=== PATIENT | female | born 1965 | race Caucasian/White ===

== ENCOUNTER → 2020-09-12 09:49 | Outpatient (BNVA) | payer OTHER, SELFPAY | PROVIDERS: PCP Family Medicine; Referring Provider Family Medicine; Visit Provider Internal Medicine | DX: E03.9 Hypothyroidism, unspecified (principal); E55.9 Vitamin D deficiency, unspecified; E04.9 Nontoxic goiter, unspecified; Z88.5 Allergy status to narcotic agent; Z88.2 Allergy status to sulfonamides; Z88.8 Allergy status to other drugs, medicaments and biological substances; Z79.899 Other long term (current) drug therapy | CPT/HCPCS: 99202 ==

== ENCOUNTER 2020-10-22 07:48 | Outpatient (REF) | payer OTHER, SELFPAY ==
--- NOTE | 2020-10-22 07:53 | US_ITS ---
EXAMINATION: US THYROID CLINICAL INFORMATION: Nontoxic goiter, unspecified. COMPARISON: None. TECHNIQUE: Linear transducer myers-scale and color Doppler examination with attention to the region of the thyroid. FINDINGS: SIZE: Measurements of the thyroid lobes and nodules are given in sagittal, anteroposterior and transverse dimensions respectively. Right Thyroid Lobe: 3.43 x 1.52 x 0.90 cm, volume 2.45 mL. Parenchyma: The gland echotexture is heterogeneous. Thyroid vascularity is normal. Left Thyroid Lobe: 2.72 x 0.91 x 0.93 cm, volume 1.2 mL. Parenchyma: The gland echotexture is heterogeneous. Thyroid vascularity is normal. Isthmus: 0.29 cm in maximum AP dimension. RIGHT THYROID LOBE: No nodules. ISTHMUS: No nodules. LEFT THYROID LOBE: No nodules. NODES: No lymphadenopathy is seen in the tissue surrounding the thyroid gland. US/US thyroid IMPRESSION: Small bilateral thyroid lobes. No nodules seen.
[2020-10-22 11:04] LABS: Free T4 (Free Thyroxine) 1.38 ng/dL (0.71-1.85); Thyroid Stimulating Hormone 1.26 uIU/mL (0.32-4.0); Vitamin D 25-OH Total 29.1 ng/mL (>30)
[2020-10-23 08:57] LABS: Triiodothyronine T3 Total 66 ng/dL (76-181)
[2020-10-23 11:17] LABS: Thyroglobulin Antibodies 1 IU/mL (< or = 1)
[2020-10-23 17:33] LABS: Thyroid Peroxidase Antibodies 874 IU/mL (<9)
[2020-10-27 23:57] LABS: FT4 by Equilib. Dialysis 2.2 ng/dL (0.9-2.2)
== END 2020-10-22 07:49 | disposition home or self-care (01) ==
LOC: HO.US 07:48
PROVIDERS: PCP Family Medicine; Visit Provider Internal Medicine
DX: E55.9 Vitamin D deficiency, unspecified (principal); E03.9 Hypothyroidism, unspecified; E04.9 Nontoxic goiter, unspecified
CPT/HCPCS: 36415; 76536; 82306; 84439; 84443; 84480; 86376; 86800

== ENCOUNTER → 2020-10-24 11:02 | Outpatient (BNVA) | payer OTHER, SELFPAY | PROVIDERS: PCP Family Medicine; Referring Provider Family Medicine; Visit Provider Internal Medicine | DX: Z76.89 Persons encountering health services in other specified circumstances (principal) ==

== ENCOUNTER 2021-01-09 09:59 | Inpatient (IN) | payer OTHER, SELFPAY ==
--- NOTE | 2021-01-09 | ECG_ITS ---
Test Reason : CHEST PAIN Blood Pressure : / mmHG Vent. Rate : 084 BPM Atrial Rate : 084 BPM P-R Int : 148 ms QRS Dur : 088 ms QT Int : 388 ms P-R-T Axes : 067 041 075 degrees QTc Int : 458 ms Normal sinus rhythm Possible Left atrial enlargement Borderline ECG When compared with ECG of 01-OCT-2019 15:00, Vent. rate has increased BY 31 BPM Non-specific change in ST segment in Anterior leads T wave inversion no longer evident in Lateral leads Referred By: Elvia Olguin Electronically Signed By:JOSE LARSON
--- NOTE | ~2021-01-09 | XR_ITS ---
EXAMINATION: XR CHEST CLINICAL INFORMATION: Dyspnea COMPARISON: None TECHNIQUE: Frontal view of the chest was obtained. FINDINGS: The lungs are well-expanded and clear. The heart size and pulmonary vascularity is normal. There is moderate spondylosis of dorsal spine. No lytic process seen. XR/XR chest 1V IMPRESSION: Unremarkable chest exam.
[2021-01-09 10:05] VITALS: BP 140/82; BP 160/92; PULSE 87; PULSE 92; RESP 13; TEMP 36.8; O2SAT 94; O2SAT 96; BMI 25.3
--- NOTE | 2021-01-09 10:19 | PC.NURSE ---
pt is a/o x 3 nos ob/tiffanie noted skin pink warm dry speaks in full sentences. pt appears slightly anxious. no swelling to lower ext noted. hx of psorasis to merle lower ext. seen by dr. newby pt aware of plan of care.
[2021-01-09] MEDS: clonazePAM 1 MG TABLET PO ×2 (10:30→22:29)
--- NOTE | 2021-01-09 10:30 | ED_ITS ---
HPI - Chest Pain General Chief Complaint: Chest Pain Stated Complaint: CHEST PAIN Time Seen by Provider: 01/09/21 10:19 Source: patient and EMS Mode of arrival: EMS Limitations: no limitations History of Present Illness HPI narrative: under significant stress now due to housing issues complaint: chest pain Pertinent past history: other (stress induced cardiomyopathy 6 years ago notes her cardiac cath was normal ) Onset (ago): hour(s) (started around 9am) Timing of current episode: now resolved Prior episodes: Yes Onset: during rest Pain location: left chest Pain radiation: left arm Severity: moderate Quality: sharp Relieving factors: nothing Exacerbating factors: nothing Associated symptoms: nausea Treatment prior to arrival: aspirin Related Data Home Medications Medication Instructions Recorded Confirmed buprenorphine 12 mg-naloxone 3 mg 1 film SUBLINGUAL DAILY 08/24/20 01/09/21 sublingual film clonazepam 1 mg tablet 1 mg PO TID 08/24/20 01/09/21 zolpidem 5 mg tablet 5 mg PO BEDTIME 10/24/20 01/09/21 lurasidone 60 mg tablet 60 mg PO DAILY 12/24/20 01/09/21 Previous Rx's Medication Instructions Recorded sertraline 100 mg tablet 100 mg PO DAILY 30 Days #30 tab 09/10/20 levothyroxine 150 mcg tablet 150 mcg PO DAILY 30 Days #30 tab 11/05/20 hzfmmcrtdc-vgpavisdhgruf-qygwpvbi 1 cap PO Q6H PRN #10 cap 11/15/20 50 mg-300 mg-40 mg capsule clonidine HCl 0.1 mg tablet 0.2 mg PO BID 30 Days #120 tab 11/15/20 pantoprazole 40 mg tablet,delayed 40 mg PO DAILY 30 Days #30 tab 11/15/20 release Allergies Allergy/AdvReac Type Severity Reaction Status Date / Time aspirin Allergy Intermediate stomach Verified 11/15/20 09:43 upset codeine [CODEINE] Allergy Intermediate itching Verified 11/15/20 09:43 NSAIDS (Non-Steroidal Allergy Mild stomach Verified 11/15/20 09:43 Anti-Inflamma upset [NSAIDS (NON-STEROIDAL ANTI-INFLAMMA] Sulfa (Sulfonamide Allergy Mild Rash Verified 11/15/20 09:43 Antibiotics) [SULFA(SULFONAMIDE ANTIBIOTICS)] Review of Systems Review of Systems: Constitutional : No Weight loss, No Fever, No Chills ENT/Mouth : No sore throat, No Rhinorrhea Eyes: No Eye Pain, No Swelling Cardiovascular : pos Chest Pain, no SOB, no Dyspnea on Exertion, No Orthopnea, No Edema, No Palpitations Respiratory : No Cough, No Sputum Gastrointestinal : pos Nausea, No Vomiting, No Diarrhea, No abdominal Pain, No Hematochezia, No Melena Genitourinary : No Dysuria, No Urinary Frequency Musculoskeletal : No joint pain, No Myalgias, No Joint Swelling Skin : No Skin Lesions, No rash Neuro : No Weakness, No Numbness, No Dizziness, No Headache Psych : No Anxiety/Panic, No Depression Heme/Lymph: No Bruising, No Lymphadenopathy Endocrine : No Polyuria, No Polydipsia All other systems reviewed and are negative [facility] Past Medical History Attestation statement: The following information was validated with the patient. Medical History (Updated 01/09/21 @ 15:21 by Elvia Olguin DO) Hypothyroidism Obesity Takotsubo cardiomyopathy Vitamin D deficiency Surgical History History of elbow surgery History of hysterectomy History of removal of cervix but not uterus History of shoulder surgery Family History Family History Sister Hypothyroidism Social History Social History Alcohol intake: never Smoking Status: Light tobacco smoker Tobacco Type: Cigarette Years Smoked: 20 Use of substances other than those prescribed or required for medical reasons: No Advance Directives: No Advance Directives Information Provided: No Physical Exam Vital Signs: Vital Signs: Last Vital Signs Temp 98.5 F 01/09/21 12:36 Pulse 87 01/09/21 13:39 Resp 16 01/09/21 13:39 BP 122/87 01/09/21 13:39 Pulse Ox 98 01/09/21 13:39 Body Mass Index 25.3 Appearance: Alert. Oriented X3. No acute distress. Anxious Eyes: Pupils equal, round and reactive to light. ENT: Pharynx normal. Neck: Normal inspection. Neck supple. CVS: Normal heart rate and rhythm. Pulses normal. Respiratory: No respiratory distress. Breath sounds normal. Abdomen: Soft and nontender. Skin: Skin warm and dry. Normal skin color. Normal skin turgor. Extremities: No lower extremity edema. No calf ttp Neuro: Oriented X 3. No motor deficit. No sensory deficit. Course Course Course Narrative: has been pain free troponin repeat elevated , statin and heparin gtt ordered, will discuss with Cardiology has been pain free since arrival in ED 301pm patient denies chest pain just states she is anxious and hungry per dr. garcia heparin gtt and ECHO will admit sent troponin and 2 EKGs from visit today MDM - Chest Pain MDM Narrative Medical decision making narrative: 55 yo female hx of HTN, hypothyroidism, chronic R hip pain, hx of Takotsubo cardiomyopathy - here with chest pain onset at rest 9am sharp in nature, nauseated, given asa by EMS - pain gone now will need labs, CXR, ddimer, troponin x 2, dispo per results and findings. Lab Data Result diagrams: 01/09/21 10:54 01/09/21 10:54 Labs: Lab Results 01/09/21 01/09/21 01/09/21 Range/Units 10:53 10:53 10:54 WBC 9.1 (4.8-10.8) X10*3/uL RBC 4.41 (4.20-5.50) X10*6/uL Hgb 13.6 (12.0-16.0) g/dl Hct 40.8 (37-47) % MCV 92.5 (80-98) fL MCH 30.8 (27.0-33.0) pg MCHC 33.3 (31.0-35.0) g/dl RDW 13.5 (11.0-16.0) % Plt Count 350 (160-400) X10*3/uL MPV 9.4 (9.4-12.3) fL Immature Gran % (Auto) 0.3 (0.0-0.4) % Neut % (Auto) 72.4 (45-73) % Lymph % (Auto) 17.3 L (20-40) % [place] % (Auto) 6.0 (2-11) % Eos % (Auto) 2.9 (0-4) % Baso % (Auto) 1.1 (0-2) % Lymph # (Auto) 1.6 (1.2-4.9) X10*3/uL [place] # (Auto) 0.5 (0.1-1.2) X10*3/uL Eos # (Auto) 0.3 (0.0-0.4) X10*3/uL Baso # (Auto) 0.1 (0.0-0.2) X10*3/uL Abs Immat Gran (auto) 0.03 (0.00-0.03) X10*3/uL Absolute Neuts (auto) 6.6 (2.0-8.3) X10*3/uL Absolute Nucleated RBC 0.000 (0.0-0.012) X10*3/uL Nucleated RBC % (auto) 0.0 (0.0-0.2) /100WBC PT (10.8-13.0) SEC INR (0.9-1.1) APTT (24.1-38.0) SEC D-Dimer NG/ML Sodium (135-145) mmol/L Potassium (3.3-5.1) mmol/L Chloride (96-108) mmol/L Carbon Dioxide (22-29) mmol/L Anion Gap (12-20) BUN (9-16) mg/dL Creatinine (0.5-1.4) mg/dL Estim Creat Clear Calc Estimated GFR Random Glucose (60-115) mg/dL Calcium (8.4-10.2) mg/dL Magnesium (1.6-2.6) mg/dL Troponin I High Sens 13.1 (<3.5-17.0) ng/L B-Natriuretic Peptide (<100) pg/mL Lipase (8-78) U/L COVID-19 ([facility]) Negative (Negative) COVID-19 Clin Com See Note 01/09/21 01/09/21 01/09/21 Range/Units 10:54 10:54 10:54 WBC (4.8-10.8) X10*3/uL RBC (4.20-5.50) X10*6/uL Hgb (12.0-16.0) g/dl Hct (37-47) % MCV (80-98) fL MCH (27.0-33.0) pg MCHC (31.0-35.0) g/dl RDW (11.0-16.0) % Plt Count (160-400) X10*3/uL MPV (9.4-12.3) fL Immature Gran % (Auto) (0.0-0.4) % Neut % (Auto) (45-73) % Lymph % (Auto) (20-40) % [place] % (Auto) (2-11) % Eos % (Auto) (0-4) % Baso % (Auto) (0-2) % Lymph # (Auto) (1.2-4.9) X10*3/uL [place] # (Auto) (0.1-1.2) X10*3/uL Eos # (Auto) (0.0-0.4) X10*3/uL Baso # (Auto) (0.0-0.2) X10*3/uL Abs Immat Gran (auto) (0.00-0.03) X10*3/uL Absolute Neuts (auto) (2.0-8.3) X10*3/uL Absolute Nucleated RBC (0.0-0.012) X10*3/uL Nucleated RBC % (auto) (0.0-0.2) /100WBC PT (10.8-13.0) SEC INR (0.9-1.1) APTT (24.1-38.0) SEC D-Dimer NG/ML Sodium 138 (135-145) mmol/L Potassium 4.6 (3.3-5.1) mmol/L Chloride 102 (96-108) mmol/L Carbon Dioxide 25 (22-29) mmol/L Anion Gap 16 (12-20) BUN 14 (9-16) mg/dL Creatinine 0.99 (0.5-1.4) mg/dL Estim Creat Clear Calc 58.1 Estimated GFR 58 Random Glucose 93 (60-115) mg/dL Calcium 8.8 (8.4-10.2) mg/dL Magnesium 2.0 (1.6-2.6) mg/dL Troponin I High Sens (<3.5-17.0) ng/L B-Natriuretic Peptide 318 H (<100) pg/mL Lipase 21 (8-78) U/L COVID-19 ([facility]) (Negative) COVID-19 Clin Com 01/09/21 01/09/21 Range/Units 11:25 13:52 WBC (4.8-10.8) X10*3/uL RBC (4.20-5.50) X10*6/uL Hgb (12.0-16.0) g/dl Hct (37-47) % MCV (80-98) fL MCH (27.0-33.0) pg MCHC (31.0-35.0) g/dl RDW (11.0-16.0) % Plt Count (160-400) X10*3/uL MPV (9.4-12.3) fL Immature Gran % (Auto) (0.0-0.4) % Neut % (Auto) (45-73) % Lymph % (Auto) (20-40) % [place] % (Auto) (2-11) % Eos % (Auto) (0-4) % Baso % (Auto) (0-2) % Lymph # (Auto) (1.2-4.9) X10*3/uL [place] # (Auto) (0.1-1.2) X10*3/uL Eos # (Auto) (0.0-0.4) X10*3/uL Baso # (Auto) (0.0-0.2) X10*3/uL Abs Immat Gran (auto) (0.00-0.03) X10*3/uL Absolute Neuts (auto) (2.0-8.3) X10*3/uL Absolute Nucleated RBC (0.0-0.012) X10*3/uL Nucleated RBC % (auto) (0.0-0.2) /100WBC PT 11.4 (10.8-13.0) SEC INR 1.0 (0.9-1.1) APTT 39.4 H (24.1-38.0) SEC D-Dimer < 200 NG/ML Sodium (135-145) mmol/L Potassium (3.3-5.1) mmol/L Chloride (96-108) mmol/L Carbon Dioxide (22-29) mmol/L Anion Gap (12-20) BUN (9-16) mg/dL Creatinine (0.5-1.4) mg/dL Estim Creat Clear Calc Estimated GFR Random Glucose (60-115) mg/dL Calcium (8.4-10.2) mg/dL Magnesium (1.6-2.6) mg/dL Troponin I High Sens 111.6 H D (<3.5-17.0) ng/L B-Natriuretic Peptide (<100) pg/mL Lipase (8-78) U/L COVID-19 ([facility]) (Negative) COVID-19 Clin Com ECG Data ECG #1: Attestation: I personally reviewed and interpreted this ECG as follows: ECG interpretation date: 01/09/21 ECG interpretation time: 10:31 Interpretation: Rate: 84 Rhythm: NSR [place]: normal Normal P waves. Normal HUONG. Normal QRS complex. ST T wave : nonspecific, no JYOTI, artifact qTC: normal prior studies: no acute ischemia The study has been interpreted contemporaneously by me. . ECG #2: Attestation: I personally reviewed and interpreted this ECG as follows: ECG interpretation date: 01/09/21 ECG interpretation time: 15:09 Interpretation: Rate: 92 Rhythm: NSR [place]: normal Normal P waves. Normal HUONG. Normal QRS complex. ST T wave : iverted V2-V6 as well as 1 an aVL, II, no JYOTI qTC: normal prior studies: changed from prior The study has been interpreted contemporaneously by me. . Discharge Plan Discharge Clinical Impression: Elevated troponin, Inverted T wave Chest pain Qualifiers: Chest pain type: unspecified Qualified Code(s): R07.9 - Chest pain, unspecified Patient Disposition: Admitted As Inpatient
[2021-01-09 11:02] LABS: MANUAL DIFF FLAG NO
[2021-01-09 11:03] LABS: Basophils Absolute Auto 0.1 X10*3/uL (0.0-0.2); Basophils Percent Auto 1.1 % (0-2); Eosinophils Absolute Auto 0.3 X10*3/uL (0.0-0.4); Eosinophils Percent Auto 2.9 % (0-4); Hematocrit 40.8 % (37-47); Hemoglobin 13.6 g/dl (12.0-16.0); Imm Gran Abs Auto 0.03 X10*3/uL (0.00-0.03); Imm Gran Pct Auto 0.3 % (0.0-0.4); Lymphocytes Absolute Auto 1.6 X10*3/uL (1.2-4.9); Lymphocytes Percent Auto 17.3 % (20-40); Mean Corpuscular HGB Conc 33.3 g/dl (31.0-35.0); Mean Corpuscular Hemoglobin 30.8 pg (27.0-33.0); Mean Corpuscular Volume 92.5 fL (80-98); Mean Platelet Volume 9.4 fL (9.4-12.3); Monocytes Absolute Auto 0.5 X10*3/uL (0.1-1.2); Neutrophils Absolute Auto 6.6 X10*3/uL (2.0-8.3); Neutrophils Percent Auto 72.4 % (45-73); Platelet Count 350 X10*3/uL (160-400); Red Blood Count 4.41 X10*6/uL (4.20-5.50); Red Cell Distribution Width 13.5 % (11.0-16.0); White Blood Count 9.1 X10*3/uL (4.8-10.8)
[2021-01-09 11:27] LABS: COVID-19 Test Negative (Negative); IDNOW Serial# 9DD0AD1C
[2021-01-09 11:34] LABS: Anion Gap 16 (12-20); Blood Urea Nitrogen 14 mg/dL (9-16); Calcium 8.8 mg/dL (8.4-10.2); Carbon Dioxide 25 mmol/L (22-29); Chloride 102 mmol/L (96-108); Creatinine Clr Calc Pharmacy 58.1; Estimated Glomerular Filt Rate 58; Glucose Random 93 mg/dL (60-115); Lipase 21 U/L (8-78); Potassium 4.6 mmol/L (3.3-5.1); Sodium 138 mmol/L (135-145)
[2021-01-09 11:37] LABS: Troponin-I High Sensitivity 13.1 ng/L (<3.5-17.0)
[2021-01-09 11:37] LABS: B Type Natriuretic Peptide 318 pg/mL (<100)
[2021-01-09 11:43] LABS: Prothrombin Time 11.4 SEC (10.8-13.0)
[2021-01-09 11:45] LABS: Partial Thromboplastin Time 39.4 SEC (24.1-38.0)
[2021-01-09 11:46] LABS: D Dimer < 200 NG/ML
--- NOTE | 2021-01-09 12:00 | ECG_ITS ---
Test Reason : chest pain, repeat Blood Pressure : / mmHG Vent. Rate : 092 BPM Atrial Rate : 092 BPM P-R Int : 142 ms QRS Dur : 084 ms QT Int : 388 ms P-R-T Axes : 058 010 130 degrees QTc Int : 479 ms Normal sinus rhythm Possible Left atrial enlargement T wave abnormality, consider inferior ischemia T wave abnormality, consider anterolateral ischemia Prolonged QT Abnormal ECG When compared with ECG of 09-JAN-2021 10:11, T wave inversion now evident in Inferior leads T wave inversion now evident in Anterolateral leads Referred By: Elvia Olguin Electronically Signed By:JOSE LARSON
[2021-01-09 12:36] VITALS: BP 135/86; PULSE 86; RESP 18; TEMP 36.9; O2SAT 95
[2021-01-09 13:39] VITALS: BP 122/87; PULSE 87; RESP 16; O2SAT 98
[2021-01-09 14:48] LABS: Troponin-I High Sensitivity 111.6 ng/L (<3.5-17.0)
[2021-01-09] MEDS: Heparin Sodium,Porcine 5,000 UNIT/ML VIAL 3900 UNIT IVPUSH (15:17)
[2021-01-09] MEDS: Atorvastatin Calcium 80 MG TABLET PO (15:17)
[2021-01-09] MEDS: Heparin Sodium,Porcine/1/2NS 25,000 UNIT/250 ML IV.SOLN 9.08 UNIT IVCONT (15:23)
[2021-01-09] MEDS: LORazepam 1 MG TABLET PO (15:46)
--- NOTE | 2021-01-09 16:50 | PM.EVENT ---
Event Note Date of Service: 01/09/21 Event Note: Patient seen and examined independently and was present during hammond portion of E/M service. Agree with midlevel's history, physical, assessment, and plan. 55F presented with chest pain, found to have elevated troponins NSTEMI iv heparin, cardio eval
[2021-01-09 19:11] VITALS: BP 147/89; PULSE 83; RESP 19; TEMP 37; O2SAT 97
--- NOTE | 2021-01-09 19:26 | HP_ITS ---
DATE OF SERVICE: 01/09/2021 CHIEF COMPLAINT: Chest pain. HISTORY OF PRESENT ILLNESS: A 55-year-old woman presenting to the ER with complaints of chest pain that started at 9:00 a.m. this morning. She reports she was sitting down, about to have her coffee when she started having 8/10 sharp pain that radiated from her right arm to the middle of her chest with associated nausea and sweating. She reports that this lasted until she got into the ambulance. She reports history in the past of this where she was diagnosed with Takotsubo. She had chest pain. Had a cardiac cath, which was clean and had not follow up with any Cardiology since then. She reports that she does continue to smoke about 2-5 cigarettes a day, does not drink alcohol or do drugs. She reports she has been under increased stress recently because she lives with her sister and her [id number] and has been having some issues with the family dynamics. She denied recent illness, fever, chills, vomiting, diarrhea. In the ER, initial troponin was noted to be 13.1, however, repeat troponin was 111.6 with BNP of 318. However, the patient did not appear to be in heart failure. Coronavirus PCR was negative. Chest x-ray was negative for any consolidation or effusion. EKG did show ST wave abnormalities with inverted T-waves. In the ER, she was given statin, Klonopin. She was started on IV heparin. She will be admitted for further management and treatment of NSTEMI. PAST MEDICAL HISTORY: 1. History of stress-induced cardiomyopathy with clean catheterization. 2. Anxiety. 3. Depression. 4. Hypothyroidism. 5. Chronic hip pain on Suboxone. 6. Hypertension. PAST SURGICAL HISTORY: Hysterectomy. SOCIAL HISTORY: Smokes 2-5 cigarettes a day. Denies alcohol or illicit drug use. FAMILY HISTORY: Denies any cardiac disease. ALLERGIES: ALLERGIES TO ASPIRIN, CODEINE, NSAIDS, AND SULFA. MEDICATIONS: 1. Buprenorphine 12 mg one film sublingually daily. 2. Fioricet 1 cap p.o. q.6 hours p.r.n. 3. Klonopin 1 mg p.o. t.i.d. 4. Clonidine 0.2 mg p.o. b.i.d. 5. Levothyroxine 150 mcg p.o. daily. 6. Latuda 60 mg p.o. daily. 7. Pantoprazole sodium 40 mg p.o. daily. 8. Sertraline 100 mg p.o. daily. 9. 5 mg p.o. at bedtime. LABORATORY DATA: WBC 9.1, hemoglobin 13.6, hematocrit 40.8, and platelets 350. Sodium is 138, potassium 4.6, chloride is 102, bicarb is 25, BUN is 14, creatinine 0.99. Troponin 13.1, 111.6, BNP 318. COVID-19 negative. Chest x-ray negative for consolidation or effusion. REVIEW OF SYSTEMS: CONSTITUTIONAL: Denies recent fever, chills, decrease in appetite. RESPIRATORY: Denies any shortness of breath, cough, or sputum production. CARDIOVASCULAR: See HPI. GASTROINTESTINAL: Denies any dysphagia, abdominal pain, vomiting, or diarrhea. GENITOURINARY: Denies any dysuria, frequency, hematuria. MUSCULOSKELETAL: Denies any joint pain or swelling. NEUROPSYCH: Denies any weakness, seizures. All other systems are reviewed and are negative. PHYSICAL EXAMINATION: CONSTITUTIONAL: Resting in bed. No acute distress. VITAL SIGNS: 98.5, 87, 16, 122/87, 98% on room air. SKIN: Intact without rash or open sores. HEENT: Head is normocephalic, atraumatic. Eyes, pupils are PERRLA. Sclerae anicteric. Mouth and Throat: Mucous membranes are intact and moist. NECK: Supple. No lymphadenopathy. No JVD noted. CHEST: Clear to auscultation without wheezes, rhonchi, or rales. HEART: Regular rate and rhythm. Clear S1, S2. No murmurs, rubs, or gallops. ABDOMEN: Positive bowel sounds. Soft, nontender. No hepatomegaly or splenomegaly noted. NEURO: Patient is alert and oriented x3. Cranial nerves II through XII are grossly intact without focal deficits. ASSESSMENT AND PLAN: A 55-year-old woman admitted with chest pain seeming to be related to non-ST segment elevation myocardial infarction. She has a history of stress-induced cardiomyopathy in the past with a clean cardiac catheterization. She was started on IV heparin while in the ER, received aspirin and statin. We will continue to treat, have her follow up with Cardiology and continue IV heparin at least 48 hours. We will also obtain an echocardiogram. Continue aspirin and statin as well. 1. Non-ST segment elevation myocardial infarction. We will monitor on telemetry. Repeat troponin this evening and trend for the morning. Continue IV heparin, EKG this evening as well. Cardiology to follow, echocardiogram. Aspirin and statin. 2. Hypertension. Continue clonidine. 3. Hypothyroidism. Continue levothyroxine. 4. Anxiety and depression. Continue home medications. 5. Chronic hip pain. Continue Suboxone. 6. Deep vein thrombosis prophylaxis with IV heparin. 7. PPI. 8. Full code. ANITA Jimenez MD JR/CHRISTYL / [id number]
[2021-01-09] MEDS: Atorvastatin Calcium 40 MG TABLET PO (22:29)
[2021-01-09] MEDS: Zolpidem Tartrate 5 MG TABLET PO (22:30)
[2021-01-09 23:18] LABS: PTT Heparin Drip > 200.0 SEC (53-77.9)
[2021-01-09 23:21] LABS: Troponin-I High Sensitivity 225.1 ng/L (<3.5-17.0)
[2021-01-09 23:27] VITALS: BP 119/77; PULSE 84; RESP 18; TEMP 36.9; O2SAT 98
[2021-01-10 00:30] LABS: PTT Heparin Drip 69.7 SEC (53-77.9)
[2021-01-10 04:00] VITALS: BP 167/94; PULSE 78; RESP 18; TEMP 36.8; O2SAT 93
[2021-01-10] MEDS: Omeprazole 20 MG CAPSULE.DR PO (06:33)
[2021-01-10 07:07] LABS: MANUAL DIFF FLAG NO
[2021-01-10 07:10] LABS: Basophils Absolute Auto 0.1 X10*3/uL (0.0-0.2); Basophils Percent Auto 1.3 % (0-2); Eosinophils Absolute Auto 0.3 X10*3/uL (0.0-0.4); Eosinophils Percent Auto 3.7 % (0-4); Hemoglobin 13.6 g/dl (12.0-16.0); Imm Gran Abs Auto 0.02 X10*3/uL (0.00-0.03); Imm Gran Pct Auto 0.2 % (0.0-0.4); Lymphocytes Absolute Auto 2.2 X10*3/uL (1.2-4.9); Lymphocytes Percent Auto 25.3 % (20-40); Mean Corpuscular Hemoglobin 31.1 pg (27.0-33.0); Mean Corpuscular Volume 91.5 fL (80-98); Mean Platelet Volume 9.5 fL (9.4-12.3); Monocytes Absolute Auto 0.6 X10*3/uL (0.1-1.2); Monocytes Percent Auto 7.1 % (2-11); Neutrophils Absolute Auto 5.4 X10*3/uL (2.0-8.3); Neutrophils Percent Auto 62.4 % (45-73); Platelet Count 340 X10*3/uL (160-400); Red Blood Count 4.37 X10*6/uL (4.20-5.50); Red Cell Distribution Width 13.5 % (11.0-16.0); White Blood Count 8.7 X10*3/uL (4.8-10.8)
[2021-01-10 07:21] LABS: PTT Heparin Drip 78.4 SEC (53-77.9)
[2021-01-10 07:24] VITALS: BP 151/101; PULSE 74; RESP 15; TEMP 36.9; O2SAT 98
[2021-01-10 07:52] LABS: Anion Gap 13 (12-20); Blood Urea Nitrogen 12 mg/dL (9-16); Calcium 8.8 mg/dL (8.4-10.2); Carbon Dioxide 27 mmol/L (22-29); Chloride 104 mmol/L (96-108); Creatinine Clr Calc Pharmacy 69.4; Estimated Glomerular Filt Rate > 60; Glucose Random 89 mg/dL (60-115); Potassium 4.6 mmol/L (3.3-5.1); Sodium 139 mmol/L (135-145)
[2021-01-10 08:19] LABS: Troponin-I High Sensitivity 102.3 ng/L (<3.5-17.0)
[2021-01-10] MEDS: cloNIDine HCL 0.1 MG TABLET 0.2 MG PO (08:29)
[2021-01-10] MEDS: Lurasidone HCl 20 MG TABLET 60 MG PO (08:29)
[2021-01-10] MEDS: Sertraline HCL 100 MG TABLET PO (08:29)
[2021-01-10] MEDS: Levothyroxine Sodium 150 MCG TABLET PO (08:30)
[2021-01-10] MEDS: Buprenorphine/Naloxone 12/3 mg FILM 1 FILM SUBLINGUAL (08:30)
[2021-01-10] MEDS: Aspirin 81 MG TAB.CHEW PO (08:30)
[2021-01-10] MEDS: clonazePAM 1 MG TABLET PO (08:30)
--- NOTE | 2021-01-10 09:26 | P.DS_ITS ---
DS: Providers Provider Date of Service: 01/10/21 Date of admission: 01/09/21 18:06 Primary care physician: Ney Cole MD Consults: 01/09/21 18:06 Consult to Cardiology Routine Consulting Provider: Shaka Lr Reason for consultation: nstemi Has provider been notified: No DS: Diagnosis Discharge Diagnosis (1) NSTEMI (non-ST elevated myocardial infarction): Status: Acute DS: Medications Discharge Medications Home Medications: Home Medications Medication Instructions Recorded Confirmed buprenorphine 12 mg-naloxone 3 mg 1 film SUBLINGUAL DAILY 08/24/20 01/09/21 sublingual film clonazepam 1 mg tablet 1 mg PO TID 08/24/20 01/09/21 zolpidem 5 mg tablet 5 mg PO BEDTIME 10/24/20 01/09/21 lurasidone 60 mg tablet 60 mg PO DAILY 12/24/20 01/09/21 Previous Rx's Medication Instructions Recorded sertraline 100 mg tablet 100 mg PO DAILY 30 Days #30 tab 09/10/20 levothyroxine 150 mcg tablet 150 mcg PO DAILY 30 Days #30 tab 11/05/20 ihizlfdqdz-xolliddtoinju-eugbwbgp 1 cap PO Q6H PRN #10 cap 11/15/20 50 mg-300 mg-40 mg capsule clonidine HCl 0.1 mg tablet 0.2 mg PO BID 30 Days #120 tab 11/15/20 pantoprazole 40 mg tablet,delayed 40 mg PO DAILY 30 Days #30 tab 11/15/20 release DS: Summary Hospital Course Hospital Course: Patient was admitted for an NSTEMI. She was given IV heparin, aspirin. She was seen by Cardiology who recommended transfer to [facility] for cardiac catheterization. Patient's chest pain has resolved. High sensitivity Troponin has peaked at 225 Time Spent with Patient Time attestation: Total time spent providing and/or coordinating discharge services: Discharge coordination time: Greater than 30 minutes Physical Exam Vital Signs: Vital Signs: Last Vital Signs Temp 98.4 F 01/10/21 07:24 Pulse 74 01/10/21 07:24 Resp 15 01/10/21 07:24 BP 151/101 H 01/10/21 07:24 Pulse Ox 98 01/10/21 07:24 Body Mass Index 25.3 General: AO X 3, no acute distress Resp: CTA bilateral CVS: S1,S2,RRR GI: soft, non tender, non distended Neuro: motor grossly intact Psych: appropriate affect DS: Data Data Completed and Pending Labs on day of discharge: Laboratory Results - last 24 hr 01/09/21 01/09/21 01/09/21 10:53 10:53 10:54 WBC 9.1 RBC 4.41 Hgb 13.6 Hct 40.8 MCV 92.5 MCH 30.8 MCHC 33.3 RDW 13.5 Plt Count 350 MPV 9.4 Immature Gran % (Auto) 0.3 Neut % (Auto) 72.4 Lymph % (Auto) 17.3 L [place] % (Auto) 6.0 Eos % (Auto) 2.9 Baso % (Auto) 1.1 Lymph # (Auto) 1.6 [place] # (Auto) 0.5 Eos # (Auto) 0.3 Baso # (Auto) 0.1 Abs Immat Gran (auto) 0.03 Absolute Neuts (auto) 6.6 Absolute Nucleated RBC 0.000 Nucleated RBC % (auto) 0.0 PT INR APTT PTT (Heparin Protocol) D-Dimer Sodium Potassium Chloride Carbon Dioxide Anion Gap BUN Creatinine Estim Creat Clear Calc Estimated GFR Random Glucose Calcium Magnesium Troponin I High Sens 13.1 B-Natriuretic Peptide Lipase COVID-19 ([facility]ORE) Negative COVID-TrustYou See Note 01/09/21 01/09/21 01/09/21 10:54 10:54 10:54 WBC RBC Hgb Hct MCV MCH MCHC RDW Plt Count MPV Immature Gran % (Auto) Neut % (Auto) Lymph % (Auto) [place] % (Auto) Eos % (Auto) Baso % (Auto) Lymph # (Auto) [place] # (Auto) Eos # (Auto) Baso # (Auto) Abs Immat Gran (auto) Absolute Neuts (auto) Absolute Nucleated RBC Nucleated RBC % (auto) PT INR APTT PTT (Heparin Protocol) D-Dimer Sodium 138 Potassium 4.6 Chloride 102 Carbon Dioxide 25 Anion Gap 16 BUN 14 Creatinine 0.99 Estim Creat Clear Calc 58.1 Estimated GFR 58 Random Glucose 93 Calcium 8.8 Magnesium 2.0 Troponin I High Sens B-Natriuretic Peptide 318 H Lipase 21 COVID-19 ([facility]ORE) COVID-Kelly Van Gogh Hair Colour Com 01/09/21 01/09/21 01/09/21 11:25 13:52 22:26 WBC RBC Hgb Hct MCV MCH MCHC RDW Plt Count MPV Immature Gran % (Auto) Neut % (Auto) Lymph % (Auto) [place] % (Auto) Eos % (Auto) Baso % (Auto) Lymph # (Auto) [place] # (Auto) Eos # (Auto) Baso # (Auto) Abs Immat Gran (auto) Absolute Neuts (auto) Absolute Nucleated RBC Nucleated RBC % (auto) PT 11.4 INR 1.0 APTT 39.4 H PTT (Heparin Protocol) D-Dimer < 200 Sodium Potassium Chloride Carbon Dioxide Anion Gap BUN Creatinine Estim Creat Clear Calc Estimated GFR Random Glucose Calcium Magnesium Troponin I High Sens 111.6 H D 225.1 H D B-Natriuretic Peptide Lipase COVID-19 ([facility]) COVID-TrustYou 01/09/21 01/10/21 01/10/21 22:26 00:15 07:00 WBC RBC Hgb Hct MCV MCH MCHC RDW Plt Count MPV Immature Gran % (Auto) Neut % (Auto) Lymph % (Auto) [place] % (Auto) Eos % (Auto) Baso % (Auto) Lymph # (Auto) [place] # (Auto) Eos # (Auto) Baso # (Auto) Abs Immat Gran (auto) Absolute Neuts (auto) Absolute Nucleated RBC Nucleated RBC % (auto) PT INR APTT PTT (Heparin Protocol) > 200.0 H* 69.7 D D-Dimer Sodium Potassium Chloride Carbon Dioxide Anion Gap BUN Creatinine Estim Creat Clear Calc Estimated GFR Random Glucose Calcium Magnesium Troponin I High Sens 102.3 H D B-Natriuretic Peptide Lipase COVID-19 ([facility]ORE) COVID-[employer]You 01/10/21 01/10/21 01/10/21 07:00 07:00 07:00 WBC 8.7 RBC 4.37 Hgb 13.6 Hct 40.0 MCV 91.5 MCH 31.1 MCHC 34.0 RDW 13.5 Plt Count 340 MPV 9.5 Immature Gran % (Auto) 0.2 Neut % (Auto) 62.4 Lymph % (Auto) 25.3 [place] % (Auto) 7.1 Eos % (Auto) 3.7 Baso % (Auto) 1.3 Lymph # (Auto) 2.2 [place] # (Auto) 0.6 Eos # (Auto) 0.3 Baso # (Auto) 0.1 Abs Immat Gran (auto) 0.02 Absolute Neuts (auto) 5.4 Absolute Nucleated RBC 0.000 Nucleated RBC % (auto) 0.0 PT Cancelled INR Cancelled APTT PTT (Heparin Protocol) D-Dimer Sodium 139 Potassium 4.6 Chloride 104 Carbon Dioxide 27 Anion Gap 13 BUN 12 Creatinine 0.83 Estim Creat Clear Calc 69.4 Estimated GFR > 60 Random Glucose 89 Calcium 8.8 Magnesium Troponin I High Sens B-Natriuretic Peptide Lipase COVID-19 ([facility]) COVID-19 Clin Com 01/10/21 07:00 WBC RBC Hgb Hct MCV MCH MCHC RDW Plt Count MPV Immature Gran % (Auto) Neut % (Auto) Lymph % (Auto) [place] % (Auto) Eos % (Auto) Baso % (Auto) Lymph # (Auto) [place] # (Auto) Eos # (Auto) Baso # (Auto) Abs Immat Gran (auto) Absolute Neuts (auto) Absolute Nucleated RBC Nucleated RBC % (auto) PT 12.0 INR 1.0 APTT PTT (Heparin Protocol) 78.4 H D-Dimer Sodium Potassium Chloride Carbon Dioxide Anion Gap BUN Creatinine Estim Creat Clear Calc Estimated GFR Random Glucose Calcium Magnesium Troponin I High Sens B-Natriuretic Peptide Lipase COVID-19 ([facility]) COVID-19 Clin Com Discharge Plan Discharge Patient Disposition: Xf Acute [facility] Referrals: Ney Cole MD [Primary Care Provider] - Discharge Medications: Continued sertraline 100 mg tablet 100 mg PO DAILY 30 Days Qty: 30 RF: 1 levothyroxine 150 mcg tablet 150 mcg PO DAILY 30 Days Qty: 30 RF: 1 clonidine HCl 0.1 mg tablet 0.2 mg PO BID 30 Days Qty: 120 RF: 3 gyoerashsx-skbojzsdxnjja-plta 50-300-40 mg capsule 1 cap PO Q6H PRN (Reason: for headache) Qty: 10 RF: 0 pantoprazole 40 mg tablet,delayed release (DR/EC) 40 mg PO DAILY 30 Days Qty: 30 RF: 1 clonazepam 1 mg tablet 1 mg PO TID RF: 0 buprenorphine-naloxone 12-3 mg film 1 film sublingual DAILY RF: 0 lurasidone 60 mg tablet 60 mg PO DAILY RF: 0 zolpidem 5 mg tablet 5 mg PO BEDTIME RF: 0 Discharge Orders: Discharge Order (Routine); Ordered 01/10/21 Ordered By: Jh Spears Activity on Discharge: As tolerated Stand Alone Forms: Patient Portal Discharge page Care Plan Goals: cath Health Concerns: acs [place] [facility] [place]
--- NOTE | 2021-01-10 10:17 | PM.CNCAR ---
History of Present Illness History of Present Illness Date of Service: 01/10/21 Chief complaint: NSTEMI Narrative: This is a cardiology consultation regarding elevated troponins. Patient states that she started having discomfort in the right side of the chest as well as right arm and this started going into her left arm and eventually both shoulders in the upper back. She felt as though there was a burning type sensation. As this would not go way, she presented to the hospital. She had anterior T inversions and she also had elevated troponins. Of note, she had cardiac catheterization in 2014 for similar symptoms at that point in time, her mid LAD had 50% stenosis and it was thought that she possibly had stress-induced cardiomyopathy. In the interim, she has not seen any physician. She states that she takes clonidine for hypertension. She also smokes. Review of Systems Review of Systems: Yes all other systems are reviewed and are negative Cardiovascular: Cardiovascular: Reports as per HPI, Reports no additional cardiovascular complaints, Denies acrocyanosis, Denies cool extremities, Denies painful fingertips, Reports chest pain, Reports chest pain at rest, Denies diaphoresis, Denies syncope, Denies irregular heart rhythm, Denies claudication, Denies leg edema, Denies lightheadedness, Denies palpitations and Denies dyspnea Respiratory: Respiratory: Denies dyspnea Neurologic: Denies syncope Endocrine: Endocrine: Denies palpitations [facility] Past Medical History Medical History (Updated 01/10/21 @ 09:27 by Jh Spears MD) Hypothyroidism NSTEMI (non-ST elevated myocardial infarction) Obesity Takotsubo cardiomyopathy Vitamin D deficiency Family History Family History Sister Hypothyroidism Surgical History Surgical History History of elbow surgery History of hysterectomy History of removal of cervix but not uterus History of shoulder surgery Social History Social History Household Members: Family Housing: House Alcohol intake: never Smoking Status: Current some day smoker Tobacco Type: Cigarette Years Smoked: 20 Smoked in Last 30 Days: Yes Patient Interested in Nicotine Replacement: No Patient Given Instructions on How to Stop Smoking: Yes Date Education Initiated: 01/09/21 Second Hand Smoke Exposure: No Use of substances other than those prescribed or required for medical reasons: No Currently Displaying Signs/Symptoms of Drug Intoxication Withdrawal: No Have you been hit, kicked, punched, or otherwise hurt by someone within the past year? If so, by whom?: No Do you feel safe in your current relationship?: No Is there a partner from a previous relationship who is making you feel unsafe now?: No Are you made to feel afraid or neglected: No Advance Directives: No Advance Directives Information Provided: No Do you have thoughts of harming others: None Do you have a plan to hurt others: No Plan Recently lost weight without trying: No Meds Allergies Allergy/AdvReac Type Severity Reaction Status Date / Time aspirin Allergy Intermediate stomach Verified 11/15/20 09:43 upset codeine [CODEINE] Allergy Intermediate itching Verified 11/15/20 09:43 NSAIDS (Non-Steroidal Allergy Mild stomach Verified 11/15/20 09:43 Anti-Inflamma upset [NSAIDS (NON-STEROIDAL ANTI-INFLAMMA] Sulfa (Sulfonamide Allergy Mild Rash Verified 11/15/20 09:43 Antibiotics) [SULFA(SULFONAMIDE ANTIBIOTICS)] Active Medications: Current Medications Generic Name Dose Route Start Last Admin Trade Name Freq PRN Reason Stop Dose Admin Acetaminophen 650 mg 01/09/21 18:06 Acetaminophen 325 Mg Tablet PO Q6H PRN Pain, Mild (Pain Scale 1-3) Aspirin 81 mg 01/10/21 09:00 01/10/21 08:30 Aspirin 81 Mg Tab.Chew PO 81 mg DAILY LINK Administration Atorvastatin Calcium 40 mg 01/09/21 21:00 01/09/21 22:29 Atorvastatin Calcium 40 Mg Tablet PO 40 mg BEDTIME LINK Administration Buprenorphine/Naloxone 1 film 01/10/21 09:00 01/10/21 08:30 Buprenorphine/Naloxone 12/3 Mg Film SUBLINGUAL 1 film DAILY LINK Administration Clonazepam 1 mg 01/09/21 21:00 01/10/21 08:30 Clonazepam 1 Mg Tablet PO 1 mg TID LINK Administration Clonidine HCl 0.2 mg 01/09/21 21:00 01/10/21 08:29 Clonidine Hcl 0.1 Mg Tablet PO 0.2 mg BID LINK Administration Protocol Heparin Sodium/Sodium Chloride 25,000 unit in 250 mls @ 0 mls/hr 01/09/21 15:00 01/10/21 07:54 IVCONT 8 units/kg/hr .Q0M LINK 5.19 mls/hr Titration Protocol Per Protocol Levothyroxine Sodium 150 mcg 01/10/21 09:00 01/10/21 08:30 Levothyroxine Sodium 150 Mcg Tablet PO 150 mcg DAILY LINK Administration Lorazepam 1 mg 01/09/21 15:24 01/09/21 15:46 Lorazepam 1 Mg Tablet PO 1 mg Q6H PRN Administration anxiety Lurasidone HCl 60 mg 01/10/21 09:00 01/10/21 08:29 Lurasidone Hcl 20 Mg Tablet PO 60 mg DAILY LINK Administration Omeprazole 20 mg 01/10/21 06:30 01/10/21 06:33 Omeprazole 20 Mg Capsule.Dr PO 20 mg DAILY@0630 LINK Administration Ondansetron HCl 4 mg 01/09/21 18:06 Ondansetron Hcl 4 Mg/2 Ml Vial IVPUSH Q8H PRN Nausea and Vomiting Pharmacy Consult 1 each 01/09/21 15:00 Consult Rx Perform Med Rec MISCELLANE ONCE PRN Consult order Sertraline HCl 100 mg 01/10/21 09:00 01/10/21 08:29 Sertraline Hcl 100 Mg Tablet PO 100 mg DAILY LINK Administration Sodium Chloride 3 ml 01/10/21 00:00 01/10/21 08:29 0.9 % Sodium Chloride Flush 3 Ml Syringe IVFLUSH Not Given QSHIFT LINK Zolpidem Tartrate 5 mg 01/09/21 21:00 01/09/21 22:30 Zolpidem Tartrate 5 Mg Tablet PO 5 mg BEDTIME LINK Administration Home Medications Medication Instructions Recorded Confirmed Last Taken Type buprenorphine 12 mg-naloxone 3 mg 1 film SUBLINGUAL DAILY 08/24/20 01/09/21 Unknown History sublingual film clonazepam 1 mg tablet 1 mg PO TID 08/24/20 01/09/21 Unknown History zolpidem 5 mg tablet 5 mg PO BEDTIME 10/24/20 01/09/21 Unknown History lurasidone 60 mg tablet 60 mg PO DAILY 12/24/20 01/09/21 Unknown History Physical Exam Vital Signs: Vital Signs: Last Vital Signs Temp 98.4 F 01/10/21 07:24 Pulse 74 01/10/21 07:24 Resp 15 01/10/21 07:24 BP 151/101 H 01/10/21 07:24 Pulse Ox 98 01/10/21 07:24 Body Mass Index 25.3 Const: General: cooperative, comfortable and no acute distress Orientation/consciousness: patient oriented x3 HENMT: Other: Unremarkable Neck: Neck: Yes normal visual inspection Chest: Chest palpation & inspection: normal inspection of the chest Resp: Auscultation: clear to auscultation bilaterally, no crackles and no wheezes Cardio: Jugular venous distension: no JVD Palpation: normal PMI Heart sounds: S1 normal heart sound present, S2 normal heart sound present, no gallops, no murmurs and no rubs GI: Palpation (GI): Soft to palpation Back/Spine/Pelvis: Other: unremarkable Skin: General skin exam: no rashes or lesions noted Neuro: General: patient oriented x3 Extrem: General: Yes no clubbing, cyanosis or edema Psych: Mental Status: mental status grossly normal Results Labs and Meds Result diagrams: 01/10/21 07:00 01/10/21 07:00 Lab results: Laboratory Results - last 24 hr 01/09/21 01/09/21 01/09/21 10:53 10:53 10:54 WBC 9.1 RBC 4.41 Hgb 13.6 Hct 40.8 MCV 92.5 MCH 30.8 MCHC 33.3 RDW 13.5 Plt Count 350 MPV 9.4 Immature Gran % (Auto) 0.3 Neut % (Auto) 72.4 Lymph % (Auto) 17.3 L [place] % (Auto) 6.0 Eos % (Auto) 2.9 Baso % (Auto) 1.1 Lymph # (Auto) 1.6 [place] # (Auto) 0.5 Eos # (Auto) 0.3 Baso # (Auto) 0.1 Abs Immat Gran (auto) 0.03 Absolute Neuts (auto) 6.6 Absolute Nucleated RBC 0.000 Nucleated RBC % (auto) 0.0 PT INR APTT PTT (Heparin Protocol) D-Dimer Sodium Potassium Chloride Carbon Dioxide Anion Gap BUN Creatinine Estim Creat Clear Calc Estimated GFR Random Glucose Calcium Magnesium Troponin I High Sens 13.1 B-Natriuretic Peptide Lipase COVID-19 ([facility]) Negative COVID-19 Clin Com See Note 01/09/21 01/09/21 01/09/21 10:54 10:54 10:54 WBC RBC Hgb Hct MCV MCH MCHC RDW Plt Count MPV Immature Gran % (Auto) Neut % (Auto) Lymph % (Auto) [place] % (Auto) Eos % (Auto) Baso % (Auto) Lymph # (Auto) [place] # (Auto) Eos # (Auto) Baso # (Auto) Abs Immat Gran (auto) Absolute Neuts (auto) Absolute Nucleated RBC Nucleated RBC % (auto) PT INR APTT PTT (Heparin Protocol) D-Dimer Sodium 138 Potassium 4.6 Chloride 102 Carbon Dioxide 25 Anion Gap 16 BUN 14 Creatinine 0.99 Estim Creat Clear Calc 58.1 Estimated GFR 58 Random Glucose 93 Calcium 8.8 Magnesium 2.0 Troponin I High Sens B-Natriuretic Peptide 318 H Lipase 21 COVID-19 ([facility]ORE) COVID-19 PredPol 01/09/21 01/09/21 01/09/21 11:25 13:52 22:26 WBC RBC Hgb Hct MCV MCH MCHC RDW Plt Count MPV Immature Gran % (Auto) Neut % (Auto) Lymph % (Auto) [place] % (Auto) Eos % (Auto) Baso % (Auto) Lymph # (Auto) [place] # (Auto) Eos # (Auto) Baso # (Auto) Abs Immat Gran (auto) Absolute Neuts (auto) Absolute Nucleated RBC Nucleated RBC % (auto) PT 11.4 INR 1.0 APTT 39.4 H PTT (Heparin Protocol) D-Dimer < 200 Sodium Potassium Chloride Carbon Dioxide Anion Gap BUN Creatinine Estim Creat Clear Calc Estimated GFR Random Glucose Calcium Magnesium Troponin I High Sens 111.6 H D 225.1 H D B-Natriuretic Peptide Lipase COVID-19 ([facility]) COVID-19 PredPol 01/09/21 01/10/21 01/10/21 22:26 00:15 07:00 WBC RBC Hgb Hct MCV MCH MCHC RDW Plt Count MPV Immature Gran % (Auto) Neut % (Auto) Lymph % (Auto) [place] % (Auto) Eos % (Auto) Baso % (Auto) Lymph # (Auto) [place] # (Auto) Eos # (Auto) Baso # (Auto) Abs Immat Gran (auto) Absolute Neuts (auto) Absolute Nucleated RBC Nucleated RBC % (auto) PT INR APTT PTT (Heparin Protocol) > 200.0 H* 69.7 D D-Dimer Sodium Potassium Chloride Carbon Dioxide Anion Gap BUN Creatinine Estim Creat Clear Calc Estimated GFR Random Glucose Calcium Magnesium Troponin I High Sens 102.3 H D B-Natriuretic Peptide Lipase COVID-19 ([facility]ORE) COVID-19 PredPol 01/10/21 01/10/21 01/10/21 07:00 07:00 07:00 WBC 8.7 RBC 4.37 Hgb 13.6 Hct 40.0 MCV 91.5 MCH 31.1 MCHC 34.0 RDW 13.5 Plt Count 340 MPV 9.5 Immature Gran % (Auto) 0.2 Neut % (Auto) 62.4 Lymph % (Auto) 25.3 [place] % (Auto) 7.1 Eos % (Auto) 3.7 Baso % (Auto) 1.3 Lymph # (Auto) 2.2 [place] # (Auto) 0.6 Eos # (Auto) 0.3 Baso # (Auto) 0.1 Abs Immat Gran (auto) 0.02 Absolute Neuts (auto) 5.4 Absolute Nucleated RBC 0.000 Nucleated RBC % (auto) 0.0 PT Cancelled INR Cancelled APTT PTT (Heparin Protocol) D-Dimer Sodium 139 Potassium 4.6 Chloride 104 Carbon Dioxide 27 Anion Gap 13 BUN 12 Creatinine 0.83 Estim Creat Clear Calc 69.4 Estimated GFR > 60 Random Glucose 89 Calcium 8.8 Magnesium Troponin I High Sens B-Natriuretic Peptide Lipase COVID-19 ([facility]) COVID-19 PredPol 01/10/21 07:00 WBC RBC Hgb Hct MCV MCH MCHC RDW Plt Count MPV Immature Gran % (Auto) Neut % (Auto) Lymph % (Auto) [place] % (Auto) Eos % (Auto) Baso % (Auto) Lymph # (Auto) [place] # (Auto) Eos # (Auto) Baso # (Auto) Abs Immat Gran (auto) Absolute Neuts (auto) Absolute Nucleated RBC Nucleated RBC % (auto) PT 12.0 INR 1.0 APTT PTT (Heparin Protocol) 78.4 H D-Dimer Sodium Potassium Chloride Carbon Dioxide Anion Gap BUN Creatinine Estim Creat Clear Calc Estimated GFR Random Glucose Calcium Magnesium Troponin I High Sens B-Natriuretic Peptide Lipase COVID-19 ([facility]) COVID-19 PredPol ECG Attestation: I personally reviewed and interpreted this ECG as follows: Interpretation: Initial EKG was unremarkable but the subsequent EKG showed T inversions across the precordial leads. Imaging Radiologist's impression: Impressions Chest X-Ray 01/09/21 11:00 IMPRESSION: Unremarkable chest exam. Assessment and Plan (1) NSTEMI (non-ST elevated myocardial infarction): Status: Acute Cardiac catheterization in 2014 shows mid LAD 50% stenosis and no significant disease elsewhere. Her symptoms this time could be from coronary disease/NSTEMI. If this is excluded, then recurrent stress-induced cardiomyopathy is possible. We can keep her on IV heparin. Aspirin allergy noted but she states is only GI distress and hence okay to use. Otherwise, beta-blockers and high-dose statins. Will make arrangements for transfer to [facility]. Procedures Date of Service Date of Service: 01/10/21
[2021-01-10] MEDS: ondansetron HCL 4 MG/2 ML VIAL IVPUSH (10:53)
[2021-01-10 11:05] VITALS: BP 86/60; PULSE 76; RESP 16; TEMP 36.5; O2SAT 94
[2021-01-10] MEDS: 0.9 % Sodium Chloride 1,000 ML 999 ML IV (11:45)
[2021-01-10 12:33] VITALS: BP 99/68
[2021-01-10 12:44] LABS: Hematocrit 37.3 % (37-47); Hemoglobin 12.4 g/dl (12.0-16.0)
[2021-01-10 12:56] LABS: PTT Heparin Drip 52.7 SEC (53-77.9)
--- NOTE | 2021-01-10 12:56 | PC.NURSE ---
1130 aware of bp 86/46. patient co nausea, iv zofran given. ns bolus given. recheck bp 99/68 following bolus. patient denies nausea after 15 minutes. no co discomfort at this time.
--- NOTE | 2021-01-10 15:18 | CA_ITS ---
Transthoracic Echocardiogram Patient (Last, First, Middle): Brandie Campuzano, Gender: Female Date of : 1965 Age: 55 Procedure Date: 01/10/2021 Procedure Type: Transthoracic Echocardiogram Location: [facility] [place] Height: 160.02 cm Weight: 64.86 kg BSA: 1.68 m2 Heart Rate: bpm BP: 167 / 94 mmHg E Commerce Analyst: ANGELIC Referring MD: Elvia Olguin DO Symptoms: chest pain hx of takotsubo in the past Study Quality: Fair/Contrast ECG Rhythm: Sinus Conclusions: - The left ventricular systolic function is mild to moderately decreased. The visually estimated ejection fraction is between 40-45%. - The entire apex, the mid inferoseptal, and mid anteroseptal segments are akinetic. - There is mild tricuspid valve regurgitation. Findings Left Ventricle Normal left ventricular cavity size. There is mildly increased left ventricular wall thickness. The left ventricular systolic function is mild to moderately decreased. The visually estimated ejection fraction is between 40-45%. There is evidence of regional wall motion abnormalities. Diastolic function is normal for age. Wall Motion Rest Echo Findings The entire apex, the mid inferoseptal, and mid anteroseptal segments are akinetic. Atria The left atrium is normal in size. The right atrium is normal in size. Aortic Valve There is a normal trileaflet aortic valve. There is no aortic valve stenosis. There is no aortic valve regurgitation. Mitral Valve The mitral valve appears normal. There is trace mitral valve regurgitation. There is no mitral valve stenosis. Pulmonic Valve The pulmonic valve was not well visualized. Tricuspid Valve Normal tricuspid valve structure. There is mild tricuspid valve regurgitation. The pulmonary artery systolic pressure is normal. Great Vessels The aortic annulus, sinuses of valsalva, and asc aorta are normal in size. Venous The inferior vena cava is normal in size and collapses greater than 50% with inspiration. Pericardium/Pleural There is no evidence of pericardial effusion. Prior Study Comparison Changes noted compared to prior study dated: 10/26/2019. See comments on wall motion. Measurements 2D Linear Measurements IVSd: 1.00 0.6-0.9/0.6-1.0 cm LVIDd: 3.66 3.9-5.3/4.2-5.9 cm LVIDd Index: 2.18 2.4-3.2/2.2-3.1 cm/m2 LVIDs: 2.68 2.0-3.6 cm LVPWd: 1.02 0.7-1.1 cm Ao Root: 2.90 2.1-3.5 cm LA Diam: 3.60 2.7-3.8/3.0-4.0 cm LAIDs Index: 2.14 1.5-2.3 cm/m2 LV Mass: 139.59 67-162/88-224 g LV Mass Index: 83.09 43-95/49-115 g/m2 LVOT Diam: 2.00 3.0+(-)1.3 cm 2D Systolic Function EF 4C: 51.70 >55% EF 2C: 54.60 >55% Mitral Valve MV Pk E: 0.72 MV PK A: 0.49 MV Decel Time: 201.00 E/A: 1.50 E'Lateral: 7.51 E'Medial: 7.29 E/E' Med: 9.90 E/E' Lat: 9.60 PHT: 59.00 MVA PHT: 3.73 Decel Oliver: 3.60 Aortic Valve AoV Pk Rocky: 1.02 AoV Mn Rocky: 0.69 AoV VTI: 0.20 AoV Pk Grad: 4.00 Aov Mn Grad: 2.00 ABNER Cont.VTI: 2.98 LVOT LVOT Pk Rocky: 0.88 LVOT Mn Rocky: 0.58 LVOT VTI: 0.19 LVOT Pk Grad: 3.00 LVOT Mn Grad: 2.00 LVOT Diam: 2.00 LVOT Area: 3.14 Diastolic Function MV Pk E: 0.72 MV Pk A: 0.49 E/A: 1.50 E'Medial: 7.29 E/E' Med: 9.90 E' Laterial: 7.51 E/E' Lat: 9.60 Tricuspid Valve TR Pk Rocky: 2.55 TR Pk Grad: 26.00 RA Press: 3.00 RVSP: 29.00 Great Vessels Aorta Ao Root-2D: 2.90 2.0-3.7 cm Ao Asc: 2.70 2.1-3.4 cm Ao Arch: 3.10 Updated in Other Vendor System with Status of Final Shaka Lr MD electronically signed on 01/10/2021 11:27:38 AM with status of Final
== END 2021-01-10 13:29 | disposition short-term general hospital (02) | DRG 190 ==
LOC: HO.ED 15:21 → HO.IMC 18:26
PROVIDERS: Nurse Practitioner Acute Care; Admitting Provider Internal Medicine; Emergency Provider Emergency Medicine; PCP Family Medicine; Visit Provider Internal Medicine
DX: I21.4 Non-ST elevation (NSTEMI) myocardial infarction (principal); E03.9 Hypothyroidism, unspecified; I10 Essential (primary) hypertension; F41.9 Anxiety disorder, unspecified; F32.9 Major depressive disorder, single episode, unspecified; Z20.822 Contact with and (suspected) exposure to COVID-19; Z88.5 Allergy status to narcotic agent; Z88.6 Allergy status to analgesic agent; Z79.890 Hormone replacement therapy; Z79.899 Other long term (current) drug therapy
CPT/HCPCS: 36415; 71045; 80048; 83690; 83735; 83880; 84484; 85014; 85018; 85025; 85379; 85610; 85730; 87635; 93005; 93306; 96365; 96366; 96376; 99219; 99284; J2405; Q9957

== ENCOUNTER 2021-01-21 12:25 | Outpatient (REF) | payer OTHER, SELFPAY ==
--- NOTE | ~2021-01-21 | XR_ITS ---
EXAMINATION: XR BILATERAL HIPS WITH AP PELVIS CLINICAL INFORMATION: Pain COMPARISON: Previous x-ray August 2019 TECHNIQUE: AP view of the pelvis and single views of each hip were obtained. FINDINGS: Bone alignment is normal. No fracture or dislocation is seen. There is mild arthritis at both hip joints with small osteophytes. Bones of the pelvis are unremarkable. There is soft tissue ossification adjacent to the left greater trochanter that is stable. Soft tissues are otherwise unremarkable. XR/XR hip BI w [id number] IMPRESSION: Mild bilateral hip arthritis. Soft tissue ossification adjacent to the left greater trochanter similar to 2019 exam.
== END 2021-01-21 12:26 | disposition home or self-care (01) ==
LOC: HO.XRAY 12:25
PROVIDERS: PCP Family Medicine; Visit Provider Family Medicine
DX: M25.551 Pain in right hip (principal); M25.552 Pain in left hip
CPT/HCPCS: 73521

== ENCOUNTER → 2021-02-14 09:08 | Outpatient (BNVA) | payer OTHER, SELFPAY | PROVIDERS: Visit Provider Orthopaedic Surgery | DX: M54.5 Low back pain (principal); M25.551 Pain in right hip; M25.552 Pain in left hip | CPT/HCPCS: 99202 ==

== ENCOUNTER 2021-02-19 18:55 | Outpatient (REF) | payer OTHER, SELFPAY ==
--- NOTE | ~2021-02-19 | MR_ITS ---
EXAMINATION: MR LUMBAR SPINE WITHOUT CONTRAST CLINICAL INFORMATION: Low back pain. Bilateral leg pain. COMPARISON: None TECHNIQUE: MRI of the lumbar spine was obtained using routine sequences without contrast. FINDINGS: VERTEBRAL BODIES AND PARASPINAL STRUCTURES: There is a mild rightward curvature of the lumbar spine. The marrow signal is within normal limits. There is a minimal anterolisthesis of the L4-L5 level. Moderate disc space narrowing with chronic fatty marrow endplate changes evident at L5-S1. Multilevel anterior endplate spurring noted at the lower thoracic levels. There is mild edema in the L4-L5 posterior elements and right L4/L5 pedicles, presumably reactive in etiology. The paraspinal soft tissues are unremarkable. The imaged bony pelvis appears normal. There is a large amount stool partially visualized in the distended colon on the nondiagnostic localizer acquisitions. CONUS MEDULLARIS AND CAUDA EQUINA: Normal, terminating at the level of L2. No lower cord signal abnormality is seen. The cauda equina nerve roots are normal. SPINAL LEVELS: L1-L2: Very mild disc bulge. No central canal stenosis or foraminal narrowing. L2-L3: Mild disc bulge. Patent central canal foramina. L3-L4: Minimal annular bulge with mild right foraminal encroachment. Mild facet arthropathy. No central canal stenosis. L4-L5: Mild anterolisthesis with an unroofed disc bulge and vnqlewex-fp-cclyvq facet arthropathy resulting in mild central canal stenosis. Broad-based right foraminal disc protrusion with ytfvxgxy-vx-cpjbff encroachment and mild mass effect upon the exiting right L4 nerve root. Milder left foraminal narrowing. L5-S1: Moderate loss of disc height with a diffuse disc bulge and endplate spurring in conjunction with facet arthropathy. No central canal stenosis. Bulging disc mildly encroaches upon the subarticular zones. Additional small left lateral recess disc extrusion mildly compressing the left S1 nerve root. Bulging disc and osseous spurring result in significant bilateral foraminal encroachment with some distortion of the exiting left L5 nerve root. MR/MR lumbar spine wo con IMPRESSION: Moderate degenerative disc disease at the L5-S1 level with significant foraminal encroachment and mild distortion of the exiting left L5 nerve root. Bulging disc encroaching upon the ventral epidural space with a small disc extrusion migrating into the left lateral recess with mild distortion of the left S1 nerve root. Very mild anterolisthesis at L4-L5 with ijygdxix-qi-qthail facet arthropathy and a mild disc bulge resulting in mild central canal stenosis. Broad-based right foraminal disc protrusion with significant encroachment and mild mass effect upon the right L4 nerve root.
== END 2021-02-19 18:56 | disposition home or self-care (01) ==
LOC: HO.MRI 18:55
PROVIDERS: Visit Provider Orthopaedic Surgery
DX: R20.0 Anesthesia of skin (principal)
CPT/HCPCS: 72148

== ENCOUNTER 2021-02-26 19:01 | Outpatient (REF) | payer OTHER, SELFPAY | END 2021-02-26 19:02 | disposition home or self-care (01) | LOC: HO.LNP 19:01 | PROVIDERS: Visit Provider Family Medicine | DX: B34.9 Viral infection, unspecified (principal); R05 Cough; Z20.822 Contact with and (suspected) exposure to COVID-19 | CPT/HCPCS: U0003; U0005 ==

== ENCOUNTER 2021-02-27 21:00 | Emergency (ER) | payer OTHER, SELFPAY ==
--- NOTE | ~2021-02-27 | XR_ITS ---
EXAMINATION: PORTABLE CHEST 1 VIEW CLINICAL INFORMATION: Cough, fever, rule out pneumonia . COMPARISON: 01/09/2021. TECHNIQUE: Portable frontal view of the chest was obtained. FINDINGS: The lungs are well expanded. No focal infiltrate, effusion, edema, or pneumothorax. Cardiac and mediastinal silhouettes are within normal limits for technique. No acute bony abnormality seen. XR/XR chest 1V IMPRESSION: No evidence of acute disease.
--- NOTE | 2021-02-27 21:31 | ED.GENADULT ---
HPI - General Adult General Chief complaint: Fever Stated complaint: FLU-LIKE SYMPTOMS Time Seen by Provider: 02/27/21 21:18 Source: patient Mode of arrival: ambulatory Limitations: no limitations History of Present Illness HPI narrative: 55-year-old female who presents emergency department for evaluation of flu-like illness. Patient states that she has been sick for 1 week. She states she has a cough which is productive of thin watery phlegm. She states that she is having chest tightness which is worse with breathing and with coughing, the pain is 8/10, the chest pain is intermittent. She states she has had subjective fever at home. She complains of shortness of breath which is worse at night and dyspnea on exertion. She states that her body feels weak and she does have muscle pain. She denied diarrhea, loss of sense of taste or smell. Patient states she tested negative for COVID-19 yesterday. Related Data Home Medications Medication Instructions Recorded Confirmed buprenorphine 12 mg-naloxone 3 mg 1 film SUBLINGUAL DAILY 08/24/20 01/09/21 sublingual film clonazepam 1 mg tablet 1 mg PO TID 08/24/20 01/09/21 zolpidem 5 mg tablet 5 mg PO BEDTIME 10/24/20 01/09/21 lurasidone 60 mg tablet 60 mg PO DAILY 12/24/20 01/09/21 clonidine HCl 0.1 mg tablet 0.2 mg PO BID 01/24/21 Previous Rx's Medication Instructions Recorded aspirin 81 mg PO DAILY #30 tab 01/10/21 metoprolol succinate 50 mg PO DAILY #30 tab 01/10/21 meloxicam 7.5 mg tablet 7.5 mg PO DAILY 30 Days #30 tab 01/24/21 sertraline 100 mg tablet 150 mg PO DAILY 30 Days #45 tab 02/04/21 oisikglorr-rzkovnvliycgq-ctewxutm 1 cap PO Q6H PRN #10 cap 02/05/21 50 mg-300 mg-40 mg capsule levothyroxine 150 mcg tablet 150 mcg PO DAILY 30 Days #30 tab 02/05/21 pantoprazole 40 mg tablet,delayed 40 mg PO DAILY 30 Days #30 tab 02/05/21 release clonidine HCl 0.2 mg tablet 0.4 mg PO BID 30 Days #120 tab 02/13/21 hydroxyzine pamoate 50 mg capsule 50 mg PO BID PRN 30 Days #60 cap 02/13/21 azithromycin 250 mg tablet See Rx Instructions PO .COMPLEX 5 02/26/21 Days #6 tab guaifenesin 600 mg tablet, 600 mg PO Q12H PRN 10 Days #20 tab 02/26/21 extended release 12 hr Allergies Allergy/AdvReac Type Severity Reaction Status Date / Time aspirin Allergy Intermediate stomach Verified 02/27/21 21:45 upset codeine [CODEINE] Allergy Intermediate itching Verified 02/27/21 21:45 NSAIDS (Non-Steroidal Allergy Mild stomach Verified 02/27/21 21:45 Anti-Inflamma upset [NSAIDS (NON-STEROIDAL ANTI-INFLAMMA] Sulfa (Sulfonamide Allergy Mild Rash Verified 02/27/21 21:45 Antibiotics) [SULFA(SULFONAMIDE ANTIBIOTICS)] Review of Systems Review of Systems: Yes all other systems are reviewed and are negative PMFSH Past Medical History [facility] Narrative: The patient states she smokes cigarettes occasionally she denies alcohol and drug use. Medical History Chronic pain Hypothyroidism Lumbar back pain Lumbar back pain with radiculopathy affecting left lower extremity NSTEMI (non-ST elevated myocardial infarction) Obesity Takotsubo cardiomyopathy Vitamin D deficiency Surgical History History of elbow surgery History of hysterectomy History of removal of cervix but not uterus History of shoulder surgery Family History Family History Sister Hypothyroidism Social History Social History Household Members: Family Housing: House Alcohol intake: never Smoking Status: Current some day smoker Tobacco Type: Cigarette Years Smoked: 20 Second Hand Smoke Exposure: No Advance Directives: No Advance Directives Information Provided: Yes Physical Exam Vital Signs: Vital Signs: Last Vital Signs Temp 98.9 F 02/27/21 21:39 Pulse 91 02/27/21 21:51 Resp 16 02/27/21 21:51 BP 198/103 H 02/27/21 21:51 Pulse Ox 96 02/27/21 21:51 Body Mass Index 24.7 Const: General: cooperative and healthy appearing Orientation/consciousness: oriented to person and oriented to place Limitations: no limitations HENMT: Head: Yes normal to inspection, Yes normocephalic and Yes atraumatic Ears: external ears normal General nose exam: Normal external nose present Face and sinus: Yes normal facial exam Mouth: Normal oral and palatal mucosa present Throat: Yes posterior oropharynx normal Eyes: Periorbital: periorbital findings normal Eyelids: Yes eyelids normal Conjunctivae: conjunctivae normal Sclerae: sclerae normal Corneas: corneas normal Pupils: Equal, round and reactive pupils present Direct Ophthalmoscopy: normal light reflex Neck: Neck: Yes full ROM, Yes no lymphadenopathy, Yes no meningeal signs, Yes trachea midline and Yes supple Chest: Chest palpation & inspection: normal inspection of the chest and normal palpation of entire chest wall Resp: Effort & Inspection: normal respiratory effort and able to speak in complete sentences Auscultation: no crackles, rhonchi (Diffuse) and no wheezes Cardio: Rate: regular rate Rhythm: regular rhythm Heart sounds: S1 normal heart sound present, S2 normal heart sound present and no murmurs GI: Inspection: Yes normal to inspection Palpation (GI): Soft to palpation, nontender, no guarding, not rigid and No hepatosplenomegaly present : General: Yes no CVA tenderness Back/Spine/Pelvis: Back: no CVA tenderness Cervical Spine: normal cervical lordosis Thoracic/Lumbar Spine: thoracic and lumbar spine normal to inspection Skin: Lesions: no lesions Rashes: no rashes Wounds: no wounds Neuro: General: oriented to person, oriented to place and no meningeal signs Cranial nerves: Yes CN's II-XII intact bilaterally and Yes Equal, round and reactive pupils present Cognition (Neuro): normal cognition Motor exam (neuro): 5/5 motor strength present throughout Extrem: General: Yes normal to inspection and Yes full ROM Psych: Appearance: well kempt Mental Status: mental status grossly normal Speech and movement: Normal speech and movement present Affect: normal affect Attitude: cooperative Thought process: Normal thought process present Thought content: Normal thought content present Course Course Course Narrative: 55-year-old female who presents emergency department for evaluation of flu-like illness with cough, fever, myalgias, shortness of breath dyspnea on exertion nausea and vomiting x1 week with symptoms getting worse over the past several days. She tested COVID-19 negative as an outpatient. Physical examination revealed diffuse rhonchi on her lung exam. I did order a COVID-19 test and a chest x-ray on patient. 2329: The patient's chest x-ray was unremarkable with no obvious consolidations. The patient's COVID-19 test was negative. The patient's presentation is consistent with acute bronchitis the patient did tell me that her doctor started her on Zithromax Z-Nmaan yesterday. The patient was given prednisone 60 mg orally and started on prednisone 60 mg once a day for 5 days. She was also prescribed albuterol inhaler 2 puffs 4 times a day. She was given printed and verbal instructions on bronchitis and discharged home. Medical Decision Making Lab Data Labs: Lab Results 02/27/21 Range/Units 22:39 COVID-19 ([facility]) Negative (Negative) COVID-19 Clin Com See Note Discharge Plan Discharge Prescriptions: No Action wlgjggftuc-jiuadfdtaysgo-rsyq 50-300-40 mg capsule 1 cap PO Q6H PRN (Reason: for headache) Qty: 10 RF: 0 levothyroxine 150 mcg tablet 150 mcg PO DAILY 30 Days Qty: 30 RF: 1 pantoprazole 40 mg tablet,delayed release (DR/EC) 40 mg PO DAILY 30 Days Qty: 30 RF: 1 metoprolol succinate 50 mg Tablet Extended Release 24 Hr 50 mg PO DAILY Qty: 30 RF: 0 aspirin 81 mg Tablet,Chewable 81 mg PO DAILY Qty: 30 RF: 0 clonidine HCl 0.1 mg tablet 0.2 mg PO BID RF: 0 meloxicam 7.5 mg tablet 7.5 mg PO DAILY 30 Days Qty: 30 RF: 0 clonidine HCl 0.2 mg tablet 0.4 mg PO BID 30 Days Qty: 120 RF: 0 hydroxyzine pamoate 50 mg capsule 50 mg PO BID PRN (Reason: anxiety) 30 Days Qty: 60 RF: 0 azithromycin [Zithromax Z-Naman] 250 mg tablet See Rx Instructions PO .COMPLEX 5 Days Qty: 6 RF: 0 guaifenesin [Mucinex] 600 mg tablet extended release 12hr 600 mg PO Q12H PRN (Reason: congestion) 10 Days Qty: 20 RF: 0 clonazepam 1 mg tablet 1 mg PO TID RF: 0 buprenorphine-naloxone 12-3 mg film 1 film sublingual DAILY RF: 0 sertraline 100 mg tablet 150 mg PO DAILY 30 Days Qty: 45 RF: 1 lurasidone 60 mg tablet 60 mg PO DAILY RF: 0 zolpidem 5 mg tablet 5 mg PO BEDTIME RF: 0
[2021-02-27 21:39] VITALS: BP 142/92; BP 198/103; PULSE 100; PULSE 95; RESP 16; TEMP 37.2; O2SAT 94; O2SAT 97; BMI 24.7
[2021-02-27 21:51] VITALS: BP 198/103; PULSE 91; RESP 16; O2SAT 96
[2021-02-27 23:14] LABS: COVID-19 Test Negative (Negative); IDNOW Serial# 9DD0AD1C
[2021-02-27] MEDS: predniSONE 20 MG TABLET 60 MG PO (23:42)
== END 2021-02-27 23:46 | disposition home or self-care (01) ==
PROVIDERS: Emergency Provider Emergency Medicine Emergency Medical Services; PCP Family Medicine
DX: R05 Cough (principal); R50.9 Fever, unspecified; F17.210 Nicotine dependence, cigarettes, uncomplicated; Z20.822 Contact with and (suspected) exposure to COVID-19; Z71.6 Tobacco abuse counseling; Z79.899 Other long term (current) drug therapy
CPT/HCPCS: 36415; 71045; 87635; 99283

== ENCOUNTER 2021-03-27 12:49 | Emergency (ER) | payer OTHER, SELFPAY ==
[2021-03-27 12:52] VITALS: BP 210/125; PULSE 105; RESP 16; TEMP 36.2; O2SAT 98; BMI 24.0
--- NOTE | 2021-03-27 13:42 | ED.FEMALEGU ---
HPI - Female Genitourinary General Chief complaint: Urogenital-Female Stated complaint: unable to urinate Time Seen by Provider: 03/27/21 13:31 Source: patient Mode of arrival: ambulatory Limitations: no limitations History of Present Illness HPI Narrative: 55-year-old female who presents emergency department for evaluation of inability urinate. The patient states that on Thursday (3 days prior to evaluation) she notice an abnormal odor to her urine. She did not have any dysuria, urgency or frequency. She states that she then had difficulty urinating to the point where she has made no urine since Thursday. She currently complains of lower abdominal pain. She describes the pain as a bloating/cramping/pressure-like sensation and she points to her suprapubic area. The pain is 8/10 at its worst. The patient states that she has a history cervical abnormality and she had her cervix removed 2 years prior at [facility]. She states that the surgeon also suspended her bladder since she was having urinary incontinence. She states that since the bladder surgery, she has had some difficulty urinating. She denied fever, chills, chest pain, shortness of breath, nausea, vomiting, change in her bowel movements. Related Data Home Medications Medication Instructions Recorded Confirmed buprenorphine 12 mg-naloxone 3 mg 1 film SUBLINGUAL DAILY 08/24/20 01/09/21 sublingual film clonazepam 1 mg tablet 1 mg PO TID 08/24/20 01/09/21 zolpidem 5 mg tablet 5 mg PO BEDTIME 10/24/20 01/09/21 lurasidone 60 mg tablet 60 mg PO DAILY 12/24/20 01/09/21 Previous Rx's Medication Instructions Recorded aspirin 81 mg PO DAILY #30 tab 01/10/21 metoprolol succinate 50 mg PO DAILY #30 tab 01/10/21 meloxicam 7.5 mg tablet 7.5 mg PO DAILY 30 Days #30 tab 01/24/21 sertraline 100 mg tablet 150 mg PO DAILY 30 Days #45 tab 02/04/21 levothyroxine 150 mcg tablet 150 mcg PO DAILY 30 Days #30 tab 02/05/21 pantoprazole 40 mg tablet,delayed 40 mg PO DAILY 30 Days #30 tab 02/05/21 release guaifenesin 600 mg tablet, 600 mg PO Q12H PRN 10 Days #20 tab 02/26/21 extended release 12 hr albuterol sulfate 2 inh INHALATION QID #6.7 g 02/27/21 prednisone 60 mg PO DAILY 5 Days #15 tab 02/27/21 kxaosibvxb-pmhxrqphdnlfw-ffcoygae 1 cap PO Q6H PRN #10 cap 02/28/21 50 mg-300 mg-40 mg capsule Allergies Allergy/AdvReac Type Severity Reaction Status Date / Time aspirin Allergy Intermediate stomach Verified 03/27/21 12:56 upset codeine [CODEINE] Allergy Intermediate itching Verified 03/27/21 12:56 NSAIDS (Non-Steroidal Allergy Mild stomach Verified 03/27/21 12:56 Anti-Inflamma upset [NSAIDS (NON-STEROIDAL ANTI-INFLAMMA] Sulfa (Sulfonamide Allergy Mild Rash Verified 03/27/21 12:56 Antibiotics) [SULFA(SULFONAMIDE ANTIBIOTICS)] Review of Systems Review of Systems: Yes all other systems are reviewed and are negative PMFSH Past Medical History [facility] Narrative: The patient states she occasionally smokes cigarettes for 15 years, she drinks alcohol occasionally. She denies drug use. Medical History Chronic pain Hypothyroidism Lumbar back pain Lumbar back pain with radiculopathy affecting left lower extremity NSTEMI (non-ST elevated myocardial infarction) Obesity Takotsubo cardiomyopathy Vitamin D deficiency Surgical History History of elbow surgery History of hysterectomy History of removal of cervix but not uterus History of shoulder surgery Family History Family History Sister Hypothyroidism Social History Social History Household Members: Family Housing: House Alcohol intake: current Alcohol intake frequency: a few times a month Smoking Status: Current every day smoker Tobacco Type: Cigarette Years Smoked: 20 Smoked in Last 30 Days: Yes Second Hand Smoke Exposure: No Use of substances other than those prescribed or required for medical reasons: No Advance Directives: No Advance Directives Information Provided: No Patient : No Physical Exam Vital Signs: Vital Signs: Last Vital Signs Temp 97.1 F 03/27/21 14:00 Pulse 93 03/27/21 14:00 Resp 16 03/27/21 14:00 BP 199/119 H 03/27/21 14:00 Pulse Ox 98 03/27/21 14:00 Body Mass Index 24.0 Const: General: cooperative and healthy appearing Orientation/consciousness: oriented to person and oriented to place Limitations: no limitations HENMT: Head: Yes normal to inspection, Yes normocephalic and Yes atraumatic Ears: external ears normal General nose exam: Normal external nose present Face and sinus: Yes normal facial exam Mouth: Normal oral and palatal mucosa present Throat: Yes posterior oropharynx normal Eyes: Periorbital: periorbital findings normal Eyelids: Yes eyelids normal Conjunctivae: conjunctivae normal Sclerae: sclerae normal Corneas: corneas normal Pupils: Equal, round and reactive pupils present Direct Ophthalmoscopy: normal light reflex Neck: Neck: Yes full ROM, Yes no lymphadenopathy, Yes no meningeal signs, Yes trachea midline and Yes supple Chest: Chest palpation & inspection: normal inspection of the chest and normal palpation of entire chest wall Resp: Effort & Inspection: normal respiratory effort and able to speak in complete sentences Auscultation: clear to auscultation bilaterally Cardio: Rate: regular rate Rhythm: regular rhythm Heart sounds: S1 normal heart sound present, S2 normal heart sound present and no murmurs GI: Inspection: Yes normal to inspection Palpation (GI): Soft to palpation, Tenderness to palpation present (GI) suprapubicly (Moderate), no guarding, not rigid and No hepatosplenomegaly present : General: Yes no CVA tenderness Back/Spine/Pelvis: Back: no CVA tenderness Cervical Spine: normal cervical lordosis Thoracic/Lumbar Spine: thoracic and lumbar spine normal to inspection Skin: Lesions: no lesions Rashes: no rashes Wounds: no wounds Neuro: General: oriented to person, oriented to place and no meningeal signs Cranial nerves: Yes CN's II-XII intact bilaterally and Yes Equal, round and reactive pupils present Cognition (Neuro): normal cognition Motor exam (neuro): 5/5 motor strength present throughout Extrem: General: Yes normal to inspection and Yes full ROM Psych: Appearance: well kempt Mental Status: mental status grossly normal Speech and movement: Normal speech and movement present Affect: normal affect Attitude: cooperative Thought process: Normal thought process present Thought content: Normal thought content present Course Course Course Narrative: 55-year-old female who presents emergency department for evaluation of inability urinate x3 days and abdominal pain. The patient's vital signs reveal that she was hypertensive with a blood pressure of 210/125 and tachycardic with a pulse of 105. Abdominal exam did reveal suprapubic tenderness and fullness. Bladder ultrasound revealed greater than 800 mL of urine in the patient's bladder which is consistent with urinary retention. I ordered a Diana catheter, CBC, CMP, urinalysis on the patient. 1524: The patient drained approximately 800 cc of urine through her Diana catheter . Her laboratory evaluation revealed normal revealed normal kidney function. Urinalysis was negative. I did discuss these findings with the patient. Patient will be discharged with the Diana catheter in place. She will need to follow-up with the on-call urologist to determine the cause of her urinary retention and further treatment. [facility] - Female Genitourinary Lab Data Result diagrams: 03/27/21 13:55 03/27/21 13:55 Labs: Lab Results 03/27/21 03/27/21 03/27/21 Range/Units 13:49 13:55 13:55 WBC 6.9 (4.8-10.8) X10*3/uL RBC 4.43 (4.20-5.50) X10*6/uL Hgb 13.5 (12.0-16.0) g/dl Hct 40.4 (37-47) % MCV 91.2 (80-98) fL MCH 30.5 (27.0-33.0) pg MCHC 33.4 (31.0-35.0) g/dl RDW 13.8 (11.0-16.0) % Plt Count 255 (160-400) X10*3/uL MPV 9.9 (9.4-12.3) fL Immature Gran % (Auto) 0.1 (0.0-0.4) % Neut % (Auto) 62.7 (45-73) % Lymph % (Auto) 22.3 (20-40) % [place] % (Auto) 8.2 (2-11) % Eos % (Auto) 5.2 H (0-4) % Baso % (Auto) 1.5 (0-2) % Lymph # (Auto) 1.5 (1.2-4.9) X10*3/uL [place] # (Auto) 0.6 (0.1-1.2) X10*3/uL Eos # (Auto) 0.4 (0.0-0.4) X10*3/uL Baso # (Auto) 0.1 (0.0-0.2) X10*3/uL Abs Immat Gran (auto) 0.01 (0.00-0.03) X10*3/uL Absolute Neuts (auto) 4.3 (2.0-8.3) X10*3/uL Absolute Nucleated RBC 0.000 (0.0-0.012) X10*3/uL Nucleated RBC % (auto) 0.0 (0.0-0.2) /100WBC Sodium 136 (135-145) mmol/L Potassium 3.9 (3.3-5.1) mmol/L Chloride 100 (96-108) mmol/L Carbon Dioxide 26 (22-29) mmol/L Anion Gap 14 (12-20) BUN 8 L (9-16) mg/dL Creatinine 1.03 (0.5-1.4) mg/dL Estim Creat Clear Calc 51.0 Estimated GFR 56 Random Glucose 98 (60-115) mg/dL Calcium 9.4 D (8.4-10.2) mg/dL Total Bilirubin 0.5 (0.0-1.0) mg/dL AST 15 (5-31) U/L ALT 8 (0-31) U/L Alkaline Phosphatase 89 (39-117) U/L Total Protein 7.2 (6.5-8.0) g/dL Albumin 4.3 (3.5-5.0) g/dL Lipase (8-78) U/L Urine Color YELLOW Urine Appearance HAZY Urine pH 6.0 (5.0-8.0) Ur Specific Thorp 1.015 (1.005-1.025) Urine Protein NEG (NEG-TRACE) MG/DL Urine Glucose (UA) NEG (NEG) MG/DL Urine Ketones NEG (NEG) MG/DL Urine Blood NEG (NEG) Urine Nitrite NEG (NEG) Ur Leukocyte Esterase NEG (NEG) 03/27/21 Range/Units 13:55 WBC (4.8-10.8) X10*3/uL RBC (4.20-5.50) X10*6/uL Hgb (12.0-16.0) g/dl Hct (37-47) % MCV (80-98) fL MCH (27.0-33.0) pg MCHC (31.0-35.0) g/dl RDW (11.0-16.0) % Plt Count (160-400) X10*3/uL MPV (9.4-12.3) fL Immature Gran % (Auto) (0.0-0.4) % Neut % (Auto) (45-73) % Lymph % (Auto) (20-40) % [place] % (Auto) (2-11) % Eos % (Auto) (0-4) % Baso % (Auto) (0-2) % Lymph # (Auto) (1.2-4.9) X10*3/uL [place] # (Auto) (0.1-1.2) X10*3/uL Eos # (Auto) (0.0-0.4) X10*3/uL Baso # (Auto) (0.0-0.2) X10*3/uL Abs Immat Gran (auto) (0.00-0.03) X10*3/uL Absolute Neuts (auto) (2.0-8.3) X10*3/uL Absolute Nucleated RBC (0.0-0.012) X10*3/uL Nucleated RBC % (auto) (0.0-0.2) /100WBC Sodium (135-145) mmol/L Potassium (3.3-5.1) mmol/L Chloride (96-108) mmol/L Carbon Dioxide (22-29) mmol/L Anion Gap (12-20) BUN (9-16) mg/dL Creatinine (0.5-1.4) mg/dL Estim Creat Clear Calc Estimated GFR Random Glucose (60-115) mg/dL Calcium (8.4-10.2) mg/dL Total Bilirubin (0.0-1.0) mg/dL AST (5-31) U/L ALT (0-31) U/L Alkaline Phosphatase (39-117) U/L Total Protein (6.5-8.0) g/dL Albumin (3.5-5.0) g/dL Lipase 17 (8-78) U/L Urine Color Urine Appearance Urine pH (5.0-8.0) Ur Specific Thor[place] (1.005-1.025) Urine Protein (NEG-TRACE) MG/DL Urine Glucose (UA) (NEG) MG/DL Urine Ketones (NEG) MG/DL Urine Blood (NEG) Urine Nitrite (NEG) Ur Leukocyte Esterase (NEG) Discharge Plan Discharge Clinical Impression: Acute urinary retention Patient Disposition: Home, Self-Care Instructions: Acute Urinary Retention in Women (ED), Diana Catheter Placement and Care (ED) Additional Instructions: You had 800 cc of urine in your bladder that was drained from the Diana catheter. You will need to keep the Diana catheter in place until your seen by our on-call urologist. Please call Dr. Rogel's office tomorrow to of schedule follow-up appointment within 4-7 days to be evaluated for urinary retention Follow-up with Dr. Rogel in 4-7 days Please return to the emergency department if your symptoms get worse or if you develop any symptoms that are concerning to you. Prescriptions: No Action levothyroxine 150 mcg tablet 150 mcg PO DAILY 30 Days Qty: 30 RF: 1 pantoprazole 40 mg tablet,delayed release (DR/EC) 40 mg PO DAILY 30 Days Qty: 30 RF: 1 zblpvuozwk-wjymssalmaokf-vrvg 50-300-40 mg capsule 1 cap PO Q6H PRN (Reason: for headache) Qty: 10 RF: 0 metoprolol succinate 50 mg Tablet Extended Release 24 Hr 50 mg PO DAILY Qty: 30 RF: 0 aspirin 81 mg Tablet,Chewable 81 mg PO DAILY Qty: 30 RF: 0 prednisone 20 mg tablet 60 mg PO DAILY 5 Days Qty: 15 RF: 0 albuterol sulfate 90 mcg/actuation HFA aerosol inhaler 2 inh inhalation QID Qty: 6.7 RF: 0 meloxicam 7.5 mg tablet 7.5 mg PO DAILY 30 Days Qty: 30 RF: 0 guaifenesin [Mucinex] 600 mg tablet extended release 12hr 600 mg PO Q12H PRN (Reason: congestion) 10 Days Qty: 20 RF: 0 clonazepam 1 mg tablet 1 mg PO TID RF: 0 buprenorphine-naloxone 12-3 mg film 1 film sublingual DAILY RF: 0 sertraline 100 mg tablet 150 mg PO DAILY 30 Days Qty: 45 RF: 1 lurasidone 60 mg tablet 60 mg PO DAILY RF: 0 zolpidem 5 mg tablet 5 mg PO BEDTIME RF: 0 Referrals: Nate Rogel MD [Physician] - 1 week (Urinary retention, 800 cc of urine drained from Diana catheter, laboratory evaluation normal. Urinalysis negative.)
[2021-03-27 13:59] LABS: MANUAL DIFF FLAG NO
[2021-03-27 14:00] VITALS: BP 199/119; PULSE 93; RESP 16; TEMP 36.2; O2SAT 98
[2021-03-27 14:01] LABS: Basophils Absolute Auto 0.1 X10*3/uL (0.0-0.2); Basophils Percent Auto 1.5 % (0-2); Eosinophils Absolute Auto 0.4 X10*3/uL (0.0-0.4); Eosinophils Percent Auto 5.2 % (0-4); Hematocrit 40.4 % (37-47); Hemoglobin 13.5 g/dl (12.0-16.0); Imm Gran Abs Auto 0.01 X10*3/uL (0.00-0.03); Imm Gran Pct Auto 0.1 % (0.0-0.4); Lymphocytes Absolute Auto 1.5 X10*3/uL (1.2-4.9); Lymphocytes Percent Auto 22.3 % (20-40); Mean Corpuscular HGB Conc 33.4 g/dl (31.0-35.0); Mean Corpuscular Hemoglobin 30.5 pg (27.0-33.0); Mean Corpuscular Volume 91.2 fL (80-98); Mean Platelet Volume 9.9 fL (9.4-12.3); Monocytes Absolute Auto 0.6 X10*3/uL (0.1-1.2); Monocytes Percent Auto 8.2 % (2-11); Neutrophils Absolute Auto 4.3 X10*3/uL (2.0-8.3); Neutrophils Percent Auto 62.7 % (45-73); Platelet Count 255 X10*3/uL (160-400); Red Blood Count 4.43 X10*6/uL (4.20-5.50); Red Cell Distribution Width 13.8 % (11.0-16.0); White Blood Count 6.9 X10*3/uL (4.8-10.8)
[2021-03-27 14:05] LABS: Glucose Urine UA NEG (NEG); Leukocyte Esterase Urine NEG (NEG); Nitrite Urine NEG (NEG); Specific Gravity - Urine 1.015 (1.005-1.025); Urine Blood NEG (NEG); Urine Ketones NEG (NEG); Urine Protein NEG (NEG-TRACE)
[2021-03-27 14:08] LABS: Appearance Urine HAZY; Color Urine YELLOW
[2021-03-27 14:35] LABS: Alanine Aminotransferase 8 U/L (0-31); Albumin Level 4.3 g/dL (3.5-5.0); Alkaline Phosphatase 89 U/L (39-117); Anion Gap 14 (12-20); Aspartate Amino Transferase 15 U/L (5-31); Bilirubin Total 0.5 mg/dL (0.0-1.0); Blood Urea Nitrogen 8 mg/dL (9-16); Calcium 9.4 mg/dL (8.4-10.2); Carbon Dioxide 26 mmol/L (22-29); Chloride 100 mmol/L (96-108); Estimated Glomerular Filt Rate 56; Glucose Random 98 mg/dL (60-115); Potassium 3.9 mmol/L (3.3-5.1); Sodium 136 mmol/L (135-145); Total Protein 7.2 g/dL (6.5-8.0)
[2021-03-27 14:36] LABS: Lipase 17 U/L (8-78)
== END 2021-03-27 15:47 | disposition home or self-care (01) ==
PROVIDERS: Emergency Provider Emergency Medicine Emergency Medical Services; PCP Family Medicine
DX: R33.9 Retention of urine, unspecified (principal); R10.30 Lower abdominal pain, unspecified; F17.210 Nicotine dependence, cigarettes, uncomplicated; Z71.6 Tobacco abuse counseling; Z79.899 Other long term (current) drug therapy
CPT/HCPCS: 36415; 51702; 80053; 81003; 83690; 85025; 96374; 99285

== ENCOUNTER → 2021-05-08 08:03 | Outpatient (BNVA) | payer OTHER, SELFPAY | PROVIDERS: PCP Family Medicine; Visit Provider Nurse Practitioner Family | DX: M25.551 Pain in right hip (principal); M25.552 Pain in left hip | CPT/HCPCS: 99202 ==

== ENCOUNTER 2021-05-10 08:08 | Outpatient (REF) | payer OTHER, SELFPAY ==
[2021-05-10 16:44] LABS: CT PCR NOT DETECTED (Not Detect.); NG PCR NOT DETECTED (Not Detect.)
[2021-05-11 11:59] LABS: BV Int Neg Control Negative (Negative); BV Int Pos Control Positive (Positive)
== END 2021-05-10 08:09 | disposition home or self-care (01) ==
LOC: HO.LAB 08:08
PROVIDERS: PCP Family Medicine; Visit Provider Obstetrics & Gynecology
DX: N89.8 Other specified noninflammatory disorders of vagina (principal); N94.10 Unspecified dyspareunia
CPT/HCPCS: 87480; 87491; 87510; 87591; 87660; 99202

== ENCOUNTER 2021-06-05 10:25 | Outpatient (REF) | payer OTHER, SELFPAY ==
--- NOTE | ~2021-06-05 | XR_ITS ---
EXAMINATION: XR CHEST CLINICAL INFORMATION: Cough COMPARISON: February 27, 2021 TECHNIQUE: 2 views of the chest were obtained. FINDINGS: No significant abnormality is noted involving the heart, lungs, mediastinum, bony thorax or soft tissues. XR/XR chest 2V IMPRESSION: No acute disease.
== END 2021-06-05 10:26 | disposition home or self-care (01) ==
LOC: HO.XRAY 10:25
PROVIDERS: PCP Family Medicine; Visit Provider Family Medicine
DX: R05 Cough (principal)
CPT/HCPCS: 71046

== ENCOUNTER → 2021-08-01 13:25 | Day surgery (SDC) | payer OTHER, SELFPAY ==
[2021-07-26 09:49] VITALS: BMI 23.3
== END ==
PROVIDERS: PCP Family Medicine; Visit Provider Anesthesiology
DX: M25.552 Pain in left hip (principal); Z53.8 Procedure and treatment not carried out for other reasons

== ENCOUNTER 2021-08-05 12:29 | Outpatient (REF) | payer OTHER, SELFPAY ==
[2021-08-06 09:47] LABS: BV Int Neg Control Negative (Negative); BV Int Pos Control Positive (Positive)
== END 2021-08-05 12:30 | disposition home or self-care (01) ==
LOC: HO.LAB 12:29
PROVIDERS: PCP Family Medicine; Visit Provider Obstetrics & Gynecology
DX: N76.0 Acute vaginitis (principal); B96.89 Other specified bacterial agents as the cause of diseases classified elsewhere
CPT/HCPCS: 87480; 87510; 87660; 99212

== ENCOUNTER 2022-01-19 10:13 | Emergency (ER) | payer OTHER, SELFPAY ==
--- NOTE | ~2022-01-19 | XR_ITS ---
EXAMINATION: XR CHEST CLINICAL INFORMATION: Cough COMPARISON: 06/05/2021 TECHNIQUE: Frontal view of the chest was obtained. FINDINGS: No significant abnormality is noted involving the heart, lungs, mediastinum, bony thorax or soft tissues. XR/XR chest 1V IMPRESSION: No acute pulmonary disease. No significant change from prior study.
[2022-01-19 10:27] VITALS: BP 198/111; PULSE 75; RESP 18; TEMP 37.9; O2SAT 98; BMI 22.1
[2022-01-19] MEDS: Acetaminophen 325 MG TABLET 650 MG PO (10:49)
[2022-01-19] MEDS: cloNIDine HCL 0.1 MG TABLET 0.4 MG PO (10:58)
[2022-01-19 11:16] LABS: COVID-19 Test Negative (Negative); IDNOW Serial# 16C4AD1C
[2022-01-19 11:16] LABS: IDNOW Serial# 08D9AD1C; Strep A Nucleic Acid Negative (Negative)
[2022-01-19 11:20] LABS: Influenza A Positive (Negative); Influenza B2 Negative (Negative)
--- NOTE | 2022-01-19 11:27 | ED_ITS ---
HPI - URI/Sore Throat General Chief Complaint: Upper Respiratory Symptoms Stated Complaint: flu like symptoms, possible COVID Time Seen by Provider: 01/19/22 10:36 Source: patient Mode of arrival: ambulatory History of Present Illness HPI Narrative: 56-year-old female with past medical history of GERD, hypothyroid, NSTEMI, presenting to the ED complaining of myalgias, fatigue, productive cough, SOB, chest discomfort when coughing x4 days. Denies taking antihypertensives this morning. Also reports subjective fever. Reports taking Motrin this morning. Denies abdominal pain, pedal edema, calf pain, recent travel, sick contacts MD elicited complaint: fever, cough, sore throat and rhinorrhea Onset (ago): day(s) Related Data Home Medications Medication Instructions Recorded Confirmed buprenorphine 12 mg-naloxone 3 mg 1 film SUBLINGUAL DAILY 08/24/20 01/14/22 sublingual film aspirin 81 mg tablet,delayed 1 tab PO DAILY 07/26/21 01/14/22 release meloxicam 7.5 mg tablet 1 tab PO DAILY 07/26/21 01/14/22 metoprolol succinate 25 mg 1 tab PO DAILY 07/26/21 01/14/22 tablet,extended release 24 hr amlodipine 5 mg tablet 5 mg PO DAILY 09/05/21 01/14/22 atorvastatin 80 mg tablet 80 mg PO BEDTIME 09/05/21 01/14/22 zolpidem 10 mg tablet 10 mg PO BEDTIME 09/05/21 01/14/22 Previous Rx's Medication Instructions Recorded sertraline 100 mg tablet 150 mg PO DAILY 7 Days #11 tab 04/10/21 lurasidone 80 mg tablet 80 mg PO DAILY 30 Days #30 tab 04/16/21 clonazepam 1 mg tablet 1 mg PO TID 30 Days #90 tab 04/18/21 ProAir HFA 90 mcg/actuation 2 puff INHALATION Q4-6H PRN 30 06/05/21 aerosol inhaler (albuterol sulfate) Days #8.5 g NS metronidazole 500 mg tablet 500 mg PO BID 7 Days #14 tab 08/05/21 clonidine HCl 0.2 mg tablet 0.4 mg PO BID PRN 30 Days #120 tab 10/09/21 levetiracetam 250 mg tablet 750 mg PO BID #180 tab 11/11/21 levothyroxine 150 mcg tablet 150 mcg PO DAILY 30 Days #30 tab 11/12/21 pantoprazole 40 mg tablet,delayed 40 mg PO DAILY 30 Days #30 tab 11/12/21 release [id number]-vakunncnsyvou-osxqdqsp 1 cap PO Q8H PRN 30 Days #10 cap 01/15/22 50 mg-300 mg-40 mg capsule (Fioricet) frovatriptan 2.5 mg tablet See Rx Instructions PO .COMPLEX 30 01/15/22 Days #12 tab Allergies Allergy/AdvReac Type Severity Reaction Status Date / Time aspirin Allergy Intermediate stomach Verified 01/14/22 11:54 upset codeine [CODEINE] Allergy Intermediate itching Verified 01/14/22 11:54 NSAIDS (Non-Steroidal Allergy Mild stomach Verified 01/14/22 11:54 Anti-Inflamma upset [NSAIDS (NON-STEROIDAL ANTI-INFLAMMA] Sulfa (Sulfonamide Allergy Mild Rash Verified 01/14/22 11:54 Antibiotics) [SULFA(SULFONAMIDE ANTIBIOTICS)] Review of Systems Review of Systems: Constitutional: + Fever, No Chills, +fatigue, +malaise ENT/Mouth: No Ear Pain, + Nasal Congestion, No Sinus Pain, No Hoarseness, + sore throat, No Rhinorrhea, No Swallowing Difficulty Cardiovascular: No Chest Pain, No SOB Respiratory: + Cough, + Sputum, No Wheezing Gastrointestinal: No Nausea, No Vomiting, No Diarrhea, No Constipation, No Abdominal pain Genitourinary: No Dysuria, No Urinary Frequency, No Urgency, No Flank Pain Musculoskeletal: No joint pain, + Myalgias, No Joint Swelling Skin: No Skin Lesions, No rash Neuro: No Weakness, No Numbness, No Paresthesias Yes all other systems are reviewed and are negative [facility] Past Medical History Attestation statement: The following information was validated with the patient. Medical History Chronic pain GERD (gastroesophageal reflux disease) Hypothyroidism Lumbar back pain Lumbar back pain with radiculopathy affecting left lower extremity NSTEMI (non-ST elevated myocardial infarction) Obesity Takotsubo cardiomyopathy Vitamin D deficiency Surgical History History of elbow surgery History of hysterectomy History of shoulder surgery Hx of cardiac catheterization Status post removal of cervix Family History Family History Sister Hypothyroidism Social History Social History Household Members: Family Housing: House Alcohol intake: current Alcohol intake frequency: a few times a month Patient Tobacco Use Status: Current everyday Tobacco user Tobacco use type: Cigarette Years Smoked: 20 Second Hand Smoke Exposure: No Advance Directives: No Advance Directives Information Provided: No Physical Exam Vital Signs: Vital Signs: Last Vital Signs Temp 100.3 F 01/19/22 10:27 Pulse 76 01/19/22 11:56 Resp 18 01/19/22 11:56 BP 198/111 H 01/19/22 10:27 Pulse Ox 98 01/19/22 10:27 BMI result Body Mass Index 22.1 Const: General: cooperative, healthy appearing, well developed, alert and awake Orientation/consciousness: patient oriented x3 Limitations: no limitations HENMT: Head: Yes normal to inspection Ears: hearing grossly normal bilaterally General nose exam: Normal external nose present Face and sinus: Yes normal facial exam Mouth: Normal oral and palatal mucosa present Throat: Yes posterior oropharynx normal, Yes tonsils normal and Yes uvula midline Eyes: General: appearance normal, both eyes and all related structures EOM: EOMs intact bilaterally Neck: Neck: Yes normal visual inspection, Yes no meningeal signs, Yes trachea midline and Yes supple Resp: Other: coarse lung sounds Effort & Inspection: normal respiratory effort Auscultation: wheezes expiratory wheezes (mild) Cardio: Rate: regular rate Heart sounds: S1 normal heart sound present and S2 normal heart sound present GI: Inspection: Yes normal to inspection Palpation (GI): Soft to palpation, nontender, no guarding and not rigid Skin: Rashes: no rashes Wounds: no wounds Neuro: General: patient oriented x3 and no meningeal signs Gait exam (Neuro): Normal gait present Extrem: General: Yes normal to inspection, Yes no pedal edema and Yes no calf tenderness Course Course Course Narrative: -influenza A positive -COVID-19 and rapid strep negative XR chest 1V IMPRESSION: No acute pulmonary disease. No significant change from prior study. ? >> patient reports symptomatic improvement after DuoNeb. Lungs CTA. Discussed worrisome signs and symptoms and strict return precautions including needed close follow-up with PCP. She verbalized understanding and feels safe for discharge home -BP improved after home dose of medications given MDM - URI/Sore Throat MDM Narrative Medical decision making narrative: 56-year-old female with past medical history of GERD, hypothyroid, NSTEMI, presenting to the ED complaining of myalgias, fatigue, productive cough, SOB, chest discomfort when coughing x4 days. On exam low-grade temp 100.3 degrees, hypertensive, NAD, coarse lung sounds with mild expiratory wheeze, no pedal edema/calf tenderness. Concern for viral syndrome including COVID-19/influenza. Will moan you. Low concern for ACS/PE Plan: COVID-19 testing, influenza testing, rapid strep, CXR, DuoNeb Differential Diagnosis Differential diagnosis: Likely upper respiratory infection, viral infection and influenza Medical Records Attestation: I reviewed the patient's medical records. Lab Data Attestation: I reviewed the patient's lab results. Labs: Lab Results 01/19/22 01/19/22 01/19/22 Range/Units 10:46 10:47 10:48 COVID-19 ([facility]) Negative (Negative) COVID-19 Clin Com See Note Influenza Type A ([facility]ADY) Positive A (Negative) Influenza Type B (FADY) Negative (Negative) Influenza A & B Note See Note S. pyogenes GrpA FADY Negative (Negative) Discharge Plan Discharge Clinical Impression: Influenza A Patient Disposition: Home, Self-Care Instructions: Influenza (DC) Additional Instructions: You have the flu. Rest, stay hydrated. Take Tylenol Motrin as needed. Take all other home prescribed medications. Her blood pressure is very elevated today make sure monitoring her BP at home You are contagious, cover a mild, wash your hands Use inhaler that was provided to at home every 4-6 hours for shortness of breath/wheezing. Please follow-up with her doctor If her symptoms persist or worsen, you develop fever unresolved with medications, constant or worsening shortness of breath return to the ED Prescriptions: No Action sertraline 100 mg tablet 150 mg PO DAILY 7 Days Qty: 11 0RF clonazepam 1 mg tablet 1 mg PO TID 30 Days Qty: 90 0RF albuterol sulfate [ProAir HFA] 90 mcg/actuation HFA aerosol inhaler 2 puff inhalation Q4-6H PRN (Reason: shortness of breath or wheezing) 30 Days Qty: 8.5 4RF levetiracetam 250 mg tablet 750 mg PO BID Qty: 180 2RF pantoprazole 40 mg tablet,delayed release (DR/EC) 40 mg PO DAILY 30 Days Qty: 30 3RF levothyroxine 150 mcg tablet 150 mcg PO DAILY 30 Days Qty: 30 1RF frovatriptan 2.5 mg tablet See Rx Instructions PO .COMPLEX 30 Days Qty: 12 2RF Rx Instructions: take 1 tab at onset of headache; if no relief, may repeat 1 tab after at least 2 hrs; max = 2 tabs/24 hrs PO [id number]-blxlqobawhiky-gcsy [Fioricet] 50-300-40 mg capsule 1 cap PO Q8H PRN (Reason: pain) 30 Days Qty: 10 0RF Rx Instructions: I advised pt not to take two at once or to take more than 2 per day and 10 per month aspirin 81 mg tablet,delayed release (DR/EC) 1 tab PO DAILY 0RF meloxicam 7.5 mg tablet 1 tab PO DAILY 0RF metoprolol succinate 25 mg tablet extended release 24 hr 1 tab PO DAILY 0RF lurasidone 80 mg tablet 80 mg PO DAILY 30 Days Qty: 30 0RF buprenorphine-naloxone 12-3 mg film 1 film sublingual DAILY 0RF zolpidem 10 mg tablet 10 mg PO BEDTIME 0RF amlodipine 5 mg tablet 5 mg PO DAILY 0RF atorvastatin 80 mg tablet 80 mg PO BEDTIME 0RF clonidine HCl 0.2 mg tablet 0.4 mg PO BID PRN (Reason: for anxiety) 30 Days Qty: 120 3RF metronidazole 500 mg tablet 500 mg PO BID 7 Days Qty: 14 0RF Referrals: Ney Cole MD [Primary Care Provider] - 5 days
[2022-01-19] MEDS: Albuterol/Iprat 2.5/0.5MG 3 ML AMPUL.NEB INHALE (11:54)
[2022-01-19] MEDS: Albuterol Sulfate 90 MCG 8 GM INHALER 4 PUFF INHALE (11:54)
[2022-01-19 11:56] VITALS: PULSE 76; RESP 18; O2SAT 94
[2022-01-19 12:44] VITALS: BP 107/77; PULSE 97; RESP 18; O2SAT 94
== END 2022-01-19 12:59 | disposition home or self-care (01) ==
PROVIDERS: Physician Assistant; Emergency Provider Emergency Medicine; PCP Family Medicine
DX: J10.1 Influenza due to other identified influenza virus with other respiratory manifestations (principal); R05.9 Cough, unspecified; F17.210 Nicotine dependence, cigarettes, uncomplicated; Z79.899 Other long term (current) drug therapy; Z20.822 Contact with and (suspected) exposure to COVID-19; Z71.6 Tobacco abuse counseling
CPT/HCPCS: 71045; 87502; 87635; 87651; 94640; 99284

== ENCOUNTER 2022-03-13 16:20 | Inpatient (IN) | payer OTHER, SELFPAY ==
--- NOTE | ~2022-03-13 | MR_ITS ---
EXAMINATION: MR BRAIN WITHOUT CONTRAST CLINICAL INFORMATION: CVA. COMPARISON: Head CTA March 13, 2022. TECHNIQUE: Multiplanar, multisequence imaging of the brain was performed without intravenous contrast. FINDINGS: There is no acute infarction, mass, hemorrhage, or extra-axial collection. The ventricles, sulci, and basilar cisterns are normal in size and configuration. A few minimal nonspecific foci of T2/FLAIR hyperintensity are seen within the cerebral white matter. The flow voids of the major intracranial arteries appear intact. The bones and extracranial soft tissues are unremarkable. There is minimal amount of mastoid fluid. MR/MR head/brain wo con IMPRESSION: No acute infarct, mass lesion, intracranial hemorrhage, or evidence of hydrocephalus.
--- NOTE | ~2022-03-13 | CT_ITS ---
EXAMINATION: CT CHEST WITHOUT CONTRAST CLINICAL INFORMATION: Crackles chest x-ray negative COMPARISON: Film same day TECHNIQUE: Multidetector volumetric CT imaging of the chest was done. Axial MIP volume rendering provided. Sagittal and coronal reformatted images were obtained. This CT examination was performed using dose optimization techniques as appropriate, variously including the following: *Automated exposure control *Adjustment of mA and/or kV according to patient size (this includes techniques or standardized protocols for targeted exams where dose is matched to indication/reason for exam; i.e. extremities or head) *Use of iterative reconstruction technique DLP: 197 mGy-cm FINDINGS: The thoracic inlet is within normal limits. The axillary regions demonstrate no bulky adenopathy. Partially imaged upper abdominal structures demonstrate right-sided colonic stool. 1.4 cm left adrenal lesion. Low Hounsfield units. Difficult to characterize due to small size. May well represent an adenoma. Centrally coronary calcifications are seen. There is mild aneurysmal change of the ascending aorta. 3.5 x 3.5 cm. There is no bulky adenopathy. Prominent precarinal node borderline in size 1 cm. This is a noncontrast study but the hilar regions do not appear pathologically enlarged. Imaging of the lung burns. There is evidence of COPD Right lung; There is no infiltrate or effusion. There is evidence of COPD. Several areas of nodularity. 4 mm nodule on image 56 of series 8. 4 mm nodule on image 63 5 mm nodule on image 76 7 mm nodule on image 85 6 mm nodule on image 88 Numerous other small lung nodules. Left lung; No significant infiltrate or effusion. 8 mm nodule on image 93 4 mm nodule on image 97. This may be spiculated. Other smaller areas of nodularity are seen. Numerous. Review of the bone windows shows abnormality in the midsternum. This could represent a bony lesion versus a sequela of injury with healing. Correlation needs to be made clinically. CT/CT chest wo con IMPRESSION: There is no significant infiltrate or effusion here. There is COPD and numerous as described areas of lung nodularity, largest measuring 8 mm in the left lower lobe. Malignancy cannot be excluded. Metastatic disease cannot be excluded. 8 mm is borderline line for PET/CT evaluation. Consider PET/CT at this time to further evaluate versus a close noncontrast low-dose follow-up study in 3 months for continued evaluation. Borderline precarinal node at 1 cm. Small left adrenal lesion with low Hounsfield units may represent an adenoma however given the findings in the lungs follow-up would be recommended here as well versus dedicated adrenal protocol Deformity in the mid sternum. This may be the sequela of previous injury with healing but an expansile bony lesion would be in the differential. Correlation recommended clinically. If further evaluation is warranted recommend bone scan or MRI Mild aneurysmal change of the ascending aorta
--- NOTE | ~2022-03-13 | XR_ITS ---
EXAMINATION: XR CHEST CLINICAL INFORMATION: Crackles at the base COMPARISON: Chest x-ray 01/19/2022 TECHNIQUE: 2 views of the chest were obtained. 5:47 PM FINDINGS: Lungs are clear. No pulmonary vascular congestion. There is no pleural effusion. The heart size is normal. The cardiac and mediastinal contours are normal. There are multilevel degenerative changes of dorsal spine. XR/XR chest 2V IMPRESSION: Unremarkable examination.
--- NOTE | ~2022-03-13 | CT_ITS ---
EXAMINATION: CT ANGIOGRAM NECK WITH CONTRAST CT ANGIOGRAM BRAIN WITH CONTRAST CLINICAL INFORMATION: CVA COMPARISON: None. TECHNIQUE: Test bolus sequences followed by intravenous administration 100 mL of Omnipaque 350. Helical imaging was performed in the axial plane from the thoracic inlet to the skull vertex. Delayed postcontrast imaging of the head was also performed. The data was processed at the chief nuclear medicine technologist workstation for generation of MIP sequences. Angled MIPs and volume rendered reformatted images were also generated at an offline 3D workstation. Stenoses are assessed in accordance with NASCET criteria unless otherwise indicated. This CT examination was performed using dose optimization techniques as appropriate, variously including the following: *Automated exposure control *Adjustment of mA and/or kV according to patient size (this includes techniques or standardized protocols for targeted exams where dose is matched to indication/reason for exam; i.e. extremities or head) *Use of iterative reconstruction technique DLP: 1478 mGy-cm FINDINGS: Head CT: There is no intracranial hemorrhage, extra-axial collection, mass effect, or territorial infarction. No abnormal enhancement is seen. The ventricles are normal in size without hydrocephalus. The dural venous sinuses are normally opacified. The extracranial structures are unremarkable. Neck CTA: Aortic arch and great vessels are patent. Atheromatous changes are seen at the bilateral carotid bifurcations but without significant stenosis of the internal carotid arteries. Both vertebral arteries are patent. Head CTA: No proximal vessel occlusion is seen. The vertebral basilar system is patent. A basilar fenestration is noted. Both management consulting are patent. Mild atheromatous changes are seen at the bilateral carotid siphons with mild stenosis. Both MCAs are patent with symmetric collaterals. The ACAs are patent. 2 mm saccular aneurysm is noted projecting posteriorly from the posterior wall of the supraclinoid segment of the right internal carotid artery best seen on series 6 image 391. Non-vascular findings: The cervical soft tissues are within normal limits. A left-sided breast implant is noted. Emphysema is seen within the upper lungs. CT/CT angio head neck IMPRESSION: CT head: No intracranial hemorrhage or large acute infarction. CTA neck: No hemodynamically significant stenosis in the major arteries of the neck. CTA head: No large vessel occlusion or significant stenosis within the intracranial circulation. 2 mm aneurysm projecting posteriorly from the posterior wall of the supraclinoid right ICA. This critical result was discussed with Dr. Meza on 03/13/2022 9:16 PM, and it was ascertained that the content and urgency of the report was understood at the time of direct communication.
--- NOTE | ~2022-03-13 | CT_ITS ---
Indication: Fall, neck pain Slow speech with left facial droop greater than 24 hours EXAMINATION: CT brain, CT cervical spine. This CT examination was performed using dose optimization techniques as appropriate, variously including the following: *Automated exposure control *Adjustment of mA and/or kV according to patient size (this includes techniques or standardized protocols for targeted exams where dose is matched to indication/reason for exam; i.e. extremities or head) *Use of iterative reconstruction technique. Radiation dose is [address] brain; Axial imaging with coronal and sagittal reformatted images. There is no midline shift. There is no mass effect. There is no hemorrhage. The basal cisterns appear patent. The posterior fossa is grossly within normal limits. There is no extra-axial collection. The myers-white matter is within normal limits. Ventricular system within normal limits. Review of the bone windows demonstrates probable sinus disease in the ethmoids. No fracture is seen. CT cervical spine; Degenerative changes. There is no evidence for an acute fracture or dislocation. CT/CT cervical spine wo con IMPRESSION: Negative acute noncontrast CT of the brain. No fracture or dislocation of the cervical spine. Degenerative changes
--- NOTE | ~2022-03-13 | CT_ITS ---
Indication: Fall, neck pain Slow speech with left facial droop greater than 24 hours EXAMINATION: CT brain, CT cervical spine. This CT examination was performed using dose optimization techniques as appropriate, variously including the following: *Automated exposure control *Adjustment of mA and/or kV according to patient size (this includes techniques or standardized protocols for targeted exams where dose is matched to indication/reason for exam; i.e. extremities or head) *Use of iterative reconstruction technique. Radiation dose is [address] brain; Axial imaging with coronal and sagittal reformatted images. There is no midline shift. There is no mass effect. There is no hemorrhage. The basal cisterns appear patent. The posterior fossa is grossly within normal limits. There is no extra-axial collection. The myers-white matter is within normal limits. Ventricular system within normal limits. Review of the bone windows demonstrates probable sinus disease in the ethmoids. No fracture is seen. CT cervical spine; Degenerative changes. There is no evidence for an acute fracture or dislocation. CT/CT head/brain wo con IMPRESSION: Negative acute noncontrast CT of the brain. No fracture or dislocation of the cervical spine. Degenerative changes
[2022-03-13 16:23] VITALS: BP 117/77; PULSE 63; RESP 18; TEMP 36.9; O2SAT 95; BMI 22.1
[2022-03-13 16:49] VITALS: BP 142/83; PULSE 71; RESP 14; TEMP 36.7; O2SAT 92
--- NOTE | 2022-03-13 16:49 | ECG_ITS ---
Test Reason : NEURO SYMPTOMS Blood Pressure : / mmHG Vent. Rate : 056 BPM Atrial Rate : 056 BPM P-R Int : 152 ms QRS Dur : 082 ms QT Int : 450 ms P-R-T Axes : 055 048 052 degrees QTc Int : 434 ms Sinus bradycardia Otherwise normal ECG When compared with ECG of 09-JAN-2021 15:01, Vent. rate has decreased BY 36 BPM T wave inversion no longer evident in Inferior leads T wave inversion no longer evident in Anterolateral leads Referred By: Osiris Lubin Electronically Signed By:AMPARO LOWERY MD
--- NOTE | 2022-03-13 16:54 | ED_ITS ---
HPI - Neuro Symptoms/Deficit General Chief Complaint: Neuro Symptoms/Deficit Stated Complaint: confusion Time Seen by Provider: 03/13/22 16:24 Source: patient Mode of arrival: wheelchair Limitations: altered mental status History of Present Illness HPI Narrative: 56-year-old female with a past medical history of seizures, migraines, bipolar 1, and STEMI, cardiomyopathy, GERD, and hypothyroidism, presents for increased confusion since yesterday morning. Her boyfriend picked her up at her house yesterday morning at 07:15, and stated that she was confused, very tired and sleeping a lot, had slow speech, and was off balance, walking like she was drunk. Patient had influenza a 3 weeks ago, although patient denies cough, BF says she coughs at night, and her breathing sounds very raspy in the night. Last night boyfriend stated she was confused, an example he gave was that she was asking which dress of hers was on the table, when there was no dress on a table. Today, boyfriend says patient has been off balance, patient states she fell 3 times this morning, denies head strike, denies loss of consciousness. States she is very tired. No incontinence of bowel or bladder, no biting of her tongue. Her falls were unwitnessed. No recent med changes. Related Data Home Medications Medication Instructions Recorded Confirmed buprenorphine 12 mg-naloxone 3 mg 1 film SUBLINGUAL DAILY 08/24/20 03/13/22 sublingual film zolpidem 10 mg tablet 10 mg PO BEDTIME 09/05/21 03/13/22 albuterol sulfate 90 mcg/actuation 2 puff INHALATION Q4H PRN 03/13/22 03/13/22 aerosol inhaler (ProAir HFA) clonidine HCl 0.2 mg tablet 0.4 mg PO BID 03/13/22 03/13/22 sertraline 100 mg tablet 1 tab PO BID 03/13/22 03/13/22 Previous Rx's Medication Instructions Recorded lurasidone 80 mg tablet 80 mg PO DAILY 30 Days #30 tab 04/16/21 clonazepam 1 mg tablet 1 mg PO TID 30 Days #90 tab 04/18/21 levetiracetam 250 mg tablet 750 mg PO BID #180 tab 11/11/21 levothyroxine 150 mcg tablet 150 mcg PO DAILY 30 Days #30 tab 11/12/21 pantoprazole 40 mg tablet,delayed 40 mg PO DAILY 30 Days #30 tab 11/12/21 release dprlucutrb-zbqrnkoqklstj-ebrrgubz 1 cap PO Q8H PRN 30 Days #15 cap 03/11/22 50 mg-300 mg-40 mg capsule (Fioricet) Allergies Allergy/AdvReac Type Severity Reaction Status Date / Time aspirin Allergy Intermediate stomach Verified 03/11/22 11:55 upset codeine [CODEINE] Allergy Intermediate itching Verified 03/11/22 11:55 NSAIDS (Non-Steroidal Allergy Mild stomach Verified 03/11/22 11:55 Anti-Inflamma upset [NSAIDS (NON-STEROIDAL ANTI-INFLAMMA] Sulfa (Sulfonamide Allergy Mild Rash Verified 03/11/22 11:55 Antibiotics) [SULFA(SULFONAMIDE ANTIBIOTICS)] Review of Systems Constitutional: Constitutional: Denies body ache(s), Denies chills, Reports fatigue, Denies fever(s), Reports headache(s), Reports malaise and Reports weakness Eyes: Eyes: Denies diplopia ENT: Reports Normal hearing present, Denies vertigo, Reports dizziness, Denies otalgia, Reports headache(s), Denies mouth pain, Denies post nasal drip, Denies sinus pain, Denies sinus pressure, Denies sore throat and Denies throat swelling Cardiovascular: Cardiovascular: Denies chest pain, Denies syncope, Denies leg edema, Denies lightheadedness, Denies Loss of Consciousness, Denies palpitations and Denies dyspnea Respiratory: Respiratory: Denies chest congestion, Denies cough and Denies dyspnea Gastrointestinal: Gastrointestinal: Denies abdominal pain, Denies hematochezia, Denies constipation, Denies diarrhea and Denies vomiting Genitourinary: Genitourinary: Reports no additional female genitourinary complaints Musculoskeletal: Musculoskeletal: Reports no additional musculoskeletal complaints and Reports abnormal gait Neurologic: Reports Normal hearing present, Reports Abnormal speech present (Slow, but not slurred or aphasic), Reports abnormal gait, Reports confusion, Denies vertigo, Reports dizziness, Denies syncope, Reports headache(s), Denies Sensory deficit (Neuro) and Reports weakness Comments: Slow speech, unsteady gait Psychiatric: Psychiatric: Denies anxiety, Reports confusion and Denies depression Endocrine: Endocrine: Reports fatigue and Denies palpitations Allergic/Immunologic: Allergic/Immunologic: Denies throat swelling [facility] Past Medical History Medical History Chronic pain GERD (gastroesophageal reflux disease) Hypothyroidism Lumbar back pain Lumbar back pain with radiculopathy affecting left lower extremity NSTEMI (non-ST elevated myocardial infarction) Obesity Takotsubo cardiomyopathy Vitamin D deficiency Surgical History History of elbow surgery History of hysterectomy History of shoulder surgery Hx of cardiac catheterization Status post removal of cervix Family History Family History Sister Hypothyroidism Social History Social History Household Members: Family Housing: House Alcohol intake: current Alcohol intake frequency: a few times a month Patient Tobacco Use Status: Current everyday Tobacco user Tobacco use type: Cigarette Years Smoked: 20 Second Hand Smoke Exposure: No Advance Directives: No Advance Directives Information Provided: No Patient : No Current occupational exposures/hazards: No Cognitive needs: No Hearing needs: No Vision needs: No Physical Exam Vital Signs: Vital Signs: Last Vital Signs Temp 98.5 F 03/13/22 16:23 Pulse 62 03/13/22 18:48 Resp 11 L 03/13/22 18:48 BP 117/77 03/13/22 16:23 Pulse Ox 95 03/13/22 16:23 BMI result Body Mass Index 22.1 Const: General: alert, awake and confusion Nutritional Appearance: cachectic Orientation/consciousness: patient oriented x3 and confusion Limitations: other limitations (Slow speech, no slurring) HEENT: Head: Yes normal to inspection, Yes normocephalic and Yes atraumatic Ears: hearing grossly normal bilaterally, external ears normal, TM's normal bilaterally and EAC's normal General nose exam: Normal external nose present Face and sinus: Yes normal facial exam and Yes sinuses nontender Mouth: Normal oral and palatal mucosa present Throat: Yes posterior oropharynx normal Eyes: Conjunctivae: conjunctivae normal Pupils: Equal, round and reactive pupils present EOM: EOMs intact bilaterally and No Nystagmus present Neck: Neck: Yes full ROM, Yes no lymphadenopathy and Yes supple Resp: Effort & Inspection: normal respiratory effort and able to speak in complete sentences Auscultation: crackles bilateral at the base, no rales, rhonchi throughout and no wheezes Cardio: Rate: regular rate Rhythm: regular rhythm Heart sounds: S1 normal heart sound present and S2 normal heart sound present GI: Inspection: Yes normal to inspection Palpation (GI): Soft to palpation, nontender, no guarding and not rigid Percussion: Yes normal to percussion Auscultation: normal bowel sounds Skin: General skin exam: no rashes or lesions noted Neuro: General: patient oriented x3 and confusion Cranial nerves: Yes Facial sensation intact/muscles of mastication intact, Yes Equal, round and reactive pupils present, Yes Normal accommodation reflex present, Yes Bilaterally intact EOM present, No Normal facial strength present (Mild left mouth droop), Yes Midline tongue present, Yes Normal hearing present, Yes Ability to bilaterally rotate head present, Yes Ability to bilaterally elevate shoulders present and No Nystagmus present Speech: Abnormal speech present (Slow, but not slurred or aphasic) Gait exam (Neuro): Ataxic gait present Motor exam (neuro): Abnormal motor strength present (Mild drift left lower extremity) Sensory Exam: No Sensory deficit (Neuro) Deep tendon reflexes (DTR's): Right brachioradialis reflex intensity grade: 1+, Left brachioradialis reflex intensity grade: 1+, Right patellar reflex intensity grade: 1+ and Left patellar reflex intensity grade: 1+ Coordination: [id number]-[id number] test normal and [id number]-[id number] test normal Romberg Test: Negative Pupils: Normal pupillary reactivity/response: bilateral Extrem: General: Yes normal to inspection and Yes full ROM Psych: Appearance: grossly normal Affect: normal affect Attitude: cooperative Thought process: Normal thought process present Course Course Course Narrative: 17:14 56-year-old female presents with confusion, gait disturbance, slow speech, and left facial droop, symptoms were 1st noticed by her boyfriend Mateus, at 07:15 yesterday morning Patient was seen here 3 weeks ago for influenza A, had negative chest x-ray at that time On exam, patient has stable vitals, is afebrile, lungs are rhonchorous throughout with crackles bilateral bases. Patient is satting 96% on room air. Not tachypneic Patient is slow to respond in her speech, she has a staggering gait when I got her up to walk her. She has mild left facial droop, she can raise her eyebrows. CT for stroke, CTA head and neck for stroke were originally ordered, as BF was unclear on symptom onset originally. Discussed with Dr Benitez, symptoms >24 hours so out of the window for clot retrieval, I am ordering CT head and CT cervical spine. NIH stroke scale of 3 for minor left facial droop, left leg mild drift, and mild dysarthria. FAST-ED score 2 out of 9 [address] getting MRI with Dr Benitez, he said patient is out of clot retrieval window, and MRI can be done inpatient Patient obviously out of tPA window Patient is dysarthric, in that she has slow speech but can form her words, she is not aphasic Reevaluation(s) Reevaluation #1: CT/CT head/brain wo con IMPRESSION: Negative acute noncontrast CT of the brain. No fracture or dislocation of the cervical spine. Degenerative changes CT shows no acute intracranial pathology, CBC and CMP are normal, INR 1.0, PTT 43.2, troponin negative, negative for alcohol, blood glucose 81, magnesium 1.8. Is awaiting lactic, urine, and chest x-ray Reevaluation #2: FINDINGS: ?Lungs are clear. No pulmonary vascular congestion. There is no pleural effusion. The heart size is normal. The cardiac and mediastinal contours are normal. There are multilevel degenerative changes of dorsal spine.? ? XR/XR chest 2V IMPRESSION: Unremarkable examination. Will treat for pneumonia due to clinical exam. Will get CT chest, give [facility] [place] text with oDrinda Cole about plan to admit for inpatient stroke workup an MRI, she concurs. COVID negative, lactic 0.8. Awaiting urine and CT chest Dr Meza will admit Reevaluation #3: CT chest negative for infiltrate, shows nodule suspicious for malignancy and COPD MDM - Neuro Symptoms/Deficit Lab Data Result diagrams: 03/13/22 17:11 03/13/22 17:11 Labs: Lab Results 03/13/22 03/13/22 03/13/22 Range/Units 17:03 17:04 17:10 WBC (4.8-10.8) X10*3/uL RBC (4.20-5.50) X10*6/uL Hgb (12.0-16.0) g/dl Hct (37.0-47.0) % MCV (80.0-98.0) fL MCH (27.0-33.0) pg MCHC (31.0-35.0) g/dl RDW (11.0-16.0) % Plt Count (160-400) X10*3/uL MPV (9.4-12.3) fL Immature Gran % (Auto) (0.0-0.4) % Neut % (Auto) (45-73) % Lymph % (Auto) (20-40) % Mcleod % (Auto) (2-11) % Eos % (Auto) (0-4) % Baso % (Auto) (0-2) % Lymph # (Auto) (1.2-4.9) X10*3/uL Mcleod # (Auto) (0.1-1.2) X10*3/uL Eos # (Auto) (0.0-0.4) X10*3/uL Baso # (Auto) (0.0-0.2) X10*3/uL Abs Immat Gran (auto) (0.00-0.03) X10*3/uL Absolute Neuts (auto) (2.0-8.3) x10*3/uL Absolute Nucleated RBC (0.0-0.012) X10*3/uL Nucleated RBC % (auto) (0.0-0.2) /100WBC PT (9.9-13.0) SEC Whole Blood PT 12.1 (11.1-13.5) sec INR (0.9-1.1) Whole Blood INR 1.0 (0.9-1.1) APTT (24.1-38.0) SEC Sodium (135-145) mmol/L Potassium (3.3-5.1) mmol/L Chloride (96-108) mmol/L Carbon Dioxide (22-29) mmol/L Anion Gap (12-20) BUN (9-16) mg/dL Creatinine (0.5-1.4) mg/dL Estim Creat Clear Calc Estimated GFR POC Glucose 81 (60-115) mg/dL Random Glucose (60-115) mg/dL Lactic Acid (0.5-2.0) mmol/L Calcium (8.4-10.2) mg/dL Magnesium (1.6-2.6) mg/dL Total Bilirubin (0.0-1.0) mg/dL Direct Bilirubin (0.0-0.5) mg/dL AST (5-31) U/L ALT (0-31) U/L Alkaline Phosphatase (39-117) U/L Total Creatine Kinase (26-140) U/L Troponin I High Sens < 3.5 (<3.5-17.0) ng/L Total Protein (6.5-8.0) g/dL Albumin (3.5-5.0) g/dL Hold Red Top Ethyl Alcohol mg/dL COVID-19 ([facility]) (Negative) COVID-19 Clin Com 03/13/22 03/13/22 03/13/22 Range/Units 17:10 17:11 17:11 WBC 6.3 (4.8-10.8) X10*3/uL RBC 4.17 L (4.20-5.50) X10*6/uL Hgb 12.7 (12.0-16.0) g/dl Hct 37.9 (37.0-47.0) % MCV 90.9 (80.0-98.0) fL MCH 30.5 (27.0-33.0) pg MCHC 33.5 (31.0-35.0) g/dl RDW 14.5 (11.0-16.0) % Plt Count 234 (160-400) X10*3/uL MPV 10.1 (9.4-12.3) fL Immature Gran % (Auto) 0.5 H (0.0-0.4) % Neut % (Auto) 60.6 (45-73) % Lymph % (Auto) 24.2 (20-40) % Mcleod % (Auto) 8.2 (2-11) % Eos % (Auto) 5.4 H (0-4) % Baso % (Auto) 1.1 (0-2) % Lymph # (Auto) 1.5 (1.2-4.9) X10*3/uL Mcleod # (Auto) 0.5 (0.1-1.2) X10*3/uL Eos # (Auto) 0.3 (0.0-0.4) X10*3/uL Baso # (Auto) 0.1 (0.0-0.2) X10*3/uL Abs Immat Gran (auto) 0.03 (0.00-0.03) X10*3/uL Absolute Neuts (auto) 3.8 (2.0-8.3) x10*3/uL Absolute Nucleated RBC 0.000 (0.0-0.012) X10*3/uL Nucleated RBC % (auto) 0.0 (0.0-0.2) /100WBC PT 11.7 (9.9-13.0) SEC Whole Blood PT (11.1-13.5) sec INR 1.0 (0.9-1.1) Whole Blood INR (0.9-1.1) APTT 43.2 H (24.1-38.0) SEC Sodium (135-145) mmol/L Potassium (3.3-5.1) mmol/L Chloride (96-108) mmol/L Carbon Dioxide (22-29) mmol/L Anion Gap (12-20) BUN (9-16) mg/dL Creatinine (0.5-1.4) mg/dL Estim Creat Clear Calc Estimated GFR POC Glucose (60-115) mg/dL Random Glucose (60-115) mg/dL Lactic Acid (0.5-2.0) mmol/L Calcium (8.4-10.2) mg/dL Magnesium (1.6-2.6) mg/dL Total Bilirubin (0.0-1.0) mg/dL Direct Bilirubin (0.0-0.5) mg/dL AST (5-31) U/L ALT (0-31) U/L Alkaline Phosphatase (39-117) U/L Total Creatine Kinase (26-140) U/L Troponin I High Sens (<3.5-17.0) ng/L Total Protein (6.5-8.0) g/dL Albumin (3.5-5.0) g/dL Hold Red Top See Note Ethyl Alcohol mg/dL COVID-19 ([facility]) (Negative) COVID-19 Clin Com 03/13/22 03/13/22 03/13/22 Range/Units 17:11 17:11 18:13 WBC (4.8-10.8) X10*3/uL RBC (4.20-5.50) X10*6/uL Hgb (12.0-16.0) g/dl Hct (37.0-47.0) % MCV (80.0-98.0) fL MCH (27.0-33.0) pg MCHC (31.0-35.0) g/dl RDW (11.0-16.0) % Plt Count (160-400) X10*3/uL MPV (9.4-12.3) fL Immature Gran % (Auto) (0.0-0.4) % Neut % (Auto) (45-73) % Lymph % (Auto) (20-40) % Mcleod % (Auto) (2-11) % Eos % (Auto) (0-4) % Baso % (Auto) (0-2) % Lymph # (Auto) (1.2-4.9) X10*3/uL Mcleod # (Auto) (0.1-1.2) X10*3/uL Eos # (Auto) (0.0-0.4) X10*3/uL Baso # (Auto) (0.0-0.2) X10*3/uL Abs Immat Gran (auto) (0.00-0.03) X10*3/uL Absolute Neuts (auto) (2.0-8.3) x10*3/uL Absolute Nucleated RBC (0.0-0.012) X10*3/uL Nucleated RBC % (auto) (0.0-0.2) /100WBC PT (9.9-13.0) SEC Whole Blood PT (11.1-13.5) sec INR (0.9-1.1) Whole Blood INR (0.9-1.1) APTT (24.1-38.0) SEC Sodium 139 (135-145) mmol/L Potassium 4.4 (3.3-5.1) mmol/L Chloride 105 (96-108) mmol/L Carbon Dioxide 25 (22-29) mmol/L Anion Gap 13 (12-20) BUN 9 (9-16) mg/dL Creatinine 0.82 (0.5-1.4) mg/dL Estim Creat Clear Calc 63.3 Estimated GFR > 60 POC Glucose (60-115) mg/dL Random Glucose 83 (60-115) mg/dL Lactic Acid 0.8 (0.5-2.0) mmol/L Calcium 9.3 (8.4-10.2) mg/dL Magnesium 1.8 (1.6-2.6) mg/dL Total Bilirubin 0.6 (0.0-1.0) mg/dL Direct Bilirubin 0.2 (0.0-0.5) mg/dL AST 14 (5-31) U/L ALT < 6 (0-31) U/L Alkaline Phosphatase 60 D (39-117) U/L Total Creatine Kinase 98 (26-140) U/L Troponin I High Sens (<3.5-17.0) ng/L Total Protein 7.2 (6.5-8.0) g/dL Albumin 4.1 (3.5-5.0) g/dL Hold Red Top Ethyl Alcohol < 10 mg/dL COVID-19 ([facility]) (Negative) COVID-19 Clin Com 03/13/22 Range/Units 18:13 WBC (4.8-10.8) X10*3/uL RBC (4.20-5.50) X10*6/uL Hgb (12.0-16.0) g/dl Hct (37.0-47.0) % MCV (80.0-98.0) fL MCH (27.0-33.0) pg MCHC (31.0-35.0) g/dl RDW (11.0-16.0) % Plt Count (160-400) X10*3/uL MPV (9.4-12.3) fL Immature Gran % (Auto) (0.0-0.4) % Neut % (Auto) (45-73) % Lymph % (Auto) (20-40) % Mcleod % (Auto) (2-11) % Eos % (Auto) (0-4) % Baso % (Auto) (0-2) % Lymph # (Auto) (1.2-4.9) X10*3/uL Mcleod # (Auto) (0.1-1.2) X10*3/uL Eos # (Auto) (0.0-0.4) X10*3/uL Baso # (Auto) (0.0-0.2) X10*3/uL Abs Immat Gran (auto) (0.00-0.03) X10*3/uL Absolute Neuts (auto) (2.0-8.3) x10*3/uL Absolute Nucleated RBC (0.0-0.012) X10*3/uL Nucleated RBC % (auto) (0.0-0.2) /100WBC PT (9.9-13.0) SEC Whole Blood PT (11.1-13.5) sec INR (0.9-1.1) Whole Blood INR (0.9-1.1) APTT (24.1-38.0) SEC Sodium (135-145) mmol/L Potassium (3.3-5.1) mmol/L Chloride (96-108) mmol/L Carbon Dioxide (22-29) mmol/L Anion Gap (12-20) BUN (9-16) mg/dL Creatinine (0.5-1.4) mg/dL Estim Creat Clear Calc Estimated GFR POC Glucose (60-115) mg/dL Random Glucose (60-115) mg/dL Lactic Acid (0.5-2.0) mmol/L Calcium (8.4-10.2) mg/dL Magnesium (1.6-2.6) mg/dL Total Bilirubin (0.0-1.0) mg/dL Direct Bilirubin (0.0-0.5) mg/dL AST (5-31) U/L ALT (0-31) U/L Alkaline Phosphatase (39-117) U/L Total Creatine Kinase (26-140) U/L Troponin I High Sens (<3.5-17.0) ng/L Total Protein (6.5-8.0) g/dL Albumin (3.5-5.0) g/dL Hold Red Top Ethyl Alcohol mg/dL COVID-19 ([facility]) Negative (Negative) COVID-19 Clin Com See Note ECG Data Interpretation: Sinus bradycardia at a rate of 56, [place] interval 152, QRS 82, QTC 434, normal axis, no ST depression or elevation, no T-wave abnormality NIH Stroke Scale Internal: Initial- Upon Arrival Time: 16:54 Level of Consciousness: Alert Level of Consciousness Questions: Answers both questions correctly Level of Consciousness Commands: Performs both tasks correctly Best Gaze: Normal Visual: No visual loss Facial Palsy: Minor paralyis Motor Arm (Right): No drift Motor Arm (Left): No drift Motor Leg (Right): No drift Motor Leg (Left): Drift Limb Ataxia: Absent Sensory: Normal Best Language: Mild to moderate aphasia Dysarthia: Normal Extinction and Inattention: No abnormality Score: 3 Discharge Plan Discharge Clinical Impression: Neurological deficit present, Pneumonia Patient Disposition: Admitted As Inpatient
[2022-03-13 17:15] LABS: MANUAL DIFF FLAG NO
[2022-03-13 17:21] LABS: Glucose, Whole Blood 81 mg/dL (60-115)
[2022-03-13 17:24] LABS: Basophils Absolute Auto 0.1 X10*3/uL (0.0-0.2); Basophils Percent Auto 1.1 % (0-2); Eosinophils Absolute Auto 0.3 X10*3/uL (0.0-0.4); Eosinophils Percent Auto 5.4 % (0-4); Hematocrit 37.9 % (37.0-47.0); Hemoglobin 12.7 g/dl (12.0-16.0); Imm Gran Abs Auto 0.03 X10*3/uL (0.00-0.03); Imm Gran Pct Auto 0.5 % (0.0-0.4); Lymphocytes Absolute Auto 1.5 X10*3/uL (1.2-4.9); Lymphocytes Percent Auto 24.2 % (20-40); Mean Corpuscular HGB Conc 33.5 g/dl (31.0-35.0); Mean Corpuscular Hemoglobin 30.5 pg (27.0-33.0); Mean Corpuscular Volume 90.9 fL (80.0-98.0); Mean Platelet Volume 10.1 fL (9.4-12.3); Monocytes Absolute Auto 0.5 X10*3/uL (0.1-1.2); Monocytes Percent Auto 8.2 % (2-11); Neutrophils Absolute Auto 3.8 x10*3/uL (2.0-8.3); Neutrophils Percent Auto 60.6 % (45-73); Platelet Count 234 X10*3/uL (160-400); Red Blood Count 4.17 X10*6/uL (4.20-5.50); Red Cell Distribution Width 14.5 % (11.0-16.0); White Blood Count 6.3 X10*3/uL (4.8-10.8)
[2022-03-13 17:29] LABS: Prothrombin Time 11.7 SEC (9.9-13.0)
[2022-03-13 17:31] LABS: Partial Thromboplastin Time 43.2 SEC (24.1-38.0)
[2022-03-13 17:33] LABS: Alanine Aminotransferase < 6 U/L (0-31); Albumin Level 4.1 g/dL (3.5-5.0); Alkaline Phosphatase 60 U/L (39-117); Anion Gap 13 (12-20); Aspartate Amino Transferase 14 U/L (5-31); Bilirubin Direct 0.2 mg/dL (0.0-0.5); Bilirubin Total 0.6 mg/dL (0.0-1.0); Blood Urea Nitrogen 9 mg/dL (9-16); Calcium 9.3 mg/dL (8.4-10.2); Carbon Dioxide 25 mmol/L (22-29); Chloride 105 mmol/L (96-108); Creatinine Clr Calc Pharmacy 63.3; Estimated Glomerular Filt Rate > 60; Glucose Random 83 mg/dL (60-115); Magnesium 1.8 mg/dL (1.6-2.6); Potassium 4.4 mmol/L (3.3-5.1); Sodium 139 mmol/L (135-145); Total Protein 7.2 g/dL (6.5-8.0)
[2022-03-13 17:37] LABS: Troponin-I High Sensitivity < 3.5 ng/L (<3.5-17.0)
[2022-03-13 17:45] LABS: Ethanol < 10 mg/dL
[2022-03-13 17:46] LABS: Stroke Lab Use COMPLETE
[2022-03-13] MEDS: 0.9 % Sodium Chloride 1,000 ML 999 ML IV (17:52)
[2022-03-13 18:00] VITALS: BP 175/59; PULSE 87; RESP 22; TEMP 36.6; O2SAT 99
[2022-03-13 18:02] LABS: Prothrombin Time Whole Bld POC 12.1 sec (11.1-13.5)
[2022-03-13 18:35] LABS: COVID-19 Test Negative (Negative); Lactic Acid 0.8 mmol/L (0.5-2.0)
[2022-03-13] MEDS: Albuterol/Iprat 2.5/0.5MG 3 ML AMPUL.NEB INHALE (18:47)
[2022-03-13 18:48] VITALS: PULSE 62; RESP 11; O2SAT 100
[2022-03-13] MEDS: cefTRIAXone sodium 1 GM in 0.9 % Sodium Chloride 50 ML IV (19:41)
[2022-03-13] MEDS: Azithromycin 500 MG in 0.9 % Sodium Chloride 250 ML 125 MG IV (19:44)
--- NOTE | 2022-03-13 20:34 | PHA.MEDREC ---
Pharmacy Consult ? Medication Reconciliation Pharmacy has completed the medication reconciliation. Pt states that she thinks she takes one pill of thyroid medicine but was unsure of dose, claim history only has a 30 days supply of levothyroxine 150mcg last filled in December of 2021. Chapis Andersen, TonioD
[2022-03-13] MEDS: iohexoL 350 MG/ML 100 ML INFUS..BTL IV (20:51)
--- NOTE | 2022-03-13 21:03 | MHC.CM.PN ---
Attempted to meet with patient with regards to d/c planning. Pt sleeping. CM will follow for d/c needs.
[2022-03-13] MEDS: Atorvastatin Calcium 80 MG TABLET PO (21:20)
--- NOTE | 2022-03-13 21:56 | P.HPHOSP_ITS ---
History of Present Illness Date of Service: 03/13/22 Chief Complaint: increased confusion, abnormal gait 56-year-old female with past medical history of GERD, chronic pain, hypothyroidism, NSTEMI, bipolar, hypertension, opioid use disorder, anxiety and depression, and migraine headaches who presents to the hospital with complaints of confusion and unsteady gait. Patient is slightly confused therefore history is obtained from her at bedside who has been witness to this confusion and unsteady gait. Patient and her has been at bedside report that since yesterday patient woke up confused, asking nonsensical questions, and having wobbly unsteady gait. Patient does not remember, but her reports that she has also been complaining of weakness in nonspecific regions of her body, she is complaining of chills, feeling very cold but otherwise has no headache, change in vision, she wants endorses weakness in her arms or legs but that when asked her again she denied. She reports no chest pain, reports no slurred speech, no shortness of breath, has been having a cough for the past 1 week, was diagnosed with influenza a recently but has been improving. Has no abdominal pain nausea or vomiting, no diarrhea constipation, no urinary symptoms, no lower extremity edema. On arrival to the ED patient was noted to be hypertensive otherwise vitals were unremarkable Labs were reviewed unremarkable, UA negative, COVID-19 negative, chest x-ray negative, chest CT demonstrates no evidence of pneumonia but has multiple nodules where malignancy cannot be ruled out. Patient will be admitted for evaluation of possible stroke Review of Systems Review of Systems: Yes all other systems are reviewed and are negative [facility] Medical History Chronic pain GERD (gastroesophageal reflux disease) Hypothyroidism Lumbar back pain Lumbar back pain with radiculopathy affecting left lower extremity NSTEMI (non-ST elevated myocardial infarction) Obesity Takotsubo cardiomyopathy Vitamin D deficiency Family History Sister Hypothyroidism Surgical History History of elbow surgery History of hysterectomy History of shoulder surgery Hx of cardiac catheterization Status post removal of cervix Social History Household Members: Family Housing: House Alcohol intake: current Alcohol intake frequency: a few times a month Patient Tobacco Use Status: Current everyday Tobacco user Tobacco use type: Cigarette Years Smoked: 20 Second Hand Smoke Exposure: No Advance Directives: No Advance Directives Information Provided: No Patient : No Current occupational exposures/hazards: No Cognitive needs: No Hearing needs: No Vision needs: No Meds Allergies Allergy/AdvReac Type Severity Reaction Status Date / Time aspirin Allergy Intermediate stomach Verified 03/11/22 11:55 upset codeine [CODEINE] Allergy Intermediate itching Verified 03/11/22 11:55 NSAIDS (Non-Steroidal Allergy Mild stomach Verified 03/11/22 11:55 Anti-Inflamma upset [NSAIDS (NON-STEROIDAL ANTI-INFLAMMA] Sulfa (Sulfonamide Allergy Mild Rash Verified 03/11/22 11:55 Antibiotics) [SULFA(SULFONAMIDE ANTIBIOTICS)] Active Medications: Current Medications Acetaminophen (Acetaminophen 325 Mg Tablet) 650 mg PO Q6H PRN PRN Reason: Pain, Mild (Pain Scale 1-3) Atorvastatin Calcium (Atorvastatin Calcium 80 Mg Tablet) 80 mg PO DAILY LINK Last Admin: 03/13/22 21:20 Dose: 80 mg Documented by: Docusate Sodium (Docusate Sodium 100 Mg Capsule) 100 mg PO DAILY PRN PRN Reason: Constipation Ondansetron HCl (Ondansetron Hcl 4 Mg/2 Ml Vial) 4 mg IVPUSH Q8H PRN PRN Reason: Nausea and Vomiting Home Medications Medication Instructions Recorded Confirmed Last Taken Type buprenorphine 12 mg-naloxone 3 mg 1 film SUBLINGUAL DAILY 08/24/20 03/13/22 03/12/22 History sublingual film zolpidem 10 mg tablet 10 mg PO BEDTIME 09/05/21 03/13/22 Unknown History albuterol sulfate 90 mcg/actuation 2 puff INHALATION Q4H PRN 03/13/22 03/13/22 Unknown History aerosol inhaler (ProAir HFA) clonidine HCl 0.2 mg tablet 0.4 mg PO BID 03/13/22 03/13/22 03/12/22 History sertraline 100 mg tablet 1 tab PO BID 03/13/22 03/13/22 03/12/22 History Physical Exam Vital Signs and Narrative: Vital Signs: Last Vital Signs Temp 98.5 F 03/13/22 16:23 Pulse 62 03/13/22 18:48 Resp 11 L 03/13/22 18:48 BP 117/77 03/13/22 16:23 Pulse Ox 95 03/13/22 16:23 BMI result Body Mass Index 22.1 Const: General: cooperative and no acute distress Orientation/consciousness: patient oriented x3 Eyes: General: appearance normal, both eyes and all related structures Resp: Effort & Inspection: normal respiratory effort Auscultation: clear to auscultation bilaterally Cardio: Rate: regular rate Rhythm: regular rhythm GI: Palpation (GI): Soft to palpation Auscultation: normal bowel sounds Skin: General skin exam: no rashes or lesions noted Neuro: Other: Patient is slightly confused and not following commands appropriately to do a complete neuro exam, but has strength 5/5 in all extremities, does have a facial droop on the left, speech is clear and no slurred speech appreciated General: patient oriented x3 Extrem: General: Yes normal to inspection and Yes no pedal edema Results Labs CBC and Chem 7: 03/13/22 17:11 03/13/22 17:11 Labs: Laboratory Results - last 24 hr 03/13/22 03/13/22 03/13/22 17:03 17:04 17:10 MCV MCH MCHC RDW Plt Count MPV Immature Gran % (Auto) Neut % (Auto) Lymph % (Auto) Bell % (Auto) Eos % (Auto) Baso % (Auto) Lymph # (Auto) Bell # (Auto) Eos # (Auto) Baso # (Auto) Abs Immat Gran (auto) Absolute Neuts (auto) Absolute Nucleated RBC Nucleated RBC % (auto) PT Whole Blood PT 12.1 INR Whole Blood INR 1.0 APTT Anion Gap Estim Creat Clear Calc Estimated GFR POC Glucose 81 Random Glucose Lactic Acid Calcium Magnesium Total Bilirubin Direct Bilirubin AST ALT Alkaline Phosphatase Total Creatine Kinase Troponin I High Sens < 3.5 Total Protein Albumin Hold Red Top Ethyl Alcohol COVID-19 ([facility]) COVID-19 Clin Com 03/13/22 03/13/22 03/13/22 17:10 17:11 17:11 MCV 90.9 MCH 30.5 MCHC 33.5 RDW 14.5 Plt Count 234 MPV 10.1 Immature Gran % (Auto) 0.5 H Neut % (Auto) 60.6 Lymph % (Auto) 24.2 Bell % (Auto) 8.2 Eos % (Auto) 5.4 H Baso % (Auto) 1.1 Lymph # (Auto) 1.5 Bell # (Auto) 0.5 Eos # (Auto) 0.3 Baso # (Auto) 0.1 Abs Immat Gran (auto) 0.03 Absolute Neuts (auto) 3.8 Absolute Nucleated RBC 0.000 Nucleated RBC % (auto) 0.0 PT 11.7 Whole Blood PT INR 1.0 Whole Blood INR APTT 43.2 H Anion Gap Estim Creat Clear Calc Estimated GFR POC Glucose Random Glucose Lactic Acid Calcium Magnesium Total Bilirubin Direct Bilirubin AST ALT Alkaline Phosphatase Total Creatine Kinase Troponin I High Sens Total Protein Albumin Hold Red Top See Note Ethyl Alcohol COVID-19 ([facility]) COVID-[facility] 03/13/22 03/13/22 03/13/22 17:11 17:11 18:13 MCV MCH MCHC RDW Plt Count MPV Immature Gran % (Auto) Neut % (Auto) Lymph % (Auto) Bell % (Auto) Eos % (Auto) Baso % (Auto) Lymph # (Auto) Bell # (Auto) Eos # (Auto) Baso # (Auto) Abs Immat Gran (auto) Absolute Neuts (auto) Absolute Nucleated RBC Nucleated RBC % (auto) PT Whole Blood PT INR Whole Blood INR APTT Anion Gap 13 Estim Creat Clear Calc 63.3 Estimated GFR > 60 POC Glucose Random Glucose 83 Lactic Acid 0.8 Calcium 9.3 Magnesium 1.8 Total Bilirubin 0.6 Direct Bilirubin 0.2 AST 14 ALT < 6 Alkaline Phosphatase 60 D Total Creatine Kinase 98 Troponin I High Sens Total Protein 7.2 Albumin 4.1 Hold Red Top Ethyl Alcohol < 10 COVID-19 ([facility]) COVID-[facility] 03/13/22 18:13 MCV MCH MCHC RDW Plt Count MPV Immature Gran % (Auto) Neut % (Auto) Lymph % (Auto) Bell % (Auto) Eos % (Auto) Baso % (Auto) Lymph # (Auto) Bell # (Auto) Eos # (Auto) Baso # (Auto) Abs Immat Gran (auto) Absolute Neuts (auto) Absolute Nucleated RBC Nucleated RBC % (auto) PT Whole Blood PT INR Whole Blood INR APTT Anion Gap Estim Creat Clear Calc Estimated GFR POC Glucose Random Glucose Lactic Acid Calcium Magnesium Total Bilirubin Direct Bilirubin AST ALT Alkaline Phosphatase Total Creatine Kinase Troponin I High Sens Total Protein Albumin Hold Red Top Ethyl Alcohol COVID-19 ([facility]) Negative COVID-19 Clin Com See Note Imaging Radiologist's Impressions: Impressions Cervical Spine CT 03/13/22 17:25 IMPRESSION: Negative acute noncontrast CT of the brain. No fracture or dislocation of the cervical spine. Degenerative changes Head CT 03/13/22 17:25 IMPRESSION: Negative acute noncontrast CT of the brain. No fracture or dislocation of the cervical spine. Degenerative changes Chest X-Ray 03/13/22 17:45 IMPRESSION: Unremarkable examination. Chest CT 03/13/22 18:50 IMPRESSION: There is no significant infiltrate or effusion here. There is COPD and numerous as described areas of lung nodularity, largest measuring 8 mm in the left lower lobe. Malignancy cannot be excluded. Metastatic disease cannot be excluded. 8 mm is borderline line for PET/CT evaluation. Consider PET/CT at this time to further evaluate versus a close noncontrast low-dose follow-up study in 3 months for continued evaluation. Borderline precarinal node at 1 cm. Small left adrenal lesion with low Hounsfield units may represent an adenoma however given the findings in the lungs follow-up would be recommended here as well versus dedicated adrenal protocol Deformity in the mid sternum. This may be the sequela of previous injury with healing but an expansile bony lesion would be in the differential. Correlation recommended clinically. If further evaluation is warranted recommend bone scan or MRI Mild aneurysmal change of the ascending aorta Head/Neck CTA 03/13/22 20:52 IMPRESSION: CT head: No intracranial hemorrhage or large acute infarction. CTA neck: No hemodynamically significant stenosis in the major arteries of the neck. CTA head: No large vessel occlusion or significant stenosis within the intracranial circulation. 2 mm aneurysm projecting posteriorly from the posterior wall of the supraclinoid right ICA. This critical result was discussed with Dr. Meza on 03/13/2022 9:16 PM, and it was ascertained that the content and urgency of the report was understood at the time of direct communication. Assessment and Plan (1) CVA (cerebral vascular accident): Status: Acute (2) Lung nodules: Status: Acute Plan 56-year-old female with transient past medical history who presents to the hospital with complaints of neurological deficits # CVA - patient still continues to have facial droop, event occurred more than 24 hours therefore not a tPA candidate - CT angiogram head and neck is ordered, MRI of the brain - lipid panel - neurology consult - atorvastatin aspirin # lung nodules - patient with history of cigarette smoking - will consult Hematology Oncology for further recommendation # hypertension - patient elevated blood pressure resolved spontaneously - will resume home medication # bipolar disorder - continue home medication # hypothyroidism - continue levothyroxine DVT prophylaxis: Lovenox Quality Stroke Does the patient have a stroke diagnosis?: No VTE Prior VTE?: No VTE Risk Level:: Medical - moderate - high VTE Device Contraindication: Treatment Not Indicated VTE Drug Contraindication: N/A - Med Ordered
--- NOTE | 2022-03-13 22:43 | MHC.CM.ED ---
CM unable to meet with patient with regards to d/c planning, as pt is still sleeping.
[2022-03-14] VITALS (11 sets, daily range): BP systolic 113–210; BP diastolic 65–108; PULSE 57–71; RESP 14–18; TEMP 36.4–37.2; O2SAT 92–99
[2022-03-14 03:58] LABS: Appearance Urine CLEAR; Color Urine STRAW; Glucose Urine UA NEG (NEG); Leukocyte Esterase Urine NEG (NEG); Nitrite Urine NEG (NEG); Specific Gravity - Urine <= 1.005 (1.005-1.025); Urine Blood NEG (NEG); Urine Ketones NEG (NEG); Urine Protein NEG (NEG-TRACE)
[2022-03-14 06:20] LABS: MANUAL DIFF FLAG NO
[2022-03-14 06:26] LABS: Basophils Absolute Auto 0.1 X10*3/uL (0.0-0.2); Basophils Percent Auto 1.2 % (0-2); Eosinophils Absolute Auto 0.3 X10*3/uL (0.0-0.4); Eosinophils Percent Auto 4.6 % (0-4); Hematocrit 36.4 % (37.0-47.0); Hemoglobin 12.3 g/dl (12.0-16.0); Imm Gran Abs Auto 0.02 X10*3/uL (0.00-0.03); Imm Gran Pct Auto 0.3 % (0.0-0.4); Lymphocytes Absolute Auto 1.6 X10*3/uL (1.2-4.9); Lymphocytes Percent Auto 25.7 % (20-40); Mean Corpuscular HGB Conc 33.8 g/dl (31.0-35.0); Mean Corpuscular Hemoglobin 30.7 pg (27.0-33.0); Mean Corpuscular Volume 90.8 fL (80.0-98.0); Mean Platelet Volume 10.1 fL (9.4-12.3); Monocytes Absolute Auto 0.4 X10*3/uL (0.1-1.2); Monocytes Percent Auto 7.3 % (2-11); Neutrophils Absolute Auto 3.7 x10*3/uL (2.0-8.3); Neutrophils Percent Auto 60.9 % (45-73); Platelet Count 224 X10*3/uL (160-400); Red Blood Count 4.01 X10*6/uL (4.20-5.50); Red Cell Distribution Width 14.5 % (11.0-16.0); White Blood Count 6.1 X10*3/uL (4.8-10.8)
[2022-03-14 06:37] LABS: Anion Gap 13 (12-20); Blood Urea Nitrogen 8 mg/dL (9-16); Calcium 8.8 mg/dL (8.4-10.2); Carbon Dioxide 23 mmol/L (22-29); Chloride 111 mmol/L (96-108); Cholesterol 222 mg/dL; Creatinine Clr Calc Pharmacy 71.1; Estimated Glomerular Filt Rate > 60; Glucose Random 80 mg/dL (60-115); HDL Cholesterol 29 mg/dL; LDL Cholesterol Calculated 165 mg/dl; Sodium 143 mmol/L (135-145); Triglycerides 141 mg/dL
[2022-03-14 07:34] LABS: Glucose, Whole Blood 68 mg/dL (60-115)
--- NOTE | 2022-03-14 09:52 | MHC.CM.PN ---
PT REPORTS SHE LIVES WITH HER S/O AND IS INDEPENDENT AT BASELINE PT DENIES USE OF DME OR HOME SERVICES PT CONFIRMS HER PCP IS [facility] PT DOES NOT HAVE A HCP AND DECLINES TO COMPLETE ONE AT THIS TIME PT REPORTS SHE IS COVID-19 VACCINATED PT IS HOPING SHE WILL DC TODAY HER SISTER IS GRADUATING TOMORROW AND SHE DOES NOT WANT TO MISS IT DCP TBD PENDING PT EVAL HOME VS HOME WITH PT S/O TO TRANSPORT
--- NOTE | 2022-03-14 10:00 | CA_ITS ---
Transthoracic Echocardiogram Patient (Last, First, Middle): Brandie Campuzano, Gender: Female Date of : 1965 Age: 56 Procedure Date: 03/14/2022 Procedure Type: Transthoracic Echocardiogram Location: ER Height: 160.02 cm Weight: 56.7 kg BSA: 1.58 m2 Heart Rate: bpm BP: 174 / 88 mmHg Paste Mixing Supervisor: ANGELIC Rivera MD: Skyler Meza MD Pizza Maker: Richard Ramos MD Symptoms: CVA Study Quality: Fair ECG Rhythm: Sinus Conclusions: - 1. Normal LV systolic function with grade 1 diastolic dysfunction 2. Normal cardiac valvular Doppler 3. No clear evidence of PFO by saline contrast study but it is not entirely conclusive 4. Normal RV systolic pressure 5. No pericardial effusion Findings Left Ventricle Normal left ventricular size, thickness, and systolic function. The visually estimated ejection fraction is between 60-65%. Spectral Doppler is indicative of an impaired relaxation filling pattern. E/E prime ratio is <8, consistent with normal filling pressures. Evidence suggests grade I (mild) diastolic dysfunction. Right Ventricle Normal right ventricular cavity size and systolic function. Atria Both atria are normal in size. There is no evidence of interatrial shunt by agitated saline. Aortic Valve The aortic valve structure and function is likely normal. There is no aortic valve stenosis. There is no aortic valve regurgitation. Mitral Valve Normal mitral valve structure and function. There is trace mitral valve regurgitation. There is no mitral valve stenosis. Pulmonic Valve The pulmonic valve was not well visualized. Tricuspid Valve Likely normal tricuspid valve structure and function. There is trace tricuspid valve regurgitation. The right ventricular systolic pressure is normal. The right ventricular systolic pressure is 16 mmHg. Normal right atrial pressure. There is no evidence of pulmonary hypertension. Great Vessels All visible segments of the aorta are normal in size. The pulmonary artery was not well visualized. Venous The inferior vena cava is normal in size and collapses greater than 50% with inspiration. Pericardium/Pleural There is no evidence of pericardial effusion. Prior Study Comparison Changes noted compared to prior study dated: 01/10/2021. LV systolic function is normal Recommendations, Care & Conclusions Consider a ES if clinically appropriate. Measurements 2D Linear Measurements IVSd: 1.11 0.6-0.9/0.6-1.0 cm LVIDd: 4.11 3.9-5.3/4.2-5.9 cm LVIDd Index: 2.60 2.4-3.2/2.2-3.1 cm/m2 LVIDs: 2.43 2.0-3.6 cm LVPWd: 0.99 0.7-1.1 cm LA Diam: 3.50 2.7-3.8/3.0-4.0 cm LAIDs Index: 2.22 1.5-2.3 cm/m2 LV Mass: 176.98 67-162/88-224 g LV Mass Index: 112.01 43-95/49-115 g/m2 LVOT Diam: 2.10 3.0+(-)1.3 cm 2D Systolic Function EF 4C: 64.30 >55% EF 2C: 64.40 >55% EF BiP: 63.00 >55% Mitral Valve MV Pk E: 0.53 MV PK A: 0.58 MV Decel Time: 321.00 E/A: 0.90 E'Lateral: 8.92 E'Medial: 6.53 E/E' Med: 8.10 E/E' Lat: 5.90 PHT: 94.00 MVA PHT: 2.34 Decel Jackson: 1.64 Aortic Valve AoV Pk Rocky: 1.32 AoV Mn Rocky: 0.89 AoV VTI: 0.27 AoV Pk Grad: 7.00 Aov Mn Grad: 4.00 ABNER Cont.VTI: 2.75 LVOT LVOT Pk Rocky: 1.08 LVOT Mn Rocky: 0.68 LVOT VTI: 0.21 LVOT Pk Grad: 5.00 LVOT Mn Grad: 2.00 LVOT Diam: 2.10 LVOT Area: 3.46 Diastolic Function MV Pk E: 0.53 MV Pk A: 0.58 E/A: 0.90 E'Medial: 6.53 E/E' Med: 8.10 E' Laterial: 8.92 E/E' Lat: 5.90 Right Ventricle TAPSE (mm): 18.30 TVS' Rocky: 9.25 Tricuspid Valve TR Pk Rocky: 1.81 TR Pk Grad: 13.00 RA Press: 3.00 RVSP: 16.00 Great Vessels Aorta Sinus of Valsalva: 2.93 2.0-3.[address] [place]: 2.81 1.7-3.4 cm Ao Asc: 3.60 2.1-3.4 cm Ao Arch: 3.00 Updated in Other Vendor System with Status of Final Richard Ramos MD electronically signed on 03/14/2022 12:42:59 PM with status of Final
[2022-03-14] MEDS: Enoxaparin Sodium 40 MG/0.4 ML SYRINGE SUBCUT (10:19)
[2022-03-14] MEDS: levETIRAcetam 250 MG TABLET 750 MG PO ×2 (10:19→22:48)
[2022-03-14] MEDS: Buprenorphine/Naloxone 12/3 mg FILM 1 FILM SUBLINGUAL (10:19)
[2022-03-14] MEDS: Sertraline HCL 100 MG TABLET PO ×2 (10:20→22:48)
[2022-03-14] MEDS: cloNIDine HCL 0.2 MG TABLET 0.4 MG PO ×2 (10:20→22:49)
[2022-03-14] MEDS: Omeprazole 20 MG CAPSULE.DR PO (10:20)
[2022-03-14] MEDS: Atorvastatin Calcium 80 MG TABLET PO (10:20)
--- NOTE | 2022-03-14 10:23 | HO.PM.IMPN ---
Subjective Subjective Date of Service: 03/14/22 Interval History: Patient awake alert at present, providing history that yesterday when she woke up she was little shaky she went to her daughter's home to watch her dogs but soon after she entered the door she fell down had generalized body shaking, without loss of consciousness symptom lasted for few minutes she denies bowel bladder incontinence no tongue biting she was unable to get up soon after the episode but managed to call her boyfriend who came picked her up and brought her to the emergency room prior to that patient was having significant recurrent headaches was seen by PCP on 03 11 and received a prescription of Fioricet she only took 1 tablet and admits compliance with her anti seizure medication, her last seizure was in last year. 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 HEENT and icteric sclera pupil equal round reactive to light and accommodation. Neck supple no JVD. CVS regular rate rhythm, Respiratory lungs clear to auscultation, no respiratory distress, no wheeze, no rhonchi. Gastrointestinal abdomen soft, nontender, bowel sounds audible Extremities no edema. Neuro nonfocal,speech clear, word-finding difficulty, slow to respond, Gait not assessed as per PT ataxic gait. Skin no rash Objective Data Active Medications Acetaminophen (Acetaminophen 325 Mg Tablet) 650 mg PO Q6H PRN PRN Reason: Pain, Mild (Pain Scale 1-3) Albuterol Sulfate (Albuterol Sulfate 90 Mcg 8 Gm Inhaler) 2 puff INHALE Q4H PRN PRN Reason: shortness of breath or wheezing Atorvastatin Calcium (Atorvastatin Calcium 80 Mg Tablet) 80 mg PO DAILY LINK Last Admin: 03/14/22 10:20 Dose: 80 mg Documented by: RABIA Buprenorphine/Naloxone (Buprenorphine/Naloxone 12/3 Mg Film) 1 film SUBLINGUAL DAILY [facility] Last Admin: 03/14/22 10:19 Dose: 1 film Documented by: RAIBA Clonidine HCl (Clonidine Hcl 0.2 Mg Tablet) 0.4 mg PO BID [facility]; Protocol Last Admin: 03/14/22 10:20 Dose: 0.4 mg Documented by: RABIA Docusate Sodium (Docusate Sodium 100 Mg Capsule) 100 mg PO DAILY PRN PRN Reason: Constipation Enoxaparin Sodium (Enoxaparin Sodium 40 Mg/0.4 Ml Syringe) 40 mg SUBCUT Q24H [facility] Last Admin: 03/14/22 10:19 Dose: 40 mg Documented by: RABIA Levetiracetam (Levetiracetam 250 Mg Tablet) 750 mg PO BID [facility] Last Admin: 03/14/22 10:19 Dose: 750 mg Documented by: RABIA Levothyroxine Sodium (Levothyroxine Sodium 150 Mcg Tablet) 150 mcg PO DAILY [facility] Lurasidone HCl (Lurasidone Hcl 80 Mg Tablet) 80 mg PO DAILY [facility] Omeprazole (Omeprazole 20 Mg Capsule.Dr) 20 mg PO DAILY [facility] Last Admin: 03/14/22 10:20 Dose: 20 mg Documented by: RABIA Ondansetron HCl (Ondansetron Hcl 4 Mg/2 Ml Vial) 4 mg IVPUSH Q8H PRN PRN Reason: Nausea and Vomiting Sertraline HCl (Sertraline Hcl 100 Mg Tablet) 100 mg PO BID [facility] Last Admin: 03/14/22 10:20 Dose: 100 mg Documented by: RABIA Zolpidem Tartrate (Zolpidem Tartrate 5 Mg Tablet) 10 mg PO BEDTIME [facility] Labs CBC & Chem 7: 03/14/22 06:15 03/14/22 06:15 Labs: Laboratory Results - last 24 hr 03/13/22 03/13/22 03/13/22 17:03 17:04 17:10 MCV MCH MCHC RDW Plt Count MPV Immature Gran % (Auto) Neut % (Auto) Lymph % (Auto) [place] % (Auto) Eos % (Auto) Baso % (Auto) Lymph # (Auto) [place] # (Auto) Eos # (Auto) Baso # (Auto) Abs Immat Gran (auto) Absolute Neuts (auto) Absolute Nucleated RBC Nucleated RBC % (auto) PT Whole Blood PT 12.1 INR Whole Blood INR 1.0 APTT Anion Gap Estim Creat Clear Calc Estimated GFR POC Glucose 81 Random Glucose Lactic Acid Calcium Magnesium Total Bilirubin Direct Bilirubin AST ALT Alkaline Phosphatase Total Creatine Kinase Troponin I High Sens < 3.5 Total Protein Albumin Triglycerides Cholesterol LDL Cholesterol, Calc HDL Cholesterol Hold Red Top Urine Color Urine Appearance Urine pH Ur Specific [place] Urine Protein Urine Glucose (UA) Urine Ketones Urine Blood Urine Nitrite Ur Leukocyte Esterase Ethyl Alcohol COVID-19 ([facility]) COVID-19 [email or web address] 03/13/22 03/13/22 03/13/22 17:10 17:11 17:11 MCV 90.9 MCH 30.5 MCHC 33.5 RDW 14.5 Plt Count 234 MPV 10.1 Immature Gran % (Auto) 0.5 H Neut % (Auto) 60.6 Lymph % (Auto) 24.2 [place] % (Auto) 8.2 Eos % (Auto) 5.4 H Baso % (Auto) 1.1 Lymph # (Auto) 1.5 [place] # (Auto) 0.5 Eos # (Auto) 0.3 Baso # (Auto) 0.1 Abs Immat Gran (auto) 0.03 Absolute Neuts (auto) 3.8 Absolute Nucleated RBC 0.000 Nucleated RBC % (auto) 0.0 PT 11.7 Whole Blood PT INR 1.0 Whole Blood INR APTT 43.2 H Anion Gap Estim Creat Clear Calc Estimated GFR POC Glucose Random Glucose Lactic Acid Calcium Magnesium Total Bilirubin Direct Bilirubin AST ALT Alkaline Phosphatase Total Creatine Kinase Troponin I High Sens Total Protein Albumin Triglycerides Cholesterol LDL Cholesterol, Calc HDL Cholesterol Hold Red Top See Note Urine Color Urine Appearance Urine pH Ur Specific [place] Urine Protein Urine Glucose (UA) Urine Ketones Urine Blood Urine Nitrite Ur Leukocyte Esterase Ethyl Alcohol COVID-19 ([facility]) COVID-19 [email or web address] 03/13/22 03/13/22 03/13/22 17:11 17:11 18:13 MCV MCH MCHC RDW Plt Count MPV Immature Gran % (Auto) Neut % (Auto) Lymph % (Auto) [place] % (Auto) Eos % (Auto) Baso % (Auto) Lymph # (Auto) [place] # (Auto) Eos # (Auto) Baso # (Auto) Abs Immat Gran (auto) Absolute Neuts (auto) Absolute Nucleated RBC Nucleated RBC % (auto) PT Whole Blood PT INR Whole Blood INR APTT Anion Gap 13 Estim Creat Clear Calc 63.3 Estimated GFR > 60 POC Glucose Random Glucose 83 Lactic Acid 0.8 Calcium 9.3 Magnesium 1.8 Total Bilirubin 0.6 Direct Bilirubin 0.2 AST 14 ALT < 6 Alkaline Phosphatase 60 D Total Creatine Kinase 98 Troponin I High Sens Total Protein 7.2 Albumin 4.1 Triglycerides Cholesterol LDL Cholesterol, Calc HDL Cholesterol Hold Red Top Urine Color Urine Appearance Urine pH Ur Specific [place] Urine Protein Urine Glucose (UA) Urine Ketones Urine Blood Urine Nitrite Ur Leukocyte Esterase Ethyl Alcohol < 10 COVID-19 ([facility]) COVID-19 [employer] 03/13/22 03/14/22 03/14/22 18:13 03:49 06:15 MCV 90.8 MCH 30.7 MCHC 33.8 RDW 14.5 Plt Count 224 MPV 10.1 Immature Gran % (Auto) 0.3 Neut % (Auto) 60.9 Lymph % (Auto) 25.7 [place] % (Auto) 7.3 Eos % (Auto) 4.6 H Baso % (Auto) 1.2 Lymph # (Auto) 1.6 [place] # (Auto) 0.4 Eos # (Auto) 0.3 Baso # (Auto) 0.1 Abs Immat Gran (auto) 0.02 Absolute Neuts (auto) 3.7 Absolute Nucleated RBC 0.000 Nucleated RBC % (auto) 0.0 PT Whole Blood PT INR Whole Blood INR APTT Anion Gap Estim Creat Clear Calc Estimated GFR POC Glucose Random Glucose Lactic Acid Calcium Magnesium Total Bilirubin Direct Bilirubin AST ALT Alkaline Phosphatase Total Creatine Kinase Troponin I High Sens Total Protein Albumin Triglycerides Cholesterol LDL Cholesterol, Calc HDL Cholesterol Hold Red Top Urine Color STRAW Urine Appearance CLEAR Urine pH 7.0 Ur Specific [place] <= 1.005 Urine Protein NEG Urine Glucose (UA) NEG Urine Ketones NEG Urine Blood NEG Urine Nitrite NEG Ur Leukocyte Esterase NEG Ethyl Alcohol COVID-19 ([facility]) Negative COVID-19 [employer] See Note 03/14/22 03/14/22 06:15 07:31 MCV MCH MCHC RDW Plt Count MPV Immature Gran % (Auto) Neut % (Auto) Lymph % (Auto) [place] % (Auto) Eos % (Auto) Baso % (Auto) Lymph # (Auto) [place] # (Auto) Eos # (Auto) Baso # (Auto) Abs Immat Gran (auto) Absolute Neuts (auto) Absolute Nucleated RBC Nucleated RBC % (auto) PT Whole Blood PT INR Whole Blood INR APTT Anion Gap 13 Estim Creat Clear Calc 71.1 Estimated GFR > 60 POC Glucose 68 Random Glucose 80 Lactic Acid Calcium 8.8 Magnesium Total Bilirubin Direct Bilirubin AST ALT Alkaline Phosphatase Total Creatine Kinase Troponin I High Sens Total Protein Albumin Triglycerides 141 Cholesterol 222 LDL Cholesterol, Calc 165 HDL Cholesterol 29 Hold Red Top Urine Color Urine Appearance Urine pH Ur Specific [place] Urine Protein Urine Glucose (UA) Urine Ketones Urine Blood Urine Nitrite Ur Leukocyte Esterase Ethyl Alcohol COVID-19 ([facility]) COVID-19 Clin Com Assessment and Plan (1) Lung nodules: Status: Acute (2) Neurological deficit present: Status: Acute (3) Seizure disorder: Status: Acute (4) Migraine: Status: Acute (5) Elevated blood pressure reading: Status: Acute (6) Hypothyroidism (acquired): Status: Acute (7) Anxiety and depression: Status: Acute Plan 56-year-old female with transient past medical history who presents to the hospital with complaints of neurological deficits # Recurrent dizziness/fall/unsteady gait transient neurological deficit Presented with lightheadedness fall and unsteady gait and confusion differential diagnosis seizure /over medication/polypharmacy/ orthostatic BP At present patient is awake alert answering questions appropriately normal neurological examination except slow to response and having some word-finding difficulty CT a head and neck and CT head is unremarkable, noted to have elevated blood pressure , LDL 165 total cholesterol 222 It seems patient has ongoing issues with unsteady gait, dizziness and falls spoke with daughter she noted the patient has been falling at home, and was noted to be vague in last few days being followed closely q monthly with pcp for migraine headaches. Reviewed old records from PCP it seems patient had 2 episodes of syncope versus seizure in July and August and was worked up at [facility] where CT head and previous MRI were negative She is on Keppra, and Klonopin 1 mg t.i.d. She denies alcohol use and is on Suboxone, prior history of opiate addiction Will check EEG, orthostatic blood pressures, check TSH Echo and MRI ordered currently pending Seen by PT OT they recommend acute rehab await neuro input # history of migraine On Fioricet, no headache at present but complain of frequent episodes of migraine headaches await Neurology input # lung nodules - patient with history of cigarette smoking, follow Oncology recommendations, no acute COPD exacerbation # hypertension - elevated blood pressure on clonidine 0.4 mg b.i.d. question causing orthostatic BP, will try to wean clonidine and try beta-bk that will help with migraine headaches but cannot use together due to bradycardia # bipolar disorder - on sertraline, ambien, Latuda Klonopin # hypothyroidism - continue levothyroxine will check TSH DVT prophylaxis:? Lovenox Quality Stroke Does the patient have a stroke diagnosis?: No VTE Prior VTE?: No VTE Risk Level:: Medical - moderate - high VTE Device Contraindication: Treatment Not Indicated VTE Drug Contraindication: N/A - Med Ordered
--- NOTE | 2022-03-14 10:47 | MHC.SL.SWA ---
Speech Pathologist Impression: Risk of Aspiration Due to: None Dysphasia Diet Status: WFL Liquid Consistency and Strategies for Safe Swallow: Liquid Intake Recommendation: Thin Liquid Intake Strategies: Unrestricted Solid Food Consistency: Dietary Recommendations: Regular Additional Modifications to Solid Foods: Oral Medication Intake: Whole with Liquid Please contact the pharmacy regarding appropriate crushable or liquid drug formulations that are available whenever modified delivery is recommended. Compensatory Strategies and Precautions to be Taken for Safe Swallow: Sitting Upright (90 deg) Small Bites and Sips Supervision While Eating and Drinking for Safe Swallow: None Needed Foods to Avoid: Swallowing Recommended Treatments: Recommendation for Speech: NA:Typical Evaluation Comment: though WFL, 1 time follow up may be generated to check diet toleration Frequency/Duration: during stay Date Range for Service Req: Timeline to reassess: NA Sales Representative Electric Service Clinican/Clinical Fellow: No Supervisory Statement: I have reviewed and agree with the student/clinical fellow's documentation: N/A Speech Language Pathologist: Chari Joyner M.A., CCC-STAMPING BENCH DIE MAKER
--- NOTE | 2022-03-14 11:01 | P.CNNE_ITS ---
History of Present Illness Data of Consult Service Date: 03/14/22 Primary Care Provider: Ney Cole MD HPI Reason for consult: Stroke 56 years old woman whose history was reviewed in the chart and I also talked to her. Both accounts were very different. According to initial note she was brought to hospital in a confused state. She was complaining of generalized weakness and was noted to be confused not making sense. There was no witnessing of any convulsion recently. When I ask her why she was here, she said that she had a seizure. He said that to seizure would make her pass out. She said that this was probably her 4th seizure and initially she went to [facility] was following a neurologist there and was being treated with Keppra. She denied skipping doses of Keppra. She denied use of alcohol or drugs. Review of Systems Review of Systems: No recent cold or flu-like illness or convulsion PMFSH Past Medical History Medical History Chronic pain GERD (gastroesophageal reflux disease) Hypothyroidism Lumbar back pain Lumbar back pain with radiculopathy affecting left lower extremity NSTEMI (non-ST elevated myocardial infarction) Obesity Takotsubo cardiomyopathy Vitamin D deficiency Family History Family History Sister Hypothyroidism Surgical History Surgical History History of elbow surgery History of hysterectomy History of shoulder surgery Hx of cardiac catheterization Status post removal of cervix Social History Social History Household Members: Family Housing: House Alcohol intake: current Alcohol intake frequency: a few times a month Patient Tobacco Use Status: Current everyday Tobacco user Tobacco use type: Cigarette Years Smoked: 20 Second Hand Smoke Exposure: No Advance Directives: No Advance Directives Information Provided: No Patient : No service: No Current occupational status: unemployed Current occupational exposures/hazards: No Cognitive needs: No Hearing needs: No Vision needs: No Meds Allergies Allergy/AdvReac Type Severity Reaction Status Date / Time aspirin Allergy Intermediate stomach Verified 03/11/22 11:55 upset codeine [CODEINE] Allergy Intermediate itching Verified 03/11/22 11:55 NSAIDS (Non-Steroidal Allergy Mild stomach Verified 03/11/22 11:55 Anti-Inflamma upset [NSAIDS (NON-STEROIDAL ANTI-INFLAMMA] Sulfa (Sulfonamide Allergy Mild Rash Verified 03/11/22 11:55 Antibiotics) [SULFA(SULFONAMIDE ANTIBIOTICS)] Active Medications: Current Medications Acetaminophen (Acetaminophen 325 Mg Tablet) 650 mg PO Q6H PRN PRN Reason: Pain, Mild (Pain Scale 1-3) Albuterol Sulfate (Albuterol Sulfate 90 Mcg 8 Gm Inhaler) 2 puff INHALE Q4H PRN PRN Reason: shortness of breath or wheezing Atorvastatin Calcium (Atorvastatin Calcium 80 Mg Tablet) 80 mg PO DAILY [facility] Last Admin: 03/14/22 10:20 Dose: 80 mg Documented by: Buprenorphine/Naloxone (Buprenorphine/Naloxone 12/3 Mg Film) 1 film SUBLINGUAL DAILY [facility] Last Admin: 03/14/22 10:19 Dose: 1 film Documented by: Clonidine HCl (Clonidine Hcl 0.2 Mg Tablet) 0.4 mg PO BID [facility]; Protocol Last Admin: 03/14/22 10:20 Dose: 0.4 mg Documented by: Docusate Sodium (Docusate Sodium 100 Mg Capsule) 100 mg PO DAILY PRN PRN Reason: Constipation Enoxaparin Sodium (Enoxaparin Sodium 40 Mg/0.4 Ml Syringe) 40 mg SUBCUT Q24H [facility] Last Admin: 03/14/22 10:19 Dose: 40 mg Documented by: Levetiracetam (Levetiracetam 250 Mg Tablet) 750 mg PO BID [facility] Last Admin: 03/14/22 10:19 Dose: 750 mg Documented by: Levothyroxine Sodium (Levothyroxine Sodium 150 Mcg Tablet) 150 mcg PO DAILY [facility] Lurasidone HCl (Lurasidone Hcl 80 Mg Tablet) 80 mg PO DAILY [facility] Omeprazole (Omeprazole 20 Mg Capsule.Dr) 20 mg PO DAILY [facility] Last Admin: 03/14/22 10:20 Dose: 20 mg Documented by: Ondansetron HCl (Ondansetron Hcl 4 Mg/2 Ml Vial) 4 mg IVPUSH Q8H PRN PRN Reason: Nausea and Vomiting Sertraline HCl (Sertraline Hcl 100 Mg Tablet) 100 mg PO BID [facility] Last Admin: 03/14/22 10:20 Dose: 100 mg Documented by: Zolpidem Tartrate (Zolpidem Tartrate 5 Mg Tablet) 10 mg PO BEDTIME [facility] Home Medications Medication Instructions Recorded Confirmed Last Taken Type buprenorphine 12 mg-naloxone 3 mg 1 film SUBLINGUAL DAILY 08/24/20 03/13/22 03/12/22 History sublingual film zolpidem 10 mg tablet 10 mg PO BEDTIME 09/05/21 03/13/22 Unknown History albuterol sulfate 90 mcg/actuation 2 puff INHALATION Q4H PRN 03/13/22 03/13/22 Unknown History aerosol inhaler (ProAir HFA) clonidine HCl 0.2 mg tablet 0.4 mg PO BID 03/13/22 03/13/22 03/12/22 History sertraline 100 mg tablet 1 tab PO BID 03/13/22 03/13/22 03/12/22 History Physical Exam Vital Signs: Vital Signs: Last Vital Signs Temp 98.9 F 03/14/22 10:05 Pulse 70 03/14/22 10:05 Resp 18 03/14/22 10:05 BP 210/108 H 03/14/22 10:05 Pulse Ox 99 03/14/22 10:05 BMI result Body Mass Index 22.1 Neuro: Other: He was alert and awake tearful and at times sobbing. Spontaneity and fluency of speech were normal. Comprehension was normal. She was following commands. She gave me her account of her problem, which was different from what was reported initially. Face was symmetrical. Visual burns are full. Pupils were equal round reactive. There was no pronator drift. [id number] testing was okay. Deep tendon reflexes were trace to absent with flexor plantars. Results Labs CBC & Chem 7: 03/14/22 06:15 03/14/22 06:15 Labs: Short CBC 03/13/22 03/14/22 Range/Units 17:11 06:15 WBC 6.3 6.1 (4.8-10.8) X10*3/uL Hgb 12.7 12.3 (12.0-16.0) g/dl Hct 37.9 36.4 L (37.0-47.0) % Plt Count 234 224 (160-400) X10*3/uL BMP 03/13/22 03/14/22 17:11 06:15 Sodium 139 143 Potassium 4.4 4.0 Chloride 105 111 H Carbon Dioxide 25 23 BUN 9 8 L Creatinine 0.82 0.73 Calcium 9.3 8.8 Cardiac Enzymes 03/13/22 Range/Units 17:11 Total Creatine Kinase 98 (26-140) U/L Liver Function 03/13/22 Range/Units 17:11 Total Bilirubin 0.6 (0.0-1.0) mg/dL Direct Bilirubin 0.2 (0.0-0.5) mg/dL AST 14 (5-31) U/L ALT < 6 (0-31) U/L Alkaline Phosphatase 60 D (39-117) U/L Albumin 4.1 (3.5-5.0) g/dL Urine 03/14/22 Range/Units 03:49 Urine Color STRAW Urine Appearance CLEAR Urine pH 7.0 (5.0-8.0) Ur Specific [place] <= 1.005 (1.005-1.025) Urine Protein NEG (NEG-TRACE) MG/DL Urine Glucose (UA) NEG (NEG) MG/DL Noncontrast head CT did not reveal any significant abnormality. CTA of brain and neck were okay. Assessment and Plan (1) Encephalopathy: Status: Acute 56 years old woman who was brought to hospital in a confused state. She said that she had a seizure making her pass out. She reported that this was the 4th time it happened and she was following a neurologist for seizure disorder and [facility]. Her description of her problem did not make full sense compared to what brought her to hospital except that sometime seizure disorder can also present as encephalopathy. Her blood pressure was quite high and that by itself could explain her mental status. Hypertensive encephalopathy can also present this way. For now my recommendations are to manage her blood pressure and bring it moderately down, obtain and noncontrast MRI of brain to rule out any acute pathology, and obtain an EEG if possible. Otherwise continue Keppra and try to obtain records from [facility] about the details of for seizure disorder and its possible etiology. Also obtain a urine tox screen to rule out cocaine or stimulant exposure (2) Seizure disorder: Status: Acute Procedures Date of Service Date of Service: 03/14/22
[2022-03-14] MEDS: Lurasidone HCl 80 MG TABLET PO (13:08)
[2022-03-14] MEDS: Levothyroxine Sodium 150 MCG TABLET PO (13:08)
[2022-03-14 13:23] LABS: Thyroid Stimulating Hormone 1.75 uIU/mL (0.32-4.0)
[2022-03-14] MEDS: clonazePAM 1 MG TABLET PO ×2 (15:31→22:49)
[2022-03-14] MEDS: Zolpidem Tartrate 5 MG TABLET 10 MG PO (22:49)
[2022-03-15] VITALS (8 sets, daily range): BP systolic 104–180; BP diastolic 57–97; PULSE 44–61; RESP 17–20; TEMP 36.3–36.9; O2SAT 90–93
--- NOTE | 2022-03-15 08:28 | P.PNIM_ITS ---
Subjective Subjective Date of Service: 03/15/22 Interval History: Seen in f/u for fall ? syncope vs seizure, no noted seizure in the hosptial, MRI ok, Review of Systems [employer] no headache no dizziness, no weakness CVS no chest pain no palpitation GI denies nausea, no vomiting Physical Exam 2 Vital Signs: Vital Signs: Last Vital Signs Temp 98.0 F 03/15/22 08:00 Pulse 47 L 03/15/22 08:00 Resp 20 03/15/22 08:00 BP 179/97 H 03/15/22 08:00 Pulse Ox 93 03/15/22 08:00 BMI result Body Mass Index 22.1 Const: Other: General awake alert x3 resting comfortably in no acute distress. HEENT and icteric sclera pupil equal round reactive to light and accommodation. Neck supple no JVD. CVS regular rate rhythm, Respiratory lungs clear to auscultation, no respiratory distress, no wheeze, no rhonchi. Gastrointestinal abdomen soft, nontender, bowel sounds audible Extremities no edema. Neuro nonfocal,speech clear, word-finding difficulty, slow to respond, Gait not assessed as per PT ataxic gait. Skin no rash Neuro: Other: He was alert and awake tearful and at times sobbing. Spontaneity and fluency of speech were normal. Comprehension was normal. She was following commands. She gave me her account of her problem, which was different from what was reported initially. Face was symmetrical. Visual burns are full. Pupils were equal round reactive. There was no pronator drift. [id number] testing was okay. Deep tendon reflexes were trace to absent with flexor plantars. Objective Data Active Medications Acetaminophen (Acetaminophen 325 Mg Tablet) 650 mg PO Q6H PRN PRN Reason: Pain, Mild (Pain Scale 1-3) Albuterol Sulfate (Albuterol Sulfate 90 Mcg 8 Gm Inhaler) 2 puff INHALE Q4H PRN PRN Reason: shortness of breath or wheezing Atorvastatin Calcium (Atorvastatin Calcium 80 Mg Tablet) 80 mg PO DAILY [facility] Last Admin: 03/14/22 10:20 Dose: 80 mg Documented by: RABIA Buprenorphine/Naloxone (Buprenorphine/Naloxone 12/3 Mg Film) 1 film SUBLINGUAL DAILY [facility] Last Admin: 03/14/22 10:19 Dose: 1 film Documented by: RABIA Clonazepam (Clonazepam 1 Mg Tablet) 1 mg PO TID [facility] Last Admin: 03/14/22 22:49 Dose: 1 mg Documented by: AMY Clonidine HCl (Clonidine Hcl 0.2 Mg Tablet) 0.4 mg PO BID [facility]; Protocol Last Admin: 03/14/22 22:49 Dose: 0.4 mg Documented by: AMY Docusate Sodium (Docusate Sodium 100 Mg Capsule) 100 mg PO DAILY PRN PRN Reason: Constipation Enoxaparin Sodium (Enoxaparin Sodium 40 Mg/0.4 Ml Syringe) 40 mg SUBCUT Q24H [facility] Last Admin: 03/14/22 10:19 Dose: 40 mg Documented by: RABIA Levetiracetam (Levetiracetam 250 Mg Tablet) 750 mg PO BID [facility] Last Admin: 03/14/22 22:48 Dose: 750 mg Documented by: AMY Levothyroxine Sodium (Levothyroxine Sodium 150 Mcg Tablet) 150 mcg PO DAILY [facility] Last Admin: 03/14/22 13:08 Dose: 150 mcg Documented by: RABIA Lurasidone HCl (Lurasidone Hcl 80 Mg Tablet) 80 mg PO DAILY [facility] Last Admin: 03/14/22 13:08 Dose: 80 mg Documented by: RABIA Omeprazole (Omeprazole 20 Mg Capsule.Dr) 20 mg PO DAILY [facility] Last Admin: 03/14/22 10:20 Dose: 20 mg Documented by: RABIA Ondansetron HCl (Ondansetron Hcl 4 Mg/2 Ml Vial) 4 mg IVPUSH Q8H PRN PRN Reason: Nausea and Vomiting Sertraline HCl (Sertraline Hcl 100 Mg Tablet) 100 mg PO BID [facility] Last Admin: 03/14/22 22:48 Dose: 100 mg Documented by: AMY Zolpidem Tartrate (Zolpidem Tartrate 5 Mg Tablet) 10 mg PO BEDTIME [facility] Last Admin: 03/14/22 22:49 Dose: 10 mg Documented by: AMY Labs CBC & Chem 7: 03/14/22 06:15 03/14/22 06:15 Labs: Laboratory Results - last 24 hr 03/14/22 06:15 TSH 1.75 Microbiology Microbiology Results: Microbiology 03/13/22 18:56 Blood Culture - Preliminary Blood - Venous No growth after 24 hours. 03/13/22 18:13 Blood Culture - Preliminary Blood - Venous No growth after 24 hours. Assessment and Plan (1) Lung nodules: Status: Acute (2) Neurological deficit present: Status: Acute (3) Seizure disorder: Status: Acute (4) Migraine: Status: Acute (5) Elevated blood pressure reading: Status: Acute (6) Hypothyroidism (acquired): Status: Acute (7) Anxiety and depression: Status: Acute Plan 56-year-old female with transient past medical history who presents to the hospital with complaints of neurological deficits # Recurrent dizziness/fall/unsteady gait transient neurological deficit Presented with lightheadedness fall and unsteady gait and confusion d ifferential diagnosis seizure /over medication/polypharmacy/ orthostatic BP At present patient is awake alert answering questions appropriately normal neurological examination except slow to response and having some word-finding difficulty CT a head and neck and CT head is unremarkable, noted to have elevated blood pressure , LDL 165 total cholesterol 222 It seems patient has ongoing issues with unsteady gait, dizziness and falls spoke with daughter she noted the patient has been falling at home, and was noted to be vague in last few days being followed closely q monthly with pcp for migraine headaches. Reviewed old records from PCP it seems patient had 2 episodes of syncope versus seizure in July and August and was worked up at [facility] where CT head and previous MRI were negative She is on Keppra, and Klonopin 1 mg t.i.d. She denies alcohol use and is on Suboxone, prior history of opiate addiction Will check EEG, orthostatic blood pressures, check TSH Echo and MRI is unremarkable Seen by PT OT they recommend acute rehab await neuro input # history of migraine On Fioricet, no headache at present but complain of frequent episodes of migraine headaches await Neurology input # lung nodules - patient with history of cigarette smoking, follow Oncology recommendations, no acute COPD exacerbation # hypertension - elevated blood pressure on clonidine 0.4 mg b.i.d. question causing orthostatic BP, will try to wean clonidine and try beta-bk that will help with migraine headaches but cannot use together due to bradycardia # bipolar disorder - on sertraline, ambien, Latuda Klonopin # hypothyroidism - continue levothyroxine DVT prophylaxis:? Lovenox To acute rehab when bed available Quality Stroke Does the patient have a stroke diagnosis?: No VTE Prior VTE?: No VTE Risk Level:: Medical - moderate - high VTE Device Contraindication: Treatment Not Indicated VTE Drug Contraindication: N/A - Med Ordered
[2022-03-15] MEDS: Sertraline HCL 100 MG TABLET PO ×2 (08:36→20:50)
[2022-03-15] MEDS: Enoxaparin Sodium 40 MG/0.4 ML SYRINGE SUBCUT (08:36)
[2022-03-15] MEDS: levETIRAcetam 250 MG TABLET 750 MG PO ×2 (08:37→20:50)
[2022-03-15] MEDS: Levothyroxine Sodium 150 MCG TABLET PO (08:37)
[2022-03-15] MEDS: Lurasidone HCl 80 MG TABLET PO (08:37)
[2022-03-15] MEDS: Buprenorphine/Naloxone 12/3 mg FILM 1 FILM SUBLINGUAL (08:37)
[2022-03-15] MEDS: Atorvastatin Calcium 80 MG TABLET PO (08:37)
[2022-03-15] MEDS: Omeprazole 20 MG CAPSULE.DR PO (08:37)
[2022-03-15] MEDS: clonazePAM 1 MG TABLET PO ×2 (08:49→16:52)
--- NOTE | 2022-03-15 10:05 | PM.CNPUL ---
History of Present Illness History of Present Illness Consult date: 03/15/22 Chief complaint: CVA Narrative: 56-year-old lady, active 10 pack-year smoker with underlying history NSTEMI/takotsubo hypothyroidism GERD, seizure disorder, prior CVA, opioid dependence bipolar admitted on 03/14/2022 with confusion. On ER evaluation patient has had CT chest at that demonstrated multiple bilateral pulmonary nodules 8 mm and under. Patient denies any pulmonary related concerns or complaints. She denies any prior personal or family history of lung disease. Patient used to be employed at [employer] with no exposure to industrial dusts. Review of Systems Constitutional: Constitutional: Denies daytime sleepiness, Denies excessive sweating, Denies fatigue, Denies fever(s), Denies lethargy, Reports malaise, Denies night sweats, Denies snoring and Denies weight loss Eyes: Eyes: Denies blurry vision and Denies itchy eyes ENT: Denies nasal congestion, Denies post nasal drip, Denies sinus pain, Denies sinus pressure and Denies other ( Thrush) Cardiovascular: Cardiovascular: Denies chest pain, Denies pedal edema, Denies dyspnea, Denies orthopnea and Denies paroxysmal nocturnal dyspnea Respiratory: Respiratory: Denies cough, Denies hemoptysis, Denies excessive phlegm production, Denies dyspnea, Denies snoring and Denies wheezing Gastrointestinal: Gastrointestinal: Denies abdominal pain and Denies heartburn Musculoskeletal: Musculoskeletal: Denies myalgias, Denies arthralgias and Denies joint swelling Integumentary/Breasts: Skin/Breast: Denies rash Neurologic: Denies memory loss and Denies seizure-like activity Psychiatric: Psychiatric: Denies abnormal sleep pattern, Denies anxiety and Denies memory loss Endocrine: Endocrine: Denies excessive sweating, Denies fatigue and Denies heat intolerance Hematologic/Lymphatic: Hematologic/Lymphatic: Denies easy bruising Allergic/Immunologic: Allergic/Immunologic: Denies itchy eyes, Denies seasonal rhinorrhea and Denies wheezing PMFSH Past Medical History Medical History Chronic pain GERD (gastroesophageal reflux disease) Hypothyroidism Lumbar back pain Lumbar back pain with radiculopathy affecting left lower extremity NSTEMI (non-ST elevated myocardial infarction) Obesity Takotsubo cardiomyopathy Vitamin D deficiency Family History Family History Sister Hypothyroidism Surgical History Surgical History History of elbow surgery History of hysterectomy History of shoulder surgery Hx of cardiac catheterization Status post removal of cervix Social History Social History Household Members: Other Household Members Other:: boyfriend Housing: House Do you presently have visiting nurse or other home services: No Alcohol intake: current Alcohol intake frequency: a few times a month Patient Tobacco Use Status: Current everyday Tobacco user Tobacco use type: Cigarette Cigarette Packs Per Day: 1 Cigarettes Per Day: 20.0 Years Smoked: 20 e-Cigarette/Vaping Use: Never Used Second Hand Smoke Exposure: Yes service: No Current occupational status: unemployed Current occupational exposures/hazards: No Cognitive needs: No Hearing needs: No Vision needs: No Meds Allergies Allergy/AdvReac Type Severity Reaction Status Date / Time aspirin Allergy Intermediate stomach Verified 03/11/22 11:55 upset codeine [CODEINE] Allergy Intermediate itching Verified 03/11/22 11:55 NSAIDS (Non-Steroidal Allergy Mild stomach Verified 03/11/22 11:55 Anti-Inflamma upset [NSAIDS (NON-STEROIDAL ANTI-INFLAMMA] Sulfa (Sulfonamide Allergy Mild Rash Verified 03/11/22 11:55 Antibiotics) [SULFA(SULFONAMIDE ANTIBIOTICS)] Active Medications: Current Medications Acetaminophen (Acetaminophen 325 Mg Tablet) 650 mg PO Q6H PRN PRN Reason: Pain, Mild (Pain Scale 1-3) Albuterol Sulfate (Albuterol Sulfate 90 Mcg 8 Gm Inhaler) 2 puff INHALE Q4H PRN PRN Reason: shortness of breath or wheezing Amlodipine Besylate (Amlodipine Besylate 5 Mg Tablet) 5 mg PO DAILY [facility]; Protocol Atorvastatin Calcium (Atorvastatin Calcium 80 Mg Tablet) 80 mg PO DAILY [facility] Last Admin: 03/15/22 08:37 Dose: 80 mg Documented by: Buprenorphine/Naloxone (Buprenorphine/Naloxone 12/3 Mg Film) 1 film SUBLINGUAL DAILY [facility] Last Admin: 03/15/22 08:37 Dose: 1 film Documented by: Clonazepam (Clonazepam 1 Mg Tablet) 1 mg PO TID [facility] Last Admin: 03/15/22 08:49 Dose: 1 mg Documented by: Clonidine HCl (Clonidine Hcl 0.1 Mg Tablet) 0.1 mg PO BID [facility]; Protocol Docusate Sodium (Docusate Sodium 100 Mg Capsule) 100 mg PO DAILY PRN PRN Reason: Constipation Enoxaparin Sodium (Enoxaparin Sodium 40 Mg/0.4 Ml Syringe) 40 mg SUBCUT Q24H [facility] Last Admin: 03/15/22 08:36 Dose: 40 mg Documented by: Levetiracetam (Levetiracetam 250 Mg Tablet) 750 mg PO BID [facility] Last Admin: 03/15/22 08:37 Dose: 750 mg Documented by: Levothyroxine Sodium (Levothyroxine Sodium 150 Mcg Tablet) 150 mcg PO DAILY [facility] Last Admin: 03/15/22 08:37 Dose: 150 mcg Documented by: Lurasidone HCl (Lurasidone Hcl 80 Mg Tablet) 80 mg PO DAILY [facility] Last Admin: 03/15/22 08:37 Dose: 80 mg Documented by: Omeprazole (Omeprazole 20 Mg Capsule.Dr) 20 mg PO DAILY [facility] Last Admin: 03/15/22 08:37 Dose: 20 mg Documented by: Ondansetron HCl (Ondansetron Hcl 4 Mg/2 Ml Vial) 4 mg IVPUSH Q8H PRN PRN Reason: Nausea and Vomiting Sertraline HCl (Sertraline Hcl 100 Mg Tablet) 100 mg PO BID [facility] Last Admin: 03/15/22 08:36 Dose: 100 mg Documented by: Zolpidem Tartrate (Zolpidem Tartrate 5 Mg Tablet) 10 mg PO BEDTIME [facility] Last Admin: 03/14/22 22:49 Dose: 10 mg Documented by: Home Medications Medication Instructions Recorded Confirmed Last Taken Type buprenorphine 12 mg-naloxone 3 mg 1 film SUBLINGUAL DAILY 08/24/20 03/13/22 03/12/22 History sublingual film zolpidem 10 mg tablet 10 mg PO BEDTIME 09/05/21 03/13/22 Unknown History albuterol sulfate 90 mcg/actuation 2 puff INHALATION Q4H PRN 03/13/22 03/13/22 Unknown History aerosol inhaler (ProAir HFA) clonidine HCl 0.2 mg tablet 0.4 mg PO BID 03/13/22 03/13/22 03/12/22 History sertraline 100 mg tablet 1 tab PO BID 03/13/22 03/13/22 03/12/22 History Physical Exam Vital Signs: Vital Signs: Last Vital Signs Temp 98.0 F 03/15/22 08:00 Pulse 47 L 03/15/22 08:00 Resp 20 03/15/22 08:00 BP 179/97 H 03/15/22 08:00 Pulse Ox 93 03/15/22 08:00 BMI result Body Mass Index 22.1 Const: General: no acute distress and alert Nutritional Appearance: not obese Orientation/consciousness: Other orientation findings ( oriented) HEENT: Head: Yes atraumatic Mouth: no other ( thrush) Throat: No postnasal drainage Eyes: General: appearance normal, both eyes and all related structures Sclerae: sclerae normal EOM: EOMs intact bilaterally Neck: Neck: Yes supple Lymphatic: no lymphadenopathy noted Resp: Effort & Inspection: normal respiratory effort and no use of accessory muscles Auscultation: clear to auscultation bilaterally Cardio: Rate: regular rate Rhythm: regular rhythm Heart sounds: no gallops, no murmurs and no rubs GI: Palpation (GI): Soft to palpation and Other GI palpation findings present ( nontender) Skin: General skin exam: other ( warm) Rashes: no rashes Extrem: General: No clubbing, No cyanosis and No edema Results Laboratory Findings CBC and BMP: 03/14/22 06:15 03/14/22 06:15 ABG, PT/INR, D-dimer: PT/INR, D-dimer PT 11.7 SEC (9.9-13.0) 03/13/22 17:11 INR 1.0 (0.9-1.1) 03/13/22 17:11 Abnormal lab findings: Abnormal Labs 03/13/22 03/13/22 03/14/22 17:11 17:11 06:15 RBC 4.17 L 4.01 L Hct 36.4 L Immature Gran % (Auto) 0.5 H Eos % (Auto) 5.4 H 4.6 H APTT 43.2 H Chloride BUN 03/14/22 06:15 RBC Hct Immature Gran % (Auto) Eos % (Auto) APTT Chloride 111 H BUN 8 L Microbiology: Microbiology 03/13/22 18:56 Blood - Venous Blood Culture - Preliminary No growth after 24 hours. 03/13/22 18:13 Blood - Venous Blood Culture - Preliminary No growth after 24 hours. Assessment and Plan (1) Lung nodules: Status: Acute Plan Impression: 56-year-old lady with underlying multiple medical issues admitted with worsening confusion and incidentally noted to have bilateral 8 mm and under multiple pulmonary nodules with no prior history of lung disease or current pulmonary related concerns or complaints. Recommendations: No acute intervention is indicated at this time. Patient with require outpatient pulmonary follow-up with follow-up CT chest in 3 months to assess for stability of noted pulmonary nodules. Procedures Date of Service Date of Service: 03/15/22
[2022-03-15] MEDS: amLODIPine Besylate 5 MG TABLET PO (11:42)
[2022-03-15] MEDS: cloNIDine HCL 0.1 MG TABLET PO (20:50)
[2022-03-16] VITALS (7 sets, daily range): BP systolic 88–165; BP diastolic 55–91; PULSE 51–64; RESP 17–20; TEMP 36.6–37.3; O2SAT 85–97
[2022-03-16] MEDS: Zolpidem Tartrate 5 MG TABLET 10 MG PO ×2 (01:22→21:39)
[2022-03-16] MEDS: clonazePAM 1 MG TABLET PO ×4 (01:22→21:39)
--- NOTE | 2022-03-16 03:46 | PC.NURSE ---
CARE ASSUMED 23:15..AWAKE..ALERT..ORIENTED X3...DENIES/OFFERS NO COMPLAINTS...PER SHIFT REPORT KIKE BOYD AND GINGER HELD D/T DROWSINESS...PATIENT UPSET... SHE WAS SUPPOSED TO GIVE THEM TO ME ..KIKE FELICIANO GIVEN PER MAR AFTER PATIENT OOB TO BR TO VOID..RESTFUL AFTERWARDS
--- NOTE | 2022-03-16 09:51 | P.PNIM_ITS ---
Subjective Subjective Date of Service: 03/16/22 Interval History: Seen in f/u for fall ? 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 HEENT and icteric sclera pupil equal round reactive to light and accommodation. Neck supple no JVD. CVS regular rate rhythm, Respiratory lungs clear to auscultation, no respiratory distress, no wheeze, no rhonchi. Gastrointestinal abdomen soft, nontender, bowel sounds audible Extremities no edema. Neuro nonfocal,speech clear, word-finding difficulty, slow to respond, Gait not assessed as per PT ataxic gait. Skin no rash Neuro: Other: He was alert and awake tearful and at times sobbing. Spontaneity and fluency of speech were normal. Comprehension was normal. She was following commands. She gave me her account of her problem, which was different from what was reported initially. Face was symmetrical. Visual burns are full. Pupils were equal round reactive. There was no pronator drift. [id number] testing was okay. Deep tendon reflexes were trace to absent with flexor plantars. Objective Data Active Medications Acetaminophen (Acetaminophen 325 Mg Tablet) 650 mg PO Q6H PRN PRN Reason: Pain, Mild (Pain Scale 1-3) Albuterol Sulfate (Albuterol Sulfate 90 Mcg 8 Gm Inhaler) 2 puff INHALE Q4H PRN PRN Reason: shortness of breath or wheezing Amlodipine Besylate (Amlodipine Besylate 5 Mg Tablet) 5 mg PO DAILY [facility]; Protocol Last Admin: 03/15/22 11:42 Dose: 5 mg Documented by: RAUL Atorvastatin Calcium (Atorvastatin Calcium 80 Mg Tablet) 80 mg PO DAILY [facility] Last Admin: 03/15/22 08:37 Dose: 80 mg Documented by: RAUL Buprenorphine/Naloxone (Buprenorphine/Naloxone 12/3 Mg Film) 1 film SUBLINGUAL DAILY [facility] Last Admin: 03/15/22 08:37 Dose: 1 film Documented by: RAUL Clonazepam (Clonazepam 1 Mg Tablet) 1 mg PO TID [facility] Last Admin: 03/16/22 01:22 Dose: 1 mg Documented by: JOVANY Clonidine HCl (Clonidine Hcl 0.1 Mg Tablet) 0.1 mg PO BID [facility]; Protocol Last Admin: 03/15/22 20:50 Dose: 0.1 mg Documented by: THOMAS Docusate Sodium (Docusate Sodium 100 Mg Capsule) 100 mg PO DAILY PRN PRN Reason: Constipation Enoxaparin Sodium (Enoxaparin Sodium 40 Mg/0.4 Ml Syringe) 40 mg SUBCUT Q24H [facility] Last Admin: 03/15/22 08:36 Dose: 40 mg Documented by: RAUL Levetiracetam (Levetiracetam 250 Mg Tablet) 750 mg PO BID [facility] Last Admin: 03/15/22 20:50 Dose: 750 mg Documented by: THOMAS Levothyroxine Sodium (Levothyroxine Sodium 150 Mcg Tablet) 150 mcg PO DAILY [facility] Last Admin: 03/15/22 08:37 Dose: 150 mcg Documented by: RAUL Lurasidone HCl (Lurasidone Hcl 80 Mg Tablet) 80 mg PO DAILY [facility] Last Admin: 03/15/22 08:37 Dose: 80 mg Documented by: RAUL Omeprazole (Omeprazole 20 Mg Capsule.Dr) 20 mg PO DAILY [facility] Last Admin: 03/15/22 08:37 Dose: 20 mg Documented by: RAUL Ondansetron HCl (Ondansetron Hcl 4 Mg/2 Ml Vial) 4 mg IVPUSH Q8H PRN PRN Reason: Nausea and Vomiting Sertraline HCl (Sertraline Hcl 100 Mg Tablet) 100 mg PO BID [facility] Last Admin: 03/15/22 20:50 Dose: 100 mg Documented by: THOMAS Zolpidem Tartrate (Zolpidem Tartrate 5 Mg Tablet) 10 mg PO BEDTIME [facility] Last Admin: 03/16/22 01:22 Dose: 10 mg Documented by: JOVANY Labs CBC & Chem 7: 03/14/22 06:15 03/14/22 06:15 Microbiology Microbiology Results: Microbiology 03/13/22 18:56 Blood Culture - Preliminary Blood - Venous No growth after 48 hours. 03/13/22 18:13 Blood Culture - Preliminary Blood - Venous No growth after 48 hours. Assessment and Plan (1) Lung nodules: Status: Acute (2) Neurological deficit present: Status: Acute (3) Seizure disorder: Status: Acute (4) Migraine: Status: Acute (5) Elevated blood pressure reading: Status: Acute (6) Hypothyroidism (acquired): Status: Acute (7) Anxiety and depression: Status: Acute Plan 56-year-old female with transient past medical history who presents to the hospital with complaints of neurological deficits # Recurrent dizziness/fall/unsteady gait transient neurological deficit--negative w/u with CT, MRI, ? seizure Neuro recommends continue with [facility] PT recommend acute inpatient rehab # history of migraine--improved, continue Fioricet, # lung nodules--Seen by Pulmonology. No acute intervention is indicated at this time.? Patient with require outpatient pulmonary follow-up with follow-up CT chest in 3 months to assess for stability of noted pulmonary nodules. # hypertension--was on high dose Klonopin 0.4 bid, and causing low HR, decreased to 0.1 bid and added Norvasc 5 daily. Adjust norvasc in a day if BP still high # bipolar disorder - on sertraline, ambien, Latuda Klonopin # hypothyroidism - continue levothyroxine DVT prophylaxis:? Lovenox To acute rehab when bed available Quality Stroke Does the patient have a stroke diagnosis?: No VTE Prior VTE?: No VTE Risk Level:: Medical - moderate - high VTE Device Contraindication: Treatment Not Indicated VTE Drug Contraindication: N/A - Med Ordered
[2022-03-16] MEDS: levETIRAcetam 250 MG TABLET 750 MG PO ×2 (10:25→21:43)
[2022-03-16] MEDS: Levothyroxine Sodium 150 MCG TABLET PO (10:25)
[2022-03-16] MEDS: Enoxaparin Sodium 40 MG/0.4 ML SYRINGE SUBCUT (10:26)
[2022-03-16] MEDS: Buprenorphine/Naloxone 12/3 mg FILM 1 FILM SUBLINGUAL (10:26)
[2022-03-16] MEDS: amLODIPine Besylate 5 MG TABLET PO (10:26)
[2022-03-16] MEDS: cloNIDine HCL 0.1 MG TABLET PO (10:26)
[2022-03-16] MEDS: Atorvastatin Calcium 80 MG TABLET PO (10:26)
[2022-03-16] MEDS: Lurasidone HCl 80 MG TABLET PO (10:26)
[2022-03-16] MEDS: Omeprazole 20 MG CAPSULE.DR PO (10:26)
[2022-03-16] MEDS: Sertraline HCL 100 MG TABLET PO ×2 (10:26→21:39)
[2022-03-17] VITALS (8 sets, daily range): BP systolic 96–135; BP diastolic 50–77; PULSE 46–53; RESP 14–20; TEMP 36.4–37.1; O2SAT 92–96; BMI 22.1
--- NOTE | 2022-03-17 | EEG_ITS ---
This is a 16-channel EEG with an EKG lead. The patient is reported awake during the tracing. Background EEG rhythm is mixed. Theta, beta with no obvious asymmetry or paroxysmal tendency. Some time, slow posterior alpha is noted. No definite sharp waves or spikes are noted. Photic stimulation does not produce any significant abnormality. Hyperventilation is not performed. Cardiac lead does not reveal any significant abnormality. IMPRESSION: Generalized slowing with no evidence of epileptic discharges. MD RAKAN Erickson/ZAHIDA / [id number]
[2022-03-17] MEDS: Enoxaparin Sodium 40 MG/0.4 ML SYRINGE SUBCUT (06:04)
[2022-03-17] MEDS: Sertraline HCL 100 MG TABLET PO ×2 (08:38→20:22)
[2022-03-17] MEDS: levETIRAcetam 250 MG TABLET 750 MG PO ×2 (08:38→20:21)
[2022-03-17] MEDS: amLODIPine Besylate 5 MG TABLET PO (08:39)
[2022-03-17] MEDS: cloNIDine HCL 0.1 MG TABLET PO (08:39)
[2022-03-17] MEDS: Omeprazole 20 MG CAPSULE.DR PO (08:39)
[2022-03-17] MEDS: Buprenorphine/Naloxone 12/3 mg FILM 1 FILM SUBLINGUAL (08:39)
[2022-03-17] MEDS: Levothyroxine Sodium 150 MCG TABLET PO (08:39)
[2022-03-17] MEDS: Atorvastatin Calcium 80 MG TABLET PO (08:39)
[2022-03-17] MEDS: Lurasidone HCl 80 MG TABLET PO (08:39)
[2022-03-17] MEDS: clonazePAM 1 MG TABLET PO ×3 (08:39→20:21)
--- NOTE | 2022-03-17 13:39 | P.PNIM_ITS ---
Subjective Subjective Date of Service: 03/17/22 Review of Systems Follow up seizure no further seizure activity no pain seeing shadows in her peripheral vision Physical Exam Vital Signs: Vital Signs: Last Vital Signs Temp 97.6 F 03/17/22 13:22 Pulse 50 03/17/22 13:22 Resp 20 03/17/22 13:22 BP 105/55 L 03/17/22 13:22 Pulse Ox 95 03/17/22 13:22 BMI result Body Mass Index 22.1 Appearing in no acute distress lung sounds are clear to auscultation heart regular rate rhythm, clear S1, S2 positive bowel sounds, abdomen is soft, nontender neuro patient is alert x3, no focal deficits Objective Data Active Medications Acetaminophen (Acetaminophen 325 Mg Tablet) 650 mg PO Q6H PRN PRN Reason: Pain, Mild (Pain Scale 1-3) Albuterol Sulfate (Albuterol Sulfate 90 Mcg 8 Gm Inhaler) 2 puff INHALE Q4H PRN PRN Reason: shortness of breath or wheezing Amlodipine Besylate (Amlodipine Besylate 5 Mg Tablet) 5 mg PO DAILY LINK; Protoc ol Last Admin: 03/17/22 08:39 Dose: 5 mg Documented by: TIMMY Atorvastatin Calcium (Atorvastatin Calcium 80 Mg Tablet) 80 mg PO DAILY [facility] Last Admin: 03/17/22 08:39 Dose: 80 mg Documented by: TIMMY Buprenorphine/Naloxone (Buprenorphine/Naloxone 12/3 Mg Film) 1 film SUBLINGUAL DAILY [facility] Last Admin: 03/17/22 08:39 Dose: 1 film Documented by: TIMMY Clonazepam (Clonazepam 1 Mg Tablet) 1 mg PO TID [facility] Last Admin: 03/17/22 08:39 Dose: 1 mg Documented by: TIMMY Clonidine HCl (Clonidine Hcl 0.1 Mg Tablet) 0.1 mg PO BID [facility]; Protocol Last Admin: 03/17/22 08:39 Dose: 0.1 mg Documented by: TIMMY Docusate Sodium (Docusate Sodium 100 Mg Capsule) 100 mg PO DAILY PRN PRN Reason: Constipation Enoxaparin Sodium (Enoxaparin Sodium 40 Mg/0.4 Ml Syringe) 40 mg SUBCUT Q24H [facility] Last Admin: 03/17/22 06:04 Dose: 40 mg Documented by: JOYCE Levetiracetam (Levetiracetam 250 Mg Tablet) 750 mg PO BID [facility] Last Admin: 03/17/22 08:38 Dose: 750 mg Documented by: TIMMY Levothyroxine Sodium (Levothyroxine Sodium 150 Mcg Tablet) 150 mcg PO DAILY [facility] Last Admin: 03/17/22 08:39 Dose: 150 mcg Documented by: TIMMY Lurasidone HCl (Lurasidone Hcl 80 Mg Tablet) 80 mg PO DAILY [facility] Last Admin: 03/17/22 08:39 Dose: 80 mg Documented by: TIMMY Omeprazole (Omeprazole 20 Mg Capsule.Dr) 20 mg PO DAILY [facility] Last Admin: 03/17/22 08:39 Dose: 20 mg Documented by: TIMMY Ondansetron HCl (Ondansetron Hcl 4 Mg/2 Ml Vial) 4 mg IVPUSH Q8H PRN PRN Reason: Nausea and Vomiting Sertraline HCl (Sertraline Hcl 100 Mg Tablet) 100 mg PO BID [facility] Last Admin: 03/17/22 08:38 Dose: 100 mg Documented by: TIMMY Zolpidem Tartrate (Zolpidem Tartrate 5 Mg Tablet) 10 mg PO BEDTIME [facility] Last Admin: 03/16/22 21:39 Dose: 10 mg Documented by: THOMAS Labs CBC & Chem 7: 03/14/22 06:15 03/14/22 06:15 Assessment and Plan (1) Lung nodules: Status: Acute (2) Neurological deficit present: Status: Acute (3) Seizure disorder: Status: Acute (4) Migraine: Status: Acute (5) Elevated blood pressure reading: Status: Acute (6) Hypothyroidism (acquired): Status: Acute (7) Anxiety and depression: Status: Acute Plan 56-year-old female with transient past medical history who presents to the hospital with complaints of neurological deficits Recurrent dizziness/fall/unsteady gait transient neurological deficit negative w/u with CT, MRI, ? seizure Neuro recommends continue with Keppra PT recommend acute inpatient rehab history of migraine improved, continue Fioricet, lung nodules Seen by Pulmonology. No acute intervention is indicated at this time.? Patient with require outpatient pulmonary follow-up with follow-up CT chest in 3 months to assess for stability of noted pulmonary nodules. hypertension was on high dose clonidine 0.4 bid, and causing low HR, decreased to 0.1 bid added Norvasc 5 daily. bipolar disorder on sertraline, ambien, Latuda Klonopin hypothyroidism continue levothyroxine DVT prophylaxis:? Vilma Attending Dr. Ba full code To acute rehab when bed available Quality Stroke Does the patient have a stroke diagnosis?: No VTE Prior VTE?: No VTE Risk Level:: Medical - moderate - high VTE Device Contraindication: Treatment Not Indicated VTE Drug Contraindication: N/A - Med Ordered
--- NOTE | 2022-03-17 14:05 | MHC.CM.PN ---
Per ROUNDS discussion, Patient is seeing people and will require a Psych eval. PT is recommending Acute Rehab and CM will continue to follow.
--- NOTE | 2022-03-17 16:50 | MHC.SLORD ---
Speech Language Pathology Order Status: Patient seen for bedside dysphagia evaluation on 03/14, swallow deemed WFL. Per RN, patient is tolerating PO. Further ST intervention no longer warranted. Please re-refer with any concerns or changes.
[2022-03-17] MEDS: Zolpidem Tartrate 5 MG TABLET 10 MG PO (20:21)
[2022-03-18] VITALS (7 sets, daily range): BP systolic 94–165; BP diastolic 50–80; PULSE 57–69; RESP 14–18; TEMP 36.1–37.4; O2SAT 92–96
[2022-03-18] MEDS: diphenhydrAMINE HCL 25 MG TABLET PO (02:15)
[2022-03-18] MEDS: Buprenorphine/Naloxone 12/3 mg FILM 1 FILM SUBLINGUAL (09:10)
[2022-03-18] MEDS: Lurasidone HCl 80 MG TABLET PO (09:10)
[2022-03-18] MEDS: Sertraline HCL 100 MG TABLET PO ×2 (09:10→21:11)
[2022-03-18] MEDS: amLODIPine Besylate 5 MG TABLET PO (09:11)
[2022-03-18] MEDS: Levothyroxine Sodium 150 MCG TABLET PO (09:11)
[2022-03-18] MEDS: clonazePAM 1 MG TABLET PO ×3 (09:11→21:12)
[2022-03-18] MEDS: Omeprazole 20 MG CAPSULE.DR PO (09:11)
[2022-03-18] MEDS: cloNIDine HCL 0.1 MG TABLET PO ×2 (09:11→21:12)
[2022-03-18] MEDS: levETIRAcetam 250 MG TABLET 750 MG PO ×2 (09:11→21:11)
[2022-03-18] MEDS: Enoxaparin Sodium 40 MG/0.4 ML SYRINGE SUBCUT (09:12)
[2022-03-18] MEDS: Atorvastatin Calcium 80 MG TABLET PO (09:12)
--- NOTE | 2022-03-18 09:13 | P.CNPS_ITS ---
History of Present Illness Date of Service: 03/18/2022 Chief Complaint: CVA Reason for Consult: Visual hallucinations HPI Narrative: Brandie is a 56 y.o. female who carries a dx of bipolar DO, opioid use DO, and anxiety. She has a past medical history of GERD, chronic pain, hypothyroidism, NSTEMI, and migraine headaches who presented to [facility] on 03/13/22 with complaints of confusion and unsteady gait, had fallen. Pt?s says she woke up confused, asking nonsensical questions, had wobbly unsteady gait, and complained of weakness. Recently had influenza. Chest CT demonstrates no evidence of pneumonia but has multiple nodules where malignancy cannot be ruled out. She was admitted for evaluation of possible stroke, which was ruled out. Over the course of hospitalization, her symptoms resolved. MRI was unremarkable. EEG was unremarkable, pt on Keppra. Pt was treated for HTN, initially was on clonidine 0.4 mg b.i.d. at home, however this was causing bradycardia and possibly contributing to pt's weakness.? Clonidine was decreased to 0.1 mg b.i.d. and amlodipine 5 mg QD PRN. Pt?s home meds of sertraline, Ambien, Latuda, and Klonopin were continued. TSH was wnl.? Psych consult placed as pt reported VH. ? I evaluated the pt this evening and upon interview she reports she has been on Latuda x 8 mo, ?it seems to work so far.? Says she likes sertraline. She has OP psych services, her provider is Dr. Lee Lopez. Pt reports at baseline she is ?not a good sleeper.? Says she has a perceptual disturbance of ?If im standing looking this way [looks forward], I see someone standing next to me but if I look there?s nobody there.? She denies delusional thought content, says ?I know its not real.? Says her perceptual disturbance has been going on 3-4 months. Also says ?when I go to bed at night and I close my eyes, there?s colors. I see blue and white,? x 6 months. Denies having eye problems, has seen opthalmologist in the past year, wears contacts. Has hx of migraines with aura. Pt says prior to admission, she fell while walking her daughter?s dog and couldn?t get up, did not hit her head, no LOC. No previous hx of falls. Last seizure was 2 yr ago, denies hx of absence seizures. Denies AH. Says her mood is ?stable.? Says she has had a lot of anxiety and stress, wonders if this is why she fell, as she was supposed to go to [place] for her daughter?s graduation. Denies hx of PNES. Pt doesnt want changes to her psych meds.? [facility] Medical History Chronic pain GERD (gastroesophageal reflux disease) Hypothyroidism Lumbar back pain Lumbar back pain with radiculopathy affecting left lower extremity NSTEMI (non-ST elevated myocardial infarction) Obesity Takotsubo cardiomyopathy Vitamin D deficiency Surgical History History of elbow surgery History of hysterectomy History of shoulder surgery Hx of cardiac catheterization Status post removal of cervix Diagnostics Vital Signs (24Hr): Vital Signs - 24 hr 03/17/22 10:16 03/17/22 13:22 03/17/22 15:22 Temperature 97.6 F 97.7 F Pulse Rate 46 L 50 50 Respiratory Rate 20 18 Blood Pressure 135/77 105/55 L 108/66 Pulse Oximetry 94 95 96 03/17/22 19:19 03/17/22 23:19 03/18/22 03:30 Temperature 98.1 F 98.8 F 97.0 F Pulse Rate 50 53 57 Respiratory Rate 14 18 18 Blood Pressure 96/54 L 100/50 L 94/50 L Pulse Oximetry 94 95 93 03/18/22 07:25 Temperature 98.4 F Pulse Rate 61 Respiratory Rate 16 Blood Pressure 110/63 Pulse Oximetry 92 BMI result Body Mass Index 22.1 Labs Results: 03/14/22 06:15 03/14/22 06:15 Imaging Radiology Impressions: ITS Impressions Cervical Spine CT 03/13/22 17:25 IMPRESSION: Negative acute noncontrast CT of the brain. No fracture or dislocation of the cervical spine. Degenerative changes Head CT 03/13/22 17:25 IMPRESSION: Negative acute noncontrast CT of the brain. No fracture or dislocation of the cervical spine. Degenerative changes Chest X-Ray 03/13/22 17:45 IMPRESSION: Unremarkable examination. Chest CT 03/13/22 18:50 IMPRESSION: There is no significant infiltrate or effusion here. There is COPD and numerous as described areas of lung nodularity, largest measuring 8 mm in the left lower lobe. Malignancy cannot be excluded. Metastatic disease cannot be excluded. 8 mm is borderline line for PET/CT evaluation. Consider PET/CT at this time to further evaluate versus a close noncontrast low-dose follow-up study in 3 months for continued evaluation. Borderline precarinal node at 1 cm. Small left adrenal lesion with low Hounsfield units may represent an adenoma however given the findings in the lungs follow-up would be recommended here as well versus dedicated adrenal protocol Deformity in the mid sternum. This may be the sequela of previous injury with healing but an expansile bony lesion would be in the differential. Correlation recommended clinically. If further evaluation is warranted recommend bone scan or MRI Mild aneurysmal change of the ascending aorta Head/Neck CTA 03/13/22 20:52 IMPRESSION: CT head: No intracranial hemorrhage or large acute infarction. CTA neck: No hemodynamically significant stenosis in the major arteries of the neck. CTA head: No large vessel occlusion or significant stenosis within the intracranial circulation. 2 mm aneurysm projecting posteriorly from the posterior wall of the supraclinoid right ICA. This critical result was discussed with Dr. Meza on 03/13/2022 9:16 PM, and it was ascertained that the content and urgency of the report was understood at the time of direct communication. Brain MRI 03/14/22 13:00 IMPRESSION: No acute infarct, mass lesion, intracranial hemorrhage, or evidence of hydrocephalus. Mental Status Exam Mental Status Exam Narrative: A&O. Well groomed, in hospital attire, well groomed. Good eye contact, attentive. No Tics or Tremors. No abnormal involuntary movements. Calm, cooperative, engaged. Non-pressured speech, spontaneous with regular rate and rhythm, normal volume and prosody. No prolonged speech latency or dysarthria. Mood is ?good,? affect is euthymic. Denies SI/SIB/HI upon inquiry. Denies A/VH or delusional thought content. Thoughts are coherent, organized. No known cognitive or memory impairment. Insight/ Judgment fair and adequate. Medications Medications Current Medications Acetaminophen (Acetaminophen 325 Mg Tablet) 650 mg PO Q6H PRN PRN Reason: Pain, Mild (Pain Scale 1-3) Albuterol Sulfate (Albuterol Sulfate 90 Mcg 8 Gm Inhaler) 2 puff INHALE Q4H PRN PRN Reason: shortness of breath or wheezing Amlodipine Besylate (Amlodipine Besylate 5 Mg Tablet) 5 mg PO DAILY [facility]; Protocol Last Admin: 03/18/22 09:11 Dose: 5 mg Documented by: Atorvastatin Calcium (Atorvastatin Calcium 80 Mg Tablet) 80 mg PO DAILY [facility] Last Admin: 03/18/22 09:12 Dose: 80 mg Documented by: Buprenorphine/Naloxone (Buprenorphine/Naloxone 12/3 Mg Film) 1 film SUBLINGUAL DAILY [facility] Last Admin: 03/18/22 09:10 Dose: 1 film Documented by: Clonazepam (Clonazepam 1 Mg Tablet) 1 mg PO TID [facility] Last Admin: 03/18/22 09:11 Dose: 1 mg Documented by: Clonidine HCl (Clonidine Hcl 0.1 Mg Tablet) 0.1 mg PO BID [facility]; Protocol Last Admin: 03/18/22 09:11 Dose: 0.1 mg Documented by: Docusate Sodium (Docusate Sodium 100 Mg Capsule) 100 mg PO DAILY PRN PRN Reason: Constipation Enoxaparin Sodium (Enoxaparin Sodium 40 Mg/0.4 Ml Syringe) 40 mg SUBCUT Q24H [facility] Last Admin: 03/18/22 09:12 Dose: 40 mg Documented by: Levetiracetam (Levetiracetam 250 Mg Tablet) 750 mg PO BID [facility] Last Admin: 03/18/22 09:11 Dose: 750 mg Documented by: Levothyroxine Sodium (Levothyroxine Sodium 150 Mcg Tablet) 150 mcg PO DAILY [facility] Last Admin: 03/18/22 09:11 Dose: 150 mcg Documented by: Lurasidone HCl (Lurasidone Hcl 80 Mg Tablet) 80 mg PO DAILY [facility] Last Admin: 03/18/22 09:10 Dose: 80 mg Documented by: Omeprazole (Omeprazole 20 Mg Capsule.Dr) 20 mg PO DAILY [facility] Last Admin: 03/18/22 09:11 Dose: 20 mg Documented by: Ondansetron HCl (Ondansetron Hcl 4 Mg/2 Ml Vial) 4 mg IVPUSH Q8H PRN PRN Reason: Nausea and Vomiting Sertraline HCl (Sertraline Hcl 100 Mg Tablet) 100 mg PO BID [facility] Last Admin: 03/18/22 09:10 Dose: 100 mg Documented by: Zolpidem Tartrate (Zolpidem Tartrate 5 Mg Tablet) 10 mg PO BEDTIME [facility] Last Admin: 03/17/22 20:21 Dose: 10 mg Documented by: Allergies Allergies Allergy/AdvReac Type Severity Reaction Status Date / Time aspirin Allergy Intermediate stomach Verified 03/11/22 11:55 upset codeine [CODEINE] Allergy Intermediate itching Verified 03/11/22 11:55 NSAIDS (Non-Steroidal Allergy Mild stomach Verified 03/11/22 11:55 Anti-Inflamma upset [NSAIDS (NON-STEROIDAL ANTI-INFLAMMA] Sulfa (Sulfonamide Allergy Mild Rash Verified 03/11/22 11:55 Antibiotics) [SULFA(SULFONAMIDE ANTIBIOTICS)] Assessment & Plan Assessment & Plan (1) Bipolar II disorder: Status: Acute Code(s): F31.81 - Bipolar II disorder Plan Plan: Pt?s report of VH does not appear to be acutely psychiatric. Recommended eye exam and r/o PNES. May have also been SE of clonidine, which was lowered due to bradycardia. Pt will follow up with neurology in OP setting. Will continue with OP psych providers for management of bipolar II DO.? I have shared this with Awilda Horton Thank you for this consultation. If you have any questions or concerns, please do not hesitate to contact psychiatry service. I spent minutes with the patient and/or on the patient floor today, greater than?50% of which was spent counseling/coordinating care.
--- NOTE | 2022-03-18 10:11 | MHC.CM.PN ---
Female 56 DP [facility] has offered a bed. They are waiting to receive authorization from insurance. A rapid covid test order has been requested. Anticipate dc later today via BLS.
[2022-03-18 12:05] LABS: COVID-19 Test Negative (Negative); IDNOW Serial# 9DB6401D
--- NOTE | 2022-03-18 14:47 | P.PNIM_ITS ---
Subjective Subjective Date of Service: 03/18/22 Review of Systems Follow up seizure no further seizure activity no pain seeing shadows in her peripheral visio Physical Exam Vital Signs: Vital Signs: Last Vital Signs Temp 99.3 F 03/18/22 11:12 Pulse 69 03/18/22 11:23 Resp 17 03/18/22 11:12 BP 135/77 03/18/22 11:23 Pulse Ox 94 03/18/22 11:23 BMI result Body Mass Index 22.1 Appearing in no acute distress lung sounds are clear to auscultation heart regular rate rhythm, clear S1, S2 positive bowel sounds, abdomen is soft, nontender neuro patient is alert x3, no focal deficits Objective Data Active Medications Acetaminophen (Acetaminophen 325 Mg Tablet) 650 mg PO Q6H PRN PRN Reason: Pain, Mild (Pain Scale 1-3) Albuterol Sulfate (Albuterol Sulfate 90 Mcg 8 Gm Inhaler) 2 puff INHALE Q4H PRN PRN Reason: shortness of breath or wheezing Amlodipine Besylate (Amlodipine Besylate 5 Mg Tablet) 5 mg PO DAILY [facility]; Protocol Last Admin: 03/18/22 09:11 Dose: 5 mg Documented by: JESSE Atorvastatin Calcium (Atorvastatin Calcium 80 Mg Tablet) 80 mg PO DAILY [facility] Last Admin: 03/18/22 09:12 Dose: 80 mg Documented by: JESSE Buprenorphine/Naloxone (Buprenorphine/Naloxone 12/3 Mg Film) 1 film SUBLINGUAL DAILY [facility] Last Admin: 03/18/22 09:10 Dose: 1 film Documented by: JESSE Clonazepam (Clonazepam 1 Mg Tablet) 1 mg PO TID [facility] Last Admin: 03/18/22 14:41 Dose: 1 mg Documented by: JESSE Clonidine HCl (Clonidine Hcl 0.1 Mg Tablet) 0.1 mg PO BID [facility]; Protocol Last Admin: 03/18/22 09:11 Dose: 0.1 mg Documented by: JESSE Docusate Sodium (Docusate Sodium 100 Mg Capsule) 100 mg PO DAILY PRN PRN Reason: Constipation Enoxaparin Sodium (Enoxaparin Sodium 40 Mg/0.4 Ml Syringe) 40 mg SUBCUT Q24H [facility] Last Admin: 03/18/22 09:12 Dose: 40 mg Documented by: JESSE Levetiracetam (Levetiracetam 250 Mg Tablet) 750 mg PO BID [facility] Last Admin: 03/18/22 09:11 Dose: 750 mg Documented by: JESSE Levothyroxine Sodium (Levothyroxine Sodium 150 Mcg Tablet) 150 mcg PO DAILY [facility] Last Admin: 03/18/22 09:11 Dose: 150 mcg Documented by: JESSE Lurasidone HCl (Lurasidone Hcl 80 Mg Tablet) 80 mg PO DAILY [facility] Last Admin: 03/18/22 09:10 Dose: 80 mg Documented by: JESSE Omeprazole (Omeprazole 20 Mg Capsule.Dr) 20 mg PO DAILY [facility] Last Admin: 03/18/22 09:11 Dose: 20 mg Documented by: JESSE Ondansetron HCl (Ondansetron Hcl 4 Mg/2 Ml Vial) 4 mg IVPUSH Q8H PRN PRN Reason: Nausea and Vomiting Sertraline HCl (Sertraline Hcl 100 Mg Tablet) 100 mg PO BID [facility] Last Admin: 03/18/22 09:10 Dose: 100 mg Documented by: JESSE Zolpidem Tartrate (Zolpidem Tartrate 5 Mg Tablet) 10 mg PO BEDTIME [facility] Last Admin: 03/17/22 20:21 Dose: 10 mg Documented by: BG Labs CBC & Chem 7: 03/14/22 06:15 03/14/22 06:15 Labs: Laboratory Results - last 24 hr 03/18/22 11:37 COVID-19 ([facility]) Negative COVID-19 Clin Com See Note Assessment and Plan (1) Lung nodules: Status: Acute (2) Neurological deficit present: Status: Acute (3) Seizure disorder: Status: Acute (4) Migraine: Status: Acute (5) Elevated blood pressure reading: Status: Acute (6) Hypothyroidism (acquired): Status: Acute (7) Anxiety and depression: Status: Acute Plan 56-year-old female with transient past medical history who presents to the hospital with complaints of neurological deficits Recurrent dizziness/fall/unsteady gait transient neurological deficit>Resolved negative w/u with CT, MRI, ? seizure >negative EEG Neuro recommends continue with Keppra PT recommend acute inpatient rehab Seeing a presence on both peripheral visions sides, also sees blue lights Psych eval history of migraine improved, continue Fioricet, lung nodules Seen by Pulmonology. No acute intervention is indicated at this time.? Patient with require outpatient pulmonary follow-up with follow-up CT chest in 3 months to assess for stability of noted pulmonary nodules. hypertension was on high dose clonidine 0.4 bid, and causing low HR, decreased to 0.1 bid added Norvasc 5 daily. bipolar disorder on sertraline, ambien, Latuda Klonopin hypothyroidism continue levothyroxine DVT prophylaxis:? Loveemilianox Attending Dr. Ba full code To acute rehab when bed available Quality Stroke Does the patient have a stroke diagnosis?: No VTE Prior VTE?: No VTE Risk Level:: Medical - moderate - high VTE Device Contraindication: Treatment Not Indicated VTE Drug Contraindication: N/A - Med Ordered
[2022-03-18] MEDS: Zolpidem Tartrate 5 MG TABLET 10 MG PO (21:11)
[2022-03-19 03:32] VITALS: BP 131/76; PULSE 67; RESP 17; TEMP 36.3; O2SAT 93
[2022-03-19] MEDS: Enoxaparin Sodium 40 MG/0.4 ML SYRINGE SUBCUT (06:09)
[2022-03-19 07:20] VITALS: BP 146/68; PULSE 64; RESP 17; TEMP 36.3; O2SAT 92
[2022-03-19] MEDS: Omeprazole 20 MG CAPSULE.DR PO (07:56)
[2022-03-19] MEDS: Levothyroxine Sodium 150 MCG TABLET PO (07:57)
[2022-03-19] MEDS: Lurasidone HCl 80 MG TABLET PO (07:57)
[2022-03-19] MEDS: Buprenorphine/Naloxone 12/3 mg FILM 1 FILM SUBLINGUAL (07:57)
[2022-03-19] MEDS: levETIRAcetam 250 MG TABLET 750 MG PO (07:57)
[2022-03-19] MEDS: clonazePAM 1 MG TABLET PO (07:57)
[2022-03-19] MEDS: amLODIPine Besylate 5 MG TABLET PO (07:57)
[2022-03-19] MEDS: Atorvastatin Calcium 80 MG TABLET PO (07:57)
[2022-03-19] MEDS: cloNIDine HCL 0.1 MG TABLET PO (07:57)
[2022-03-19] MEDS: Sertraline HCL 100 MG TABLET PO (07:57)
[2022-03-19 09:11] VITALS: BP 146/68; PULSE 64; O2SAT 92
--- NOTE | 2022-03-19 11:04 | MHC.CM.PN ---
Addendum entered by Amada Gaona 03/19/22 13:52: Patient will receive SN and PT home services with [facility]. Family provided transport home. Original Note: Female 56 Per MD rounds DC today. PT note states that pt has improved. She no longer qualifies for rehab. She had been accepted by [facility] rehab. They have been notified of the change to the discharge plan. She can discharge to home. [facility] has been following for discharge. Patient has arranged for transportation home.
[2022-03-19 11:24] VITALS: BP 133/78; PULSE 63; RESP 17; TEMP 36.3; O2SAT 95
--- NOTE | 2022-03-19 12:36 | PM.DS ---
DS: Providers Provider Date of Service: 03/19/22 Date of admission: 03/13/22 19:56 Primary care physician: Ney Cole MD Consults: 03/13/22 16:49 Consult to Neurology Stat Consulting Provider: [facility] Reason for consultation: new facial drrop Has provider been notified: Yes 03/13/22 19:56 Consult to Neurology Routine Consulting Provider: [facility] Reason for consultation: CVA 03/14/22 15:11 Consult to Pulmonology Routine Consulting Provider: Isaías Abraham Reason for consultation: pulmonary nodules Has provider been notified: No 03/18/22 08:53 Consult to Psychiatry Routine Consulting Provider: Psych Covering Reason for consultation: seeing people next to her Has provider been notified: No DS: Diagnosis Discharge Diagnosis (1) Lung nodules: Status: Acute (2) Neurological deficit present: Status: Acute (3) Seizure disorder: Status: Acute (4) Migraine: Status: Acute (5) Elevated blood pressure reading: Status: Acute (6) Hypothyroidism (acquired): Status: Acute (7) Anxiety and depression: Status: Acute DS: Summary Hospital Course Hospital Course: from initial hpi: Chief Complaint: increased confusion, abnormal gait 56-year-old female with past medical history of GERD, chronic pain, hypothyroidism, NSTEMI, bipolar, hypertension, opioid use disorder, anxiety and depression, and migraine headaches who presents to the hospital with complaints of confusion and unsteady gait.? Patient is slightly confused therefore history is obtained from her at bedside who has been witness to this confusion and unsteady gait.? Patient and her has been at bedside report that since yesterday patient woke up confused, asking nonsensical questions, and having wobbly unsteady gait.? Patient does not remember, but her reports that she has also been complaining of weakness in nonspecific regions of her body, she is complaining of chills, feeling very cold but otherwise has no headache, change in vision, she wants endorses weakness in her arms or legs but that when asked her again she denied.? She reports no chest pain, reports no slurred speech, no shortness of breath, has been having a cough for the past 1 week, was diagnosed with influenza a recently but has been improving.? Has no abdominal pain nausea or vomiting, no diarrhea constipation, no urinary symptoms, no lower extremity edema. On arrival to the ED patient was noted to be hypertensive otherwise vitals were unremarkable Labs were reviewed unremarkable, UA negative, COVID-19 negative, chest x-ray negative, chest CT demonstrates no evidence of pneumonia but has multiple nodules where malignancy cannot be ruled out. Patient will be admitted for evaluation of possible stroke hospital course: Patient was admitted for recurrent episodes of dizziness, fall, weakness. The symptoms resolved. She was seen by Neurology who recommended MRI which was unremarkable. EEG was unremarkable. They recommended continuing Keppra. She was also complaining of seeing blue lights, this was likely migraine with aura, has since resolved. She was seen by Pulmonary for incidentally found lung nodules, the recommended follow-up CT chest in 3 months. She was treated for hypertension that was uncontrolled, initially was on clonidine 0.4 mg b.i.d. at home, however the, this was causing bradycardia and possibly contributing to patient's weakness. Therefore clonidine was decreased to 0.1 mg b.i.d. and amlodipine 5 mg daily was added. For bipolar disorder she will continue on sertraline, Ambien, Latuda, Klonopin. For hypothyroidism her TSH was normal and she will continue on Synthroid. Likely her symptoms are either due to polypharmacy versus migraine with aura, they have since resolved and she will be discharged home, she will follow up with Neurology as outpatient and continue PT. Time Spent with Patient Time attestation: Total time spent providing and/or coordinating discharge services: Discharge coordination time: Greater than 30 minutes Quality: Safe Use of Opioids Does Pt have an Active Cancer Diagnosis on the Problem List?: No Quality: Stroke Does the patient have a stroke diagnosis?: No Physical Exam Vital Signs: Vital Signs: Last Vital Signs Temp 97.3 F 03/19/22 11:24 Pulse 63 03/19/22 11:24 Resp 17 03/19/22 11:24 BP 133/78 03/19/22 11:24 Pulse Ox 95 03/19/22 11:24 BMI result Body Mass Index 22.1 General: AO X 3, no acute distress Resp: CTA bilateral, no accessory muscles used CVS: S1,S2,RRR GI: soft, non tender, non distended Neuro: motor grossly intact, alert Psych: appropriate affect, appropriate insight Discharge Plan Discharge Patient Disposition: Home Health Service Discharge Diagnosis: weakness Referrals: Ney Cole MD [Primary Care Provider] - 1 Week Oren Longoria MD [Physician] - 1 Week Discharge Medications: New clonidine HCl 0.1 mg Tablet 0.1 mg PO BID Qty: 60 0RF Protocol: Hold for SBP< HOLD for SBP < : 90 amlodipine 5 mg Tablet 5 mg PO DAILY Qty: 30 0RF Protocol: Hold for SBP< HOLD for SBP < : 90 Continued clonazepam 1 mg tablet 1 mg PO TID 30 Days Qty: 90 0RF levetiracetam 250 mg tablet 750 mg PO BID Qty: 180 2RF pantoprazole 40 mg tablet,delayed release (DR/EC) 40 mg PO DAILY 30 Days Qty: 30 3RF levothyroxine 150 mcg tablet 150 mcg PO DAILY 30 Days Qty: 30 1RF sertraline 100 mg tablet 1 tab PO BID 0RF albuterol sulfate [ProAir HFA] 90 mcg/actuation HFA aerosol inhaler 2 puff inhalation Q4H PRN (Reason: shortness of breath or wheezing) 0RF lurasidone 80 mg tablet 80 mg PO DAILY 30 Days Qty: 30 0RF buprenorphine-naloxone 12-3 mg film 1 film sublingual DAILY 0RF zolpidem 10 mg tablet 10 mg PO BEDTIME 0RF Discontinued clonidine HCl 0.2 mg tablet 0.4 mg PO BID 0RF lwtyandxbz-evdfvbsnywdvh-jeom [Fioricet] 50-300-40 mg capsule 1 cap PO Q8H PRN (Reason: pain) 30 Days Qty: 15 0RF Rx Instructions: I advised pt not to take two at once or to take more than 2 per day and 15 per month advised to avoid taking with ambien and martínez Discharge Orders: Discharge Order (Routine); Ordered 03/19/22 Ordered By: Jh Spears Diet: advance to usual diet Activity on Discharge: As tolerated Stand Alone Forms: Patient Portal Discharge page Care Plan Goals: recovery Health Concerns: falls Plan of Treatment: PT, meds changed, follow up neuro Assessment: see above
--- NOTE | 2022-03-19 12:41 | W.MHC.F2F ---
Service Date Service Date: 03/19/22 Encounter Date of encounter: 03/19/22 Reasons for Services Signs and symptoms assessed: weakness Reason for longterm: medication management, medication treatment and teach disease management Reason for physical therapy: home safety and mobility, therapeutic exercises and gait/transfer training Homebound: Leaving the home is medically contraindicated at this time without the asist of a device and/or another person due th the listed conditions above and below. Reason homebound: unsteady gait / fall risk Certification: Based on the above findings, I certify that this patient is confined to the home and needs intermittent longterm care, physical therapy and/or speech therapy, or continues to need occupational therapy. The patient is under my care, and I have initiated the establishment of the plan of care. The patient will be followed by a physician who will periodically review the plan of care.
== END 2022-03-19 13:28 | disposition home health service (06) | DRG 54 ==
LOC: HO.ED 18:59 → HO.EDOVER 20:12 → HO.IMC 03-14 14:06
PROVIDERS: Emergency Medicine; Hospitalist; Nurse Practitioner Acute Care; Physician Assistant; Admitting Provider Internal Medicine; Emergency Provider Emergency Medicine Emergency Medical Services; PCP Family Medicine; Visit Provider Internal Medicine
DX: G43.909 Migraine, unspecified, not intractable, without status migrainosus (principal); E03.9 Hypothyroidism, unspecified; F17.210 Nicotine dependence, cigarettes, uncomplicated; K21.9 Gastro-esophageal reflux disease without esophagitis; R91.8 Other nonspecific abnormal finding of lung field; R29.6 Repeated falls; G40.909 Epilepsy, unspecified, not intractable, without status epilepticus; I25.2 Old myocardial infarction; Z91.81 History of falling; F41.9 Anxiety disorder, unspecified; R00.1 Bradycardia, unspecified; T46.5X5A Adverse effect of other antihypertensive drugs, initial encounter; F31.9 Bipolar disorder, unspecified; Z71.6 Tobacco abuse counseling; Z20.822 Contact with and (suspected) exposure to COVID-19; Z88.2 Allergy status to sulfonamides; Z88.5 Allergy status to narcotic agent; Z88.6 Allergy status to analgesic agent; Z79.890 Hormone replacement therapy; Z79.899 Other long term (current) drug therapy
CPT/HCPCS: 36415; 70450; 70496; 70498; 70551; 71046; 71250; 72125; 80048; 80061; 80076; 81003; 82077; 82550; 82947; 83605; 83735; 84443; 84484; 85025; 85610; 85730; 87040; 87635; 93005; 93306; 94640; 95816; 96361; 96365; 96367; 97110; 97116; 97162; 97166; 97530; 99285; J0456; J0696; J1650; Q0163; Q9967

== ENCOUNTER 2022-06-18 14:30 | Emergency (ER) | payer OTHER, SELFPAY ==
--- NOTE | ~2022-06-18 | XR_ITS ---
EXAMINATION: XR CHEST CLINICAL INFORMATION: Cough. COMPARISON: None TECHNIQUE: 2 views of the chest were obtained. FINDINGS: No significant abnormality is noted involving the heart, lungs, mediastinum, bony thorax or soft tissues. XR/XR chest 2V IMPRESSION: Unremarkable chest exam
[2022-06-18 16:06] VITALS: BP 177/107; PULSE 87; RESP 18; TEMP 37.2; O2SAT 98; BMI 22.1
[2022-06-18] MEDS: Ondansetron ODT 4 MG TAB.RAPDIS TRANSLINGU (16:12)
== END 2022-06-18 18:34 | disposition left against medical advice (07) ==
PROVIDERS: Emergency Provider Emergency Medicine; PCP Family Medicine
DX: R53.1 Weakness (principal); R11.10 Vomiting, unspecified; R50.9 Fever, unspecified
CPT/HCPCS: 71046; 99281; 99283

== ENCOUNTER → 2022-11-27 12:53 | Outpatient (REF) | payer OTHER, SELFPAY ==
--- NOTE | ~2022-11-27 | US_ITS ---
EXAMINATION: US EXTRACRANIAL CAROTID DUPLEX, BILATERAL CLINICAL INFORMATION: Carotid bruit. CVA. Hypertension. COMPARISON: None TECHNIQUE: Real-time ultrasound and Doppler techniques (integrating B-mode 2-D vascular images, Doppler spectral analysis and color-flow Doppler imaging) were utilized to interrogate the extracranial carotid arteries, the vertebral arteries and proximal subclavian arteries bilaterally. The degree of stenosis is determined by criteria similar to NASCET. FINDINGS: Right Side: 1. There is mild atherosclerotic plaque seen in the bifurcation/proximal ICA region. 2. The common carotid artery PSV proximally is 80 cm/s and distally 81 cm/s. 3. The proximal internal carotid artery velocities are 97 cm/s systolic and 36 cm/s diastolic. 4. The proximal external carotid artery PSV is 106 cm/s. 5. The vertebral artery shows antegrade flow. 6. The subclavian artery waveforms are normal. Left Side: 1. There is mild atherosclerotic plaque seen in the bifurcation/proximal ICA region. 2. The common carotid artery PSV proximally is 95 cm/s and distally 87 cm/s. 3. The proximal internal carotid artery velocities are 76 cm/s systolic and 34 cm/s diastolic. 4. The proximal external carotid artery PSV is 147 cm/s. 5. The vertebral artery shows antegrade flow. 6. The subclavian artery waveforms are normal. US/US carotid duplex BI IMPRESSION: 1. RIGHT: Minimal, non-hemodynamically significant stenosis of the proximal right internal carotid artery corresponding to a 0-49% stenosis by velocity criteria. 2. LEFT: Minimal, non-hemodynamically significant stenosis of the proximal left internal carotid artery corresponding to a 0-49% stenosis by velocity criteria.
--- NOTE | 2022-11-27 12:56 | CA_ITS ---
Transthoracic Echocardiogram Amended Patient (Last, First, Middle): Brandie Campuzano, Gender: Female Date of : 1965 Age: 57 Procedure Date: 11/27/2022 Procedure Type: Transthoracic Echocardiogram Location: OP Height: 160.02 cm Weight: 58.97 kg BSA: 1.61 m2 Heart Rate: 55 bpm BP: 110 / 70 mmHg Librarian Special Collections: SB Referring MD: Ney Cole MD Airplane Flight Attendant: Richard Ramos MD Symptoms: R01.2 - Other cardiac sounds Study Quality: Adequate ECG Rhythm: Bradycardia Conclusions: - 1. Normal LV systolic function with pseudonormal filling pattern 2. Mildly dilated left atrium 3. Normal cardiac valvular Doppler 4. Normal RV systolic pressure 5. No gross pericardial effusion Findings Left Ventricle Normal left ventricular size, thickness, and systolic function. The visually estimated ejection fraction is between 65-70%. Spectral Doppler is indicative of a pseudonormal filling pattern. E/E prime ratio is between 8 and 15 consistent with indeterminate filling pressures. Peak GLS is -18.4%, within normal limits Right Ventricle Normal right ventricular cavity size and systolic function. Atria The left atrium is mildly dilated. There is no evidence of interatrial shunt. The right atrium is normal in size. Aortic Valve Normal aortic valve structure and function. There is no aortic valve stenosis. There is no aortic valve regurgitation. Mitral Valve Normal mitral valve structure and function. There is trace mitral valve regurgitation. There is no mitral valve stenosis. Tricuspid Valve Likely normal tricuspid valve structure and function. There is trace tricuspid valve regurgitation. The right ventricular systolic pressure is normal. The right ventricular systolic pressure is 27 mmHg. Normal right atrial pressure. There is no evidence of pulmonary hypertension. Great Vessels All visible segments of the aorta are normal in size. The pulmonary artery was not well visualized. Venous The inferior vena cava is normal in size and collapses greater than 50% with inspiration. Pericardium/Pleural There is no evidence of pericardial effusion. Prior Study Comparison Changes noted compared to prior study dated: 03/14/2022. Pseudonormal filling pattern is noted Measurements 2D Linear Measurements IVSd: 1.36 0.6-0.9/0.6-1.0 cm LVIDd: 4.19 3.9-5.3/4.2-5.9 cm LVIDd Index: 2.60 2.4-3.2/2.2-3.1 cm/m2 LVIDs: 2.78 2.0-3.6 cm LVPWd: 0.73 0.7-1.1 cm LA Diam: 3.70 2.7-3.8/3.0-4.0 cm LAIDs Index: 2.30 1.5-2.3 cm/m2 LV Mass: 181.20 67-162/88-224 g LV Mass Index: 112.55 43-95/49-115 g/m2 LVOT Diam: 2.10 3.0+(-)1.3 cm 2D Volumes LA Vol: 34.10 2D Systolic Function EF 4C: 62.40 >55% EF 2C: 74.30 >55% EF BiP: 69.60 >55% Mitral Valve MV Pk E: 0.90 MV PK A: 0.49 MV Decel Time: 154.00 E/A: 1.80 E'Lateral: 8.27 E'Medial: 6.09 E/E' Med: 14.80 E/E' Lat: 10.90 PHT: 45.00 MVA PHT: 4.89 Decel Coleman: 5.86 Aortic Valve AoV Pk Rocky: 1.09 AoV Pk Grad: 5.00 ABNER: 3.10 LVOT LVOT Pk Rocky: 0.99 LVOT Mn Rocky: 0.62 LVOT VTI: 0.21 LVOT Pk Grad: 4.00 LVOT Mn Grad: 2.00 LVOT Diam: 2.10 LVOT Area: 3.46 Diastolic Function MV Pk E: 0.90 MV Pk A: 0.49 E/A: 1.80 E'Medial: 6.09 E/E' Med: 14.80 E' Laterial: 8.27 E/E' Lat: 10.90 Right Ventricle TAPSE (mm): 19.10 TVS' Rocky: 9.68 Tricuspid Valve TR Pk Rocky: 2.47 TR Pk Grad: 24.00 RA Press: 3.00 RVSP: 27.00 Great Vessels Aorta Sinus of Valsalva: 2.80 2.0-3.5 cm Ao Asc: 3.30 2.1-3.4 cm Pulmonary Veins Pulm Vein S/D 0.90 Pulmonary Valve PV Pk Rocky: 0.61 Peak PV Grad: 1.00 Shunting QP:QS: 1.00 Updated in Other Vendor System with Status of Final Richard Ramos MD electronically signed on 11/27/2022 4:32:11 PM with status of Final
== END ==
LOC: HO.CARD 12:53
PROVIDERS: PCP Family Medicine; Visit Provider Family Medicine
DX: I42.9 Cardiomyopathy, unspecified (principal); R01.2 Other cardiac sounds; R09.89 Other specified symptoms and signs involving the circulatory and respiratory systems
CPT/HCPCS: 93306; 93356; 93880

== ENCOUNTER 2022-11-28 09:50 | Outpatient (REF) | payer OTHER, SELFPAY ==
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
== END 2022-11-28 09:51 | disposition home or self-care (01) ==
LOC: HO.MAMMO 09:50
PROVIDERS: PCP Family Medicine; Visit Provider Family Medicine
DX: Z12.31 Encounter for screening mammogram for malignant neoplasm of breast (principal)
CPT/HCPCS: 77063; 77067

== ENCOUNTER → 2023-05-13 14:46 | Outpatient (BNVA) | payer OTHER, SELFPAY | PROVIDERS: Visit Provider Internal Medicine | DX: I25.10 Atherosclerotic heart disease of native coronary artery without angina pectoris (principal); I51.81 Takotsubo syndrome; E78.5 Hyperlipidemia, unspecified | CPT/HCPCS: 99212 ==

== ENCOUNTER → 2023-05-14 10:45 | Outpatient (BNVA) | payer OTHER, SELFPAY | PROVIDERS: PCP Family Medicine; Visit Provider Nurse Practitioner Family | DX: M16.0 Bilateral primary osteoarthritis of hip (principal); M25.551 Pain in right hip; G89.29 Other chronic pain | CPT/HCPCS: 99212 ==

== ENCOUNTER 2023-05-22 13:22 | Outpatient (REF) | payer OTHER, SELFPAY ==
--- NOTE | ~2023-05-22 | XR_ITS ---
EXAMINATION: XR BILATERAL HIPS WITH AP PELVIS CLINICAL INFORMATION: Pain in right hip COMPARISON: None available. TECHNIQUE: AP view of the pelvis and 2 views of each hip were obtained. FINDINGS: There is mild loss of bilateral hip joint space with minimal periarticular spurring right hip. The SI joints are symmetrical. No visible acute fracture or dislocation seen. No aggressive lytic or sclerotic process. XR/XR hip BI w PEL1V IMPRESSION: Mild degenerative changes bilateral hip joints. No visible acute fracture or dislocation seen.
== END 2023-05-22 13:23 | disposition home or self-care (01) ==
LOC: HO.XRAY 13:22
PROVIDERS: PCP Family Medicine; Visit Provider Nurse Practitioner Family
DX: M16.0 Bilateral primary osteoarthritis of hip (principal)
CPT/HCPCS: 73521

== ENCOUNTER 2023-07-14 15:05 | Outpatient (AMB) | payer OTHER, SELFPAY ==
--- NOTE | 2023-07-14 15:07 | A.OFFVIS_ITS ---
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 Required: No Accompanied by: Self / Same As Patient Allergies aspirin Allergy (Intermediate, Verified 07/14/23 15:16) stomach upset codeine [CODEINE] Allergy (Intermediate, Verified 07/14/23 15:16) itching NSAIDS (Non-Steroidal Anti-Inflamma [NSAIDS (NON-STEROIDAL ANTI-INFLAMMA] Allergy (Mild, Verified 07/14/23 15:16) stomach upset Sulfa (Sulfonamide Antibiotics) [SULFA(SULFONAMIDE ANTIBIOTICS)] Allergy (Mild, Verified 07/14/23 15:16) Rash ibuprofen Adverse Reaction (Unknown, Verified 07/14/23 15:16) Unknown HPI HPI Comments History of Present Illness Details Patient presents today for follow up for significant right hip pain. Per EMR review, patient was attempted 3 times on 05/26/23, 06/02/23 and 06/08/23 and left voicemessage. Patient reports she had no phone service for the month of May. She is requesting to proceed with right hip steroid injection as her pain has been worsening. Weight bearing, walking, getting out of bed, out of shower or car has been difficult per patient due to significant pain. Patient reports she completely came off from Suboxone and has noticed significant pain increase. Reports she has been clean for the past 10 years. Patient also reports today she has significant insomnia and requests Soma. She also reports her insurance is no longer accepted at [facility] and she would like to be referred to a new Psychologist. Patient reports gabapentin and Flexeril were not effective in the past and that she was admitted to Psych inpatient after trialing Lyrica. Denies any fever, weight loss, bladder or bowel dysfunction or saddle anesthesia. PRIOR: Patient is a pleasant 57 years old female presents today right hip pain. She was initially seen in our office on 05/08/21 for left hip pain and with plans for intra-articular steroid left hip injection. This was not done as patient reports she had seizures and had underwent neurologic and cardiac evaluation since then. Patient presents with significant right hip and groin pain with internal and external rotations, weight bearing, walking or exercising. She reports exercising daily (except weekends) on treadmill and bike. Reports increase in right hip pain in the past 2 weeks and this has been gradually worsening. Ambulates with antalgic gait with limping without any assistive devices. Denies any fever, weight loss, back pain, weakness, numbness, tingling, bladder or bowel incontinence or saddle anesthesia. She is on Suboxone at [facility] and notes this also helps alleviate her pain partially. Patient avoids NSAIDs due to significant GI upset symptoms. PRIOR Kaylyn KAPADIA 05/08/21: Brandie is a pleasant 55 year old female who presents to the office with complaints of bilateral hip pain. She states the pain started over ten years ago without any inciting events, but in the past few months has been more exacerbated. She reports the pain starts in the hip and radiates into the groin, L>R. She also notes some numbness and tingling that radiates anteriorly from the hips to the ankles. She denies any saddle anesthesia, weakness or bowel/bladder dysfunction. She reports pain onset was gradual, is worse at night, constant and rates the pain a 8/10. She states the pain is interfering with sleep, activities of daily living and she cannot function normally. Her pain is exacerbated by activity, especially walking and weather changes. No improvement with rest. The patient reports the pain in terms of tissue damage as throbbing, sharp, stabbing and burning. She has been taking topicals and OTC including NSAIDS and Tylenol with minimal improvement in her pain. She is also managed on suboxone for OUD. She has been clean for the past 16 years and ws previously using heroin. Previously she has tried physical therapy in the past and notes no improvement in her symptoms. Denies any chiropractic manipulation, massage or acupuncture. Denies any previous hip/back injections or surgery. She last had imaging of the hips and lumbar spine, reports dictated below. She has not been previously evaluated by neurosurgery. [facility] Medical History Chronic pain GERD (gastroesophageal reflux disease) Hypothyroidism Lumbar back pain Lumbar back pain with radiculopathy affecting left lower extremity NSTEMI (non-ST elevated myocardial infarction) Obesity Takotsubo cardiomyopathy Vitamin D deficiency Surgical History History of elbow surgery History of hysterectomy History of shoulder surgery Hx of cardiac catheterization Status post removal of cervix Family History Sister Hypothyroidism Social History Household Members: Other Household Members Other:: boyfriend Housing: House Do you presently have visiting nurse or other home services: No Alcohol intake: current Alcohol intake frequency: a few times a month Patient Tobacco Use Status: Former Tobacco user Tobacco use type: Cigarette Cigarette Packs Per Day: 1 Cigarettes Per Day: 20.0 Years Smoked: 20 e-Cigarette/Vaping Use: Currently Using (Someday Use) Second Hand Smoke Exposure: Yes service: No Current occupational status: unemployed Current occupational exposures/hazards: No Cognitive needs: No Hearing needs: No Vision needs: No Review of Systems Const All systems reviewed & are unremarkable except as noted in HPI and below ENT Reports Normal hearing present Neuro Reports Normal hearing present and Denies Abnormal speech present Physical Exam Vital Signs: Last Vital Signs Pulse 75 07/14/23 15:13 BP 174/98 H 07/14/23 15:13 Pulse Ox 96 07/14/23 15:13 Oxygen Delivery Method Room Air 07/14/23 15:13 BMI result Body Mass Index 23.7 Const General: cooperative, alert, awake and in distress (due to pain) moderate Nutritional Appearance: average body habitus Orientation/consciousness: patient oriented x3 Limitations: No ambulation with cane, No ambulation with walker and No wheelchair HEENT Head: Yes normal to inspection and Yes normocephalic Ears: hearing grossly normal bilaterally Face and sinus: Yes normal facial exam and Yes face symmetric Eyes General: appearance normal, both eyes and all related structures Eyelids: Yes eyelids normal Sclerae: sclerae normal EOM: EOMs intact bilaterally Neck Neck: Yes normal visual inspection, Yes full ROM, Yes no lymphadenopathy and Yes no JVD Resp Effort & Inspection: normal respiratory effort, able to speak in complete sentences, no cough and no respiratory distress Cardio Jugular venous distension: no JVD Palpation: other (no appreciable rhythmic abnormalities) Peripheral pulses: Peripheral pulses 2+ throughout GI Inspection: Yes normal to inspection and No distended Palpation (GI): Soft to palpation, nontender and no guarding Back/Spine/Pelvis Other: Lumbar extension reproduces mild to moderate pain. Lumbar flexion does not reproduce pain. Moderate groin pain with I/E hip rotations on the right and mild groin pain on the left with I/E left hip rotations. No TTP over GTB bilaterally. Thoracic/Lumbar Spine: thoraco-lumbar ROM normal, Lasegue's sign negative, No thoracic spinal tenderness and lumbar spinal tenderness at L4 and at L5 Sacroiliac joints: bilaterally nontender Neuro General: patient oriented x3, gait normal and moves all extremities Cranial nerves: Yes Normal hearing present Speech: No Abnormal speech present Gait exam (Neuro): Normal gait present Motor exam (neuro): 5/5 motor strength present throughout Extrem Left lower extremity: hip/thigh Details: tenderness Location: of the hip Location: over the great trochanter Psych Appearance: grossly normal Mental Status: mental status grossly normal Speech and movement: Normal speech and movement present Affect: Sad affect present and Anxious affect present Attitude: cooperative Thought process: Circumstantial thought process present Thought content: Normal thought content present, suicidality (none), no hallucinations and Depressive thoughts present Insight: Fair insight present (Psych) Judgement: Fair judgement present (Psych) Results Reviewed Results Reviewed: XR BILATERAL HIPS WITH AP PELVIS 05/22/23 FINDINGS: There is mild loss of bilateral hip joint space with minimal periarticular spurring right hip. The SI joints are symmetrical. No visible acute fracture or dislocation seen. No aggressive lytic or sclerotic process. IMPRESSION: Mild degenerative changes bilateral hip joints. No visible acute fracture or dislocation seen. Assessment & Plan Assessment & Plan (1) Bipolar II disorder: Code(s): F31.81 - Bipolar II disorder (2) Anxiety and depression: Code(s): F41.9 - Anxiety disorder, unspecified; F32.9 - Major depressive disorder, single episode, unspecified (3) Insomnia: Code(s): G47.00 - Insomnia, unspecified (4) Chronic right hip pain: Code(s): M25.551 - Pain in right hip; G89.29 - Other chronic pain (5) Degenerative joint disease of both hips: Code(s): M16.0 - Bilateral primary osteoarthritis of hip Plan Proceed with Right intra-articular hip injection with local and fluoroscopy as planned. Psychology referral placed per patient's request. Reviewed sleep hygiene and conservative measures to help patient have a better sleep. I have informed patient she is not our office does not offer Soma prescribing. Patient is already takes clonazepam 1 mg TID prn and zolpidem 10 mg at bedtime. All questions and concerns have been answered and patient agreed with the plan. Follow up after injections and sooner if needed. Orders: Referrals Psychology Referral F31.81 - Bipolar II disorder, F32.9 - Major depressive disorder, single episode, unspecified, F41.9 - Anxiety disorder, unspecified, G47.00 - Insomnia, unspecified Coding Level of Care Code Est Pt Level 4 (74658) Diagnoses Bipolar II disorder F31.81 Anxiety and depression F41.9; F32.9 Insomnia G47.00 Chronic right hip pain M25.551; G89.29 Degenerative joint disease of both hips M16.0
[2023-07-14 15:13] VITALS: BP 174/98; PULSE 75; O2SAT 96; BMI 23.7
== END 2023-07-14 15:29 | disposition home or self-care (01) ==
PROVIDERS: PCP Family Medicine; Visit Provider Nurse Practitioner Family
DX: M25.551 Pain in right hip (principal); M16.0 Bilateral primary osteoarthritis of hip; G89.29 Other chronic pain; F41.9 Anxiety disorder, unspecified; F32.9 Major depressive disorder, single episode, unspecified; G47.00 Insomnia, unspecified
CPT/HCPCS: 99214

== ENCOUNTER → 2023-07-14 15:05 | Outpatient (BNVA) | payer OTHER, SELFPAY | PROVIDERS: PCP Family Medicine; Visit Provider Nurse Practitioner Family | DX: M25.551 Pain in right hip (principal); M16.0 Bilateral primary osteoarthritis of hip; G47.00 Insomnia, unspecified; F31.81 Bipolar II disorder; F32.9 Major depressive disorder, single episode, unspecified; F41.9 Anxiety disorder, unspecified; G89.29 Other chronic pain | CPT/HCPCS: 99212 ==

== ENCOUNTER 2023-07-21 06:10 | Outpatient (REF) | payer OTHER, MEDICAID, SELFPAY ==
--- NOTE | ~2023-07-21 | FL_ITS ---
EXAMINATION: XR FLUOROSCOPY WITH IMAGES CLINICAL INFORMATION: Bilateral primary osteoarthritis of hip. COMPARISON: None available. TECHNIQUE: Fluoroscopy Supervised By: Dr. Jose J Silva. Fluoroscopy Time: 0.1 minute. Cumulative Dose: 1.91 mGy. DAP: 0.509 Gycm2. Images: 2. FINDINGS: Images demonstrate needle placement and contrast injection of the right hip joint. FL/FL guidance in treatment room IMPRESSION: Fluoroscopy guidance for pain management procedure.
== END 2023-07-21 06:11 | disposition home or self-care (01) ==
LOC: CF 06:10
PROVIDERS: Visit Provider Anesthesiology
DX: M16.0 Bilateral primary osteoarthritis of hip (principal); F31.81 Bipolar II disorder; F41.9 Anxiety disorder, unspecified; G47.00 Insomnia, unspecified
CPT/HCPCS: 20610; J3301

== ENCOUNTER 2023-07-21 14:03 | Outpatient (AMB) | payer OTHER, SELFPAY ==
--- NOTE | 2023-07-21 14:31 | A.OFFVIS_ITS ---
Intake Vital Signs 07/21/23 15:05 07/21/23 15:07 Height 5 ft 3 in 5 ft 3 in Weight 134 lb 134 lb BMI 23.7 23.7 BP 98/60 102/60 Blood Pressure Location Rt brachial Lt brachial Position Sitting Sitting Respiration 14 14 Pulse 74 63 Pulse Source Pulse Oximeter Pulse Oximeter Pulse Oximetry (%) 98 96 Oxygen Delivery Method Room Air Room Air Comment pre-op post-op Intake Visit Reasons: *Ativan Prior R INTRA-ARTIC STEROID HIP INJ/LOCAL Allergies aspirin Allergy (Intermediate, Verified 07/21/23 15:08) stomach upset codeine [CODEINE] Allergy (Intermediate, Verified 07/21/23 15:08) itching NSAIDS (Non-Steroidal Anti-Inflamma [NSAIDS (NON-STEROIDAL ANTI-INFLAMMA] Allergy (Mild, Verified 07/21/23 15:08) stomach upset Sulfa (Sulfonamide Antibiotics) [SULFA(SULFONAMIDE ANTIBIOTICS)] Allergy (Mild, Verified 07/21/23 15:08) Rash ibuprofen Adverse Reaction (Unknown, Verified 07/21/23 15:08) Unknown [facility] Medical History Chronic pain GERD (gastroesophageal reflux disease) Hypothyroidism Lumbar back pain Lumbar back pain with radiculopathy affecting left lower extremity NSTEMI (non-ST elevated myocardial infarction) Obesity Takotsubo cardiomyopathy Vitamin D deficiency Surgical History History of elbow surgery History of hysterectomy History of shoulder surgery Hx of cardiac catheterization Status post removal of cervix Family History Sister Hypothyroidism Social History Household Members: Other Household Members Other:: boyfriend Housing: House Do you presently have visiting nurse or other home services: No Alcohol intake: current Alcohol intake frequency: a few times a month Patient Tobacco Use Status: Former Tobacco user Tobacco use type: Cigarette Cigarette Packs Per Day: 1 Cigarettes Per Day: 20.0 Years Smoked: 20 e-Cigarette/Vaping Use: Currently Using (Someday Use) Second Hand Smoke Exposure: Yes service: No Current occupational status: unemployed Current occupational exposures/hazards: No Cognitive needs: No Hearing needs: No Vision needs: No Physical Exam Vital Signs: Last Vital Signs Pulse 63 07/21/23 15:07 Resp 14 07/21/23 15:07 BP 102/60 07/21/23 15:07 Pulse Ox 96 07/21/23 15:07 Oxygen Delivery Method Room Air 07/21/23 15:07 BMI result Body Mass Index 23.7 Assessment & Plan Assessment & Plan (1) Bipolar II disorder: Code(s): F31.81 - Bipolar II disorder (2) Anxiety and depression: Code(s): F41.9 - Anxiety disorder, unspecified; F32.9 - Major depressive disorder, single episode, unspecified (3) Insomnia: Code(s): G47.00 - Insomnia, unspecified (4) Chronic right hip pain: Code(s): M25.551 - Pain in right hip; G89.29 - Other chronic pain Plan: hip steroid injection. Informed consent was explained to the patient. All questions were explained and answered. The patient was taken inside of the operating room where she was positioned left lateral decubitus on operating table.. Time-out was performed delineating patient's name and date of , correct site, side, the nature of the procedure, patient's allergy, preoperative antibiotic if needed, need for VT prophylaxis.. All operating room staff was participating in OR time-out procedure. Right hip area of the patient was prepped with ChloraPrep and draped with sterile towels. C-arm was brought over the operating field and picture of left and right lateral views of the bilateral hip joints were delineated on the screen. The smaller joint silhouette was chosen as the target. Projection of the right trochanter to the skin was chosen as the initial needle insertion point. After that the skin and subcutaneous tissues was anesthetized with 2% lidocaine 2.5 mL. 22 gauge 5 in long needle was inserted through the skin and started to advance to the joint space under intermittent lateral and anterior posterior views. When needle entered the capsule of the joint small amount of the contrast was injected delineating intra-articular space. After that treatment solution containing ropivacaine 0.5% 4 mls and 40 mg of Kenalog was injected into the joint. The needle was withdrawn sterile dressing was applied.The patient tolerated procedure well (5) Degenerative joint disease of both hips: Code(s): M16.0 - Bilateral primary osteoarthritis of hip Plan Proceed with Right intra-articular hip injection with local and fluoroscopy as planned. Psychology referral placed per patient's request. Reviewed sleep hygiene and conservative measures to help patient have a better sleep. I have informed patient she is not our office does not offer Soma prescribing. Patient is already takes clonazepam 1 mg TID prn and zolpidem 10 mg at bedtime. All questions and concerns have been answered and patient agreed with the plan. Follow up after injections and sooner if needed. Orders: Orders FL guidance in treatment room Today M16.0 - Bilateral primary osteoarthritis of hip Coding Level of Care Code Procedure Only Diagnoses Bipolar II disorder F31.81 Anxiety and depression F41.9; F32.9 Insomnia G47.00 Chronic right hip pain M25.551; G89.29 Degenerative joint disease of both hips M16.0
[2023-07-21 15:05] VITALS: BP 98/60; PULSE 74; RESP 14; O2SAT 98; BMI 23.7
[2023-07-21 15:07] VITALS: BP 102/60; PULSE 63; RESP 14; O2SAT 96; BMI 23.7
== END 2023-07-21 14:57 | disposition home or self-care (01) ==
LOC: HO.PMCPRC 14:03
PROVIDERS: PCP Family Medicine; Visit Provider Anesthesiology
DX: M25.551 Pain in right hip (principal); G89.29 Other chronic pain
CPT/HCPCS: 20610; 77002

== ENCOUNTER 2023-08-18 10:14 | Outpatient (AMB) | payer OTHER, SELFPAY ==
--- NOTE | 2023-08-18 10:18 | MHC.OFFVIS ---
Intake Vital Signs 08/18/23 10:24 08/18/23 10:25 Height 5 ft 3 in Weight 135 lb 6 oz BMI 24.0 BP 218/112 H 174/106 H Blood Pressure Location Rt brachial Lt brachial Position Sitting Sitting Pulse 83 Pulse Source Pulse Oximeter Pulse Oximetry (%) 98 Oxygen Delivery Method Room Air Comment bp recheck Intake Visit Reasons: R INTRA-ARTIC STEROID HIP INJ 07/21/23 Intake Note: Pain today 08/18 Broom Stitcher Required: No Accompanied by: Self / Same As Patient Allergies aspirin Allergy (Intermediate, Verified 08/18/23 10:25) stomach upset codeine [CODEINE] Allergy (Intermediate, Verified 08/18/23 10:25) itching NSAIDS (Non-Steroidal Anti-Inflamma [NSAIDS (NON-STEROIDAL ANTI-INFLAMMA] Allergy (Mild, Verified 08/18/23 10:25) stomach upset Sulfa (Sulfonamide Antibiotics) [SULFA(SULFONAMIDE ANTIBIOTICS)] Allergy (Mild, Verified 08/18/23 10:25) Rash ibuprofen Adverse Reaction (Unknown, Verified 08/18/23 10:25) Unknown HPI HPI Comments History of Present Illness Details Patient presents today to assess response to Right intra-articular steroid injection on 07/21/[address] Silva. Patient reports 0% pain relief since procedure and reports aggravations of significant right hip pain since injection. She has severe right groin and lateral hip pain with walking, weight bearing, internal and external right hip rotations. Patient was last seen at Orthopedics in 2020 and is interested in re-evaluation. She denies any back pain or radicular symptoms. Patient states her son's wedding was on 07/31/23 and she had to leave wedding early due to significant right hip pain. Patient also attributes increase in pain since stop taking Suboxone on her own in early July. Denies any fever, weight loss, bladder or bowel dysfunction or saddle anesthesia. Past Procedures: 07/21/23: Right intra-articular steroid injection-0% pain relief PRIOR: Patient presents today for follow up for significant right hip pain. Per EMR review, patient was attempted 3 times on 05/26/23, 06/02/23 and 06/08/23 and left voicemessage. Patient reports she had no phone service for the month of May. She is requesting to proceed with right hip steroid injection as her pain has been worsening. Weight bearing, walking, getting out of bed, out of shower or car has been difficult per patient due to significant pain. Patient reports she completely came off from Suboxone and has noticed significant pain increase. Reports she has been clean for the past 10 years. Patient also reports today she has significant insomnia and requests Soma. She also reports her insurance is no longer accepted at [facility] and she would like to be referred to a new Psychologist. Patient reports gabapentin and Flexeril were not effective in the past and that she was admitted to Psych inpatient after trialing Lyrica. Denies any fever, weight loss, bladder or bowel dysfunction or saddle anesthesia. PRIOR: Patient is a pleasant 57 years old female presents today right hip pain. She was initially seen in our office on 05/08/21 for left hip pain and with plans for intra-articular steroid left hip injection. This was not done as patient reports she had seizures and had underwent neurologic and cardiac evaluation since then. Patient presents with significant right hip and groin pain with internal and external rotations, weight bearing, walking or exercising. She reports exercising daily (except weekends) on treadmill and bike. Reports increase in right hip pain in the past 2 weeks and this has been gradually worsening. Ambulates with antalgic gait with limping without any assistive devices. Denies any fever, weight loss, back pain, weakness, numbness, tingling, bladder or bowel incontinence or saddle anesthesia. She is on Suboxone at [facility] and notes this also helps alleviate her pain partially. Patient avoids NSAIDs due to significant GI upset symptoms. PRIOR Kaylyn RILEYP 05/08/21: Brandie is a pleasant 55 year old female who presents to the office with complaints of bilateral hip pain. She states the pain started over ten years ago without any inciting events, but in the past few months has been more exacerbated. She reports the pain starts in the hip and radiates into the groin, L>R. She also notes some numbness and tingling that radiates anteriorly from the hips to the ankles. She denies any saddle anesthesia, weakness or bowel/bladder dysfunction. She reports pain onset was gradual, is worse at night, constant and rates the pain a 8/10. She states the pain is interfering with sleep, activities of daily living and she cannot function normally. Her pain is exacerbated by activity, especially walking and weather changes. No improvement with rest. The patient reports the pain in terms of tissue damage as throbbing, sharp, stabbing and burning. She has been taking topicals and OTC including NSAIDS and Tylenol with minimal improvement in her pain. She is also managed on suboxone for OUD. She has been clean for the past 16 years and ws previously using heroin. Previously she has tried physical therapy in the past and notes no improvement in her symptoms. Denies any chiropractic manipulation, massage or acupuncture. Denies any previous hip/back injections or surgery. She last had imaging of the hips and lumbar spine, reports dictated below. She has not been previously evaluated by neurosurgery. [facility] Medical History GERD (gastroesophageal reflux disease) Chronic pain Lumbar back pain with radiculopathy affecting left lower extremity Lumbar back pain NSTEMI (non-ST elevated myocardial infarction) Takotsubo cardiomyopathy Obesity Vitamin D deficiency Hypothyroidism Surgical History Status post removal of cervix Hx of cardiac catheterization History of elbow surgery History of hysterectomy History of shoulder surgery Family History Sister Hypothyroidism Social History Household Members: Other Household Members Other:: boyfriend Housing: House Do you presently have visiting nurse or other home services: No Alcohol intake: current Alcohol intake frequency: a few times a month Patient Tobacco Use Status: Former Tobacco user Tobacco use type: Cigarette Cigarette Packs Per Day: 1 Cigarettes Per Day: 20.0 Years Smoked: 20 e-Cigarette/Vaping Use: Currently Using (Someday Use) Second Hand Smoke Exposure: Yes service: No Current occupational status: unemployed Current occupational exposures/hazards: No Cognitive needs: No Hearing needs: No Vision needs: No Review of Systems Const All systems reviewed & are unremarkable except as noted in HPI and below ENT Reports Normal hearing present Neuro Reports Normal hearing present and Denies Abnormal speech present Physical Exam Vital Signs: Last Vital Signs Pulse 83 08/18/23 10:24 BP 174/106 H 08/18/23 10:25 Pulse Ox 98 08/18/23 10:24 Oxygen Delivery Method Room Air 08/18/23 10:24 BMI result Body Mass Index 24.0 Const General: cooperative, no acute distress, alert, awake, tired appearing and well groomed Nutritional Appearance: average body habitus Orientation/consciousness: patient oriented x3 Limitations: no limitations HEENT Head: Yes normal to inspection and Yes normocephalic Ears: hearing grossly normal bilaterally Face and sinus: Yes normal facial exam and Yes face symmetric Eyes General: appearance normal, both eyes and all related structures Eyelids: Yes eyelids normal Sclerae: sclerae normal EOM: EOMs intact bilaterally Resp Effort & Inspection: normal respiratory effort, able to speak in complete sentences, no audible wheezes and no cough Cardio Jugular venous distension: no JVD Palpation: other (no appreciable rhythmic abnormalities) Peripheral pulses: Peripheral pulses 2+ throughout GI Inspection: Yes normal to inspection and No distended Palpation (GI): Soft to palpation, nontender and no guarding Back/Spine/Pelvis Other: Lumbar flexion and extension reproduce mild pain. Moderate to severe right groin pain with I/E hip rotations on the right and mild groin pain on the left with I/E left hip rotations. No TTP over GTB bilaterally. +HANNAH and +FADIR reproduce significant pain in right groin and lateral hip and anterior thigh. Cervical Spine: cervical ROM normal Thoracic/Lumbar Spine: thoraco-lumbar ROM normal, Lasegue's sign negative, straight leg raise negative bilaterally, No thoracic spinal tenderness and lumbar spinal tenderness at L4 and at L5 Sacroiliac joints: bilaterally nontender Neuro General: patient oriented x3, gait normal and moves all extremities Cranial nerves: Yes Normal hearing present Speech: No Abnormal speech present Gait exam (Neuro): Normal gait present Motor exam (neuro): 5/5 motor strength present throughout Extrem Left lower extremity: hip/thigh Details: tenderness Location: of the hip Location: over the great trochanter Psych Appearance: grossly normal Mental Status: mental status grossly normal Speech and movement: Normal speech and movement present Affect: Sad affect present and Anxious affect present Attitude: cooperative Thought process: Circumstantial thought process present Thought content: Normal thought content present, suicidality (none), no hallucinations and Depressive thoughts present Insight: Fair insight present (Psych) Judgement: Fair judgement present (Psych) Results Reviewed Results Reviewed: XR BILATERAL HIPS WITH AP PELVIS 05/22/23 FINDINGS: There is mild loss of bilateral hip joint space with minimal periarticular spurring right hip. The SI joints are symmetrical. No visible acute fracture or dislocation seen. No aggressive lytic or sclerotic process. IMPRESSION: Mild degenerative changes bilateral hip joints. No visible acute fracture or dislocation seen. Assessment & Plan Assessment & Plan (1) Degenerative joint disease of both hips: Code(s): M16.0 - Bilateral primary osteoarthritis of hip (2) Chronic right hip pain: Code(s): M25.551 - Pain in right hip; G89.29 - Other chronic pain (3) Lumbar back pain: Code(s): M54.5 - Low back pain Plan Patient is status post fluoroscopy guided right hip intra-articular steroid injection on 07/21/23 without any pain relief. Proceed with right hip MRI and refer back to Orthopedics for re-evaluation of persistent right hip pain and failed conservative and interventional treatments. All questions and concerns have been answered and patient agreed with the plan. Follow up as needed. Orders: Orders MR hip RT wo con Today G89.29 - Other chronic pain, M16.0 - Bilateral primary osteoarthritis of hip, M25.551 - Pain in right hip Referrals Orthopedics Referral G89.29 - Other chronic pain, M16.0 - Bilateral primary osteoarthritis of hip, M25.551 - Pain in right hip Coding Level of Care Code Est Pt Level 4 (90820) Diagnoses Degenerative joint disease of both hips M16.0 Chronic right hip pain M25.551; G89.29 Lumbar back pain M54.5
[2023-08-18 10:24] VITALS: BP 218/112; PULSE 83; O2SAT 98; BMI 24.0
[2023-08-18 10:25] VITALS: BP 174/106
== END 2023-08-18 10:54 | disposition home or self-care (01) ==
PROVIDERS: PCP Family Medicine; Visit Provider Nurse Practitioner Family
DX: M16.0 Bilateral primary osteoarthritis of hip (principal); M25.551 Pain in right hip; G89.29 Other chronic pain; M54.50 Low back pain, unspecified
CPT/HCPCS: 99214

== ENCOUNTER → 2023-08-18 10:14 | Outpatient (BNVA) | payer OTHER, SELFPAY | PROVIDERS: PCP Family Medicine; Visit Provider Nurse Practitioner Family | DX: M16.0 Bilateral primary osteoarthritis of hip (principal); M25.551 Pain in right hip; M54.50 Low back pain, unspecified; G89.29 Other chronic pain | CPT/HCPCS: 99212 ==

== ENCOUNTER 2023-09-03 11:59 | Outpatient (AMB) | payer OTHER, SELFPAY ==
[2023-09-03 12:05] VITALS: BP 120/70; PULSE 57; O2SAT 97; BMI 25.0
--- NOTE | 2023-09-03 12:05 | MHC.PC.OV ---
Vital Signs 09/03/23 12:05 Height 5 ft 3 in Weight 141 lb 6 oz BMI 25.0 BP 120/70 Blood Pressure Location Lt brachial Position Sitting Pulse 57 Pulse Source Pulse Oximeter Pulse Oximetry (%) 97 Oxygen Delivery Method Room Air Intake Visit Reasons: Hip Pain Intake Note: Patient is here with request of filling psych meds. Allergies aspirin Allergy (Intermediate, Verified 09/03/23 12:09) stomach upset codeine [CODEINE] Allergy (Intermediate, Verified 09/03/23 12:09) itching NSAIDS (Non-Steroidal Anti-Inflamma [NSAIDS (NON-STEROIDAL ANTI-INFLAMMA] Allergy (Mild, Verified 09/03/23 12:09) stomach upset Sulfa (Sulfonamide Antibiotics) [SULFA(SULFONAMIDE ANTIBIOTICS)] Allergy (Mild, Verified 09/03/23 12:09) Rash lurasidone Adverse Reaction (Mild, Verified 09/03/23 12:11) Hallucinations ibuprofen Adverse Reaction (Unknown, Verified 09/03/23 12:09) Unknown Tobacco use date assessed: 09/03/23 HPI Hip Pain HPI Details 58 y/o female presents today to f/u hip pain. Had seen pain management 08/18/23. She had reported aggravations of significant R hip pain since her injection and had no relief. Was referred back to orthopedics along with a R hip MRI. Pt is requesting to refill her psych meds. She has an appt. with orthopedics tomorrow. PF[facility] Medical History GERD (gastroesophageal reflux disease) Chronic pain Lumbar back pain with radiculopathy affecting left lower extremity Lumbar back pain NSTEMI (non-ST elevated myocardial infarction) Takotsubo cardiomyopathy Obesity Vitamin D deficiency Hypothyroidism Surgical History Status post removal of cervix Hx of cardiac catheterization History of elbow surgery History of hysterectomy History of shoulder surgery Family History Sister Hypothyroidism Social History Household Members: Other Household Members Other:: boyfriend Housing: House Do you presently have visiting nurse or other home services: No Alcohol intake: current Alcohol intake frequency: a few times a month Patient Tobacco Use Status: Former Tobacco user Tobacco use type: Cigarette Cigarette Packs Per Day: 1 Cigarettes Per Day: 20.0 Years Smoked: 20 e-Cigarette/Vaping Use: Currently Using (Someday Use) Second Hand Smoke Exposure: Yes service: No Current occupational status: unemployed Current occupational exposures/hazards: No Cognitive needs: No Hearing needs: No Vision needs: No Questionnaire PHQ-9 Over the last 2 weeks, how often have you been bothered by any of the following problems? 1. Little interest or pleasure in doing things: several days 2. Feeling down, depressed, or hopeless: several days 3. Trouble falling or staying asleep, or sleeping too much: nearly every day 4. Feeling tired or having little energy: nearly every day 5. Poor appetite or overeating: not at all 6. Feeling bad about yourself - or that you are a failure or have let yourself or your family down: not at all 7. Trouble concentrating on things, such as reading the newspaper or watching television: not at all 8. Moving or speaking so slowly that other people could have noticed. Or the opposite - being so fidgety or restless that you have been moving around a lot more than usual: not at all 9. Thoughts that you would be better off or of hurting yourself in some way: not at all Total score: 8 Source: Developed by Drs. Giorgio Perez, Laura Aragon, Terrence Hogue and colleagues, with an educational franki from [employer]. Thrive Questionnaire Date Thrive assessed: 11/11/22 ANALI-7 AMB Questionnaire ANALI-7 Date ANALI - 7 assessed: 09/03/23 Feeling nervous, anxious, or on edge: 3 = Nearly every day Not being able to stop or control worryin = Several days Worrying too much about different things: 3 = Nearly every day Trouble relaxin = Several days Being so restless that it is hard to sit still: 0 = Not at all Becoming easily annoyed or irritable: 0 = Not at all Feeling afraid as if something awful might happen: 0 = Not at all Total ANALI-7 score (0-4 normal; 5-9 mild; 10-14 moderate; 15-21 severe): 8 Source: Developed by Drs. Giorgio Perez, Laura Aragon, Terrence Hogue and colleagues, with an educational franki from [employer]. Physical exam (Primary Care) Vital Signs: Last Vital Signs Pulse 57 09/03/23 12:05 BP 120/70 09/03/23 12:05 Pulse Ox 97 09/03/23 12:05 Oxygen Delivery Method Room Air 09/03/23 12:05 BMI result Body Mass Index 25.0 Tobacco/Smoking Status: Tobacco use Status Tobacco use date assessed 09/03/23 09/03/23 12:14 Patient Tobacco Use Status Former Tobacco user 09/03/23 12:08 Tobacco use type Cigarette 09/03/23 12:08 e-Cigarette/Vaping Use Currently Using (Someday Use 09/03/23 12:08 ) PHQ-9: PHQ-9 Score PHQ-9: Total score 8 09/03/23 12:37 Thrive Assessment: Date of Thrive Assessment Date Thrive assessed 11/11/22 09/03/23 12:08 Assessment and Plan Assessment & Plan (1) Anxiety and depression: Code(s): F41.9 - Anxiety disorder, unspecified; F32.9 - Major depressive disorder, single episode, unspecified Plan: Patient?is?requesting?continuation?of?her?clonazepam?and?zolpidem?which?were?provided?at?[facility] by?Lee Lopez. I?am?willing?to?continue?this?if?she?has?remained?in?good?standing?with?these?medications. I?have?asked?her?to?fill?out?a?release?of?information?so?we?can?check?with?her?prior?provider. George and?I?discussed?that?I?do?not?intend?to?increase?or?adjust?these?medications?as?I?think?she?should?have?a?psych?med?provider?for?definitive?management?but?that?I?would?continue?it?while?she?is?working?on?getting?a?new?provider. I?will?ask?the?nurse?navigator?to?help?connect?her?with?another?therapist?and?psych?med?provider. (2) Bipolar II disorder: Code(s): F31.81 - Bipolar II disorder Plan: As?above (3) Chronic right hip pain: Code(s): M25.551 - Pain in right hip; G89.29 - Other chronic pain Plan: Ongoing?chronic?right?hip?pain She?has?an?appointment?with?Orthopedics?tomorrow?and?is?followed?by?pain?management We?discussed?today?that?her?allergy?list?mentions?ibuprofen?with?an?unknown?reaction?but?she?notes?that?she?takes?about?2?tablets?of?this?per?day?so?she?does?not?have?a?reaction?or?allergy?to?ibuprofen. She?can?increase?this?to?400?mg?3?times?a?day?and?can?continue?some?acetaminophen?carefully?as?well.??Hydrate?well Orders: Referrals Nurse Navigator Referral F31.81 - Bipolar II disorder, F32.9 - Major depressive disorder, single episode, unspecified, F41.9 - Anxiety disorder, unspecified, G40.909 - Epilepsy, unspecified, not intractable, without status epilepticus, G47.00 - Insomnia, unspecified, G93.40 - Encephalopathy, unspecified Coding Level of Care Code Est Pt Level 4 (25175) Diagnoses Anxiety and depression F41.9; F32.9 Bipolar II disorder F31.81 Chronic right hip pain M25.551; G89.29
== END 2023-09-03 13:21 | disposition home or self-care (01) ==
PROVIDERS: PCP Family Medicine; Visit Provider Family Medicine
DX: F41.9 Anxiety disorder, unspecified (principal); F31.81 Bipolar II disorder; M25.551 Pain in right hip; G89.29 Other chronic pain
CPT/HCPCS: 99214

== ENCOUNTER 2023-09-04 10:34 | Outpatient (AMB) | payer OTHER, SELFPAY ==
--- NOTE | 2023-09-04 10:40 | A.OFFVIS_ITS ---
Intake Intake Visit Reasons: OV-B/L primary osteoarthritis of hip Intake Note: Brandie is a 58 year old female who presents today for a follow up of her bilateral hip OA. Right Hip Fluro injection done 07/21/23. This injection was not helpful, this actually aggravated her pain. Allergies aspirin Allergy (Intermediate, Verified 09/03/23 12:09) stomach upset codeine [CODEINE] Allergy (Intermediate, Verified 09/03/23 12:09) itching NSAIDS (Non-Steroidal Anti-Inflamma [NSAIDS (NON-STEROIDAL ANTI-INFLAMMA] Allergy (Mild, Verified 09/03/23 12:09) stomach upset Sulfa (Sulfonamide Antibiotics) [SULFA(SULFONAMIDE ANTIBIOTICS)] Allergy (Mild, Verified 09/03/23 12:09) Rash lurasidone Adverse Reaction (Mild, Verified 09/03/23 12:11) Hallucinations ibuprofen Adverse Reaction (Unknown, Verified 09/03/23 12:09) Unknown HPI OV-B/L primary osteoarthritis of hip HPI Details Brandie is a 58 year old woman who presents with complaints of right hip pain. She complains of pain in bilateral hips, but the right is more severe. She has pain in her groin and lateral aspect of her hip. She has been following with Pain management and received a right hip joint injection on 07/21/23, and reported relief for 1-2 hours. She has a hx of Suboxone use, and says her pain worsened when she discontinued Suboxone in July. She has a hip & lower back MRI scheduled for 09/22/23 [facility] Medical History GERD (gastroesophageal reflux disease) Chronic pain Lumbar back pain with radiculopathy affecting left lower extremity Lumbar back pain NSTEMI (non-ST elevated myocardial infarction) Takotsubo cardiomyopathy Obesity Vitamin D deficiency Hypothyroidism Surgical History Status post removal of cervix Hx of cardiac catheterization History of elbow surgery History of hysterectomy History of shoulder surgery Family History Sister Hypothyroidism Social History Household Members: Other Household Members Other:: boyfriend Housing: House Do you presently have visiting nurse or other home services: No Alcohol intake: current Alcohol intake frequency: a few times a month Patient Tobacco Use Status: Former Tobacco user Tobacco use type: Cigarette Cigarette Packs Per Day: 1 Cigarettes Per Day: 20.0 Years Smoked: 20 e-Cigarette/Vaping Use: Currently Using (Someday Use) Second Hand Smoke Exposure: Yes service: No Current occupational status: unemployed Current occupational exposures/hazards: No Cognitive needs: No Hearing needs: No Vision needs: No Physical Exam Const General: cooperative, healthy appearing, no acute distress, well developed and alert HEENT Head: Yes normal to inspection, Yes normocephalic and Yes atraumatic Mouth: moist mucous membranes Eyes General: appearance normal, both eyes and all related structures EOM: EOMs intact bilaterally Chest Other: no audible wheezing. Resp Other: No audible wheezing Effort & Inspection: normal respiratory effort Cardio Other: Radial pulse palpable with no rythmic abnormalities Back/Spine/Pelvis Cervical Spine: normal cervical lordosis Skin General skin exam: no rashes or lesions noted Neuro General: no focal motor deficits Extrem Other: Right hip with + impingement and antalgic gait Psych Appearance: grossly normal and well kempt Mental Status: mental status grossly normal Speech and movement: Normal speech and movement present Affect: normal affect Attitude: cooperative Results Reviewed Results Reviewed: I personally reviewed relevant radiographs. Right hip severe OA Assessment & Plan Assessment & Plan (1) Primary osteoarthritis of right hip: Code(s): M16.11 - Unilateral primary osteoarthritis, right hip Plan: Right hip OA that is severe. Intra-articular injection helpful only for 1-2 hours. I recommend right gonzales. I personally reviewed relevant radiographs. I disc ussed the risks benefits and alternatives including but not limited to the risk of pain, infection, stiffness, need for further surgery as well as potential medical complications such as blood clots, pulmonary embolism and cardiac complications.She is a good candidate and will benefit from surgery. We will beging clearance process. Coding Level of Care Code Est Pt Level 4 (95439) Diagnoses Primary osteoarthritis of right hip M16.11
== END 2023-09-04 11:40 | disposition home or self-care (01) ==
PROVIDERS: PCP Family Medicine; Visit Provider Orthopaedic Surgery
DX: M16.11 Unilateral primary osteoarthritis, right hip (principal)
CPT/HCPCS: 99214

== ENCOUNTER → 2023-09-04 10:34 | Outpatient (BNVA) | payer OTHER, MEDICAID, SELFPAY | PROVIDERS: PCP Family Medicine; Visit Provider Orthopaedic Surgery | DX: M16.11 Unilateral primary osteoarthritis, right hip (principal) | CPT/HCPCS: 99212 ==

== ENCOUNTER 2024-01-14 08:48 | Outpatient (AMB) | payer OTHER, SELFPAY ==
[2024-01-14 08:57] VITALS: BP 124/78; PULSE 52; O2SAT 96; BMI 24.7
--- NOTE | 2024-01-14 08:57 | MHC.PC.OV ---
Vital Signs 01/14/24 08:57 Height 5 ft 3 in Weight 139 lb 8 oz BMI 24.7 BP 124/78 Blood Pressure Location Lt brachial Pulse 52 Pulse Source Pulse Oximeter Pulse Oximetry (%) 96 Oxygen Delivery Method Room Air Intake Visit Reasons: follow up chronic condition Intake Note: Patient is here to follow up on chronic conditions. Allergies aspirin Allergy (Intermediate, Verified 01/14/24 09:00) stomach upset codeine [CODEINE] Allergy (Intermediate, Verified 01/14/24 09:00) itching NSAIDS (Non-Steroidal Anti-Inflamma [NSAIDS (NON-STEROIDAL ANTI-INFLAMMA] Allergy (Mild, Verified 01/14/24 09:00) stomach upset Sulfa (Sulfonamide Antibiotics) [SULFA(SULFONAMIDE ANTIBIOTICS)] Allergy (Mild, Verified 01/14/24 09:00) Rash lurasidone Adverse Reaction (Mild, Verified 01/14/24 09:00) Hallucinations ibuprofen Adverse Reaction (Unknown, Verified 01/14/24 09:00) Unknown Tobacco use date assessed: 09/03/23 Dental Screening Dental Screen Date: 01/14/24 Did you have a dental visit in the last 12 months?: No Did you have a dental problem in the last 6 months where you did not have access to dental care?: No Was dental information given to patient?: Patient has dentist HPI follow up chronic condition HPI Details 58 y/o female presents to f/u chronic conditions. PHQ-9 15, ANALI-7 14 today. Pt reports ongoing panic attacks - pt states she does not have a therapist and states last time she has had her psych medications was about 2 months ago. Pt also notes difficulties with leaving the house to care for other conditions such as osteoarthritis of her hip due to panic attacks. She is on sertraline, clonazepam, latuda. She had been out of her clonazepam x3 months. [facility] Medical History GERD (gastroesophageal reflux disease) Chronic pain Lumbar back pain with radiculopathy affecting left lower extremity Lumbar back pain NSTEMI (non-ST elevated myocardial infarction) Takotsubo cardiomyopathy Obesity Vitamin D deficiency Hypothyroidism Surgical History Status post removal of cervix Hx of cardiac catheterization History of elbow surgery History of hysterectomy History of shoulder surgery Family History Sister Hypothyroidism Social History Household Members: Other Household Members Other:: boyfriend Housing: House Do you presently have visiting nurse or other home services: No Alcohol intake: current Alcohol intake frequency: a few times a month Comment: resting Patient Tobacco Use Status: Former Tobacco user Tobacco use type: Cigarette Cigarette Packs Per Day: 1 Cigarettes Per Day: 20.0 Years Smoked: 20 e-Cigarette/Vaping Use: Currently Using Second Hand Smoke Exposure: Yes service: No Current occupational status: unemployed Current occupational exposures/hazards: No Cognitive needs: No Hearing needs: No Vision needs: No Questionnaire PHQ-9 Over the last 2 weeks, how often have you been bothered by any of the following problems? 1. Little interest or pleasure in doing things: nearly every day 2. Feeling down, depressed, or hopeless: nearly every day 3. Trouble falling or staying asleep, or sleeping too much: nearly every day 4. Feeling tired or having little energy: nearly every day 5. Poor appetite or overeating: not at all 6. Feeling bad about yourself - or that you are a failure or have let yourself or your family down: not at all 7. Trouble concentrating on things, such as reading the newspaper or watching television: nearly every day 8. Moving or speaking so slowly that other people could have noticed. Or the opposite - being so fidgety or restless that you have been moving around a lot more than usual: not at all 9. Thoughts that you would be better off or of hurting yourself in some way: not at all Total score: 15 Depression Screening Interpretation: Positive Depression Screening Follow-up: Change in Medication (Resuming?medications. Nurse?navigator?will?help?reestablish?her?with?psych?med?provider) Depression Screening Done: Yes 21559 - PHQ-9 Billing: Yes Source: Developed by Drs. Giorgio Perez, Laura Aragon, Terrence Hogue and colleagues, with an educational franki from [employer]. Thrive Questionnaire Date Thrive assessed: 11/11/22 ANALI-7 AMB Questionnaire ANALI-7 Date ANALI - 7 assessed: 01/14/24 Feeling nervous, anxious, or on edge: 3 = Nearly every day Not being able to stop or control worryin = Nearly every day Worrying too much about different things: 3 = Nearly every day Trouble relaxin = Nearly every day Being so restless that it is hard to sit still: 0 = Not at all Becoming easily annoyed or irritable: 1 = Several days Feeling afraid as if something awful might happen: 1 = Several days Total ANALI-7 score (0-4 normal; 5-9 mild; 10-14 moderate; 15-21 severe): 14 Source: Developed by Drs. Giorgio Perez, Laura Aragon, Terrence Hogue and colleagues, with an educational franki from [employer]. ANALI-7 Assessment Billing ANALI-7 Assessment Tool: ANALI-7 Assessment 61673 Review of Systems Const Denies chills, Denies fatigue, Denies fever(s), Denies headache(s) and Denies weakness ENT Denies dizziness and Denies headache(s) Card Denies dyspnea Resp Denies cough, Denies dyspnea, Denies wheezing and Denies other (shortness of breath) Musc Denies numbness and Denies tingling Neuro Denies dizziness, Denies headache(s), Denies numbness, Denies tingling and Denies weakness Psych Reports anxiety and Reports depression Endo Denies fatigue Aller/Immun Denies wheezing Physical exam (Primary Care) Vital Signs: Last Vital Signs Pulse 52 01/14/24 08:57 BP 124/78 01/14/24 08:57 Pulse Ox 96 01/14/24 08:57 Oxygen Delivery Method Room Air 01/14/24 08:57 BMI result Body Mass Index 24.7 Tobacco/Smoking Status: Tobacco use Status Tobacco use date assessed 09/03/23 01/14/24 09:01 Patient Tobacco Use Status Former Tobacco user 01/14/24 09:01 Tobacco use type Cigarette 01/14/24 09:01 e-Cigarette/Vaping Use Currently Using 01/14/24 09:01 PHQ-9: PHQ-9 Score PHQ-9: Total score 15 01/14/24 09:10 Depression Screening Interpretation: Positive Depression Screening Follow-up: Change in Medication (Resuming?medications. Nurse?navigator?will?help?reestablish?her?with?psych?med?provider) Thrive Assessment: Date of Thrive Assessment Date Thrive assessed 11/11/22 01/14/24 09:01 Const General: well developed; No acute distress Nutritional Appearance: well nourished Orientation/consciousness: patient oriented x3 HENMT Head: Yes normocephalic and Yes atraumatic Eyes General: appearance normal, both eyes and all related structures Pupils: Equal, round and reactive pupils present EOM: EOMs intact bilaterally Resp Effort & Inspection: normal respiratory effort Neuro General: patient oriented x3 and gait normal Cranial nerves: Yes Equal, round and reactive pupils present Psych Affect: No normal affect and Anxious affect present Assessment and Plan Assessment & Plan (1) Anxiety and depression: Code(s): F41.9 - Anxiety disorder, unspecified; F32.9 - Major depressive disorder, single episode, unspecified Plan: Ongoing?anxiety?and?depression?and?untreated?bipolar?1 She?has?been?off?of?her?medications?for?few?months. She?had?psych med providers?and?therapist?at?[facility] but?has?apparently?stopped?seeing?them.??She?says?she?can?not?get?an?appointment?with?them?for?many?months. We?had?a?long?discussion?and?I?will?bridge?her?medications?and?I?have?asked?the?nurse?navigator?to?help?get?her?reestablished?with?[facility]?and?preferably?with?her?previous?providers?if?possible. We?discussed?that?we?will?resume?her?essential?medications?but?starting?at?lower?doses?and?I?will?follow?her?closely?with?next?appointment?in?about?2?weeks. May need adjustment of her meds. (2) Bipolar 1 disorder: Code(s): F31.9 - Bipolar disorder, unspecified Plan: Resuming?Latuda (3) Hypothyroidism: Code(s): E03.9 - Hypothyroidism, unspecified Qualifiers: Hypothyroidism type: unspecified Qualified Code(s): E03.9 - Hypothyroidism, unspecified Plan: Resuming?levothyroxine (4) Opioid use disorder: Code(s): F11.99 - Opioid use, unspecified with unspecified opioid-induced disorder Plan: History?of?opioid?use?disorder?and?she?had?been?on?Suboxone?but?is?off?this?for?the?past?3?months. Offered?to?refer?her?to?the?[facility]?but?she?says?she?has?been?off?it?for?while?and?is?not?having?cravings?for?illegal?substances. I?let?her?know?that?if?she?is?having?any?problems?she?can?request?a?referral?to?the?[facility]. Medications: Changed From sertraline 100 mg PO BID To sertraline 25 mg (1/2 x 50 mg) PO BID 15 days 15 tabs 0RF From levetiracetam 750 mg PO BID To levetiracetam 750 mg (3 x 250 mg) PO BID 90 tabs 0RF 15 days From lurasidone 80 mg PO DAILY To lurasidone 40 mg PO DAILY 15 tabs 0RF 15 days From clonazepam 1 mg PO TID PRN To clonazepam 0.5 mg (1/2 x 1 mg) PO DAILY PRN 15 tabs 0RF anxiety 15 days Coding Level of Care Code Est Pt Level 3 (36078) Diagnoses Anxiety and depression F41.9; F32.9 Bipolar 1 disorder F31.9 Hypothyroidism, unspecified type E03.9 Hypothyroidism type: unspecified Opioid use disorder F11.99 Additional Codes ANALI-7 Assessment Billing - ANALI-7 Assessment Tool: ANALI-7 Assessment 07508 ([id number])
== END 2024-01-14 10:11 | disposition home or self-care (01) ==
PROVIDERS: PCP Family Medicine; Visit Provider Family Medicine
DX: E03.9 Hypothyroidism, unspecified (principal); F31.9 Bipolar disorder, unspecified; F11.99 Opioid use, unspecified with unspecified opioid-induced disorder; F41.9 Anxiety disorder, unspecified
CPT/HCPCS: 96127; 99213

== ENCOUNTER 2024-02-15 08:39 | Outpatient (AMB) | payer OTHER, SELFPAY ==
[2024-02-15 08:53] VITALS: BP 128/78; PULSE 88; O2SAT 97; BMI 22.6
--- NOTE | 2024-02-15 08:53 | A.OFFPC_ITS ---
Vital Signs 02/15/24 08:53 Height 5 ft 3 in Weight 127 lb 8 oz BMI 22.6 BP 128/78 Blood Pressure Location Lt brachial Position Supine Pulse 88 Pulse Source Pulse Oximeter Pulse Oximetry (%) 97 Oxygen Delivery Method Room Air Intake Visit Reasons: [facility] Follow up Intake Note: Patient is here for [facility] follow up, She states it was an accidental overdose. Patient states she has right hip pain, hurts to climb stairs, walk. Allergies aspirin Allergy (Intermediate, Verified 02/15/24 08:56) stomach upset codeine [CODEINE] Allergy (Intermediate, Verified 02/15/24 08:56) itching NSAIDS (Non-Steroidal Anti-Inflamma [NSAIDS (NON-STEROIDAL ANTI-INFLAMMA] Allergy (Mild, Verified 02/15/24 08:56) stomach upset Sulfa (Sulfonamide Antibiotics) [SULFA(SULFONAMIDE ANTIBIOTICS)] Allergy (Mild, Verified 02/15/24 08:56) Rash lurasidone Adverse Reaction (Mild, Verified 02/15/24 08:56) Hallucinations ibuprofen Adverse Reaction (Unknown, Verified 02/15/24 08:56) Unknown Medication List - Last Reconciled 02/15/24 by Ney Cole MD aspirin 81 mg PO DAILY atorvastatin 80 mg PO BEDTIME buprenorphine-naloxone 12-3 mg 15 mg sublingual DAILY clonazepam 0.5 mg PO DAILY PRN 15 days famotidine 20 mg PO BID PRN levetiracetam 750 mg (3 x 250 mg) PO BID 15 days levothyroxine 175 mcg PO DAILY 30 days levothyroxine 150 mcg PO DAILY 90 days lurasidone 40 mg PO DAILY 15 days metoprolol tartrate 25 mg PO BID 90 days nitroglycerin 0.4 mg sublingual ONCE sertraline 25 mg (1/2 x 50 mg) PO BID 15 days zolpidem 10 mg PO BEDTIME Tobacco use date assessed: 02/15/24 Dental Screening Dental Screen Date: 02/15/24 Did you have a dental visit in the last 12 months?: No Did you have a dental problem in the last 6 months where you did not have access to dental care?: No Was dental information given to patient?: Patient has dentist HPI [facility] Follow up HPI Details 58 y/o female presents to f/u ED visit a [facility] and [facility]. Had presented with chief complaint of abdominal pain - abdominal CT revealed small bowel obstruction with possible transition point in R mid abdomen. Was evaluated by general surgery PA who recommended no surgical intervention at that time. Had also presented to [facility] - was found by her SO to be lethargic, unresponsive, with a bottle of clonazepam next to her. Hx of bipolar disorder, severe anxiety, seizure disorders. She denies any intentional overdose. [facility] Medical History GERD (gastroesophageal reflux disease) Chronic pain Lumbar back pain with radiculopathy affecting left lower extremity Lumbar back pain NSTEMI (non-ST elevated myocardial infarction) Takotsubo cardiomyopathy Obesity Vitamin D deficiency Hypothyroidism Surgical History Status post removal of cervix Hx of cardiac catheterization History of elbow surgery History of hysterectomy History of shoulder surgery Family History Sister Hypothyroidism Social History Household Members: Other Household Members Other:: boyfriend Housing: House Do you presently have visiting nurse or other home services: No Alcohol intake: current Alcohol intake frequency: a few times a month Comment: resting Patient Tobacco Use Status: Former Tobacco user Tobacco use type: Cigarette Cigarette Packs Per Day: 1 Cigarettes Per Day: 20.0 Years Smoked: 20 e-Cigarette/Vaping Use: Currently Using Second Hand Smoke Exposure: Yes service: No Current occupational status: unemployed Current occupational exposures/hazards: No Cognitive needs: No Hearing needs: No Vision needs: No Questionnaire PHQ-9 Over the last 2 weeks, how often have you been bothered by any of the following problems? 1. Little interest or pleasure in doing things: several days 2. Feeling down, depressed, or hopeless: several days 3. Trouble falling or staying asleep, or sleeping too much: nearly every day 4. Feeling tired or having little energy: several days 5. Poor appetite or overeating: not at all 6. Feeling bad about yourself - or that you are a failure or have let yourself or your family down: nearly every day 7. Trouble concentrating on things, such as reading the newspaper or watching television: not at all 8. Moving or speaking so slowly that other people could have noticed. Or the opposite - being so fidgety or restless that you have been moving around a lot more than usual: not at all 9. Thoughts that you would be better off or of hurting yourself in some way: not at all Total score: 9 Depression Screening Interpretation: Positive Depression Screening Done: Yes 65291 - PHQ-9 Billing: Yes Source: Developed by Drs. Giorgio Perez, Terrence Holly and colleagues, with an educational franki from [employer]. Thrive Questionnaire Date Thrive assessed: 11/11/22 ANALI-7 AMB Questionnaire ANALI-7 Date ANALI - 7 assessed: 02/15/24 Feeling nervous, anxious, or on edge: 3 = Nearly every day Not being able to stop or control worryin = More than half the days Worrying too much about different things: 2 = More than half the days Trouble relaxin = Several days Being so restless that it is hard to sit still: 0 = Not at all Becoming easily annoyed or irritable: 1 = Several days Feeling afraid as if something awful might happen: 0 = Not at all Total ANALI-7 score (0-4 normal; 5-9 mild; 10-14 moderate; 15-21 severe): 9 Source: Developed by Drs. Giorgio Perez, Terrence Holly and colleagues, with an educational franki from [employer]. ANALI-7 Assessment Billing ANALI-7 Assessment Tool: ANALI-7 Assessment 42905 Physical exam (Primary Care) Vital Signs: Last Vital Signs Pulse 88 02/15/24 08:53 BP 128/78 02/15/24 08:53 Pulse Ox 97 02/15/24 08:53 Oxygen Delivery Method Room Air 02/15/24 08:53 BMI result Body Mass Index 22.6 Tobacco/Smoking Status: Tobacco use Status Tobacco use date assessed 02/15/24 02/15/24 08:58 Patient Tobacco Use Status Former Tobacco user 02/15/24 08:58 Tobacco use type Cigarette 02/15/24 08:58 e-Cigarette/Vaping Use Currently Using 02/15/24 08:58 PHQ-9: PHQ-9 Score PHQ-9: Total score 9 02/15/24 09:05 Depression Screening Interpretation: Positive Thrive Assessment: Date of Thrive Assessment Date Thrive assessed 11/11/22 02/15/24 08:58 Assessment and Plan Assessment & Plan (1) Overdose of clonazepam: Code(s): T42.4X1A - Poisoning by benzodiazepines, accidental (unintentional), initial encounter Plan: Patient?with?history?of?bipolar?disorder,?severe?anxiety?and?seizure?disorder?pr esents?after?likely?overdose?of?clonazepam. She?denies?intentional?overdose. Her?last?dosing?for?clonazepam?was?0.5?mg?b.i.d. Changed?this?to?0.25?mg?b.i.d. and?will?give?her?a?10?day?course?with?close?vkylyu-iq-ofm?will?return?in?7- 10?days. Strongly?encouraged?her?to?work?at?getting?a?therapist?and?psychiatrist.??I?have ?asked?the?nurse?navigator?to?work?on?this?yaima. Will?need?close?follow-up?until?she?has?therapist?and?psychiatrist. (2) Anxiety: Code(s): F41.9 - Anxiety disorder, unspecified Plan: History?of?bipolar?disorder?and?severe?anxiety As?above (3) Primary osteoarthritis of right hip: Code(s): M16.11 - Unilateral primary osteoarthritis, right hip Plan: Advised?her?to?follow-up?with?her?orthopedic?surgeon Orders: Referrals Nurse Navigator Referral F31.81 - Bipolar II disorder, F41.9 - Anxiety disorder, unspecified, T42.4X1A - Poisoning by benzodiazepines, accidental (unintentional), initial encounter Medications: Changed From clonazepam 0.5 mg PO DAILY 15 days PRN 15 tabs 0RF anxiety To clonazepam 0.25 mg (1/2 x 0.5 mg) PO DAILY 10 days PRN 10 tabs 0RF anxiety Refilled levetiracetam 750 mg (3 x 250 mg) PO BID 15 days 90 tabs 0RF Coding Level of Care Code Est Pt Level 4 (16967) Diagnoses Overdose of clonazepam T42.4X1A Anxiety F41.9 Primary osteoarthritis of right hip M16.11 Additional Codes ANALI-7 Assessment Billing - ANALI-7 Assessment Tool: ANALI-7 Assessment 72900 ([id number])
== END 2024-02-15 09:37 | disposition home or self-care (01) ==
PROVIDERS: PCP Family Medicine; Visit Provider Family Medicine
DX: T42.4X1A Poisoning by benzodiazepines, accidental (unintentional), initial encounter (principal); F41.9 Anxiety disorder, unspecified; M16.11 Unilateral primary osteoarthritis, right hip
CPT/HCPCS: 99214

== ENCOUNTER 2024-02-22 13:02 | Outpatient (AMB) | payer OTHER, SELFPAY ==
[2024-02-22 13:17] VITALS: BP 162/100; PULSE 80; RESP 13; O2SAT 93; BMI 22.0
--- NOTE | 2024-02-22 13:17 | A.OFFPC_ITS ---
Vital Signs 02/22/24 13:17 Height 5 ft 3 in Weight 124 lb BMI 22.0 BP 162/100 H Blood Pressure Location Lt brachial Position Sitting Respiration 13 Pulse 80 Pulse Source Pulse Oximeter Pulse Oximetry (%) 93 Oxygen Delivery Method Room Air Intake Visit Reasons: f/u anxiety Intake Note: Patient is here for a follow up of anxiety. Patient reports she would like to discuss her medications with the doctor as she was taken off of a lot of medications. Patient reports she was supposed to have surgery and was unable to have surgery for personal reasons. Shape Carver Required: No Accompanied by: Self / Same As Patient Allergies aspirin Allergy (Intermediate, Verified 02/22/24 13:22) stomach upset codeine [CODEINE] Allergy (Intermediate, Verified 02/22/24 13:22) itching NSAIDS (Non-Steroidal Anti-Inflamma [NSAIDS (NON-STEROIDAL ANTI-INFLAMMA] Allergy (Mild, Verified 02/22/24 13:22) stomach upset Sulfa (Sulfonamide Antibiotics) [SULFA(SULFONAMIDE ANTIBIOTICS)] Allergy (Mild, Verified 02/22/24 13:22) Rash lurasidone Adverse Reaction (Mild, Verified 02/22/24 13:22) Hallucinations ibuprofen Adverse Reaction (Unknown, Verified 02/22/24 13:22) Unknown Medication List - Last Reconciled 02/22/24 by Ney Cole MD clonazepam 0.25 mg (1/2 x 0.5 mg) PO DAILY PRN 10 days famotidine 20 mg PO BID PRN levetiracetam 750 mg (3 x 250 mg) PO BID 15 days nitroglycerin 0.4 mg sublingual ONCE sertraline 25 mg (1/2 x 50 mg) PO BID 15 days zolpidem 10 mg PO BEDTIME Tobacco use date assessed: 02/15/24 Dental Screening Dental Screen Date: 02/15/24 HPI f/u anxiety HPI Details 58 y/o female presents to f/u anxiety in pt with bipolar and seizure disorder. Had decreased her benzodiazepines as she seemed to have had an overdose and left hospital AMA. Blood pressure today 160/100, 80p. She reports she has stopped taking her metoprolol. She notes she is also off her artovastatin, aspirin and lurasidone. Pt reports she has never had a cardiac cath done and denies any issues with her heart. Per cardiology note 05/13/23 she did have cardiac cath done 2020 which showed proximal LAD 30% stenosis, Mid LAD 40% stenosis but she denies this. She continues taking levothyroxine at 100mcg. [facility] Medical History GERD (gastroesophageal reflux disease) Chronic pain Lumbar back pain with radiculopathy affecting left lower extremity Lumbar back pain NSTEMI (non-ST elevated myocardial infarction) Takotsubo cardiomyopathy Obesity Vitamin D deficiency Hypothyroidism Surgical History Status post removal of cervix Hx of cardiac catheterization History of elbow surgery History of hysterectomy History of shoulder surgery Family History Sister Hypothyroidism Social History Household Members: Other Household Members Other:: boyfriend Housing: House Do you presently have visiting nurse or other home services: No Alcohol intake: current Alcohol intake frequency: a few times a month Comment: resting Patient Tobacco Use Status: Former Tobacco user Tobacco use type: Cigarette Cigarette Packs Per Day: 1 Cigarettes Per Day: 20.0 Years Smoked: 20 e-Cigarette/Vaping Use: Currently Using Second Hand Smoke Exposure: Yes service: No Current occupational status: unemployed Current occupational exposures/hazards: No Cognitive needs: No Hearing needs: No Vision needs: No Questionnaire PHQ-9 Over the last 2 weeks, how often have you been bothered by any of the following problems? 1. Little interest or pleasure in doing things: more than half the days 2. Feeling down, depressed, or hopeless: more than half the days 3. Trouble falling or staying asleep, or sleeping too much: more than half the days 4. Feeling tired or having little energy: more than half the days 5. Poor appetite or overeating: not at all 6. Feeling bad about yourself - or that you are a failure or have let yourself or your family down: more than half the days 7. Trouble concentrating on things, such as reading the newspaper or watching television: more than half the days 8. Moving or speaking so slowly that other people could have noticed. Or the opposite - being so fidgety or restless that you have been moving around a lot more than usual: more than half the days 9. Thoughts that you would be better off or of hurting yourself in some way: more than half the days Total score: 16 Depression Screening Interpretation: Positive Depression Screening Done: Yes 08368 - PHQ-9 Billing: Yes Source: Developed by Drs. Giorgio Perez, Laura Aragon, Terrence Hogue and colleagues, with an educational franki from [employer]. Thrive Questionnaire Date Thrive assessed: 11/11/22 ANALI-7 AMB Questionnaire ANALI-7 Date ANALI - 7 assessed: 02/22/24 Feeling nervous, anxious, or on edge: 2 = More than half the days Not being able to stop or control worryin = More than half the days Worrying too much about different things: 2 = More than half the days Trouble relaxin = More than half the days Being so restless that it is hard to sit still: 2 = More than half the days Becoming easily annoyed or irritable: 2 = More than half the days Feeling afraid as if something awful might happen: 2 = More than half the days Total ANALI-7 score (0-4 normal; 5-9 mild; 10-14 moderate; 15-21 severe): 14 Source: Developed by Drs. Giorgio Perez, Laura Aragon, Terrence Hogue and colleagues, with an educational franki from [employer]. ANALI-7 Assessment Billing ANALI-7 Assessment Tool: ANALI-7 Assessment [id number] Review of Systems Const Denies chills, Denies fatigue, Denies fever(s), Denies headache(s) and Denies weakness ENT Denies dizziness and Denies headache(s) Card Denies dyspnea Resp Denies cough, Denies dyspnea, Denies wheezing and Denies other (shortness of breath) Musc Denies numbness and Denies tingling Neuro Denies dizziness, Denies headache(s), Denies numbness, Denies tingling and Denies weakness Psych Reports anxiety Endo Denies fatigue Aller/Immun Denies wheezing Physical exam (Primary Care) Vital Signs: Last Vital Signs Pulse 80 02/22/24 13:17 Resp 13 02/22/24 13:17 BP 162/100 H 02/22/24 13:17 Pulse Ox 93 02/22/24 13:17 Oxygen Delivery Method Room Air 02/22/24 13:17 BMI result Body Mass Index 22.0 Tobacco/Smoking Status: Tobacco use Status Tobacco use date assessed 02/15/24 02/22/24 13:28 Patient Tobacco Use Status Former Tobacco user 02/22/24 13:28 Tobacco use type Cigarette 02/22/24 13:28 e-Cigarette/Vaping Use Currently Using 02/22/24 13:28 PHQ-9: PHQ-9 Score PHQ-9: Total score 16 02/22/24 13:29 Depression Screening Interpretation: Positive Thrive Assessment: Date of Thrive Assessment Date Thrive assessed 11/11/22 02/22/24 13:28 Const General: well developed; No acute distress Nutritional Appearance: well nourished Orientation/consciousness: patient oriented x3 HENMT Head: Yes normocephalic and Yes atraumatic Eyes General: appearance normal, both eyes and all related structures Pupils: Equal, round and reactive pupils present EOM: EOMs intact bilaterally Resp Effort & Inspection: normal respiratory effort Neuro General: patient oriented x3 and gait normal Cranial nerves: Yes Equal, round and reactive pupils present Psych Affect: normal affect Assessment and Plan Assessment & Plan (1) Anxiety: Code(s): F41.9 - Anxiety disorder, unspecified Plan: Ongoing?severe?anxiety?secondary?to?bipolar?disorder?and?schizophreniform disorder. Recent?clonazepam?overdose?a nd?following?patient?very?closely?at?every?2?weeks?with?shortened?and?decreased? scripts?of?clonazepam. She?had?a?script?for?the?trazodone?and?had?discontinued?this.??I?am?resuming?thi s?at?a?lower?dose. Continuing?sertraline Continuing?clonazepam?as?above Patient?needs?to?be?reconnected?with?therapist?and?psychiatric?medication?provid er?as?soon?as?possible. Asking?nurse?navigator?to?continue?to?work?on?this. (2) Hypertension: Code(s): I10 - Essential (primary) hypertension Plan: Blood?pressure?is?too?high.??She?had?been?on?metoprolol She?has?a?history?of?atherosclerotic?cardiovascular?disease?and?MO. Cholesterol?levels?are?high?at?last?check Patient?denies?cardiovascular?disease. Discussed?with?patient?that?cholesterol?levels?are?very?high?and?she?needs?to?re sume?atorvastatin.??Patient?agrees?to?do?so. She?will?let?me?know?if?she?is?having?problems?with?this?medication. (3) Hyperlipidemia, unspecified: Code(s): E78.5 - Hyperlipidemia, unspecified Plan: As?above (4) Atherosclerotic cardiovascular disease: Code(s): I25.10 - Atherosclerotic heart disease of [place] coronary artery without angina pectoris Plan: As?above Follow-up?with?Cardiology?as?recommended (5) CVA (cerebral vascular accident): Code(s): I63.9 - Cerebral infarction, unspecified Plan: Resume?atorvastatin? (6) Hypothyroidism: Code(s): E03.9 - Hypothyroidism, unspecified Qualifiers: Hypothyroidism type: unspecified Qualified Code(s): E03.9 - Hypothyroidism, unspecified Plan: Currently?taking?levothyroxine We?can?follow-up?on?thyroid?hormone?levels?at?a?subsequent?visit (7) Bipolar 1 disorder: Code(s): F31.9 - Bipolar disorder, unspecified Plan: Resumed?lorazepam?stone,?sertraline?and?she?has?clonazepam?for?anxiety - we?are?following?closely Medications: New levothyroxine 100 mcg PO DAILY 30 days 30 tabs 2RF Changed From sertraline 25 mg (1/2 x 50 mg) PO BID 15 days 15 tabs 0RF To sertraline 25 mg (1/2 x 50 mg) PO BID 30 days 30 tabs 2RF From atorvastatin 80 mg PO BEDTIME To atorvastatin 80 mg PO BEDTIME 90 days 90 tabs 3RF From lurasidone 40 mg PO DAILY 15 days 15 tabs 0RF To lurasidone 20 mg PO DAILY 30 days 30 tabs 1RF Refilled metoprolol tartrate 25 mg PO BID 90 days 180 tabs 3RF clonazepam 0.25 mg (1/2 x 0.5 mg) PO DAILY 10 days PRN 10 tabs 0RF anxiety Coding Level of Care Code Est Pt Level 4 (30757) Diagnoses Anxiety F41.9 Hypertension I10 Hyperlipidemia, unspecified E78.5 Atherosclerotic cardiovascular disease I25.10 CVA (cerebral vascular accident) I63.9 Hypothyroidism, unspecified type E03.9 Hypothyroidism type: unspecified Bipolar 1 disorder F31.9 Additional Codes ANALI-7 Assessment Billing - ANALI-7 Assessment Tool: ANALI-7 Assessment [id number] ([id number])
== END 2024-02-22 14:08 | disposition home or self-care (01) ==
PROVIDERS: PCP Family Medicine; Visit Provider Family Medicine
DX: I10 Essential (primary) hypertension (principal); F31.9 Bipolar disorder, unspecified; Z86.73 Personal history of transient ischemic attack (TIA), and cerebral infarction without residual deficits; F41.9 Anxiety disorder, unspecified; E78.5 Hyperlipidemia, unspecified; I25.10 Atherosclerotic heart disease of native coronary artery without angina pectoris; E03.9 Hypothyroidism, unspecified
CPT/HCPCS: 99214

== ENCOUNTER 2024-05-05 09:08 | Outpatient (AMB) | payer OTHER, SELFPAY ==
[2024-05-05 09:10] VITALS: BP 130/72; PULSE 78; O2SAT 94; BMI 23.7
--- NOTE | 2024-05-05 09:10 | A.OFFPC_ITS ---
Vital Signs 05/05/24 09:10 Height 5 ft 3 in Weight 134 lb BMI 23.7 BP 130/72 Blood Pressure Location Lt brachial Position Sitting Pulse 78 Pulse Source Pulse Oximeter Pulse Oximetry (%) 94 Oxygen Delivery Method Room Air Intake Visit Reasons: Close follow-up for psychiatric issues & HTN Intake Note: Patient is here for frollow up on psych issues and hypertension. Patient would like refill of Zolpidem. Allergies aspirin Allergy (Intermediate, Verified 05/05/24 09:16) stomach upset codeine [CODEINE] Allergy (Intermediate, Verified 05/05/24 09:16) itching NSAIDS (Non-Steroidal Anti-Inflamma [NSAIDS (NON-STEROIDAL ANTI-INFLAMMA] Allergy (Mild, Verified 05/05/24 09:16) stomach upset Sulfa (Sulfonamide Antibiotics) [SULFA(SULFONAMIDE ANTIBIOTICS)] Allergy (Mild, Verified 05/05/24 09:16) Rash lurasidone Adverse Reaction (Mild, Verified 05/05/24 09:16) Hallucinations ibuprofen Adverse Reaction (Unknown, Verified 05/05/24 09:16) Unknown Medication List - Last Reconciled 05/05/24 by Ney Cole MD atorvastatin 80 mg PO BEDTIME 90 days clonazepam 0.25 mg (1/2 x 0.5 mg) PO DAILY PRN 10 days famotidine 20 mg PO BID PRN levetiracetam 750 mg (3 x 250 mg) PO BID 15 days levothyroxine 100 mcg PO DAILY 30 days lurasidone 20 mg PO DAILY 30 days metoprolol tartrate 25 mg PO BID 90 days nitroglycerin 0.4 mg sublingual ONCE sertraline 25 mg (1/2 x 50 mg) PO BID 30 days zolpidem 10 mg PO BEDTIME Tobacco use date assessed: 02/15/24 Dental Screening Dental Screen Date: 02/15/24 HPI Close follow-up for psychiatric issues & HTN HPI Details 58 y/o female presents to f/u hypertensi on, psychiatric issues. Anxiety in pt with bipolar disorder. She has an appt. with psychiatry today. Blood pressure today 130/72. She is on metoprolol 25mg b.i.d. [facility] Medical History GERD (gastroesophageal reflux disease) Chronic pain Lumbar back pain with radiculopathy affecting left lower extremity Lumbar back pain NSTEMI (non-ST elevated myocardial infarction) Takotsubo cardiomyopathy Obesity Vitamin D deficiency Hypothyroidism Surgical History Status post removal of cervix Hx of cardiac catheterization History of elbow surgery History of hysterectomy History of shoulder surgery Family History Sister Hypothyroidism Social History Household Members: Other Household Members Other:: boyfriend Housing: House Do you presently have visiting nurse or other home services: No Alcohol intake: current Alcohol intake frequency: a few times a month Comment: resting Patient Tobacco Use Status: Former Tobacco user Tobacco use type: Cigarette Cigarette Packs Per Day: 1 Cigarettes Per Day: 20.0 Years Smoked: 20 e-Cigarette/Vaping Use: Currently Using Second Hand Smoke Exposure: Yes service: No Current occupational status: disabled Current occupational exposures/hazards: No Cognitive needs: No Hearing needs: No Vision needs: No Questionnaire Thrive Questionnaire Date Thrive assessed: 11/11/22 ANALI-7 AMB Questionnaire ANALI-7 Date ANALI - 7 assessed: 02/22/24 Source: Developed by Drs. Giorgio Perez, Laura Aragon, Terrence Hogue and colleagues, with an educational franki from [employer]. Review of Systems Const Denies chills, Denies fatigue, Denies fever(s), Denies headache(s) and Denies weakness ENT Denies dizziness and Denies headache(s) Card Denies dyspnea Resp Denies cough, Denies dyspnea, Denies wheezing and Denies other (shortness of breath) Musc Denies numbness and Denies tingling Neuro Denies dizziness, Denies headache(s), Denies numbness, Denies tingling and Denies weakness Psych Denies anxiety and Denies depression Endo Denies fatigue Aller/Immun Denies wheezing Physical exam (Primary Care) Vital Signs: Last Vital Signs Pulse 78 05/05/24 09:10 BP 130/72 05/05/24 09:10 Pulse Ox 94 05/05/24 09:10 Oxygen Delivery Method Room Air 05/05/24 09:10 BMI result Body Mass Index 23.7 Tobacco/Smoking Status: Tobacco use Status Tobacco use date assessed 02/15/24 05/05/24 09:24 Patient Tobacco Use Status Former Tobacco user 05/05/24 09:24 Tobacco use type Cigarette 05/05/24 09:24 e-Cigarette/Vaping Use Currently Using 05/05/24 09:24 Thrive Assessment: Date of Thrive Assessment Date Thrive assessed 11/11/22 05/05/24 09:24 Const General: well developed; No acute distress Nutritional Appearance: well nourished Orientation/consciousness: patient oriented x3 HENMT Head: Yes normocephalic and Yes atraumatic Eyes General: appearance normal, both eyes and all related structures Pupils: Equal, round and reactive pupils present EOM: EOMs intact bilaterally Resp Effort & Inspection: normal respiratory effort Auscultation: clear to auscultation bilaterally Cardio Rate: regular rate Rhythm: regular rhythm Heart sounds: S1 normal heart sound present, S2 normal heart sound present, no gallops, no murmurs and no rubs Neuro General: patient oriented x3 and gait normal Cranial nerves: Yes Equal, round and reactive pupils present Psych Affect: normal affect Assessment and Plan Assessment & Plan (1) Hypertension: Code(s): I10 - Essential (primary) hypertension Plan: Blood?pressure?is?controlled.??Goal?is?less?than?140/90 Continue?current?medication (2) Anxiety: Code(s): F41.9 - Anxiety disorder, unspecified Plan: Ongoing?anxiety?secondary?to?bipolar?disorder She?is?on?lorazepam?stone,?sertraline,?clonazepam?and?has?zolpidem?for?sleep Had?not?send?some?o f?her?medications?for?anxiety?as?she?had?missed?to?appointments?and?I?reiterated ?to?her?that?she?needs?to?present?for?appointments. Patient?understand She?has?been?without?a?provider?for?quite?some?t ladi?and?I?have?been?covering?these?medications.??Explained?to?her?that?she?needs ?to?get?connected?to?a?new?provider.??She?has?a?psychologist/therapist?but?she?s ays?that?they?are?unable?to?prescribe?me dications.??She?sees?her?psychologist?today?and?I?asked?her?to?have?them?send?me ?a?note?(she?may?need?to?provide?a?release?of?information)?letting?me?know?when? she?will?have?a?new?provider. (3) Bipolar 1 disorder: Code(s): F31.9 - Bipolar disorder, unspecified Plan: As?above (4) Seizure disorder: Code(s): G40.909 - Epilepsy, unspecified, not intractable, without status epilepticus Plan: Had?sent?patient's?medication?once?she?had?set?up?an appointment. Continue?levetiracetam Stable Orders: Orders Complete Blood Count Auto Diff Today Z00.00 - Encounter for general adult medical examination without abnormal findings Microalbumin, Random (w Creat) Today I10 - Essential (primary) hypertension Triiodothyronine T3 Total Today E03.9 - Hypothyroidism, unspecified Thyroid Stimulating Hormone Today E03.9 - Hypothyroidism, unspecified Levetiracetam Keppra Today G40.909 - Epilepsy, unspecified, not intractable, without status epilepticus Comprehensive [place]. Panel Fast Today Z00.00 - Encounter for general adult medical examination without abnormal findings Lipid Panel Today Z00.00 - Encounter for general adult medical examination without abnormal findings Free T4 (Free Thyroxine) Today E03.9 - Hypothyroidism, unspecified UA and rflx microscopic Today Z00.00 - Encounter for general adult medical examination without abnormal findings Coding Level of Care Code Est Pt Level 4 (47045) Diagnoses Hypertension I10 Anxiety F41.9 Bipolar 1 disorder F31.9 Seizure disorder G40.909
== END 2024-05-05 09:48 | disposition home or self-care (01) ==
PROVIDERS: PCP Family Medicine; Visit Provider Family Medicine
DX: I10 Essential (primary) hypertension (principal); F41.9 Anxiety disorder, unspecified; F31.9 Bipolar disorder, unspecified; G40.909 Epilepsy, unspecified, not intractable, without status epilepticus
CPT/HCPCS: 99214

== ENCOUNTER 2024-07-19 09:27 | Emergency (ER) | payer OTHER, SELFPAY ==
[2024-07-19 10:26] VITALS: BP 211/115; PULSE 117; RESP 18; TEMP 36.3; O2SAT 98; BMI 22.6
--- NOTE | 2024-07-19 10:35 | ECG_ITS ---
Test Reason : HTN Blood Pressure : / mmHG Vent. Rate : 099 BPM Atrial Rate : 099 BPM P-R Int : 134 ms QRS Dur : 078 ms QT Int : 372 ms P-R-T Axes : 040 -20 024 degrees QTc Int : 477 ms Normal sinus rhythm Possible Left atrial enlargement Inferior infarct , age undetermined Nonspecific T wave abnormality Abnormal ECG When compared with ECG of 13-MAR-2022 17:41, Vent. rate has increased BY 43 BPM Inferior infarct is now Present Nonspecific T wave abnormality is now Present Referred By: Jana Quiñones Electronically Signed By:BISHNU TAYLOR
[2024-07-19 11:40] LABS: MANUAL DIFF FLAG NO
[2024-07-19 11:42] LABS: Basophils Absolute Auto 0.1 X10*3/uL (0.0-0.2); Basophils Percent Auto 1.7 % (0-2); Eosinophils Absolute Auto 0.2 X10*3/uL (0.0-0.4); Eosinophils Percent Auto 2.8 % (0-4); Hematocrit 40.6 % (37.0-47.0); Imm Gran Abs Auto 0.03 X10*3/uL (0.00-0.03); Imm Gran Pct Auto 0.4 % (0.0-0.4); Lymphocytes Absolute Auto 1.4 X10*3/uL (1.2-4.9); Lymphocytes Percent Auto 18.3 % (20-40); Mean Corpuscular HGB Conc 34.5 g/dl (31.0-35.0); Mean Corpuscular Hemoglobin 35.3 pg (27.0-33.0); Mean Corpuscular Volume 102.3 fL (80.0-98.0); Mean Platelet Volume 8.9 fL (9.4-12.3); Monocytes Absolute Auto 0.4 X10*3/uL (0.1-1.2); Monocytes Percent Auto 5.6 % (2-11); Neutrophils Absolute Auto 5.3 x10*3/uL (2.0-8.3); Neutrophils Percent Auto 71.2 % (45-73); Platelet Count 458 X10*3/uL (160-400); Red Blood Count 3.97 X10*6/uL (4.20-5.50); Red Cell Distribution Width 13.8 % (11.0-16.0); White Blood Count 7.5 X10*3/uL (4.8-10.8)
[2024-07-19 12:08] LABS: Alanine Aminotransferase 11 U/L (0-31); Albumin Level 4.8 g/dL (3.5-5.0); Alkaline Phosphatase 84 U/L (39-117); Anion Gap 15 (12-20); Aspartate Amino Transferase 22 U/L (5-31); Bilirubin Total 0.5 mg/dL (0.0-1.0); Blood Urea Nitrogen 10 mg/dL (9-16); Calcium 9.6 mg/dL (8.4-10.2); Carbon Dioxide 22 mmol/L (22-29); Chloride 107 mmol/L (96-108); Creatinine Clr Calc Pharmacy 50.2; Estimated Glomerular Filt Rate 56; Glucose Random 85 mg/dL (60-115); Magnesium 1.9 mg/dL (1.6-2.6); Potassium 2.9 mmol/L (3.3-5.1); Sodium 141 mmol/L (135-145); Total Protein 8.5 g/dL (6.5-8.0)
--- NOTE | 2024-07-19 16:20 | ED.GENADULT ---
HPI - General Adult General Chief complaint: General Medical Stated complaint: Parasitic infection? Related Data Home Medications ?Medication ?Instructions ?Recorded ?Confirmed famotidine 20 mg tablet 20 mg PO BID PRN indigestion 05/14/23 08/29/24 Previous Rx's ?Medication ?Instructions ?Recorded levothyroxine 100 mcg tablet 100 mcg PO DAILY 30 days #30 tabs 02/22/24 lurasidone 20 mg tablet 20 mg PO DAILY 30 days #30 tabs 02/22/24 metoprolol tartrate 25 mg tablet 25 mg PO BID 90 days #180 tabs 02/22/24 nitroglycerin 0.4 mg sublingual 0.4 mg sublingual ONCE #25 tabs 03/21/24 tablet levetiracetam 250 mg tablet 750 mg (3 x 250 mg) PO BID 15 days 05/04/24 #90 tabs atorvastatin 80 mg tablet 80 mg PO BEDTIME 90 days #90 tabs 07/27/24 zolpidem 10 mg tablet 10 mg PO BEDTIME PRN insomnia 30 07/27/24 days #30 tabs clonazepam 0.5 mg tablet 0.5 mg PO BID anxiety 15 days #30 08/29/24 tabs divalproex 125 mg tablet,delayed 125 mg PO BID #60 tabs 08/29/24 release (Depakote) lurasidone 40 mg tablet (Latuda) 40 mg PO DAILY #30 tabs 08/29/24 sertraline 100 mg tablet (Zoloft) 100 mg PO DAILY #30 tabs 08/29/24 Allergies Allergy/AdvReac Type Severity Reaction Status Date / Time aspirin Allergy Intermediate stomach Verified 07/19/24 10:31 upset codeine [CODEINE] Allergy Intermediate itching Verified 07/19/24 10:31 NSAIDS (Non-Steroidal Allergy Mild stomach Verified 07/19/24 10:31 Anti-Inflamma upset [NSAIDS (NON-STEROIDAL ANTI-INFLAMMA] Sulfa (Sulfonamide Allergy Mild Rash Verified 07/19/24 10:31 Antibiotics) [SULFA(SULFONAMIDE ANTIBIOTICS)] lurasidone AdvReac Mild Hallucinati Verified 07/19/24 10:31 ons ibuprofen AdvReac Unknown Unknown Verified 07/19/24 10:31 [facility] Past Medical History Medical History GERD (gastroesophageal reflux disease) Chronic pain Lumbar back pain with radiculopathy affecting left lower extremity Lumbar back pain NSTEMI (non-ST elevated myocardial infarction) Takotsubo cardiomyopathy Obesity Vitamin D deficiency Hypothyroidism Surgical History Status post removal of cervix Hx of cardiac catheterization History of elbow surgery History of hysterectomy History of shoulder surgery Family History Family History Sister Hypothyroidism Social History Social History Household Members: Other Household Members Other:: boyfriend Housing: House Do you presently have visiting nurse or other home services: No Alcohol intake: current Alcohol intake frequency: a few times a month Comment: resting Patient Tobacco Use Status: Former Tobacco user Tobacco use type: Cigarette Cigarette Packs Per Day: 1 Cigarettes Per Day: 20.0 Years Smoked: 20 e-Cigarette/Vaping Use: Currently Using Second Hand Smoke Exposure: Yes service: No Current occupational status: disabled Current occupational exposures/hazards: No Cognitive needs: No Hearing needs: No Vision needs: No Physical Exam ED Vital Signs: Vital Signs - 24 hr 07/19/24 10:26 Temperature 97.4 F Pulse Rate 117 H Respiratory Rate 18 Blood Pressure 211/115 H Pulse Oximetry 98 Oxygen Delivery Method Room Air BMI result Body Mass Index 22.6 Course Course Course Narrative: This is an RME done by ANTONINA Corey: Additional HPI, ROS, PE not included below will be deferred to primary provider. 58yo F with PMHx of Bipolar, seizures, GERD, HTN presenting with CC of parasitic infection, abdominal pain for several days and nausea/vomiting yesterday. Denies fevers, chills. Also complains of weakness and bloating. Appearance: Alert.? Oriented X3.? No acute cardiopulmonary distress distress.? Head: Normocephalic, atraumatic CVS: Pulses normal.? Respiratory: No respiratory distress.? Skin: ? Normal skin color. Small round erythematous lesions scattered along LEs b/l and chest Neuro: Oriented X 3.? Medical Decision Making Lab Data 07/19/24 11:36 07/19/24 11:36 Labs: Lab Results 09/10/24 Range/Units 11:36 WBC 7.5 (4.8-10.8) X10*3/uL RBC 3.97 L (4.20-5.50) X10*6/uL Hgb 14.0 (12.0-16.0) g/dl Hct 40.6 (37.0-47.0) % MCV 102.3 H (80.0-98.0) fL MCH 35.3 H (27.0-33.0) pg MCHC 34.5 (31.0-35.0) g/dl RDW 13.8 (11.0-16.0) % Plt Count 458 H D (160-400) X10*3/uL MPV 8.9 L (9.4-12.3) fL Immature Gran % (Auto) 0.4 (0.0-0.4) % Neut % (Auto) 71.2 (45-73) % Lymph % (Auto) 18.3 L (20-40) % [place] % (Auto) 5.6 (2-11) % Eos % (Auto) 2.8 (0-4) % Baso % (Auto) 1.7 (0-2) % Lymph # (Auto) 1.4 (1.2-4.9) X10*3/uL [place] # (Auto) 0.4 (0.1-1.2) X10*3/uL Eos # (Auto) 0.2 (0.0-0.4) X10*3/uL Baso # (Auto) 0.1 (0.0-0.2) X10*3/uL Abs Immat Gran (auto) 0.03 (0.00-0.03) X10*3/uL Absolute Neuts (auto) 5.3 (2.0-8.3) x10*3/uL Absolute Nucleated RBC 0.000 (0.0-0.012) X10*3/uL Nucleated RBC % (auto) 0.0 (0.0-0.2) /100WBC Sodium 141 (135-145) mmol/L Potassium 2.9 L* (3.3-5.1) mmol/L Chloride 107 (96-108) mmol/L Carbon Dioxide 22 (22-29) mmol/L Anion Gap 15 (12-20) BUN 10 (9-16) mg/dL Creatinine 1.01 (0.5-1.4) mg/dL Estim Creat Clear Calc 50.2 Estimated GFR 56 Random Glucose 85 (60-115) mg/dL Calcium 9.6 D (8.4-10.2) mg/dL Magnesium 1.9 (1.6-2.6) mg/dL Total Bilirubin 0.5 (0.0-1.0) mg/dL AST 22 (5-31) U/L ALT 11 (0-31) U/L Alkaline Phosphatase 84 (39-117) U/L Total Protein 8.5 H (6.5-8.0) g/dL Albumin 4.8 (3.5-5.0) g/dL Discharge Plan Discharge Clinical Impression: Eloped from emergency department Patient Disposition: Left W/O Completing Treatment Prescriptions: No Action nitroglycerin 0.4 mg tablet, sublingual 0.4 mg sublingual ONCE Qty: 25 1RF Rx Instructions: Take 1 tablet every 5 minutes as needed, for up to 15 minutes. Do not take more than 3 tablets in 15 minutes. levetiracetam 250 mg tablet 750 mg PO BID 15 Days Qty: 90 0RF zolpidem 10 mg tablet 10 mg PO BEDTIME PRN (Reason: insomnia) 30 Days Qty: 30 0RF atorvastatin 80 mg tablet 80 mg PO BEDTIME 90 Days Qty: 90 3RF levothyroxine 100 mcg tablet 100 mcg PO DAILY 30 Days Qty: 30 2RF lurasidone 20 mg tablet 20 mg PO DAILY 30 Days Qty: 30 1RF metoprolol tartrate 25 mg tablet 25 mg PO BID 90 Days Qty: 180 3RF famotidine 20 mg tablet 20 mg PO BID PRN (Reason: indigestion) sertraline [Zoloft] 100 mg tablet 100 mg PO DAILY Qty: 30 1RF clonazepam 0.5 mg tablet 0.5 mg PO BID 15 Days Qty: 30 2RF divalproex [Depakote] 125 mg tablet,delayed release (DR/EC) 125 mg PO BID Qty: 60 1RF lurasidone [Latuda] 40 mg tablet 40 mg PO DAILY Qty: 30 1RF Rx Instructions: must administer with food (at least 350 calories) Discharge Date/Time: 07/19/24 19:40
[2024-07-19 16:21] VITALS: BP 181/112; PULSE 120; RESP 18; TEMP 36.8; O2SAT 100
--- NOTE | 2024-07-19 16:23 | PC.NURSE ---
no change in assessment. frustrated with wait. describing epigastric pain only with PO trials.
--- NOTE | 2024-07-19 19:39 | PC.NURSE ---
Pt no answer when called for reassessment.
== END 2024-07-19 19:40 | disposition left against medical advice (07) ==
PROVIDERS: Physician Assistant Medical; Emergency Provider Emergency Medicine; PCP Family Medicine
DX: R10.13 Epigastric pain (principal); R11.2 Nausea with vomiting, unspecified
CPT/HCPCS: 36415; 80053; 83735; 85025; 93005; 99281; 99284

== ENCOUNTER 2024-08-29 10:20 | Outpatient (AMB) | payer OTHER, SELFPAY ==
--- NOTE | 2024-08-29 10:33 | MHC.OFFVISPS ---
Intake Intake Visit Reasons: consult Supervisor Plasma Required: No Allergies aspirin Allergy (Intermediate, Verified 07/19/24 10:31) stomach upset codeine [CODEINE] Allergy (Intermediate, Verified 07/19/24 10:31) itching NSAIDS (Non-Steroidal Anti-Inflamma [NSAIDS (NON-STEROIDAL ANTI-INFLAMMA] Allergy (Mild, Verified 07/19/24 10:31) stomach upset Sulfa (Sulfonamide Antibiotics) [SULFA(SULFONAMIDE ANTIBIOTICS)] Allergy (Mild, Verified 07/19/24 10:31) Rash lurasidone Adverse Reaction (Mild, Verified 07/19/24 10:31) Hallucinations ibuprofen Adverse Reaction (Unknown, Verified 07/19/24 10:31) Unknown Medication List - Last Reconciled 08/29/24 by Yoselin Smith APRN atorvastatin 80 mg PO BEDTIME 90 days clonazepam 0.25 mg (1/2 x 0.5 mg) PO DAILY PRN 30 days famotidine 20 mg PO BID PRN levetiracetam 750 mg (3 x 250 mg) PO BID 15 days levothyroxine 100 mcg PO DAILY 30 days lurasidone 20 mg PO DAILY 30 days metoprolol tartrate 25 mg PO BID 90 days nitroglycerin 0.4 mg sublingual ONCE sertraline 25 mg (1/2 x 50 mg) PO BID 30 days zolpidem 10 mg PO BEDTIME PRN 30 days HPI- Psychiatric Chief Complaint: consult HPI Narrative: Brandie is a 59 y.o. female who carries a dx of bipolar DO, anxiety and opiate use disorder in remission. Patient was referred by her primary care physician for medication evaluation. The patient reports that she has been unstable for at least a year after her insurance changed and she could no longer go to [facility] where she had a therapist and a psychiatrist. She had worked with a therapist at [facility] for 5 years and felt that she was doing well. Reports that her depression and anxiety started after her mother of a brain hemorrhage while they were all on vacation. The patient was 39 years old at the time. she says that 3 years later her father committed suicide. She reports a difficult marriage and divorce' she was unable toparent her children at times due to mental health issues. She reports that she has a history of using pain pills and when she could not get pills she started buying heroin and cocaine on the street. She was on Suboxone for a number years and weaned herself off. she reports sustained abstinence. She denies overdose on clonazepam. She reports that she has taken more than prescribed because the low dose that she has been given isn't helping her anxiety she states that she was on clonazepam 3 mg for 9 years. This was prescribed consistently at [facility] up until a year ago. her [employer] report does show that she was given 3 mg of clonazepam daily for a number of years. She reports she went on disability last year- she needs a hip replacement and she is in pain every day. she says she can not function and she is ?glued to the couch. She reports that she has housing difficulties- she is living with an ex-boyfriend and the house is being sold and she has to move and she does not want to move with him- she does not want to live with him any longer. Her PHQ-9 equals 17 her ANALI-7 equals 13. She reluctantly tells me she has a nurse practitioner prescriber from [facility] who calls her and then calls in rx for her periodically- but she feels the meds are not adequate amounts the director of instrumental music name is Tiburcio. She is on a waiting list for a therapist at [facility]. They are also trying to help her with housing. She reports in the past she was on a higher dose of sertraline and Latuda. She does not know what other medications she has been tried on in the past. We discussed adding a low dose of Depakote for mood stability and anxiety. Chemically, Depakote and clonazepam have some similarities which I discussed with the patient. I did increase her clonazepam to 0.5 mg b.i.d. and gave her 15 day supply at a time due to overuse issues. I urged her to continue working with [facility] Past Psychiatric History: IPLOC, outpatient, substance issues Subjective Subjective Subjective Medication Compliance: Yes Side effects from medications: No Review of Systems Medical Review of Systems: unchanged Mental Status Exam Mental Status Exam Patient Appearance: Well Grooomed and Appropriate Patient Orientation: Person, Place, Time and Situation Level of Consciousness: Awake, Appropriate and Restless Patient Behavior: Appropriate, Cooperative and Anxious Mood Description: Depressed, Anxious, Nervous and Apprehensive Affect Description: Depressed and Anxious Patient Cognition Impaired: No Ability to Follow Directions: Good Speech Pattern: Clear Memory Description: Remote Impaired Hallucinations: None Delusions: Not Present Thought Process: Goal Oriented Thought Content: positive for Intact and positive for Goal Oriented Judgement: Fair Assessment and Plan Assessment & Plan (1) Bipolar II disorder major depressive with atypical features: Status: Acute Code(s): F31.81 - Bipolar II disorder (2) Generalized anxiety disorder with panic attacks: Status: Acute Code(s): F41.1 - Generalized anxiety disorder; F41.0 - Panic disorder [episodic paroxysmal anxiety] Plan zoloft 00mg daily latuda 40 mg daily with food depakote 125 mg BID clonazepam 0.5mg BID consider referral to comprehensive care clinic- discussed possibility of resuming suboxone with patient return in 4 weeks Medications: New sertraline (Zoloft) 100 mg PO DAILY 30 tabs 1RF divalproex (Depakote) 125 mg PO BID 60 tabs 1RF lurasidone (Latuda) must administer with food (at least 350 calories) 40 mg PO DAILY 30 tabs 1RF Changed From clonazepam 0.25 mg (1/2 x 0.5 mg) PO DAILY 30 days PRN 15 tabs 0RF anxiety To clonazepam 0.5 mg PO BID 30 tabs 2RF anxiety 15 days Discontinued sertraline Discontinued Reason: Doctor's Order 25 mg (1/2 x 50 mg) PO BID 30 days 30 tabs 2RF Counseling and coordination of Care Pt. Self Management counseling: Maintenance-social rhythm, Mod caffeine/ETOH intake, Sleep hygiene, Substance abuse tx adhere, Behavior activation, General coping skills and Problem solving Medication management counseling: Effectiveness, Side effects, Dosing range, Duration, Drug interaction and Adherence Diagnosis and Prognosis Counseling: Accuracy of diagnosis, Prognosis over time, Impact of diagnosis on life functions, Impact of family relationship, Problematic behaviors secondary to diagnosis and Adequacy of current interventions Details: I spent 75 minutes reviewing the record, seeing the patient and documenting in the medical record. Counseling provided to the patient/caregiver as outlined below. Addressed patient/caregiver concerns regarding current medication regime including effective adherence. Addressed patient/caregiver concerns regarding diagnosis and prognosis including accuracy of diagnosis, prognosis over time, impact of diagnosis. Addressed patient/caregiver concerns regarding impact of recent stressors. [facility] Medical History GERD (gastroesophageal reflux disease) Chronic pain Lumbar back pain with radiculopathy affecting left lower extremity Lumbar back pain NSTEMI (non-ST elevated myocardial infarction) Takotsubo cardiomyopathy Obesity Vitamin D deficiency Hypothyroidism Surgical History Status post removal of cervix Hx of cardiac catheterization History of elbow surgery History of hysterectomy History of shoulder surgery Family History Sister Hypothyroidism Social History Household Members: Other Household Members Other:: boyfriend Housing: House Do you presently have visiting nurse or other home services: No Alcohol intake: current Alcohol intake frequency: a few times a month Comment: resting Patient Tobacco Use Status: Former Tobacco user Tobacco use type: Cigarette Cigarette Packs Per Day: 1 Cigarettes Per Day: 20.0 Years Smoked: 20 e-Cigarette/Vaping Use: Currently Using Second Hand Smoke Exposure: Yes service: No Current occupational status: disabled Current occupational exposures/hazards: No Cognitive needs: No Hearing needs: No Vision needs: No Social History: lives with friend who used to be Bf, losing housing soon due to house being sold; has 3 adult children- Substance History: opiates, cocaine in past Trauma History: loss of parents Coding Level of Care Code Psych Diag Eval w/Med (16791) Diagnoses Bipolar II disorder major depressive with atypical features F31.81 Generalized anxiety disorder with panic attacks F41.1; F41.0
== END 2024-08-29 11:20 | disposition home or self-care (01) ==
LOC: HO.HOP 10:20
PROVIDERS: PCP Family Medicine; Visit Provider Clinical Nurse Specialist Psychiatric/Mental Health
DX: F31.81 Bipolar II disorder (principal); F41.1 Generalized anxiety disorder; F41.0 Panic disorder [episodic paroxysmal anxiety]
CPT/HCPCS: 90792

== ENCOUNTER → 2024-08-29 10:20 | Outpatient (BNVA) | payer OTHER, SELFPAY | PROVIDERS: PCP Family Medicine; Visit Provider Clinical Nurse Specialist Psychiatric/Mental Health | DX: F31.81 Bipolar II disorder (principal); F41.1 Generalized anxiety disorder; F41.0 Panic disorder [episodic paroxysmal anxiety] | CPT/HCPCS: 90792 ==

== ENCOUNTER 2024-09-29 14:10 | Outpatient (AMB) | payer OTHER, SELFPAY ==
--- NOTE | 2024-09-29 15:03 | A.OFFPSYCH_ITS ---
Intake Intake Visit Reasons: depression Licensed Pharmacist Required: No Allergies aspirin Allergy (Intermediate, Verified 07/19/24 10:31) stomach upset codeine [CODEINE] Allergy (Intermediate, Verified 07/19/24 10:31) itching NSAIDS (Non-Steroidal Anti-Inflamma [NSAIDS (NON-STEROIDAL ANTI-INFLAMMA] Allergy (Mild, Verified 07/19/24 10:31) stomach upset Sulfa (Sulfonamide Antibiotics) [SULFA(SULFONAMIDE ANTIBIOTICS)] Allergy (Mild, Verified 07/19/24 10:31) Rash lurasidone Adverse Reaction (Mild, Verified 07/19/24 10:31) Hallucinations ibuprofen Adverse Reaction (Unknown, Verified 07/19/24 10:31) Unknown Medication List - Last Reconciled 09/29/24 by Yoselin Smith APRN atorvastatin 80 mg PO BEDTIME 90 days clonazepam 0.5 mg PO BID 15 days divalproex (Depakote) 125 mg PO BID famotidine 20 mg PO BID PRN levetiracetam 750 mg (3 x 250 mg) PO BID 15 days levothyroxine 100 mcg PO DAILY 30 days metoprolol tartrate 25 mg PO BID 90 days nitroglycerin 0.4 mg sublingual ONCE sertraline (Zoloft) 100 mg PO DAILY HPI- Psychiatric Chief Complaint: depression HPI Narrative: Pt mood elevated; she is anxious and hyperverbal. she has tiny scabs on chest, arms , legs; she is convinced she has a parasite that is making her sick and biting her; she says she has been to Ed at [facility], [facility] and [facility] but that no one can help her. she says she has been taking meds as prescribed; she denies illicit drug use. Past Psychiatric History: IPLOC, outpatient, substance issues Subjective Subjective Subjective Medication Compliance: Yes Side effects from medications: No Review of Systems Medical Review of Systems: unchanged Mental Status Exam Mental Status Exam Patient Appearance: Disheveled Patient Orientation: Person, Place and Time Level of Consciousness: Awake Patient Behavior: Talkative Mood Description: Anxious Affect Description: Anxious Patient Cognition Impaired: No Ability to Follow Directions: Good Speech Pattern: Rambling Memory Description: Intact Hallucinations: Tactile Delusions: Bizarre (parasite infestation despite no medical evidence ) Thought Process: Rumination Thought Content: positive for Preoccupation Judgement: Poor Assessment and Plan Assessment & Plan (1) Generalized anxiety disorder with panic attacks: Status: Acute Code(s): F41.1 - Generalized anxiety disorder; F41.0 - Panic disorder [episodic paro xysmal anxiety] (2) Bipolar II disorder major depressive with atypical features: Status: Acute Code(s): F31.81 - Bipolar II disorder (3) Delusional disorder, somatic type: Status: Acute Code(s): F22 - Delusional disorders Plan stop latuda start risperdal 0.25mg abedtime reduce ambien to 5 mg at bedtime follow up with [facility] provider who is already seeing [facility] named Tiburcio Medications: New zolpidem (Ambien) may repeat once if no response in 30-60 minutes 5 mg PO BEDTIME 30 tabs 0RF risperidone 0.25 mg PO BEDTIME 30 tabs 0RF Orders: Orders Basic Metabolic Panel 09/29/24 F41.1 - Generalized anxiety disorder, F41.0 - Panic disorder [episodic paroxysmal anxiety] TSH reflex Free T4 09/29/24 E03.9 - Hypothyroidism, unspecified, F41.1 - Generalized anxiety disorder, F41.0 - Panic disorder [episodic paroxysmal anxiety] Counseling and coordination of Care Medication management counseling: Effectiveness, Side effects, Dosing range, Duration, Drug interaction and Adherence Diagnosis and Prognosis Counseling: Accuracy of diagnosis, Prognosis over time, Impact of diagnosis on life functions, Impact of family relationship, Problematic behaviors secondary to diagnosis and Adequacy of current interventions Details: I spent 40 minutes reviewing the record, seeing the patient and documenting in the medical record. Counseling provided to the patient/caregiver as outlined below. Addressed patient/caregiver concerns regarding current medication regime including effective adherence. Addressed patient/caregiver concerns regarding diagnosis and prognosis including accuracy of diagnosis, prognosis over time, impact of diagnosis. Addressed patient/caregiver concerns regarding impact of recent stressors. [facility] Medical History GERD (gastroesophageal reflux disease) Chronic pain Lumbar back pain with radiculopathy affecting left lower extremity Lumbar back pain NSTEMI (non-ST elevated myocardial infarction) Takotsubo cardiomyopathy Obesity Vitamin D deficiency Hypothyroidism Surgical History Status post removal of cervix Hx of cardiac catheterization History of elbow surgery History of hysterectomy History of shoulder surgery Family History Sister Hypothyroidism Social History Household Members: Other Household Members Other:: boyfriend Housing: House Do you presently have visiting nurse or other home services: No Alcohol intake: current Alcohol intake frequency: a few times a month Comment: resting Patient Tobacco Use Status: Former Tobacco user Tobacco use type: Cigarette Cigarette Packs Per Day: 1 Cigarettes Per Day: 20.0 Years Smoked: 20 e-Cigarette/Vaping Use: Currently Using Second Hand Smoke Exposure: Yes service: No Current occupational status: disabled Current occupational exposures/hazards: No Cognitive needs: No Hearing needs: No Vision needs: No Social History: lives with friend who used to be Bf, losing housing soon due to house being sold; has 3 adult children- Substance History: opiates, cocaine in past Trauma History: loss of parents Coding Level of Care Code Est Pt Level 4 (13212) Diagnoses Generalized anxiety disorder with panic attacks F41.1; F41.0 Bipolar II disorder major depressive with atypical features F31.81 Delusional disorder, somatic type F22
== END 2024-09-29 16:08 | disposition home or self-care (01) ==
LOC: HO.HOP 14:10
PROVIDERS: PCP Family Medicine; Visit Provider Clinical Nurse Specialist Psychiatric/Mental Health
DX: F41.1 Generalized anxiety disorder (principal); F41.0 Panic disorder [episodic paroxysmal anxiety]; F31.81 Bipolar II disorder; F22 Delusional disorders
CPT/HCPCS: 99214

== ENCOUNTER → 2024-09-29 14:10 | Outpatient (BNVA) | payer OTHER, SELFPAY | PROVIDERS: PCP Family Medicine; Visit Provider Clinical Nurse Specialist Psychiatric/Mental Health | DX: F41.1 Generalized anxiety disorder (principal); F41.0 Panic disorder [episodic paroxysmal anxiety]; F31.81 Bipolar II disorder; F22 Delusional disorders | CPT/HCPCS: 99212 ==

== ENCOUNTER 2024-10-20 12:29 | Outpatient (AMB) | payer OTHER, SELFPAY ==
--- NOTE | 2024-10-20 12:36 | MHC.PC.OV ---
Vital Signs 10/20/24 12:45 Height 5 ft 3 in Weight 134 lb 8 oz BMI 23.8 BP 131/80 Blood Pressure Location Rt brachial Position Sitting Respiration 16 Pulse 76 Pulse Source Pulse Oximeter Temp 98.4 F Temp Source Temporal Artery Scan Pulse Oximetry (%) 100 Oxygen Delivery Method Room Air Intake Visit Reasons: Rash Intake Note: patient here c/o Rash all over for 2 days. Bilingual Operator Required: No Is last menstrual period known: No Post menopausal: No Patient : No Allergies aspirin Allergy (Intermediate, Verified 10/20/24 12:51) stomach upset codeine [CODEINE] Allergy (Intermediate, Verified 10/20/24 12:51) itching NSAIDS (Non-Steroidal Anti-Inflamma [NSAIDS (NON-STEROIDAL ANTI-INFLAMMA] Allergy (Mild, Verified 10/20/24 12:51) stomach upset Sulfa (Sulfonamide Antibiotics) [SULFA(SULFONAMIDE ANTIBIOTICS)] Allergy (Mild, Verified 10/20/24 12:51) Rash lurasidone Adverse Reaction (Mild, Verified 10/20/24 12:51) Hallucinations Medication List - Last Reconciled 10/20/24 by Judi Kumar CNP atorvastatin 80 mg PO BEDTIME 90 days clonazepam 0.5 mg PO BID 15 days divalproex (Depakote) 125 mg PO BID famotidine 20 mg PO BID PRN levetiracetam 750 mg (3 x 250 mg) PO BID 15 days levothyroxine 100 mcg PO DAILY 30 days metoprolol tartrate 25 mg PO BID 90 days nitroglycerin 0.4 mg sublingual ONCE sertraline (Zoloft) 100 mg PO DAILY zolpidem (Ambien) 5 mg PO BEDTIME Tobacco use date assessed: 10/20/24 Dental Screening Dental Screen Date: 10/20/24 Did you have a dental visit in the last 12 months?: No Did you have a dental problem in the last 6 months where you did not have access to dental care?: No Was dental information given to patient?: Patient has dentist HPI HPI Comments History of Present Illness Details The patient is a 59-year-old female presenting with a rash. She reports the onset of these new rashes primarily on her hands and knees in the past two days. The rash features small bumps that evolve into scabs within two days, resembling small cuts initially. The patient denies any associated itching or pain. She reports wearing rubber gloves but does not associate this with her symptoms. Additionally, she mentions ongoing concerns about a parasitic infection behind her ears, sensed since November. She previously sought care at five emergency departments, was given a topical cream, and self-medicated with amoxicillin. There are perceptions of a white substance in the ear crevices, although the current examination does not confirm the presence of parasites. [facility] Medical History GERD (gastroesophageal reflux disease) Chronic pain Lumbar back pain with radiculopathy affecting left lower extremity Lumbar back pain NSTEMI (non-ST elevated myocardial infarction) Takotsubo cardiomyopathy Obesity Vitamin D deficiency Hypothyroidism Surgical History Status post removal of cervix Hx of cardiac catheterization History of elbow surgery History of hysterectomy History of shoulder surgery Family History Sister Hypothyroidism Social History Household Members: Other Household Members Other:: boyfriend Housing: House Do you presently have visiting nurse or other home services: No Alcohol intake: current Alcohol intake frequency: a few times a month Comment: resting Patient Tobacco Use Status: Former Tobacco user Tobacco use type: Cigarette Cigarette Packs Per Day: 1 Cigarettes Per Day: 20.0 Years Smoked: 20 e-Cigarette/Vaping Use: Currently Using Second Hand Smoke Exposure: Yes service: No Current occupational status: disabled Current occupational exposures/hazards: No Cognitive needs: No Hearing needs: No Vision needs: No Questionnaire PHQ-9 Over the last 2 weeks, how often have you been bothered by any of the following problems? 1. Little interest or pleasure in doing things: nearly every day 2. Feeling down, depressed, or hopeless: nearly every day 3. Trouble falling or staying asleep, or sleeping too much: nearly every day 4. Feeling tired or having little energy: nearly every day 5. Poor appetite or overeating: more than half the days 6. Feeling bad about yourself - or that you are a failure or have let yourself or your family down: more than half the days 7. Trouble concentrating on things, such as reading the newspaper or watching television: more than half the days 8. Moving or speaking so slowly that other people could have noticed. Or the opposite - being so fidgety or restless that you have been moving around a lot more than usual: more than half the days Source: Developed by Drs. Giorgio Perez, Laura Aragon, Terrence Hogue and colleagues, with an educational franki from [employer]. Thrive Questionnaire Date Thrive assessed: 11/11/22 I am a: Patient What is your living situation today?: I have a steady place to live Within the past 12 months, did the food you bought not last and you didn't have the money to get more?: Never true Within the past 12 months, did you worry whether your food would run out before you got money to buy more?: Never true Do you have trouble paying for medicines?: No Do you have trouble getting transportation to medical appointments?: No Do you have trouble paying your heating and electricity bill?: No Do you have trouble taking care of your child, family member or friend?: No Do you have trouble with day-to-day activities such as bathing, preparing meals, shopping, managing finances, etc.?: I choose not to answer this question Are you currently unemployed and looking for a job?: No Are you interested in more education?: No Please select the resources that you would like help with: None Currently or been in a relationship where the following occur: I choose not to answer THRIVE Score: 0 AUDIT C Alcohol Use Questionnaire (AUDIT-C) 1. How often do you have a drink containing alcohol?: 2-4 times a month 2. How many drinks containing alcohol do you have on a typical day when you are drinking?: 1 or 2 3. How often do you have six or more drinks on one occasion?: Never Total Score: 2 ANALI-7 AMB Questionnaire ANALI-7 Date ANALI - 7 assessed: 02/22/24 Feeling nervous, anxious, or on edge: 3 = Nearly every day Not being able to stop or control worryin = Nearly every day Worrying too much about different things: 3 = Nearly every day Trouble relaxin = Nearly every day Being so restless that it is hard to sit still: 1 = Several days Becoming easily annoyed or irritable: 1 = Several days Feeling afraid as if something awful might happen: 0 = Not at all Total ANALI-7 score (0-4 normal; 5-9 mild; 10-14 moderate; 15-21 severe): 14 Source: Developed by Drs. Giorgio Perez, Laura Aragon, Terrence Hogue and colleagues, with an educational franki from [employer]. Review of Systems Const Details: Const Denies chills, Denies fatigue, Denies fever(s), Denies headache(s) and Denies weakness ENT Denies dizziness and Denies headache(s) Card Denies chest pain, Denies lightheadedness, Denies dyspnea and Denies other (Palpitations) Resp Denies cough, Denies dyspnea, Denies wheezing and Denies other ( shortness of breath) GI Denies abdominal pain, Denies melena, Denies hematochezia, Denies change in bowel habits, Denies dyspepsia and Denies nausea Denies hematuria and Denies dysuria Musc Denies abnormal gait, Denies myalgias, Denies arthralgias, Denies numbness and Denies tingling Skin/Breast Reports as per HPI Neuro Denies abnormal gait, Denies dizziness, Denies headache(s), Denies memory loss, Denies numbness, Denies Sensory deficit (Neuro), Denies tingling and Denies weakness Psych Denies anxiety, Denies depression, Denies memory loss Endo Denies cold intolerance, Denies fatigue, Denies heat intolerance, Denies polydipsia and Denies polyuria Aller/Immun Denies wheezing Physical exam (Primary Care) Tobacco/Smoking Status: Tobacco use Status Tobacco use date assessed 02/15/24 10/20/24 12:38 Patient Tobacco Use Status Former Tobacco user 10/20/24 12:38 Tobacco use type Cigarette 10/20/24 12:38 e-Cigarette/Vaping Use Currently Using 10/20/24 12:38 Thrive Assessment: Date of Thrive Assessment Date Thrive assessed 11/11/22 10/20/24 12:38 Currently or been in a relationship where the following occur: I choose not to answer Const Other: General: no acute distress and well developed Nutritional Appearance: well nourished Orientation/consciousness: patient oriented x3 HENMT Head: Yes normocephalic and Yes atraumatic Eyes General: appearance normal, both eyes and all related structures Pupils: Equal, round and reactive pupils present EOM: EOMs intact bilaterally Ears No visible parasites in the ear crevices Resp Effort & Inspection: normal respiratory effort Auscultation: clear to auscultation bilaterally Cardio Rate: regular rate Rhythm: regular rhythm Heart sounds: S1 normal heart sound present, S2 normal heart sound present, no gallops, no murmurs and no rubs GI Palpation (GI): No Abdominal aortic bruit present, Soft to palpation, nontender, No hepatosplenomegaly present and No Rebound tenderness present Auscultation: normal bowel sounds General: Yes no CVA tenderness Back/Spine/Pelvis Back: no CVA tenderness Cervical Spine: cervical ROM normal and No Cervical spine tenderness Thoracic/Lumbar Spine: thoraco-lumbar ROM normal, No pain with thoraco-lumbar ROM, No thoracic spinal tenderness and No lumbar spinal tenderness Extrem General: Yes normal to inspection, No edema and No calf tenderness Skin General: warm and dry. Normal skin color. Normal skin turgor Rashes/lesions: Few healthy scabs with slightly red bases noted on the hands and left knee. No signs of infection or active discharge Trauma: no lacerations or abrasions Wounds: no wounds Nails: normal Neuro General: patient oriented x3, gait normal and no focal neuro deficit Cranial nerves: Yes Equal, round and reactive pupils present Cognition (Neuro): normal cognition Gait exam (Neuro): Normal gait present Sensory Exam: No Sensory deficit (Neuro) Psych Appearance: grossly normal Affect: normal affect Attitude: cooperative Thought process: Normal thought process present Coding Level of Care Code Est Pt Level 3 (70395) Diagnoses Skin lesions L98.9 Assessment & Plan Assessment & Plan (1) Skin lesions: Code(s): L98.9 - Disorder of the skin and subcutaneous tissue, unspecified Category: Medical Plan: - Address the rash by advising the use of warm compresses to aid in scab healing. - Recommend using topical antibiotic ointment, such as Neosporin, for scab management if required. - Follow up with as needed. Plan I discussed with the patient that the current physical findings suggest healthy scabs rather than an ongoing infection; therefore, systemic antibiotics are not indicated. I advised her on the steps to promote healing, which include warm compresses and the possible use of topical antibiotics. Additionally, I reassured the patient that no parasites were found in the ears upon examination. Patient Instructions: - Apply warm compresses to the affected areas to help soften and remove scabs. - Apply Neosporin ointment to new scabs to prevent infection. - Continue scheduled follow-up physical exam in November. - Contact the clinic if new symptoms arise or if the rash worsens. Patient was informed and verbally consented to the use of an ambient scribe for clinic note documentation during this visit.
[2024-10-20 12:45] VITALS: BP 131/80; PULSE 76; RESP 16; TEMP 36.9; O2SAT 100; BMI 23.8
== END 2024-10-20 13:03 | disposition home or self-care (01) ==
PROVIDERS: PCP Family Medicine; Visit Provider Nurse Practitioner Family
DX: L98.9 Disorder of the skin and subcutaneous tissue, unspecified (principal)

== ENCOUNTER → 2024-10-20 12:29 | Outpatient (BNVA) | payer OTHER, SELFPAY | PROVIDERS: PCP Family Medicine; Visit Provider Nurse Practitioner Family | DX: L98.9 Disorder of the skin and subcutaneous tissue, unspecified (principal) | CPT/HCPCS: 99212 ==

== ENCOUNTER 2024-11-14 14:16 | Outpatient (AMB) | payer MEDICARE, SELFPAY ==
--- NOTE | 2024-11-14 14:24 | A.OFFPSYCH_ITS ---
Intake Intake Visit Reasons: f/u consultation Technical Services Specialist Required: No Allergies aspirin Allergy (Intermediate, Verified 11/15/24 14:49) stomach upset codeine [CODEINE] Allergy (Intermediate, Verified 11/15/24 14:49) itching NSAIDS (Non-Steroidal Anti-Inflamma [NSAIDS (NON-STEROIDAL ANTI-INFLAMMA] Allergy (Mild, Verified 11/15/24 14:49) stomach upset Sulfa (Sulfonamide Antibiotics) [SULFA(SULFONAMIDE ANTIBIOTICS)] Allergy (Mild, Verified 11/15/24 14:49) Rash lurasidone Adverse Reaction (Mild, Verified 11/15/24 14:49) Hallucinations Medication List - Last Reconciled 11/14/24 by Yoselin Smith, BELLO atorvastatin 80 mg PO BEDTIME 90 days clonazepam 0.5 mg PO BID 15 days divalproex (Depakote) 125 mg PO BID famotidine 20 mg PO BID PRN hydroxyzine pamoate 25 mg PO QID PRN levetiracetam 750 mg (3 x 250 mg) PO BID 15 days levothyroxine 100 mcg PO DAILY 30 days metoprolol tartrate 25 mg PO BID 90 days nitroglycerin 0.4 mg sublingual ONCE sertraline (Zoloft) 100 mg PO DAILY zolpidem (Ambien) 5 mg PO BEDTIME HPI- Psychiatric Chief Complaint: f/u consultation HPI Narrative: pt depressed, anxious, tearful; no thoughts of bugs on her skin. feels hopeless and helpless. isn't happy with her living situation. has a therpaist at [facility]. no SI no HI. Past Psychiatric History: [facility], outpatient, substance issues Subjective Subjective Subjective Medication Compliance: Yes Side effects from medications: No Review of Systems Medical Review of Systems: unchanged Mental Status Exam Mental Status Exam Patient Appearance: Appropriate Patient Orientation: Person, Place, Time and Situation Level of Consciousness: Awake and Appropriate Patient Behavior: Appropriate and Poor Eye Contact Mood Description: Sad Affect Description: Anxious, Labile and Sad Patient Cognition Impaired: No Ability to Follow Directions: Fair Speech Pattern: Clear Memory Description: Intact Hallucinations: None Delusions: Not Present Thought Process: Intact Thought Content: positive for Intact and positive for Loose Associations Judgement: Fair Assessment and Plan Assessment & Plan (1) Bipolar II disorder major depressive with atypical features: Status: Acute Code(s): F31.81 - Bipolar II disorder (2) Generalized anxiety disorder with panic attacks: Status: Acute Code(s): F41.1 - Generalized anxiety disorder; F41.0 - Panic disorder [episodic paroxysmal anxiety] Plan increase the depakote to 250mg BID start lithium ER 300mg in am as pt depressed and feels urgency for relief increase zoloft to 150mg daily for anxiety reviewed to call crisis or go to ED if feeling unsafe Medications: New divalproex (Depakote) 250 mg PO BID 60 tabs 2RF lithium carbonate ER 300 mg PO DAILY 30 tabs 1RF Changed From sertraline (Zoloft) 100 mg PO DAILY 30 tabs 1RF To sertraline (Zoloft) 150 mg (1.5 x 100 mg) PO DAILY 45 tabs 2RF Refilled clonazepam 0.5 mg PO BID 30 tabs 2RF anxiety 15 days Discontinued divalproex (Depakote) Discontinued Reason: Doctor's Order 125 mg PO BID 60 tabs 1RF Orders: Orders Valproate 11/14/24 F31.81 - Bipolar II disorder [place] 11/14/24 F31.81 - Bipolar II disorder Counseling and coordination of Care Pt. Self Management counseling: General coping skills and Problem solving Medication management counseling: Effectiveness, Side effects, Dosing range, Duration, Drug interaction and Adherence Diagnosis and Prognosis Counseling: Accuracy of diagnosis, Prognosis over time, Impact of diagnosis on life functions, Impact of family relationship, Problematic behaviors secondary to diagnosis and Adequacy of current interventions Details: I spent 45 minutes reviewing the record, seeing the patient and documenting in the medical record. Counseling provided to the patient/caregiver as outlined below. Addressed patient/caregiver concerns regarding current medication regime including effective adherence. Addressed patient/caregiver concerns regarding diagnosis and prognosis including accuracy of diagnosis, prognosis over time, impact of diagnosis. Addressed patient/caregiver concerns regarding impact of recent stressors. [facility] Medical History GERD (gastroesophageal reflux disease) Chronic pain Lumbar back pain with radiculopathy affecting left lower extremity Lumbar back pain NSTEMI (non-ST elevated myocardial infarction) Takotsubo cardiomyopathy Obesity Vitamin D deficiency Hypothyroidism Surgical History Status post removal of cervix Hx of cardiac catheterization History of elbow surgery History of hysterectomy History of shoulder surgery Family History Sister Hypothyroidism Social History Household Members: Other Household Members Other:: boyfriend Housing: House Do you presently have visiting nurse or other home services: No Alcohol intake: current Alcohol intake frequency: holidays/special occasions only Alcohol type: wine Comment: resting Patient Tobacco Use Status: Former Tobacco user Tobacco use type: Cigarette Cigarette Packs Per Day: 1 Cigarettes Per Day: 20.0 Years Smoked: 20 Smoked in Last 30 Days: Yes e-Cigarette/Vaping Use: Currently Using Second Hand Smoke Exposure: Yes Use of substances other than those prescribed or required for medical reasons: No Patient : No service: No Current occupational status: disabled Current occupational exposures/hazards: No Cognitive needs: No Hearing needs: No Vision needs: No Social History: lives with friend who used to be Bf, losing housing soon due to house being sold; has 3 adult children- Substance History: opiates, cocaine in past Trauma History: loss of parents Coding Level of Care Code Est Pt Level 5 (08199) Diagnoses Bipolar II disorder major depressive with atypical features F31.81 Generalized anxiety disorder with panic attacks F41.1; F41.0
== END 2024-11-14 14:42 | disposition home or self-care (01) ==
LOC: HO.HOP 14:16
PROVIDERS: PCP Family Medicine; Visit Provider Clinical Nurse Specialist Psychiatric/Mental Health
DX: F31.81 Bipolar II disorder (principal); F41.1 Generalized anxiety disorder; F41.0 Panic disorder [episodic paroxysmal anxiety]
CPT/HCPCS: 99215

== ENCOUNTER 2024-11-15 14:42 | Inpatient (IN) | payer MEDICARE, SELFPAY ==
[2024-11-15 14:45] VITALS: BP 203/108; PULSE 97; RESP 18; TEMP 36.7; O2SAT 98; BMI 23.2
--- NOTE | 2024-11-15 14:52 | ED.GENADULT ---
HPI - General Adult General Chief complaint: Psychiatric Symptoms Stated complaint: Crisis Time Seen by Provider: 11/15/24 15:35 Source: patient Mode of arrival: ambulatory Limitations: no limitations History of Present Illness ED Provider: Jana Quiñones PA-C HPI narrative: Patient is a 59 year old assigned female at with a history of HLD, bipolar 2 disorder, seizure, migraines, and CVA presenting to the emergency department today with increased depression. Patient states that she has a lot going on in her life and she is stressed / depressed. Patient denies any outright thoughts of suicide or homicide. Patient denies any dizziness, lightheadedness, abdominal pain, nausea, vomiting, fever, chills, blurry vision, double vision, loss of vision, chest pain, difficulty breathing, shortness of breath, back pain, night sweats, pain with urination, increased urinary frequency, increased urinary urgency, blood in her urine or stool, syncope or a near syncopal episode, recent trauma or falls, bowel incontinence, bladder incontinence, or any other complaints at this time. Relieving factors: none Exacerbating factors: none Associated symptoms: denies other symptoms Treatments prior to arrival: none Related Data Home Medications ?Medication ?Instructions ?Recorded ?Confirmed hydroxyzine pamoate 25 mg capsule 25 mg PO QID PRN itch 11/14/24 11/15/24 nitroglycerin 0.4 mg sublingual 0.4 mg sublingual Q5M PRN Chest 11/15/24 11/15/24 tablet Pain risperidone 0.25 mg tablet 0.25 mg PO BEDTIME 11/15/24 11/15/24 sertraline 100 mg tablet 100 mg PO DAILY 11/15/24 11/15/24 Previous Rx's ?Medication ?Instructions ?Recorded metoprolol tartrate 25 mg tablet 25 mg PO BID 90 days #180 tabs 02/22/24 atorvastatin 80 mg tablet 80 mg PO BEDTIME 90 days #90 tabs 07/27/24 zolpidem 5 mg tablet (Ambien) 5 mg PO BEDTIME #30 tabs 09/29/24 levothyroxine 100 mcg tablet 100 mcg PO DAILY 30 days #30 tabs 11/03/24 clonazepam 0.5 mg tablet 0.5 mg PO BID anxiety 15 days #30 11/14/24 tabs lithium carbonate 300 mg 300 mg PO DAILY #30 tabs 11/14/24 tablet,extended release Allergies Allergy/AdvReac Type Severity Reaction Status Date / Time aspirin Allergy Intermediate stomach Verified 11/15/24 14:49 upset codeine [CODEINE] Allergy Intermediate itching Verified 11/15/24 14:49 NSAIDS (Non-Steroidal Allergy Mild stomach Verified 11/15/24 14:49 Anti-Inflamma upset [NSAIDS (NON-STEROIDAL ANTI-INFLAMMA] Sulfa (Sulfonamide Allergy Mild Rash Verified 11/15/24 14:49 Antibiotics) [SULFA(SULFONAMIDE ANTIBIOTICS)] lurasidone AdvReac Mild Hallucinati Verified 11/15/24 14:49 ons Review of Systems Constitutional: Constitutional: Reports no additional constitutional complaints, Denies chills, Denies fever(s) and Denies night sweats Eyes: Eyes: Reports no additional eye complaints, Denies blurry vision, Denies change in vision, Denies diplopia, Denies eye discharge, Denies loss of vision and Denies eye pain ENT: Denies dizziness Cardiovascular: Cardiovascular: Reports no additional cardiovascular complaints, Denies chest pain, Denies lightheadedness, Denies Loss of Consciousness and Denies dyspnea Respiratory: Respiratory: Reports no additional respiratory complaints and Denies dyspnea Gastrointestinal: Gastrointestinal: Reports no additional gastrointestinal complaints, Denies abdominal pain, Denies melena, Denies hematochezia, Denies change in bowel habits and Denies change in stool character Genitourinary: Genitourinary: Denies hematuria, Denies urinary frequency, Denies dysuria, Denies urinary incontinence, Denies urinary hesitancy and Denies urinary urgency Musculoskeletal: Musculoskeletal: Reports no additional musculoskeletal complaints, Denies numbness and Denies tingling Neurologic: Denies dizziness, Denies loss of vision, Denies numbness and Denies tingling Psychiatric: Psychiatric: Reports depression, Denies homicidal ideation and Denies suicidal ideation Endocrine: Endocrine: Reports no additional endocrine complaints Hematologic/Lymphatic: Hematologic/Lymphatic: Reports no additional hematologic/lymphatic complaints Allergic/Immunologic: Allergic/Immunologic: Reports no additional allergic/immunologic complaints PMFSH Past Medical History Attestation statement: The following information was validated with the patient. Source: old records reviewed and nursing notes reviewed Medical History GERD (gastroesophageal reflux disease) Chronic pain Lumbar back pain with radiculopathy affecting left lower extremity Lumbar back pain NSTEMI (non-ST elevated myocardial infarction) Takotsubo cardiomyopathy Obesity Vitamin D deficiency Hypothyroidism Surgical History Status post removal of cervix Hx of cardiac catheterization History of elbow surgery History of hysterectomy History of shoulder surgery Family History Family History Sister Hypothyroidism Social History Social History Household Members: Other Household Members Other:: boyfriend Housing: House Do you presently have visiting nurse or other home services: No Alcohol intake: current Alcohol intake frequency: holidays/special occasions only Alcohol type: wine Comment: resting Patient Tobacco Use Status: Former Tobacco user Tobacco use type: Cigarette Cigarette Packs Per Day: 1 Cigarettes Per Day: 20.0 Years Smoked: 20 Smoked in Last 30 Days: Yes e-Cigarette/Vaping Use: Currently Using Second Hand Smoke Exposure: Yes Use of substances other than those prescribed or required for medical reasons: No Advance Directives: No Advance Directives Information Provided: No Patient : No service: No Current occupational status: disabled Current occupational exposures/hazards: No Cognitive needs: No Hearing needs: No Vision needs: No Physical Exam ED Vital Signs: Vital Signs - 24 hr 11/15/24 14:45 11/15/24 15:23 11/15/24 21:45 Temperature 98.0 F 98 F Pulse Rate 97 74 Respiratory Rate 18 16 18 Blood Pressure 203/108 H 175/93 H Pulse Oximetry 98 96 Oxygen Delivery Method Room Air Room Air 11/15/24 22:06 11/16/24 05:11 Temperature 97.7 F Pulse Rate 74 71 Respiratory Rate 15 Blood Pressure 175/93 H 165/102 H Pulse Oximetry 97 Oxygen Delivery Method Room Air BMI result Body Mass Index 23.2 Const General: cooperative, no acute distress, alert and awake Nutritional Appearance: well nourished Orientation/consciousness: patient oriented x3 Limitations: no limitations HENMT Head: Yes normal to inspection and Yes atraumatic Ears: hearing grossly normal bilaterally and external ears normal General nose exam: Normal external nose present, no nasal discharge noted and no epistaxis Face and sinus: Yes normal facial exam, No abrasion and No laceration Mouth: Normal oral and palatal mucosa present, no drooling and no muffled voice Eyes General: appearance normal, both eyes and all related structures Periorbital: periorbital findings normal Eyelids: Yes eyelids normal Conjunctivae: conjunctivae normal Pupils: Equal, round and reactive pupils present EOM: EOMs intact bilaterally Neck Neck: Yes normal visual inspection, Yes full ROM and Yes no lymphadenopathy Chest Chest palpation & inspection: normal inspection of the chest Resp Effort & Inspection: normal respiratory effort and able to speak in complete sentences GI Inspection: Yes normal to inspection Neuro General: patient oriented x3 and moves all extremities Cranial nerves: Yes Equal, round and reactive pupils present Cognition (Neuro): normal cognition Extrem General: Yes normal to inspection, Yes full ROM and Yes capillary refill normal Psych Appearance: grossly normal Mental Status: mental status grossly normal Affect: Sad affect present Attitude: Guarded attititude/behavior present Course Course Course Narrative: RME: 59-year-old female history of depression was to speak to somebody. Patient has family problems. Patient denies any SI HI. Patient is tearful labs, care team consult placed. Medications Administered Generic Name Dose Route Start Last Admin Trade Name Freq PRN Reason Stop Dose Admin Atorvastatin Calcium 80 mg 11/15/24 21:30 11/15/24 22:06 Atorvastatin Calcium 80 Mg Tablet PO 80 mg BEDTIME LINK Administration Clonazepam 0.5 mg 11/15/24 21:30 11/15/24 22:07 Clonazepam 0.5 Mg Tablet PO 0.5 mg BID LINK Administration Levothyroxine Sodium 100 mcg 11/16/24 06:00 11/16/24 07:11 Levothyroxine Sodium 100 Mcg Tablet PO 100 mcg DAILY@0600 LINK Administration Metoprolol Tartrate 25 mg 11/15/24 21:30 11/15/24 22:06 Metoprolol Tartrate 25 Mg Tablet PO 25 mg BID LINK Administration Protocol Risperidone 0.25 mg 11/15/24 21:30 11/15/24 22:06 Risperidone 0.25 Mg Tablet PO 0.25 mg BEDTIME LINK Administration Zolpidem Tartrate 5 mg 11/15/24 21:30 11/15/24 22:07 Zolpidem Tartrate 5 Mg Tablet PO 5 mg BEDTIME LINK Administration Discontinued Medications Generic Name Dose Route Start Last Admin Trade Name Freq PRN Reason Stop Dose Admin Acetaminophen 650 mg 11/16/24 05:04 11/16/24 05:14 Acetaminophen 325 Mg Tablet PO 11/16/24 05:05 650 mg ONCE ONE Administration Medical Decision Making Medical Decision Making [facility] Narrative: Patient is a 59 year old assigned female at with a history of HLD, bipolar 2 disorder, seizure, migraines, and CVA presenting to the emergency department today with increased depression. Patient's physical exam was as noted in the physical exam portion of this note. Patient's blood work was unremarkable. I explained my physical exam findings as well as all test results to the patient. I answered all questions asked by the patient. Patient is awaiting CARE team evaluation. Differential Diagnosis Differential Diagnoses: The differential diagnosis associated with the presentation includes Depression Life stressors Admission/Observation Consideration of admission/observation: Escalation of care including admission/observation considered Patient's disposition will be determined after CARE team evaluation. Lab Data [facility] Lab Attestation statement: I reviewed the patient's lab results. My interpretation of these results are in the MDM Rationale portion of this note. 11/15/24 15:02 11/15/24 15:02 Labs: Lab Results 11/15/24 11/15/24 11/15/24 Range/Units 15:02 15:33 21:44 WBC 8.9 (4.8-10.8) X10*3/uL RBC 3.98 L (4.20-5.50) X10*6/uL Hgb 14.1 (12.0-16.0) g/dl Hct 41.5 (37.0-47.0) % MCV 104.3 H (80.0-98.0) fL MCH 35.4 H (27.0-33.0) pg MCHC 34.0 (31.0-35.0) g/dl RDW 14.6 (11.0-16.0) % Plt Count 435 H (160-400) X10*3/uL MPV 9.6 (9.4-12.3) fL Immature Gran % (Auto) 0.3 (0.0-0.4) % Neut % (Auto) 67.9 (45-73) % Lymph % (Auto) 18.1 L (20-40) % [place] % (Auto) 6.9 (2-11) % Eos % (Auto) 5.3 H (0-4) % Baso % (Auto) 1.5 (0-2) % Lymph # (Auto) 1.6 (1.2-4.9) X10*3/uL [place] # (Auto) 0.6 (0.1-1.2) X10*3/uL Eos # (Auto) 0.5 H (0.0-0.4) X10*3/uL Baso # (Auto) 0.1 (0.0-0.2) X10*3/uL Abs Immat Gran (auto) 0.03 (0.00-0.03) X10*3/uL Absolute Neuts (auto) 6.1 (2.0-8.3) x10*3/uL Absolute Nucleated RBC 0.000 (0.0-0.012) X10*3/uL Nucleated RBC % (auto) 0.0 (0.0-0.2) /100WBC Sodium 142 (135-145) mmol/L Potassium 3.6 D (3.3-5.1) mmol/L Chloride 113 H (96-108) mmol/L Carbon Dioxide 22 (22-29) mmol/L Anion Gap 11 L (12-20) BUN 11 (9-16) mg/dL Creatinine 0.94 (0.5-1.4) mg/dL Estim Creat Clear Calc 53.3 Estimated GFR > 60 Random Glucose 83 (60-115) mg/dL Calcium 9.6 (8.4-10.2) mg/dL Total Bilirubin 0.3 (0.0-1.0) mg/dL AST 18 (5-31) U/L ALT 6 (0-31) U/L Alkaline Phosphatase 75 (39-117) U/L Total Protein 7.7 (6.5-8.0) g/dL Albumin 4.3 (3.5-5.0) g/dL Urine Color Yellow Urine Appearance Clear Urine pH 6.5 (5.0-9.0) Ur Specific [place] 1.010 (1.005-1.025) Urine Protein Trace (Neg-Trace) mg/dL Urine Glucose (UA) Negative (Negative) mg/dL Urine Ketones Negative (Negative) mg/dL Urine Blood Negative (Negative) Urine Nitrite Negative (Negative) Ur Leukocyte Esterase Negative (Negative) Urine Opiates Screen POSITIVE H (Not Detect) Ur Buprenorphine Scrn Positive H (Not Detect) ng/mL Ur Oxycodone Screen Not Detected (Not Detect) ng/mL Urine Methadone Screen Not Detected (Not Detect) ng/mL Urine Fentanyl Screen Not Detected (Not Detect) Ur Barbiturates Screen Not Detected (Not Detect) Ur Phencyclidine Scrn Not Detected (Not Detect) Ur Amphetamines Screen Not Detected (Not Detect) U Benzodiazepines Scrn POSITIVE H (Not Detect) [place] 1.18 (0.60-1.20) mmol/L Urine Cocaine Screen Not Detected (Not Detect) U Marijuana (THC) Screen POSITIVE H (Not Detect) Ethyl Alcohol < 10 mg/dL Discharge Plan Discharge Clinical Impression: Depression, Stress Patient Disposition: Still a Patient Prescriptions: No Action atorvastatin 80 mg tablet 80 mg PO BEDTIME 90 Days Qty: 90 3RF levothyroxine 100 mcg tablet 100 mcg PO DAILY 30 Days Qty: 30 0RF sertraline 100 mg tablet 100 mg PO DAILY risperidone 0.25 mg tablet 0.25 mg PO BEDTIME nitroglycerin 0.4 mg tablet, sublingual 0.4 mg sublingual Q5M PRN (Reason: Chest Pain) Rx Instructions: Take 1 tablet every 5 minutes as needed, for up to 15 minutes. Do not take more than 3 tablets in 15 minutes. metoprolol tartrate 25 mg tablet 25 mg PO BID 90 Days Qty: 180 3RF zolpidem [Ambien] 5 mg tablet 5 mg PO BEDTIME Qty: 30 0RF hydroxyzine pamoate 25 mg capsule 25 mg PO QID PRN (Reason: itch) clonazepam 0.5 mg tablet 0.5 mg PO BID 15 Days Qty: 30 2RF lithium carbonate 300 mg tablet extended release 300 mg PO DAILY Qty: 30 1RF Interventions: [place]-Suicide Risk Severity Scale Last Done: 11/15/24 15:23 Print Language: [place]
[2024-11-15 15:09] LABS: MANUAL DIFF FLAG NO
[2024-11-15 15:17] LABS: Basophils Absolute Auto 0.1 X10*3/uL (0.0-0.2); Basophils Percent Auto 1.5 % (0-2); Eosinophils Absolute Auto 0.5 X10*3/uL (0.0-0.4); Eosinophils Percent Auto 5.3 % (0-4); Hematocrit 41.5 % (37.0-47.0); Hemoglobin 14.1 g/dl (12.0-16.0); Imm Gran Abs Auto 0.03 X10*3/uL (0.00-0.03); Imm Gran Pct Auto 0.3 % (0.0-0.4); Lymphocytes Absolute Auto 1.6 X10*3/uL (1.2-4.9); Lymphocytes Percent Auto 18.1 % (20-40); Mean Corpuscular Hemoglobin 35.4 pg (27.0-33.0); Mean Corpuscular Volume 104.3 fL (80.0-98.0); Mean Platelet Volume 9.6 fL (9.4-12.3); Monocytes Absolute Auto 0.6 X10*3/uL (0.1-1.2); Monocytes Percent Auto 6.9 % (2-11); Neutrophils Absolute Auto 6.1 x10*3/uL (2.0-8.3); Neutrophils Percent Auto 67.9 % (45-73); Platelet Count 435 X10*3/uL (160-400); Red Blood Count 3.98 X10*6/uL (4.20-5.50); Red Cell Distribution Width 14.6 % (11.0-16.0); White Blood Count 8.9 X10*3/uL (4.8-10.8)
[2024-11-15 15:23] VITALS: RESP 16
--- NOTE | 2024-11-15 15:27 | PC.NURSE ---
Brandie is reporting increased depression without any specific trigger at this time. She reports increased hardships over the past year. denies SI or HI, just looking to speak with someone from care team. Calm and cooperative, offering no complaints to this RN
[2024-11-15 15:31] LABS: Alanine Aminotransferase 6 U/L (0-31); Albumin Level 4.3 g/dL (3.5-5.0); Anion Gap 11 (12-20); Aspartate Amino Transferase 18 U/L (5-31); Bilirubin Total 0.3 mg/dL (0.0-1.0); Blood Urea Nitrogen 11 mg/dL (9-16); Calcium 9.6 mg/dL (8.4-10.2); Carbon Dioxide 22 mmol/L (22-29); Chloride 113 mmol/L (96-108); Creatinine Clr Calc Pharmacy 53.3; Estimated Glomerular Filt Rate > 60; Ethanol < 10 mg/dL; Glucose Random 83 mg/dL (60-115); Potassium 3.6 mmol/L (3.3-5.1); Sodium 142 mmol/L (135-145); Total Protein 7.7 g/dL (6.5-8.0)
[2024-11-15 15:41] LABS: Appearance Urine Clear; Color Urine Yellow; Glucose Urine UA Negative (Negative); Leukocyte Esterase Urine Negative (Negative); Nitrite Urine Negative (Negative); PH 6.5 (5.0-9.0); Urine Blood Negative (Negative); Urine Ketones Negative (Negative); Urine Protein Trace mg/dL (Neg-Trace)
[2024-11-15 15:50] LABS: Amphetamine Screen Urine Not Detected (Not Detect); Barbiturates, Urine Not Detected (Not Detect); Benzodiazepines Screen Urine POSITIVE (Not Detect); Buprenorphine Scr Positive (Not Detect); Cannabinoid Screen Urine POSITIVE (Not Detect); Cocaine Screen Urine Not Detected (Not Detect); Fentanyl, urine Not Detected (Not Detect); Methadone Screen, Urine Not Detected (Not Detect); Opiate Screen Urine POSITIVE (Not Detect); Oxycodone Screen Urine Not Detected (Not Detect); Phencyclidine Screen Urine Not Detected (Not Detect)
[2024-11-15 16:04] LABS: Alkaline Phosphatase 75 U/L (39-117)
--- NOTE | 2024-11-15 19:51 | PC.NURSE ---
patient appears relaxing, in no distress upon t/w's arrival to unit. being assessed presently by care team clinician.
--- NOTE | 2024-11-15 21:33 | PHA.MEDREC ---
Pharmacy Consult ? Medication Reconciliation Pharmacy has reviewed the medication reconciliation done by nursing.
[2024-11-15 21:45] VITALS: BP 175/93; PULSE 74; RESP 18; TEMP 36.6; O2SAT 96
[2024-11-15 22:01] LABS: Lithium 1.18 mmol/L (0.60-1.20)
[2024-11-15 22:06] VITALS: BP 175/93; PULSE 74
[2024-11-15] MEDS: Atorvastatin Calcium 80 MG TABLET PO (22:06)
[2024-11-15] MEDS: risperiDONE 0.25 MG TABLET PO (22:06)
[2024-11-15] MEDS: Metoprolol Tartrate 25 MG TABLET PO (22:06)
[2024-11-15] MEDS: Zolpidem Tartrate 5 MG TABLET PO (22:07)
[2024-11-15] MEDS: clonazePAM 0.5 MG TABLET PO (22:07)
[2024-11-16] VITALS (9 sets, daily range): BP systolic 140–197; BP diastolic 65–120; PULSE 65–80; RESP 15–18; TEMP 36.3–36.6; O2SAT 96–97; BMI 22.5
--- NOTE | 2024-11-16 | ECG_ITS ---
Test Reason : CHECK FOR PROLONG QTC Blood Pressure : */* mmHG Vent. Rate : 63 BPM Atrial Rate : 63 BPM P-R Int : 158 ms QRS Dur : 86 ms QT Int : 420 ms P-R-T Axes : 61 19 58 degrees QTcB Int : 429 ms Normal sinus rhythm Possible Left atrial enlargement Borderline ECG When compared with ECG of 19-Jul-2024 11:20, Vent. rate has decreased by 36 bpm Referred By: Silvia Parham Electronically Signed By: JOSE LARSON
[2024-11-16] MEDS: Acetaminophen 325 MG TABLET 650 MG PO ×3 (05:14→21:28)
[2024-11-16] MEDS: Levothyroxine Sodium 100 MCG TABLET PO (07:11)
--- NOTE | 2024-11-16 07:11 | PC.NURSE ---
Care of Pt assumed at change of shift. Pt is awake and eating breakfast. Levothyroxine not given on overnight shift, administered now. Pt is calm and cooperative; NAD noted at this time.
[2024-11-16] MEDS: clonazePAM 0.5 MG TABLET PO ×2 (08:10→21:29)
[2024-11-16] MEDS: Sertraline HCL 100 MG TABLET PO (08:11)
[2024-11-16] MEDS: Lithium Carbonate ER 300 MG TABLET.ER PO (08:11)
[2024-11-16] MEDS: Metoprolol Tartrate 25 MG TABLET PO ×2 (08:11→21:29)
--- NOTE | 2024-11-16 08:35 | PC.NURSE ---
EKG completed per request of Admissions.
[2024-11-16] MEDS: hydrOXYzine HCL 25 MG TABLET PO (14:35)
--- NOTE | 2024-11-16 15:03 | HO.PSYADMNOT ---
HPI Date of Service: 11/16/24 Chief Complaint: Crisis Sources of Information: patient interviewed, chart reviewed and crisis/core team assessment reviewed HPI Subjective Notes: [place] Warning and Conditional Voluntary Narrative: Patient is a 59-year-old female with history of bipolar disorder and opiate use disorder who self presented to ER due to increased depression secondary to life stressors. Per crisis report, patient reports her depression has worsened since July 2024. She reports her daughter is no longer speaking to her because of her past substance use and she was evicted for home in 09/28/2024. She has also been experiencing chronic hip pain since 1999. Patient reports her medications were changed in 09/28/2024 after being discharged from treatment by [facility] and again on 11/14/2024. She reports she has been on the same medications for several years but her new provider recently made further adjustments to her prescriptions. She also reports increased itching and believes that they are parasites in her ear and head . Tearful at times. denies history of inpatient psychiatric admissions. She reports history of heroin and cocaine and pill use . She reports being sober for 2 years and on Suboxone for pain. Utox positive for opiates, buprenorphine, benzodiazepines and marijuana. During admission, patient presents alert and orient x3. Calm and cooperative. Patient reports feeling depressed , tearful at times during assessment. Patient stated, the past year has been horrible. They changed my insurance and I can't keep going to [facility]. I feel I'm just existing. I can't see my kids. And I just want to live myself . Patient reports in July she started to see bug bites on her skin and vomited bugs and worms ; she reports she went to every hospital and everyone told her that it was bedbugs and to put cream on it . Patient reports history of using opiates and cocaine but states that she has been clean for 25 years. She reports she was taking Suboxone but stopped taking this a year ago however, Utox positive for opiates, buprenorphine. When T/W informed patient of Utox results patient stated, I don't know why I would be positive for opiates . denies SI/HI/VH/AH. Patient reports she would like to be seen by hospitalist for her bug bites. patient stated, people think it is not real but it is. I want someone to look at it. they feel like they are in my ears . Discussed and reviewed medications. Past Psychiatric History: denies hx of inpatient psychiatric admissions. denies hx of SA/SIB Prescriber: Sharmaine Smith Therapist: pt can not recall name. Medical Evaluation Reviewed: Yes [facility] Medical History GERD (gastroesophageal reflux disease) Chronic pain Lumbar back pain with radiculopathy affecting left lower extremity Lumbar back pain NSTEMI (non-ST elevated myocardial infarction) Takotsubo cardiomyopathy Obesity Vitamin D deficiency Hypothyroidism Surgical History Status post removal of cervix Hx of cardiac catheterization History of elbow surgery History of hysterectomy History of shoulder surgery Family History: Denies Social History: Lives with 3 friends. . Three adult children. Disability. Substance History: Patient reports hx of using opiates, cocaine, and marijuana. Utox positive for opiates, buprenorphine, and marijuana. Trauma History: Denies Diagnostics Vital Signs (24Hr): Vital Signs - 24 hr 11/15/24 15:23 11/15/24 21:45 11/15/24 22:06 Temperature 98 F Pulse Rate 74 74 Respiratory Rate 16 18 Blood Pressure 175/93 H 175/93 H Pulse Oximetry 96 Oxygen Delivery Method Room Air 11/16/24 05:11 11/16/24 08:11 11/16/24 14:17 Temperature 97.7 F 97.8 F Pulse Rate 71 65 70 Respiratory Rate 15 16 Blood Pressure 165/102 H 152/75 H 194/120 H Pulse Oximetry 97 97 Oxygen Delivery Method Room Air Room Air 11/16/24 14:19 Temperature Pulse Rate 80 Respiratory Rate 18 Blood Pressure 170/100 H Pulse Oximetry Oxygen Delivery Method BMI result Body Mass Index 22.5 Labs 11/15/24 15:02 11/15/24 15:02 Labs: Laboratory Results - last 48 hr 11/15/24 11/15/24 11/15/24 15:02 15:33 21:44 WBC 8.9 RBC 3.98 L Hgb 14.1 Hct 41.5 MCV 104.3 H MCH 35.4 H MCHC 34.0 RDW 14.6 Plt Count 435 H MPV 9.6 Immature Gran % (Auto) 0.3 Neut % (Auto) 67.9 Lymph % (Auto) 18.1 L [place] % (Auto) 6.9 Eos % (Auto) 5.3 H Baso % (Auto) 1.5 Lymph # (Auto) 1.6 [place] # (Auto) 0.6 Eos # (Auto) 0.5 H Baso # (Auto) 0.1 Abs Immat Gran (auto) 0.03 Absolute Neuts (auto) 6.1 Absolute Nucleated RBC 0.000 Nucleated RBC % (auto) 0.0 Sodium 142 Potassium 3.6 D Chloride 113 H Carbon Dioxide 22 Anion Gap 11 L BUN 11 Creatinine 0.94 Estim Creat Clear Calc 53.3 Estimated GFR > 60 Random Glucose 83 Calcium 9.6 Total Bilirubin 0.3 AST 18 ALT 6 Alkaline Phosphatase 75 Total Protein 7.7 Albumin 4.3 Urine Color Yellow Urine Appearance Clear Urine pH 6.5 Ur Specific [place] 1.010 Urine Protein Trace Urine Glucose (UA) Negative Urine Ketones Negative Urine Blood Negative Urine Nitrite Negative Ur Leukocyte Esterase Negative Urine Opiates Screen POSITIVE H Ur Buprenorphine Scrn Positive H Ur Oxycodone Screen Not Detected Urine Methadone Screen Not Detected Urine Fentanyl Screen Not Detected Ur Barbiturates Screen Not Detected Ur Phencyclidine Scrn Not Detected Ur Amphetamines Screen Not Detected U Benzodiazepines Scrn POSITIVE H [place] 1.18 Urine Cocaine Screen Not Detected U Marijuana (THC) Screen POSITIVE H Ethyl Alcohol < 10 Meds/Allergies Meds Home Medications ?Medication ?Instructions ?Recorded ?Confirmed ?Type hydroxyzine pamoate 25 mg capsule 25 mg PO QID PRN itch 11/14/24 11/15/24 History nitroglycerin 0.4 mg sublingual 0.4 mg sublingual Q5M PRN Chest 11/15/24 11/15/24 History tablet Pain risperidone 0.25 mg tablet 0.25 mg PO BEDTIME 11/15/24 11/15/24 History sertraline 100 mg tablet 100 mg PO DAILY 11/15/24 11/15/24 History Allergies Allergies Allergy/AdvReac Type Severity Reaction Status Date / Time aspirin Allergy Intermediate stomach Verified 11/15/24 14:49 upset codeine [CODEINE] Allergy Intermediate itching Verified 11/15/24 14:49 NSAIDS (Non-Steroidal Allergy Mild stomach Verified 11/15/24 14:49 Anti-Inflamma upset [NSAIDS (NON-STEROIDAL ANTI-INFLAMMA] Sulfa (Sulfonamide Allergy Mild Rash Verified 11/15/24 14:49 Antibiotics) [SULFA(SULFONAMIDE ANTIBIOTICS)] lurasidone AdvReac Mild Hallucinati Verified 11/15/24 14:49 ons Mental Status Exam Mental Status Exam Narrative: Pt is alert and oriented; behavior is cooperative, calm; dressed in casual attire; mood is described as anxious ; eye contact appropriate; Speech is normal rate, volume and not pressured; thought process is organized; Thought content is on tx; denies SI/HI/VH/AH. Assessment & Plan Assessment & Plan (1) Bipolar II disorder major depressive with atypical features: Status: Acute Code(s): F31.81 - Bipolar II disorder (2) Opioid use disorder: Status: Acute Code(s): F11.99 - Opioid use, unspecified with unspecified opioid-induced disorder Plan Patient is a 59-year-old female with history of bipolar disorder and opiate use disorder who self presented to ER due to increased depression secondary to life stressors. Plan: CV 15 minute safety checks continue home medications Increase Risperidal to 1mg PO bedtime obtain collateral encourage groups consult to hospitalist for skin/itching/?bug bites discharge planning Patient educated on: diagnosis and medication risk/benefits Reason for continued inpatient stay Substantial Risk for: med/psych decompensation Statement Statement: I have reviewed the history and physical and performed a pertinent examination on my patient. No changes have occurred unless specified. If the History and Physical was not performed prior to admission, the Hospitalist's service will be consulted for completing the admission physical. Time Spent With Patient Time: Total time managing care of this patient today _60___ minutes.
[2024-11-16] MEDS: cloNIDine HCL 0.1 MG TABLET PO (16:22)
--- NOTE | 2024-11-16 16:35 | PC.ADMIT ---
Nursing admission note: 59 year old female DX: Unspecified Bipolar disorder. Signed conditional voluntary for admission. Self presented to [facility] due to increased depression. A+O x4. Easily engaged. Tearful affect. Endorsed depressed mood, anxiety, rating it a 10/10 the worst I have ever felt . Reports feelings of hopelessness, I feel like I have nothing I have no purpose, I feel like I am just existing . Reports multiple stressors contributing to increase in depression including going on disability, change in insurance, going off medications, relational conflict with daughter. States she has not been able to see her grandson in over a year, currently does not speak with daughter. Life was good until about a year ago . Endorses anergia, avolition. Denies racing thought or confusion. Thoughts linear. Denies SI/HI at this time. Denies perceptual disturbances however believes she has parasites . I vomited worms and bugs in July . Denies A/V hallucinations. Speech normal rate, tone, prosody. Reports poor sleep, difficulty falling and maintaining sleep. Denies appetite disturbances. TOX screen positive for opiate, Buprenorphine, cannabis and benzo. Reports she ate a gummy recently. Occasional use of alcohol. States she has been sober for 20 years, has used Suboxone for pain management. Medical history includes HTN, BP on arrival 194/120, HR 70 manual 140/100 HR 73. Lilia Kiran APRN notified. Patient oriented to unit, placed on unit safety checks. See nursing assessment, crisis evaluation for complete details.
--- NOTE | 2024-11-16 17:07 | PC.NURSE ---
Tylenol 650 mg, hydroxyzine 25 mg administered for c/o anxiety, #10 H/A. Reports Tylenol effective pain currently #5. Clonidine .1 mg administered for anxiety, elevated BP 140/100 HR 73 pending effects.
--- NOTE | 2024-11-16 17:20 | PC.NURSE ---
Patient declined flu shot stating she has already received it this season. Declined NRT.
--- NOTE | 2024-11-16 18:50 | P.EN_ITS ---
Event Note Date of Service: 11/16/24 Event Note: Pt is a 59-year-old female admitted to [facility] with hospitalist consult for rash with question of dermatitis, as well as additional consult for hypertension management. Pt seen and evaluated in treatment room where pt complains of diffuse pruritic rash on shoulders, legs, arms, face, and ears but has been ongoing for the past 3-4 months. Pt especially concerned about area on her left eyebrow as well as her right ear where she thinks she has bugs/p arasites that have burrowed into her. Pt reports that when she pulls them off they have ?suckers? and ?tentacles? that ?look like jellyfish?. Pt reports has been to multiple practitioners and emergency department's for this condition, though they all think she is just ?crazy? and offer her no help. Pt reports she is thinking of going directly to the [facility] for workup. Physical exam indicates pt has small superficial scab on left eyebrow which pt then picks off despite asking pt did lead area alone to heal. Examination of right ear shows small area of superficial abrasion to right superior auricle. External ear canal and TM clear and nonerythematous. Left ear unremarkable. Plan: Pt appears manic and paranoid that her body is being invaded by parasites that are living in side of her Skin lesions appear likely to be secondary to continual picking and scratching ?Dermatillomania No indication for topical corticosteroids at this time Would treat as primarily psychogenic in nature, not medical Can treat symptomatically with lotion Can also consider loratadine 10 mg daily or hydroxyzine for pruritus Separately, for patient's hypertension, reports previously on amlodipine and clonidine, as well as metoprolol. States she has been out of her meds for a while, though unclear how long that is. At the very least pt seems to have not been taking any of her home meds for the past 3-4 weeks which is likely contributory to her poorly controlled hypertension. However, review of records indicates pt's BP has often been poorly controlled for the past 4-5 years. Plan: Continue metoprolol, clonidine Will add amlodipine 5 mg daily Thank you for allowing us to participate in the care of this patient. Signing off at this time. Please re-consult if any acute complaints or issues arise. Time Spent With Patient Time: Total time managing care of this patient today ____ minutes.
--- NOTE | 2024-11-16 18:52 | PC.NURSE ---
Patient BP continues elevated, Benedict London APRN notified. Hospitalist consult ordered. Dr. Noriega notified via tiger text.
[2024-11-16 19:00] LABS: Alanine Aminotransferase 7 U/L (0-31); Albumin Level 3.9 g/dL (3.5-5.0); Alkaline Phosphatase 76 U/L (39-117); Anion Gap 14 (12-20); Aspartate Amino Transferase 23 U/L (5-31); Bilirubin Total 0.3 mg/dL (0.0-1.0); Blood Urea Nitrogen 8 mg/dL (9-16); Calcium 9.1 mg/dL (8.4-10.2); Carbon Dioxide 18 mmol/L (22-29); Chloride 113 mmol/L (96-108); Creatinine Clr Calc Pharmacy 63.4; Estimated Glomerular Filt Rate > 60; Glucose Random 105 mg/dL (60-115); Potassium 3.9 mmol/L (3.3-5.1); Sodium 141 mmol/L (135-145); Total Protein 7.5 g/dL (6.5-8.0)
[2024-11-16] MEDS: Zolpidem Tartrate 5 MG TABLET PO (21:26)
[2024-11-16] MEDS: Atorvastatin Calcium 80 MG TABLET PO (21:29)
[2024-11-16] MEDS: risperiDONE 1 MG TABLET PO (21:29)
[2024-11-17] MEDS: Acetaminophen 325 MG TABLET 650 MG PO (06:52)
[2024-11-17] MEDS: Levothyroxine Sodium 100 MCG TABLET PO (06:53)
[2024-11-17 08:20] VITALS: BP 177/86; PULSE 77; RESP 14; TEMP 36.6; O2SAT 97
[2024-11-17] MEDS: Sertraline HCL 100 MG TABLET PO (08:24)
[2024-11-17] MEDS: Lithium Carbonate ER 300 MG TABLET.ER PO (08:24)
[2024-11-17 08:25] VITALS: BP 177/76; BP 177/86; PULSE 77
[2024-11-17] MEDS: Metoprolol Tartrate 25 MG TABLET PO (08:25)
[2024-11-17] MEDS: amLODIPine Besylate 5 MG TABLET PO (08:25)
[2024-11-17] MEDS: clonazePAM 0.5 MG TABLET PO (08:26)
[2024-11-17 08:29] LABS: Cholesterol 196 mg/dL (<200); HDL Cholesterol 41 mg/dL (>40); LDL Cholesterol Calculated 120 mg/dL (<100); Triglycerides 178 mg/dL (<150)
--- NOTE | 2024-11-17 09:49 | P.PNPSI_ITS ---
Subjective Subjective Reason For Visit: Crisis Diagnostics Vital Signs (24Hr): Vital Signs - 24 hr 11/16/24 14:17 11/16/24 14:19 11/16/24 16:22 Temperature 97.8 F Pulse Rate 70 80 Respiratory Rate 16 18 Blood Pressure 194/120 H 170/100 H 140/100 H Pulse Oximetry 97 Oxygen Delivery Method Room Air 11/16/24 18:13 11/16/24 18:20 11/16/24 20:00 Temperature 97.3 F Pulse Rate 74 74 65 Respiratory Rate 18 18 Blood Pressure 197/96 H 172/98 H 153/65 H Pulse Oximetry 96 Oxygen Delivery Method Room Air 11/16/24 21:29 11/17/24 08:20 11/17/24 08:25 Temperature 97.8 F Pulse Rate 70 77 Respiratory Rate 14 Blood Pressure 161/89 H 177/86 H 177/86 H Pulse Oximetry 97 Oxygen Delivery Method Room Air 11/17/24 08:25 Temperature Pulse Rate 77 Respiratory Rate Blood Pressure 177/76 H Pulse Oximetry Oxygen Delivery Method BMI result Body Mass Index 22.5 Labs 11/15/24 15:02 11/16/24 18:29 Labs: Laboratory Results - last 48 hr 11/15/24 11/15/24 11/15/24 15:02 15:33 21:44 WBC 8.9 RBC 3.98 L Hgb 14.1 Hct 41.5 MCV 104.3 H MCH 35.4 H MCHC 34.0 RDW 14.6 Plt Count 435 H MPV 9.6 Immature Gran % (Auto) 0.3 Neut % (Auto) 67.9 Lymph % (Auto) 18.1 L [place] % (Auto) 6.9 Eos % (Auto) 5.3 H Baso % (Auto) 1.5 Lymph # (Auto) 1.6 [place] # (Auto) 0.6 Eos # (Auto) 0.5 H Baso # (Auto) 0.1 Abs Immat Gran (auto) 0.03 Absolute Neuts (auto) 6.1 Absolute Nucleated RBC 0.000 Nucleated RBC % (auto) 0.0 Sodium 142 Potassium 3.6 D Chloride 113 H Carbon Dioxide 22 Anion Gap 11 L BUN 11 Creatinine 0.94 Estim Creat Clear Calc 53.3 Estimated GFR > 60 Random Glucose 83 Calcium 9.6 Total Bilirubin 0.3 AST 18 ALT 6 Alkaline Phosphatase 75 Total Protein 7.7 Albumin 4.3 Triglycerides Cholesterol LDL Cholesterol, Calc HDL Cholesterol Urine Color Yellow Urine Appearance Clear Urine pH 6.5 Ur Specific [place] 1.010 Urine Protein Trace Urine Glucose (UA) Negative Urine Ketones Negative Urine Blood Negative Urine Nitrite Negative Ur Leukocyte Esterase Negative Urine Opiates Screen POSITIVE H Ur Buprenorphine Scrn Positive H Ur Oxycodone Screen Not Detected Urine Methadone Screen Not Detected Urine Fentanyl Screen Not Detected Ur Barbiturates Screen Not Detected Ur Phencyclidine Scrn Not Detected Ur Amphetamines Screen Not Detected U Benzodiazepines Scrn POSITIVE H [place] 1.18 Urine Cocaine Screen Not Detected U Marijuana (THC) Screen POSITIVE H Ethyl Alcohol < 10 11/16/24 11/17/24 18:29 07:58 WBC RBC Hgb Hct MCV MCH MCHC RDW Plt Count MPV Immature Gran % (Auto) Neut % (Auto) Lymph % (Auto) [place] % (Auto) Eos % (Auto) Baso % (Auto) Lymph # (Auto) [place] # (Auto) Eos # (Auto) Baso # (Auto) Abs Immat Gran (auto) Absolute Neuts (auto) Absolute Nucleated RBC Nucleated RBC % (auto) Sodium 141 Potassium 3.9 Chloride 113 H Carbon Dioxide 18 L Anion Gap 14 BUN 8 L Creatinine 0.79 Estim Creat Clear Calc 63.4 Estimated GFR > 60 Random Glucose 105 Calcium 9.1 Total Bilirubin 0.3 AST 23 ALT 7 Alkaline Phosphatase 76 Total Protein 7.5 Albumin 3.9 Triglycerides 178 H Cholesterol 196 LDL Cholesterol, Calc 120 H HDL Cholesterol 41 Urine Color Urine Appearance Urine pH Ur Specific [place] Urine Protein Urine Glucose (UA) Urine Ketones Urine Blood Urine Nitrite Ur Leukocyte Esterase Urine Opiates Screen Ur Buprenorphine Scrn Ur Oxycodone Screen Urine Methadone Screen Urine Fentanyl Screen Ur Barbiturates Screen Ur Phencyclidine Scrn Ur Amphetamines Screen U Benzodiazepines Scrn [place] Urine Cocaine Screen U Marijuana (THC) Screen Ethyl Alcohol Medications Medications Current Medications Acetaminophen (Acetaminophen 325 Mg Tablet) 650 mg PO Q6H PRN PRN Reason: Headache/Pain Mild Scale (1-3) Last Admin: 11/17/24 06:52 Dose: 650 mg Al Hydroxide/Mg Hydroxide (Magnesium Hydrox/Alum Hydrox 30 Ml Oral.Susp) 30 ml PO Q6H PRN PRN Reason: Heartburn/Nausea Amlodipine Besylate (Amlodipine Besylate 5 Mg Tablet) 5 mg PO DAILY LINK; Protocol Last Admin: 11/17/24 08:25 Dose: 5 mg Atorvastatin Calcium (Atorvastatin Calcium 80 Mg Tablet) 80 mg PO BEDTIME [facility] Last Admin: 11/16/24 21:29 Dose: 80 mg Clonazepam (Clonazepam 0.5 Mg Tablet) 0.5 mg PO BID [facility] Last Admin: 11/17/24 08:26 Dose: 0.5 mg Clonidine HCl (Clonidine Hcl 0.1 Mg Tablet) 0.1 mg PO BID PRN; Protocol PRN Reason: Anxiety Last Admin: 11/16/24 16:22 Dose: 0.1 mg Hydroxyzine HCl (Hydroxyzine Hcl 25 Mg Tablet) 25 mg PO QID PRN PRN Reason: itch Last Admin: 11/16/24 14:35 Dose: 25 mg Levothyroxine Sodium (Levothyroxine Sodium 100 Mcg Tablet) 100 mcg PO DAILY@0600 [facility] Last Admin: 11/17/24 06:53 Dose: 100 mcg [place] Carbonate ([place] Carbonate Er 300 Mg Tablet.Er) 300 mg PO DAILY [facility] Last Admin: 11/17/24 08:24 Dose: 300 mg Magnesium Hydroxide (Milk Of Magnesia 30 Ml Oral.Susp) 30 ml PO DAILY PRN PRN Reason: Constipation Metoprolol Tartrate (Metoprolol Tartrate 25 Mg Tablet) 25 mg PO BID [facility]; Protocol Last Admin: 11/17/24 08:25 Dose: 25 mg Nicotine (Nicotine 21 Mg Patch.Td24) 21 mg TRANSDERMA DAILY [facility] Last Admin: 11/17/24 08:52 Dose: Not Given Nicotine Polacrilex (Nicotine Polacrilex 2 Mg Gum) 4 mg BUCCAL Q2H PRN PRN Reason: Nicotine Cravings Nitroglycerin (Nitroglycerin 0.4 Mg Tab.Subl) 0.4 mg SUBLINGUAL Q5M PRN PRN Reason: Chest Pain Risperidone (Risperidone 1 Mg Tablet) 1 mg PO BEDTIME [facility] Last Admin: 11/16/24 21:29 Dose: 1 mg Sertraline HCl (Sertraline Hcl 100 Mg Tablet) 100 mg PO DAILY [facility] Last Admin: 11/17/24 08:24 Dose: 100 mg Trazodone HCl (Trazodone Hcl 50 Mg Tablet) 50 mg PO BEDTIME MRX1 PRN PRN Reason: Insomnia Zolpidem Tartrate (Zolpidem Tartrate 5 Mg Tablet) 5 mg PO BEDTIME [facility] Last Admin: 11/16/24 21:26 Dose: 5 mg Allergies Allergies Allergy/AdvReac Type Severity Reaction Status Date / Time aspirin Allergy Intermediate stomach Verified 11/15/24 14:49 upset codeine [CODEINE] Allergy Intermediate itching Verified 11/15/24 14:49 NSAIDS (Non-Steroidal Allergy Mild stomach Verified 11/15/24 14:49 Anti-Inflamma upset [NSAIDS (NON-STEROIDAL ANTI-INFLAMMA] Sulfa (Sulfonamide Allergy Mild Rash Verified 11/15/24 14:49 Antibiotics) [SULFA(SULFONAMIDE ANTIBIOTICS)] lurasidone AdvReac Mild Hallucinati Verified 11/15/24 14:49 ons Assessment & Plan Assessment & Plan (1) Bipolar II disorder major depressive with atypical features: Status: Acute Code(s): F31.81 - Bipolar II disorder (2) Opioid use disorder: Status: Acute Code(s): F11.99 - Opioid use, unspecified with unspecified opioid-induced disorder Plan Patient is a 59-year-old female with history of bipolar disorder and opiate use disorder who self presented to ER due to increased depression secondary to life stressors. Plan: CV 15 minute safety checks continue home medications Increase Risperidal to 1mg PO bedtime obtain collateral encourage groups consult to hospitalist for skin/itching/?bug bites discharge planning Time Spent With Patient Time: Total time managing care of this patient today ____ minutes.
--- NOTE | 2024-11-17 11:06 | PM.PSYDC ---
DS: Providers Provider Date of Service: 11/17/24 Date of admission: 11/16/24 11:53 Date of discharge: 11/17/24 Primary care physician: Ney Cole MD Admitting clinician: Lilia Kiran Attending physician on admission: Hernando Nayak Consults: 11/16/24 15:19 Consult to Hospitalist Routine Comment: Consulting Provider: [facility] Hospitalists Reason For Exam: ?dermatitis/treatment 11/16/24 18:42 Consult to Hospitalist Routine Comment: poor response to clonidine per nsg. Consulting Provider: [facility] Hospitalists Reason For Exam: HTN/On Metoprolol Attending physician on discharge: Hernando Nayak Discharging clinician: Lilia Kiran DS: Diagnosis Discharge Diagnosis (1) Bipolar II disorder major depressive with atypical features: Status: Acute (2) Opioid use disorder: Status: Acute DS: Medications Discharge Medications Home Medications: Home Medications ?Medication ?Instructions ?Recorded ?Confirmed hydroxyzine pamoate 25 mg capsule 25 mg PO QID PRN itch 11/14/24 11/15/24 nitroglycerin 0.4 mg sublingual 0.4 mg sublingual Q5M PRN Chest 11/15/24 11/15/24 tablet Pain risperidone 0.25 mg tablet 0.25 mg PO BEDTIME 11/15/24 11/15/24 sertraline 100 mg tablet 100 mg PO DAILY 11/15/24 11/15/24 Previous Rx's ?Medication ?Instructions ?Recorded metoprolol tartrate 25 mg tablet 25 mg PO BID 90 days #180 tabs 02/22/24 atorvastatin 80 mg tablet 80 mg PO BEDTIME 90 days #90 tabs 07/27/24 zolpidem 5 mg tablet (Ambien) 5 mg PO BEDTIME #30 tabs 09/29/24 levothyroxine 100 mcg tablet 100 mcg PO DAILY 30 days #30 tabs 11/03/24 clonazepam 0.5 mg tablet 0.5 mg PO BID anxiety 15 days #30 11/14/24 tabs lithium carbonate 300 mg 300 mg PO DAILY #30 tabs 11/14/24 tablet,extended release Mental Status Exam Mental Status Exam Narrative: Pt is alert and oriented; behavior is cooperative, calm; dressed in casual attire; mood is described as good ; eye contact appropriate; Speech is normal rate, volume and not pressured; thought process is organized; Thought content is on discharge; denies SI/HI/VH/AH. Data Data Completed and Pending Completed studies during hospitalization [Text1]: 11/15/24 11/15/24 11/15/24 15:02 15:33 21:44 WBC 8.9 RBC 3.98 L Hgb 14.1 Hct 41.5 MCV 104.3 H MCH 35.4 H MCHC 34.0 RDW 14.6 Plt Count 435 H MPV 9.6 Immature Gran % (Auto) 0.3 Neut % (Auto) 67.9 Lymph % (Auto) 18.1 L [place] % (Auto) 6.9 Eos % (Auto) 5.3 H Baso % (Auto) 1.5 Lymph # (Auto) 1.6 [place] # (Auto) 0.6 Eos # (Auto) 0.5 H Baso # (Auto) 0.1 Abs Immat Gran (auto) 0.03 Absolute Neuts (auto) 6.1 Absolute Nucleated RBC 0.000 Nucleated RBC % (auto) 0.0 Sodium 142 Potassium 3.6 D Chloride 113 H Carbon Dioxide 22 Anion Gap 11 L BUN 11 Creatinine 0.94 Estim Creat Clear Calc 53.3 Estimated GFR > 60 Random Glucose 83 Calcium 9.6 Total Bilirubin 0.3 AST 18 ALT 6 Alkaline Phosphatase 75 Total Protein 7.7 Albumin 4.3 Triglycerides Cholesterol LDL Cholesterol, Calc HDL Cholesterol Urine Color Yellow Urine Appearance Clear Urine pH 6.5 Ur Specific [place] 1.010 Urine Protein Trace Urine Glucose (UA) Negative Urine Ketones Negative Urine Blood Negative Urine Nitrite Negative Ur Leukocyte Esterase Negative Urine Opiates Screen POSITIVE H Ur Buprenorphine Scrn Positive H Ur Oxycodone Screen Not Detected Urine Methadone Screen Not Detected Urine Fentanyl Screen Not Detected Ur Barbiturates Screen Not Detected Ur Phencyclidine Scrn Not Detected Ur Amphetamines Screen Not Detected U Benzodiazepines Scrn POSITIVE H [place] 1.18 Urine Cocaine Screen Not Detected U Marijuana (THC) Screen POSITIVE H Ethyl Alcohol < 10 11/16/24 11/17/24 18:29 07:58 WBC RBC Hgb Hct MCV MCH MCHC RDW Plt Count MPV Immature Gran % (Auto) Neut % (Auto) Lymph % (Auto) [place] % (Auto) Eos % (Auto) Baso % (Auto) Lymph # (Auto) [place] # (Auto) Eos # (Auto) Baso # (Auto) Abs Immat Gran (auto) Absolute Neuts (auto) Absolute Nucleated RBC Nucleated RBC % (auto) Sodium 141 Potassium 3.9 Chloride 113 H Carbon Dioxide 18 L Anion Gap 14 BUN 8 L Creatinine 0.79 Estim Creat Clear Calc 63.4 Estimated GFR > 60 Random Glucose 105 Calcium 9.1 Total Bilirubin 0.3 AST 23 ALT 7 Alkaline Phosphatase 76 Total Protein 7.5 Albumin 3.9 Triglycerides 178 H Cholesterol 196 LDL Cholesterol, Calc 120 H HDL Cholesterol 41 Urine Color Urine Appearance Urine pH Ur Specific [place] Urine Protein Urine Glucose (UA) Urine Ketones Urine Blood Urine Nitrite Ur Leukocyte Esterase Urine Opiates Screen Ur Buprenorphine Scrn Ur Oxycodone Screen Urine Methadone Screen Urine Fentanyl Screen Ur Barbiturates Screen Ur Phencyclidine Scrn Ur Amphetamines Screen U Benzodiazepines Scrn [place] Urine Cocaine Screen U Marijuana (THC) Screen Ethyl Alcohol DS: Summary Hospital Course Hospital Course: Patient is a 59-year-old female with history of bipolar disorder and opiate use disorder who self presented to ER due to increased depression secondary to life stressors. Per crisis report, patient reports her depression has worsened since July 2024. She reports her daughter is no longer speaking to her because of her past substance use and she was evicted for home in 09/28/2024. She has also been experiencing chronic hip pain since 1999. Patient reports her medications were changed in 09/28/2024 after being discharged from treatment by [facility] and again on 11/14/2024. She reports she has been on the same medications for several years but her new provider recently made further adjustments to her prescriptions. She also reports increased itching and believes that they are parasites in her ear and head . Tearful at times. denies history of inpatient psychiatric admissions. She reports history of heroin and cocaine and pill use . She reports being sober for 2 years and on Suboxone for pain. Utox positive for opiates, buprenorphine, benzodiazepines and marijuana. During admission, patient presents alert and orient x3. Calm and cooperative. Patient reports feeling depressed , tearful at times during assessment. Patient stated, the past year has been horrible. They changed my insurance and I can't keep going to [facility] [employer]. I feel I'm just existing. I can't see my kids. And I just want to live myself . Patient reports in July she started to see bug bites on her skin and vomited bugs and worms ; she reports she went to every hospital and everyone told her that it was bedbugs and to put cream on it . Patient reports history of using opiates and cocaine but states that she has been clean for 25 years. She reports she was taking Suboxone but stopped taking this a year ago however, Utox positive for opiates, buprenorphine. When T/W informed patient of Utox results patient stated, I don't know why I would be positive for opiates . denies SI/HI/VH/AH. Patient reports she would like to be seen by hospitalist for her bug bites. patient stated, people think it is not real but it is. I want someone to look at it. they feel like they are in my ears . Discussed and reviewed medications. Patient is requesting to be discharged home today. Patient stated, I want my family situation to change and living situation to change but I know I can't do anything about it while I'm here. I'm also going to go to a plant culture manager to look at my skin for parasites but people think I'm a lunatic and I'm not . denies SI/HI/VH/AH. Patient reports she plans on going to [facility] with my room mate to see if they can get us new housing . She plans on following up with her outpatient providers. Status at Discharge Cognitive/behavioral status at discharge: Patient has insight and demonstrates good judgment in terms of wanting to pursue treatment. Patient is not in imminent risk of harm to self or others and has a safety plan that includes presenting to the closest ER or calling 911 if feeling unsafe. Functional status at discharge: independent ambulation Overall status at discharge: patient is back to baseline Time Spent with Patient Time attestation: Total time managing care of this patient today _20___ minutes. Time spent: Less than 30 minutes Discharge Plan Discharge Anticipated Discharge Date/Time: 11/17/24 14:30 Patient Disposition: Home, Self-Care Discharge Diagnosis: Bipolar d/o, opioid use d/o Referrals: Ney Cole MD [Primary Care Provider] - 1 Week (Your primary care provider will be contacting you with your follow up appt information.) Discharge Medications: New risperidone 1 mg Tablet 1 mg PO BEDTIME 30 Days Qty: 30 0RF amlodipine 5 mg Tablet 5 mg PO DAILY 30 Days Qty: 30 0RF Protocol: Hold for SBP< HOLD for SBP < : 90 Continued atorvastatin 80 mg tablet 80 mg PO BEDTIME 90 Days Qty: 90 3RF levothyroxine 100 mcg tablet 100 mcg PO DAILY 30 Days Qty: 30 0RF sertraline 100 mg tablet 100 mg PO DAILY nitroglycerin 0.4 mg tablet, sublingual 0.4 mg sublingual Q5M PRN (Reason: Chest Pain) Rx Instructions: Take 1 tablet every 5 minutes as needed, for up to 15 minutes. Do not take more than 3 tablets in 15 minutes. metoprolol tartrate 25 mg tablet 25 mg PO BID 90 Days Qty: 180 3RF zolpidem [Ambien] 5 mg tablet 5 mg PO BEDTIME Qty: 30 0RF hydroxyzine pamoate 25 mg capsule 25 mg PO QID PRN (Reason: itch) clonazepam 0.5 mg tablet 0.5 mg PO BID 15 Days Qty: 30 2RF lithium carbonate 300 mg tablet extended release 300 mg PO DAILY Qty: 30 1RF Discontinued risperidone 0.25 mg tablet 0.25 mg PO BEDTIME Discharge Orders: Discharge Order (Routine); Ordered 11/17/24 Ordered By: Lilia Kiran Diet: Regular diet Activity on Discharge: As tolerated Stand Alone Forms: Patient Portal Discharge page Print Language: Spanish Care Plan Goals: Maintain mood and safe behaviors Take medications as prescribed Continue to pursue sobriety Practice coping skills Continue with outpatient providers and reach out to them as needed Health Concerns: Mood stability and behaviors Sobriety Plan of Treatment: Follow up with your PCP, psychiatric provider and other outpatient providers regarding above concerns Take medications as prescribed Assessment: Patient has insight and demonstrates good judgment in terms of wanting to pursue treatment. Patient is not in imminent risk of harm to self or others and has a safety plan that includes presenting to the closest ER or calling 911 if feeling unsafe.
[2024-11-17] MEDS: Naloxone HCl Nasal TAKE HOME 4 MG SPRAY 8 MG NOSTRILALT (13:19)
== END 2024-11-17 14:15 | disposition home or self-care (01) | DRG 885 ==
LOC: HO.ED 11-16 09:35 → HO.PADLT16 11-16 12:35
PROVIDERS: Emergency Medicine Emergency Medical Services; Physician Assistant; Admitting Provider Registered Nurse; Emergency Provider Emergency Medicine; PCP Family Medicine; Responsible Provider Registered Nurse; Visit Provider Psychiatry & Neurology Psychiatry
DX: F31.81 Bipolar II disorder (principal); E78.5 Hyperlipidemia, unspecified; I10 Essential (primary) hypertension; G89.29 Other chronic pain; R21 Rash and other nonspecific skin eruption; Z59.819 Housing instability, housed unspecified; Z87.891 Personal history of nicotine dependence; Z79.890 Hormone replacement therapy; Z79.899 Other long term (current) drug therapy
CPT/HCPCS: 36415; 80053; 80061; 80178; 80307; 81003; 85025; 93005; 99285

== ENCOUNTER → 2024-11-16 08:23 | Outpatient (BNV) | payer MEDICARE, SELFPAY | PROVIDERS: Admitting Provider Registered Nurse; Emergency Provider Emergency Medicine; PCP Family Medicine; Visit Provider Internal Medicine | DX: R94.31 Abnormal electrocardiogram [ECG] [EKG] (principal) | CPT/HCPCS: 93010 ==

== ENCOUNTER → 2024-11-16 11:53 | Outpatient (BNV) | payer MEDICARE, SELFPAY | PROVIDERS: Admitting Provider Registered Nurse; Emergency Provider Emergency Medicine; PCP Family Medicine; Responsible Provider Registered Nurse; Visit Provider Registered Nurse | DX: F31.81 Bipolar II disorder (principal); F11.99 Opioid use, unspecified with unspecified opioid-induced disorder | CPT/HCPCS: 90792 ==

== ENCOUNTER 2025-04-17 11:20 | Outpatient (AMB) | payer MEDICARE, SELFPAY ==
--- NOTE | 2025-04-17 11:48 | MHC.PC.OV ---
Vital Signs 04/17/25 11:55 Height 5 ft 3 in Weight 117 lb 6 oz BMI 20.8 BP 131/80 Blood Pressure Location Rt brachial Position Sitting Respiration 14 Pulse 69 Pulse Source Pulse Oximeter Temp 97.2 F Temp Source Oral Pulse Oximetry (%) 98 Oxygen Delivery Method Room Air Intake Visit Reasons: referral to [facility] hospital, [facility] 2001 Intake Note: patient states she has parasites in her hair skin and urine. patient has also stated she has coughed bugs up. Motor Vehicle Field Representative Required: No Allergies aspirin Allergy (Intermediate, Verified 04/17/25 11:50) stomach upset codeine [CODEINE] Allergy (Intermediate, Verified 04/17/25 11:50) itching NSAIDS (Non-Steroidal Anti-Inflamma [NSAIDS (NON-STEROIDAL ANTI-INFLAMMA] Allergy (Mild, Verified 04/17/25 11:50) stomach upset Sulfa (Sulfonamide Antibiotics) [SULFA(SULFONAMIDE ANTIBIOTICS)] Allergy (Mild, Verified 04/17/25 11:50) Rash lurasidone Adverse Reaction (Mild, Verified 04/17/25 11:50) Hallucinations Medication List - Last Reconciled 04/17/25 by Ney Cole MD albendazole 200 mg PO BID 7 days atorvastatin 80 mg PO BEDTIME 90 days clonazepam 0.5 mg PO BID 15 days levothyroxine 100 mcg PO DAILY 30 days metoprolol tartrate 25 mg PO BID 90 days nitroglycerin 0.4 mg sublingual Q5M PRN risperidone 1 mg PO BEDTIME 30 days Tobacco use date assessed: 10/20/24 Dental Screening Dental Screen Date: 10/20/24 HPI referral to psychiatric hospital, [facility] 2001 HPI Details 59 y/o female presents today with complaints of parasites in her hair, skin and urine. Also reports she has been coughing up bugs. Hx of bipolar disorder though pt denies this. Hx of opioid abuse. Denies any opiod use. Does have skin lesions. Has not been following up with her psychiatrist. [facility] Medical History GERD (gastroesophageal reflux disease) Chronic pain Lumbar back pain with radiculopathy affecting left lower extremity Lumbar back pain NSTEMI (non-ST elevated myocardial infarction) Takotsubo cardiomyopathy Obesity Vitamin D deficiency Hypothyroidism Surgical History Status post removal of cervix Hx of cardiac catheterization History of elbow surgery History of hysterectomy History of shoulder surgery Family History Sister Hypothyroidism Social History Household Members: Other Household Members Other:: roommate and friends Housing: House Do you presently have visiting nurse or other home services: No Alcohol intake: current Alcohol intake frequency: holidays/special occasions only Alcohol type: wine Comment: resting Patient Tobacco Use Status: Former Tobacco user Tobacco use type: Cigarette Cigarette Packs Per Day: 1 Cigarettes Per Day: 20.0 Years Smoked: 20 e-Cigarette/Vaping Use: Currently Using Second Hand Smoke Exposure: No Substance Use Type: Former Substance User service: No Current occupational status: disabled Current occupational exposures/hazards: No Sexual orientation: Straight/Heterosexual Cognitive needs: No Hearing needs: No Vision needs: No Questionnaire PHQ-9 Over the last 2 weeks, how often have you been bothered by any of the following problems? 1. Little interest or pleasure in doing things: nearly every day 2. Feeling down, depressed, or hopeless: nearly every day 3. Trouble falling or staying asleep, or sleeping too much: several days 4. Feeling tired or having little energy: several days 5. Poor appetite or overeating: several days 6. Feeling bad about yourself - or that you are a failure or have let yourself or your family down: not at all 7. Trouble concentrating on things, such as reading the newspaper or watching television: several days 8. Moving or speaking so slowly that other people could have noticed. Or the opposite - being so fidgety or restless that you have been moving around a lot more than usual: not at all 9. Thoughts that you would be better off or of hurting yourself in some way: not at all Total score: 10 Source: Developed by Drs. Giorgio Perez, Laura Aragon, Terrence Hogue and colleagues, with an educational franki from [employer]. Thrive Questionnaire Date Thrive assessed: 11/17/24 I am a: Patient What is your living situation today?: I choose not to answer this question Within the past 12 months, did the food you bought not last and you didn't have the money to get more?: Never true Within the past 12 months, did you worry whether your food would run out before you got money to buy more?: Never true Do you have trouble paying for medicines?: No Do you have trouble getting transportation to medical appointments?: No Do you have trouble paying your heating and electricity bill?: No Do you have trouble taking care of your child, family member or friend?: No Do you have trouble with day-to-day activities such as bathing, preparing meals, shopping, managing finances, etc.?: I choose not to answer this question Are you currently unemployed and looking for a job?: No Are you interested in more education?: No Please select the resources that you would like help with: Housing/Longterm Currently or been in a relationship where the following occur: I choose not to answer THRIVE Score: 0 AUDIT C Alcohol Use Questionnaire (AUDIT-C) 1. How often do you have a drink containing alcohol?: Monthly or less 2. How many drinks containing alcohol do you have on a typical day when you are drinking?: 1 or 2 3. How often do you have six or more drinks on one occasion?: Never Total Score: 1 ANALI-7 AMB Questionnaire ANALI-7 Date ANALI - 7 assessed: 02/22/24 Feeling nervous, anxious, or on edge: 3 = Nearly every day Not being able to stop or control worryin = Nearly every day Worrying too much about different things: 3 = Nearly every day Trouble relaxin = Nearly every day Being so restless that it is hard to sit still: 1 = Several days Becoming easily annoyed or irritable: 0 = Not at all Feeling afraid as if something awful might happen: 1 = Several days Total ANALI-7 score (0-4 normal; 5-9 mild; 10-14 moderate; 15-21 severe): 14 Source: Developed by Drs. Giorgio Perez, Laura Aragon, Terrence Hogue and colleagues, with an educational franki from [employer]. Review of Systems Const Denies chills, Denies fatigue, Denies fever(s), Denies headache(s) and Denies weakness ENT Denies dizziness and Denies headache(s) Card Denies dyspnea Resp Denies cough, Denies dyspnea, Denies wheezing and Denies other (shortness of breath) Musc Denies numbness and Denies tingling Neuro Denies dizziness, Denies headache(s), Denies numbness, Denies tingling and Denies weakness Psych Reports anxiety Endo Denies fatigue Aller/Immun Denies wheezing Physical exam (Primary Care) Vital Signs: Last Vital Signs Temp 97.2 F 04/17/25 11:55 Pulse 69 04/17/25 11:55 Resp 14 04/17/25 11:55 BP 131/80 04/17/25 11:55 Pulse Ox 98 04/17/25 11:55 Oxygen Delivery Method Room Air 04/17/25 11:55 BMI result Body Mass Index 20.8 Tobacco/Smoking Status: Tobacco use Status Tobacco use date assessed 10/20/24 04/17/25 12:04 Patient Tobacco Use Status Former Tobacco user 04/17/25 12:04 Tobacco use type Cigarette 04/17/25 12:04 e-Cigarette/Vaping Use Currently Using 04/17/25 12:04 PHQ-9: PHQ-9 Score PHQ-9: Total score 10 04/17/25 12:04 Thrive Assessment: Date of Thrive Assessment Date Thrive assessed 11/17/24 04/17/25 12:04 Currently or been in a relationship where the following occur: I choose not to answer Const General: well developed; No acute distress Nutritional Appearance: well nourished Orientation/consciousness: patient oriented x3 HENMT Head: Yes normocephalic and Yes atraumatic Eyes General: appearance normal, both eyes and all related structures Pupils: Equal, round and reactive pupils present EOM: EOMs intact bilaterally Resp Effort & Inspection: normal respiratory effort Neuro General: patient oriented x3 and gait normal Cranial nerves: Yes Equal, round and reactive pupils present Psych Affect: normal affect Coding Level of Care Code Est Pt Level 4 (22677) Diagnoses Skin lesions L98.9 Bipolar II disorder major depressive with atypical features F31.81 Hx of opioid abuse F11.11 Assessment & Plan Assessment & Plan (1) Skin lesions: Code(s): L98.9 - Disorder of the skin and subcutaneous tissue, unspecified Category: Medical (2) Bipolar II disorder major depressive with atypical features: Code(s): F31.81 - Bipolar II disorder Category: Medical (3) Hx of opioid abuse: Code(s): F11.11 - Opioid abuse, in remission Category: Medical Plan 59-year-old?female?with?bipolar?disorder?and?distant?history?of?opioid?abuse?presents?with Complaints?of?skin?lesions?and?parasites.??Patient?brings?in containers?with?small?bugs?which?not?appear?to?be?parasites. She?does?have?skin?lesions?which?may?bites and?possible?bedbugs.??However?may?also?be picking?at?her?skin?which?she?did?in?front?of?me?and?I?do?not?see bugs?were?parasites?on?her?skin. She?has?been?to?several?providers?including?emergency?department?and?they?have?given?topicals.??At?this?point,?will?give?her?albendazole?x7?days. Checking?labs Referring?to?Dermatology We?did?discuss?that?given?her?history?of?bipolar?disorder?and?also?distant?history?of?drug?use?that?she?should?follow?back?up?with?her?psychiatrist?well.??Patient?understands. Orders: Orders Drug Screen Urine Today L98.9 - Disorder of the skin and subcutaneous tissue, unspecified Ova and Parasite Today L98.9 - Disorder of the skin and subcutaneous tissue, unspecified Comprehensive Met. Panel Today L98.9 - Disorder of the skin and subcutaneous tissue, unspecified UA CC w/rflx Micro + Cult Today L98.9 - Disorder of the skin and subcutaneous tissue, unspecified, Z00.00 - Encounter for general adult medical examination without abnormal findings Complete Blood Count Auto Diff Today L98.9 - Disorder of the skin and subcutaneous tissue, unspecified, Z00.00 - Encounter for general adult medical examination without abnormal findings Referrals Dermatology Referral L98.9 - Disorder of the skin and subcutaneous tissue, unspecified Medications: New albendazole 200 mg PO BID 7 days 14 tabs 0RF
[2025-04-17 11:55] VITALS: BP 131/80; PULSE 69; RESP 14; TEMP 36.2; O2SAT 98; BMI 20.8
== END 2025-04-17 12:31 | disposition home or self-care (01) ==
LOC: HO.HMCFM 11:22
PROVIDERS: PCP Family Medicine; Visit Provider Family Medicine
DX: L98.9 Disorder of the skin and subcutaneous tissue, unspecified (principal); F31.81 Bipolar II disorder; F11.11 Opioid abuse, in remission

== ENCOUNTER → 2025-04-17 11:20 | Outpatient (BNVA) | payer MEDICARE, SELFPAY | PROVIDERS: PCP Family Medicine; Visit Provider Family Medicine | DX: L98.9 Disorder of the skin and subcutaneous tissue, unspecified (principal); F31.81 Bipolar II disorder; F11.11 Opioid abuse, in remission | CPT/HCPCS: 99212 ==

== ENCOUNTER 2025-04-19 12:59 | Outpatient (REF) | payer MEDICARE, SELFPAY ==
[2025-04-19 14:27] LABS: Appearance Urine Clear; Color Urine Dark Yellow; Glucose Urine UA Negative (Negative); Leukocyte Esterase Urine Negative (Negative); Nitrite Urine Negative (Negative); Specific Gravity - Urine >= 1.030 (1.005-1.025); UMIC TRIGGER UACC YES; Urine Blood Negative (Negative); Urine Ketones Trace mg/dL (Negative); Urine Protein 30 (1+) mg/dL (Neg-Trace)
[2025-04-19 14:29] LABS: MANUAL DIFF FLAG NO
[2025-04-19 14:29] LABS: Bacteria Urine Trace (None Seen); Hyaline Casts Urine 0-2 /LPF (0-2); RBC Urine 0-2 /HPF (0-2); WBC Urine 0-5 /HPF (0-5)
[2025-04-19 14:34] LABS: Basophils Absolute Auto 0.1 X10*3/uL (0.0-0.2); Basophils Percent Auto 1.2 % (0-2); Eosinophils Absolute Auto 0.3 X10*3/uL (0.0-0.4); Eosinophils Percent Auto 6.2 % (0-4); Hemoglobin 11.6 g/dl (12.0-16.0); Imm Gran Abs Auto 0.01 X10*3/uL (0.00-0.03); Imm Gran Pct Auto 0.2 % (0.0-0.4); Lymphocytes Absolute Auto 1.5 X10*3/uL (1.2-4.9); Lymphocytes Percent Auto 30.1 % (20-40); Mean Corpuscular HGB Conc 33.1 g/dl (31.0-35.0); Mean Corpuscular Volume 102.6 fL (80.0-98.0); Mean Platelet Volume 10.2 fL (9.4-12.3); Monocytes Absolute Auto 0.3 X10*3/uL (0.1-1.2); Monocytes Percent Auto 6.6 % (2-11); Neutrophils Absolute Auto 2.7 x10*3/uL (2.0-8.3); Neutrophils Percent Auto 55.7 % (45-73); Platelet Count 257 X10*3/uL (160-400); Red Blood Count 3.41 X10*6/uL (4.20-5.50); Red Cell Distribution Width 13.3 % (11.0-16.0); White Blood Count 4.8 X10*3/uL (4.8-10.8)
[2025-04-19 14:38] LABS: Amphetamine Screen Urine Not Detected (Not Detect); Barbiturates, Urine Not Detected (Not Detect); Benzodiazepines Screen Urine POSITIVE (Not Detect); Buprenorphine Scr Positive (Not Detect); Cannabinoid Screen Urine POSITIVE (Not Detect); Cocaine Screen Urine Not Detected (Not Detect); Fentanyl, urine Not Detected (Not Detect); Methadone Screen, Urine Not Detected (Not Detect); Opiate Screen Urine Not Detected (Not Detect); Oxycodone Screen Urine Not Detected (Not Detect); Phencyclidine Screen Urine Not Detected (Not Detect)
[2025-04-19 15:10] LABS: Alanine Aminotransferase 7 U/L (0-31); Albumin Level 3.8 g/dL (3.5-5.0); Alkaline Phosphatase 64 U/L (39-117); Anion Gap 10 (12-20); Aspartate Amino Transferase 23 U/L (5-31); Bilirubin Total 0.2 mg/dL (0.0-1.0); Blood Urea Nitrogen 16 mg/dL (9-16); Calcium 8.7 mg/dL (8.4-10.2); Carbon Dioxide 22 mmol/L (22-29); Chloride 110 mmol/L (96-108); Cholesterol 196 mg/dL (<200); Estimated Glomerular Filt Rate > 60; Glucose Fasting 98 mg/dL (60-99); Glucose Random 98 mg/dL (60-115); HDL Cholesterol 28 mg/dL (>40); LDL Cholesterol Calculated 108 mg/dL (<100); Potassium 3.6 mmol/L (3.3-5.1); Sodium 138 mmol/L (135-145); Total Protein 6.6 g/dL (6.5-8.0); Triglycerides 302 mg/dL (<150)
[2025-04-19 15:17] LABS: Free T4 (Free Thyroxine) 1.22 ng/dL (0.71-1.85); Thyroid Stimulating Hormone 1.17 uIU/mL (0.32-4.0)
[2025-04-19 20:36] LABS: Microalbumin Urine < 5.0 mg/L
[2025-04-20 08:53] LABS: Triiodothyronine T3 Total 93 ng/dL (76-181)
[2025-04-22 06:13] LABS: Levetiracetam Keppra <2.0 mcg/mL (6.0-46.0)
== END 2025-04-19 13:00 | disposition home or self-care (01) ==
LOC: HO.WFDLDS 12:59
PROVIDERS: Visit Provider Family Medicine
DX: Z00.00 Encounter for general adult medical examination without abnormal findings (principal); I10 Essential (primary) hypertension; L98.9 Disorder of the skin and subcutaneous tissue, unspecified; G40.909 Epilepsy, unspecified, not intractable, without status epilepticus; E03.9 Hypothyroidism, unspecified
CPT/HCPCS: 80053; 80061; 80177; 80307; 81001; 82570; 84439; 84443; 84480; 85025

== ENCOUNTER 2025-08-07 08:26 | Outpatient (REF) | payer MEDICARE, SELFPAY ==
--- NOTE | ~2025-08-07 | XR_ITS ---
EXAMINATION: XR HIP, RIGHT CLINICAL INFORMATION: M25.551 - Pain in right hip COMPARISON: 05/22/2023, 01/21/2021 TECHNIQUE: AP view of the pelvis, and 2 views of the right hip. FINDINGS: No fracture, dislocation, or suspicious bone lesion. There is normal alignment of the hip joints bilaterally. The right hip demonstrates severe superior surface joint space loss with [id number] appearance, subchondral sclerosis and cystic changes, and marginal osteophytic spurring. This has progressed significantly from 05/22/2023. The left hip joint demonstrates moderate degenerative arthritis, similar to the prior study. Calcific enthesopathy of the left greater trochanter is again noted. There is no soft tissue abnormality identified. XR/XR hip RT min 2V IMPRESSION: 1. Severe osteoarthrosis right hip, progressed from the prior examination of 05/22/2023. 2. Moderate osteoarthrosis left hip, similar to the prior exams. Electronically signed by: Arturo Reza MD 08/07/2025 10:09 AM EDT
--- OUTSIDE RECORDS SUMMARY | 2025-08-08 08:45 | XMS_ITS | Clinical Summary ---
Author Organization [facility] Address [address] [place] [address] Phone Care Team Providers Care Chemical Plant Technical Director Name Role Phone Ney Cole MD Primary Care Provider [phone]- [phone] Allergies Active Allergy Reactions Criticality Noted Date [...] 07/05/2025 9:30 AM EDT Consult Orthopedic Surgery [facility] [address] [place] [address] Rolf Gamino MD Closed torus fracture of distal end of left radius, initial encounter; Closed displaced fracture of styloid process of left ulna, initial encounter; Closed nondisplaced fracture of middle third of scaphoid bone of left wrist, initial encounter 05/23/2025 1:44 PM EDT - 05/23/2025 11:59 PM EDT Hospital Encounter Xray - [facility] [address] [place], [place] [phone] Left wrist pain Discharge Disposition: Home or Self Care 05/23/2025 1:30 PM EDT Office Visit [facility] Clinic [address] [place] [place] [phone] Ab Jorge PA Closed torus fracture of distal end of left radius, initial encounter (Primary Dx); Closed displaced fracture of styloid process of left ulna, initial encounter; Closed nondisplaced fracture of middle third of scaphoid bone of left wrist, initial encounter from Last 3 Months Surgical History Surgery Date Site/Laterality Comments PARTIAL HYSTERECTOMY PROCEDURE: [place] SUPRACERVICAL ABDL HYSTER W/WO RMVL TUBE OVARY Medical History Medical History Date Comments Peptic ulcer with hemorrhage DX: Peptic ulcer with hemorrhage History of pancreatitis DX:Histo ry of pancreatitis Family history of gene mutation DX:Family history of gene mutation Takotsubo cardiomyopathy DX:Tako tsubo cardiomyopathy Hypothyroid DX:Hypothyroid History of narcotic addictio n ([facility] V24, [facility] V28) DX:History of narcotic addic tion ([facility]); COMMENT: quit 2006 Hypertension DX:Hypertension Family History [...] radius and ulnar styloid fractures. POS - [id number] -------- FINAL REPORT -------- Dictated By: Alexandria Santiago Dictated Date: 05/23/2025 14:08 ET Assigned Physician: Alexandria Santiago Reviewed and Electronically Signed By: Alexandria Santiago Signed Date: 05/23/2025 14:18 ET Workstation ID: [id number] Transcribed By: Self Edit Transcribed Date: 05/23/2025 [...] radius and ulnar styloid fractures. POS - [id number] -------- FINAL REPORT -------- Dictated By: Alexandria Santiago Dictated Date: 05/23/2025 14:08 ET Assigned Physician: Alexandria Santiago Reviewed and Electronically Signed By: Alexandria Santiago Signed Date: 05/23/2025 14:18 ET Workstation ID: [id number] Transcribed By: Self Edit Transcribed Date: 05/23/2025 14:08 ET us Ab SARKAR IMG XR PROCEDURES Final Re sult * (ABNORMAL) Basic metabolic panel (05/02/2025 1:23 PM EDT) Sodium 140 133 - 145 mmol/L LAB CHEMISTRY METHOD 05/02/2025 2:11 PM [facility] Potassium 4.4 3.5 - 5.5 mmol/L LAB CHEMISTRY METHOD 05/02/2025 2:11 PM [facility] Chloride 108 96 - 110 mmol/L LAB CHEMISTRY METHOD 05/02/2025 2:11 PM [facility] CO2 27 21 - 32 mmol/L LAB CHEMISTRY METHOD 05/02/2025 2:11 PM [facility] Anion Gap 5 3 - 11 LAB CHEMISTRY METHOD 05/02/2025 2:11 PM [facility] Glucose 109(H) 70 - 100 mg/dL LAB CHEMISTRY METHOD 05/02/2025 2:11 PM [facility] BUN 8 5 - 25 mg/dL LAB CHEMISTRY METHOD 05/02/2025 2:11 PM [facility] Creatinine 0.73 0.50 - 1.10 mg/dL LAB CHEMISTRY METHOD 05/02/2025 2:11 PM [facility] eGFR 95 >=60 mL/min/1. 73m2 LAB CHEMISTRY METHOD 05/02/2025 2:11 PM [facility] Comment:Calculation based on the Chronic Kidney Disease Epidemiology Collaboration (CKD-EPI) equation refit without adjustment for race. BUN/Creatinine Ratio 11.0 LAB CHEMISTRY METHOD 05/02/2025 2:11 PM EDT [facility] Calcium 9.3 8.5 - 10.5 mg/dL LAB CHEMISTRY METHOD 05/02/2025 2:11 PM EDT [facility] Blood Venous blood specimen / Unknown Venipuncture / Unknown 05/02/2025 1:23 PM EDT 05/02/2025 1:45 PM EDT us Juancarlos Garcia DO LAB BLOOD ORDERABLES Final Result [facility] [address] [place] [address], from Last 3 Months or Most Recently Relevant to Health Maintenance Insurance MEDICARE Care Teams Chemical Plant Technical Director Relationship Specialty Start Date End Date Ney Cole MD [address] [place] [address] Dr Karli [place] PCP - General Family Medicine 07/05/25
--- OUTSIDE RECORDS SUMMARY | 2025-08-08 08:45 | XMS_ITS | Clinical Summary ---
Author Organization [facility] Address [address] [place] [phone] Phone Care Team Providers Care Cutting Department Supervisor Name Role Phone Pcp, Unknown Primary Care [...] file Insurance MEDICARE PART A & B [facility] MEDICARE REPLACEMENT MEDICARE PART A & B MEDICARE REPLACEMENT MEDICARE PART A & [place] [address] [address] MEDICARE REPLACEMENT MEDICARE PART A & B [facility] MEDICARE REPLACEMENT MEDICARE PART A & B [facility] MEDICARE REPLACEMENT MEDICARE PART A & B [facility] MEDICARE REPLACEMENT Care Teams Cutting Department Supervisor Relationship Specialty Start Date End Date Pcp, Unknown PCP - General 08/03/24 Additional Source Comments The information contained in this document represents components of the legal health record. It is not the complete legal health record.[facility]
== END 2025-08-07 08:27 | disposition home or self-care (01) ==
LOC: HO.HOSX 08:26
PROVIDERS: Visit Provider Physician Assistant
DX: M16.11 Unilateral primary osteoarthritis, right hip (principal); Z79.890 Hormone replacement therapy
CPT/HCPCS: 73502; 99212

== ENCOUNTER 2025-08-07 09:24 | Outpatient (AMB) | payer MEDICARE, SELFPAY ==
--- NOTE | 2025-08-07 09:35 | A.OFFVIS_ITS ---
Vital Signs 08/07/25 09:45 Height 5 ft 3 in Weight 117 lb BMI 20.7 Intake Visit Reasons: OV- discuss RT ARMAND Intake Note: Brandie is a 58 year old female who presents today for a follow up of bilateral hip OA to discuss right hip replacement. At her last visit with Dr. Valderrama in August of 2023 patient tried and failed a right hip fluoro injection on 07/21/23, a hip replacement was discussed. Today patient reports that she would like to discuss hip replacement due to constant pain that is making it difficult to do any walking, stating getting worse the past 6 months. She has discomfort at night with trying to sleep. States feeling a pulling sensation in her hip. Allergies aspirin Allergy (Intermediate, Verified 08/07/25 09:44) stomach upset codeine (CODEINE) Allergy (Intermediate, Verified 08/07/25 09:44) itching NSAIDS (Non-Steroidal Anti-Inflamma (NSAIDS (NON-STEROIDAL ANTI-INFLAMMA) Allergy (Mild, Verified 08/07/25 09:44) stomach upset Sulfa (Sulfonamide Antibiotics) (SULFA(SULFONAMIDE ANTIBIOTICS)) Allergy (Mild, Verified 08/07/25 09:44) Rash lurasidone Adverse Reaction (Mild, Verified 08/07/25 09:44) Hallucinations Medication List - Last Reconciled 08/07/25 by Grisel Srinivasan PA-C atorvastatin 80 mg PO BEDTIME 90 days clonazepam 0.5 mg PO BID 15 days levothyroxine 100 mcg PO DAILY 90 days metoprolol tartrate 25 mg PO BID 90 days nitroglycerin 0.4 mg sublingual Q5M PRN risperidone 1 mg PO BEDTIME 30 days zolpidem 10 mg PO BEDTIME HPI HPI OV- discuss RT ARMAND: Details: 59 yo female presents to the office today for ongoing right hip pain. She states she did not have surgery a few years ago due to a family crisis. She states now if she walks she has to stop frequent times due to the pain. She has pain with getting in and out of bed and going up stairs. She states she has not had injections or PT for the hip. She states she did have a parasite infection in the summer of last year which was the result of possibly her neighbor's dog. She states she does not smoke cigarettes, she vapes Denies recreational drug use Alcohol socially She states she lives with roommates and does have support. [facility] Medical History GERD (gastroesophageal reflux disease) Chronic pain Lumbar back pain with radiculopathy affecting left lower extremity Lumbar back pain NSTEMI (non-ST elevated myocardial infarction) Takotsubo cardiomyopathy Obesity Vitamin D deficiency Hypothyroidism Surgical History Status post removal of cervix Hx of cardiac catheterization History of elbow surgery History of hysterectomy History of shoulder surgery Family History Sister Hypothyroidism Social History Household Members: Other Household Members Other:: roommate and friends Housing: House Do you presently have visiting nurse or other home services: No Alcohol intake: current Alcohol intake frequency: holidays/special occasions only Alcohol type: wine Comment: resting Patient Tobacco Use Status: Former Tobacco user Tobacco use type: Cigarette Cigarette Packs Per Day: 1 Cigarettes Per Day: 20.0 Years Smoked: 20 e-Cigarette/Vaping Use: Currently Using Second Hand Smoke Exposure: No Substance Use Type: Former Substance User service: No Current occupational status: disabled Current occupational exposures/hazards: No Sexual orientation: Straight/Heterosexual Cognitive needs: No Hearing needs: No Vision needs: No Review of Systems Const All systems reviewed & are unremarkable except as noted in HPI and below Physical Exam Vital Signs: BMI result Body Mass Index 20.7 Const General: cooperative, healthy appearing, no acute distress, well developed and alert HEENT Head: Yes normal to inspection, Yes normocephalic and Yes atraumatic Mouth: moist mucous membranes Eyes General: appearance normal, both eyes and all related structures EOM: EOMs intact bilaterally Chest Other: no audible wheezing. Resp Other: No audible wheezing Effort & Inspection: normal respiratory effort Cardio Other: Radial pulse palpable with no rythmic abnormalities Back/Spine/Pelvis Cervical Spine: normal cervical lordosis Skin General skin exam: no rashes or lesions noted Neuro General: no focal motor deficits Extrem Other: Right hip with + impingement and antalgic gait Psych Appearance: grossly normal and well kempt Mental Status: mental status grossly normal Speech and movement: Normal speech and movement present Affect: normal affect Attitude: cooperative Results Reviewed Results Reviewed: X-rays of the right hip obtained in the office today and reviewed by me show severe arthritis Assessment & Plan Assessment & Plan (1) Osteoarthritis of right hip: Code(s): M16.11 - Unilateral primary osteoarthritis, right hip Category: Medical Plan: I reviewed the case with Dr. Valderrama. It appears the patient does have a long history of personal situations that have interfered with her daily life which allow me to question her ability to have a successful joint replacement surgery. Reviewing her chart she does have a history of bipolar disorder and seizure disorder. The patient denies both. She also had a history of a parasite infection and was also homeless on an occasion and states currently she she is living with a roommate. There also appears to be some concern for addiction in her chart which upon questioning the patient, she denies. When proceeding with an elective procedure such as a total hip arthroplasty there needs to be some level of stability with in the patient's life to have a successful surgery. The patient does have an appointment with her primary care doctor on 08/22/25. I asked that he review her medical history and determine whether the patient is fit for surgery based on her current mental status, living situation and potential drug history. Orders: Orders XR hip RT min 2V Today M25.551 - Pain in right hip PT Evaluation and Treatment Today M16.11 - Unilateral primary osteoarthritis, right hip Coding Level of Care Code Est Pt Level 4 (81501) Complex EM visit Add On G2211 Diagnoses Osteoarthritis of right hip M16.11
[2025-08-07 09:45] VITALS: BMI 20.7
--- OUTSIDE RECORDS SUMMARY | 2025-08-07 10:11 | XMS_ITS | Clinical Summary ---
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 Not on vanna e 08/03/2024 Are you concerned about learning? Not on file 08/03/2024 No 08/03/2024 No 08/03/2024 Digital Access Answer Date Recorded No 08/03/2024 No 08/03/2024 Reliable internet access at home? Not on file 08/03/2024 Device with a working camera? Not on file Intimate Partner Violence Answer Date R ecorded Are you denied basic needs s uch as food, clothing, or medical care? No 08/03/2024 In the past 12 months have y ou been in a relationship with a person who hurts, threatens, or tries to control you? No 08/03/2024 Are you denied basic needs s uch as food, clothing, or medical care? No 08/03/2024 In the past 12 months have y ou been in a relationship with a person who hurts, threatens, or tries to control you? No 08/03/2024 Comments Unknown Sex and Gender Information Value Date Recorded Sex Assigned at Female 08/03/2024 3:28 PM EDT Legal Sex Female 9:41 PM EDT Gender Identity Female 08/03/2024 3:28 PM EDT Sexual Orientation Straight 08/03/2024 3: 28 PM EDT Last Filed Vital Signs Vital Sign Reading Time Taken Comments Blood Pressure 148/80 08/03/2024 5:25 PM EDT Pulse 78 08/03/2024 5:25 PM EDT Temperature 37 C (98.6 F) 08/03/2024 5:25 PM EDT Respiratory Rate 18 08/03/2024 5:25 PM EDT Oxygen Saturation 97% 08/03/2024 5:25 PM EDT Inhaled Oxygen Concentration - - Weight 63.5 kg (140 lb) 08/03/2024 3:33 PM EDT Height 160 cm (5' 3 ) 08/03/2024 3:33 PM EDT Body Mass Index 24.8 08/03/2024 3:33 PM EDT Plan of Treatment Not on file Medical Devices Not on file Insurance MEDICARE PART A & B [facility] MEDICARE REPLACEMENT MEDICARE PART A & B MEDICARE REPLACEMENT MEDICARE PART A & [place] [address] [place] [id number] MEDICARE REPLACEMENT MEDICARE PART A & B [facility] MEDICARE REPLACEMENT MEDICARE PART A & B [facility] MEDICARE REPLACEMENT MEDICARE PART A & B [facility] MEDICARE REPLACEMENT Care Teams Aluminum Pool Installer Relationship Specialty Start Date End Date Pcp, Unknown PCP - General 08/03/24 Additional Source Comments The information contained in this document represents components of the legal health record. It is not the complete legal health record.[facility]
--- OUTSIDE RECORDS SUMMARY | 2025-08-07 10:11 | XMS_ITS | Clinical Summary ---
Author Organization [facility] Address [address] [place] [address] Phone Care Team Providers Care Gaming Worker Name Role Phone Ney Cole MD Primary Care Provider [phone] Allergies Active Allergy Reactions Criticality Noted Date Comments Sulfa (Sulfonamide Antibiotics) 04/10 Alprazolam 05/02/2025 Medications zolpidem (AMBIEN) 10 mg tablet Take 1 tablet (10 mg total) by mouth. 07/01/2006 Active levothyroxine (SYNTHROID, LEVOTHROID) 150 mcg tablet Take 1 tablet (150 mcg total) by mouth. 09/22/2019 Active atorvastatin (LIPITOR) 80 mg tablet Take 1 tablet (80 mg total) by mouth. 01/12/2021 Active clonazePAM (KlonoPIN) 1 mg tablet Take 1 tablet (1 mg total) by mouth. 09/22/2019 Active Active Problems No known active problems Encounters Date Type Department Care Team Description 07/05/2025 9:30 AM EDT Consult Orthopedic Surgery [facility] [address] [place] [address] Rolf Gamino MD Closed torus fracture of distal end of left radius, initial encounter; Closed displaced fracture of styloid process of left ulna, initial encounter; Closed nondisplaced fracture of middle third of scaphoid bone of left wrist, initial encounter 05/23/2025 1:44 PM EDT - 05/23/2025 11:59 PM EDT [facility] [address] [place], [place] [phone] Left wrist pain Discharge Disposition: Home or Self Care 05/23/2025 1:30 PM EDT Office Visit [facility] [address] [place] [place] [phone] Ab Jorge PA Closed torus fracture of distal end of left radius, initial encounter (Primary Dx); Closed displaced fracture of styloid process of left ulna, initial encounter; Closed nondisplaced fracture of middle third of scaphoid bone of left wrist, initial encounter from Last 3 Months Surgical History Surgery Date Site/Laterality Comments PARTIAL HYSTERECTOMY PROCEDURE: [place] SUPRACERVICAL ABDL HYSTER W/WO RMVL TUBE OVARY Medical History Medical History Date Comments Peptic ulcer with hemorrhage DX: Peptic ulcer with hemorrhage History of pancreatitis DX:Histo ry of pancreatitis Family history of gene mutation DX:Family history of gene mutation Takotsubo cardiomyopathy DX:Tako tsubo cardiomyopathy Hypothyroid DX:Hypothyroid History of narcotic addictio n ([facility] V24, [facility] V28) DX:History of narcotic addic tion ([facility]); COMMENT: quit 2006 Hypertension DX:Hypertension Family History Medical History Relation Name Comments Hypertension Father Relation Name Status Comments Father Mother Social History Tobacco Use Types Packs/Day Years Used Date Smoking Tobacco: Every Day Alcohol Use Standard Drinks/Week Comments Yes 0 (1 standard drink = 0.6 oz pur e alcohol) Comments Unknown Sex and Gender Information Value Date Recorded Sex Assigned at Not on file Legal Sex Female 10:00 AM EST Gender Identity Not on file Sexual Orientation Not on file Obstetrics History Last Filed Vital Signs Vital Sign Reading Time Taken Comments Blood Pressure 113/72 05/23/2025 1:35 PM EDT Pulse 87 05/23/2025 1:35 PM EDT Temperature 36.1 C (97 F) 05/23/2025 1:35 PM EDT Respiratory Rate 20 05/03/2025 6:49 AM EDT Oxygen Saturation 97% 05/23/2025 1:35 PM EDT Inhaled Oxygen Concentration - - Weight 52.2 kg (115 lb) 07/05/2025 10:01 AM EDT Height 160 cm (5' 3 ) 07/05/2025 10:01 AM EDT Body Mass Index 20.37 07/05/2025 10:01 AM EDT Plan of Treatment Health Maintenance Due Date Last Done Comments Breast Cancer Screening 1965 Colorectal Cancer Screening: Colonoscopy 1965 Hepatitis B Vaccines (1 of 3 - 19+ 3-dose series) 1984 Cervical Cancer Screening: P ap Smear 1986 Zoster Vaccines (1 of 2) 2015 Pneumococcal Vaccine: 50+ Years (2 of 2 - PCV) 02/18/2016 02/17/2015 Cholesterol Screening (Lipid Panel) 10/07/2022 HIV Screening 10/07/2022 Hepatitis C Screening 10/07/2022 Medicare Annual Wellness Visit 10/07/2022 Social Influencers of Health Screening 10/07/2022 Depression Screening 11/09/2024 COVID-19 Vaccine (3 - 2024-2 6 season) 2025 05/04/2021, 04/06/2021 Influenza Vaccine (#1) 2025 , 06/26/2020, 06/27/2019 Hypertension/CHF/CAD Annual BMP Blood Test 05/02/2026 05/02/2025 DTaP,Tdap,and Td Vaccines (3 - Td or Tdap) 08/11/2031 08/11/2021, 05/21/2013 RSV Immunization Adult Patients (1 - 1-dose 75+ series) 2040 HIB Vaccines Aged Out No longer eligi ble based on patient's age to complete this topic HPV Vaccines Aged Out No longer eligi ble based on patient's age to complete this topic Hepatitis A Vaccines Aged Out No long er eligible based on patient's age to complete this topic IPV Vaccines Aged Out No longer eligi ble based on patient's age to complete this topic MMR Vaccines Aged Out No longer eligi ble based on patient's age to complete this topic Meningococcal ACWY Vaccine Aged Out N o longer eligible based on patient's age to complete this topic Meningococcal B Vaccine Aged Out No l onger eligible based on patient's age to complete this topic RSV Immunization Patients Under 20 months Aged Out No longer eligible b ased on patient's age to complete this topic Varicella Vaccines Aged Out No longer eligible based on patient's age to complete this topic Procedures Procedure Name Priority Date/Time Associated Diagnosis Comments XR WRIST 3+ VIEWS LEFT STAT 05/23/2025 1:55 PM EDT Left wrist pain BASIC METABOLIC PANEL STAT 05/02/2025 1:23 PM EDT from Last 3 Months or Most Recently Relevant to Health Maintenance Results * XR Wrist 3+ Views Left (05/23/2025 1:55 PM EDT) Anatomical Region Laterality Modality Upper Extremities, Wrist Left Radiogr aphic Imaging 05/23/2025 2:08 PM EDT Impressions 05/23/2025 2:18 PM EDT Distal radius and ulnar styloid fractures. POS - [id number] -------- FINAL REPORT -------- Dictated By: Alexandria Santiago Dictated Date: 05/23/2025 14:08 ET Assigned Physician: Alexandria Santiago Reviewed and Electronically Signed By: Alexandria Santiago Signed Date: 05/23/2025 14:18 ET Workstation ID: [id number] Transcribed By: Self Edit Transcribed Date: 05/23/2025 14:08 ET Narrative 05/23/2025 2:18 PM EDT EXAM: Left wrist x-ray HISTORY: Left wrist pain after a fall on an outstretched hand one week ago. COMPARISON: None FINDINGS: 3 views were performed. Comminuted and mildly impacted distal radius fracture with probable intra- articular extension medially. No significant angulation on the lateral view. Minimally displaced fracture involving the tip of the ulnar styloid. Joint spaces appear maintained. No destructive bone lesion. Procedure Note Alexandria Santiago MD - 05/23/2025 EXAM: Left wrist x-ray HISTORY: Left wrist pain after a fall on an outstretched hand one weekago. COMPARISON: None FINDINGS: 3 views were performed. Comminuted and mildly impacted distal radius fracture with probableintra- articular extension medially. No significant angulation on thelateral view. Minimally displaced fracture involving the tip of the ulnarstyloid. Joint spaces appear maintained. No destructive bone lesion. IMPRESSION: Distal radius and ulnar styloid fractures. POS - [id number] -------- FINAL REPORT -------- Dictated By: Alexandria Santiago Dictated Date: 05/23/2025 14:08 ET Assigned Physician: Alexandria Santiago Reviewed and Electronically Signed By: Alexandria Santiago Signed Date: 05/23/2025 14:18 ET Workstation ID: [id number] Transcribed By: Self Edit Transcribed Date: 05/23/2025 14:08 ET us Ab SARKAR IMG XR PROCEDURES Final Re sult * (ABNORMAL) Basic metabolic panel (05/02/2025 1:23 PM EDT) Sodium 140 133 - 145 mmol/L LAB CHEMISTRY METHOD 05/02/2025 2:11 PM [facility] Potassium 4.4 3.5 - 5.5 mmol/L LAB CHEMISTRY METHOD 05/02/2025 2:11 PM [facility] Chloride 108 96 - 110 mmol/L LAB CHEMISTRY METHOD 05/02/2025 2:11 PM [facility] CO2 27 21 - 32 mmol/L LAB CHEMISTRY METHOD 05/02/2025 2:11 PM [facility] Anion Gap 5 3 - 11 LAB CHEMISTRY METHOD 05/02/2025 2:11 PM [facility] Glucose 109(H) 70 - 100 mg/dL LAB CHEMISTRY METHOD 05/02/2025 2:11 PM [facility] BUN 8 5 - 25 mg/dL LAB CHEMISTRY METHOD 05/02/2025 2:11 PM [facility] Creatinine 0.73 0.50 - 1.10 mg/dL LAB CHEMISTRY METHOD 05/02/2025 2:11 PM [facility] eGFR 95 >=60 mL/min/1. 73m2 LAB CHEMISTRY METHOD 05/02/2025 2:11 PM [facility] Comment:Calculation based on the Chronic Kidney Disease Epidemiology Collaboration (CKD-EPI) equation refit without adjustment for race. BUN/Creatinine Ratio 11.0 LAB CHEMISTRY METHOD 05/02/2025 2:11 PM EDT [facility] Calcium 9.3 8.5 - 10.5 mg/dL LAB CHEMISTRY METHOD 05/02/2025 2:11 PM EDT [facility] Blood Venous blood specimen / Unknown Venipuncture / Unknown 05/02/2025 1:23 PM EDT 05/02/2025 1:45 PM EDT us Juancarlos Garcia DO LAB BLOOD ORDERABLES Final Result [facility] [address] [place] [address], from Last 3 Months or Most Recently Relevant to Health Maintenance Insurance MEDICARE Care Teams Gaming Worker Relationship Specialty Start Date End Date Ney Cole MD [address] [place] [address] Dr Karli [place] PCP - General Family Medicine 07/05/25
== END 2025-08-07 10:13 | disposition home or self-care (01) ==
LOC: HO.HOS 09:25
PROVIDERS: PCP Family Medicine; Visit Provider Physician Assistant
DX: M16.11 Unilateral primary osteoarthritis, right hip (principal)
CPT/HCPCS: 99213; G2211

== ENCOUNTER → 2025-08-07 09:27 | Outpatient (BNV) | payer MEDICARE, SELFPAY | PROVIDERS: Visit Provider Radiology Diagnostic Radiology | DX: M16.0 Bilateral primary osteoarthritis of hip (principal) | CPT/HCPCS: 73502 ==

== ENCOUNTER 2025-08-22 09:36 | Outpatient (AMB) | payer MEDICARE, SELFPAY ==
--- NOTE | 2025-08-22 09:49 | A.OFFPC_ITS ---
Vital Signs 08/22/25 09:54 Height 5 ft 3 in Weight 120 lb 3 oz BMI 21.3 BP 138/80 Blood Pressure Location Rt brachial Position Sitting Respiration 14 Pulse 68 Pulse Source Pulse Oximeter Temp 98.3 F Temp Source Temporal Artery Scan Pulse Oximetry (%) 94 Oxygen Delivery Method Room Air Intake Visit Reasons: toenail fungus /med increase Intake Note: Brandie presents in the office today for a toenail fungus on the left foot, migraine medication, and bilateral hip pain. Allergies aspirin Allergy (Intermediate, Verified 08/22/25 09:52) stomach upset codeine (CODEINE) Allergy (Intermediate, Verified 08/22/25 09:52) itching NSAIDS (Non-Steroidal Anti-Inflamma (NSAIDS (NON-STEROIDAL ANTI-INFLAMMA) Allergy (Mild, Verified 08/22/25 09:52) stomach upset Sulfa (Sulfonamide Antibiotics) (SULFA(SULFONAMIDE ANTIBIOTICS)) Allergy (Mild, Verified 08/22/25 09:52) Rash lurasidone Adverse Reaction (Mild, Verified 08/22/25 09:52) Hallucinations Tobacco use date assessed: 08/22/25 Dental Screening Dental Screen Date: 08/22/25 Did you have a dental visit in the last 12 months?: Yes Did you have a dental problem in the last 6 months where you did not have access to dental care?: No Was dental information given to patient?: Patient has dentist HPI toenail fungus /med increase HPI Details 60 y/o female presents today with ongoin g complaints of toenail fungus. Pt also reports ongoing hip pain, bilateral. Has been following up with Dr. Valderrama, orthopedics. They feel she is not a good candidate for surgery. They recommend physical therapy. She states she has been taking ibuprofen three times a day. Has also been taking tylenol 500mg and takes this multiple times a day. Also reports headaches. HPI Comments History of Present Illness Details Documentation assistance for Ney Cole MD, was provided by [place] Person, [employer] on 08/22/2025 at 10:23 AM LUCIE. Don, Dr. Cole, have read, observed, and verified documentation. [facility] Medical History GERD (gastroesophageal reflux disease) Chronic pain Lumbar back pain with radiculopathy affecting left lower extremity Lumbar back pain NSTEMI (non-ST elevated myocardial infarction) Takotsubo cardiomyopathy Obesity Vitamin D deficiency Hypothyroidism Surgical History Status post removal of cervix Hx of cardiac catheterization History of elbow surgery History of hysterectomy History of shoulder surgery Family History Sister Hypothyroidism Social History (Updated 08/22/25 @ 09:54 by Radha Brambila CMA) Household Members: Other Household Members Other:: roommate and friends Housing: House Do you presently have visiting nurse or other home services: No Alcohol intake: current Alcohol intake frequency: holidays/special occasions only Alcohol type: wine Comment: resting Patient Tobacco Use Status: Former Tobacco user Tobacco use type: Cigarette Cigarette Packs Per Day: 1 Cigarettes Per Day: 20.0 Years Smoked: 20 e-Cigarette/Vaping Use: Currently Using Second Hand Smoke Exposure: No Substance Use Type: Former Substance User service: No Current occupational status: disabled Current occupational exposures/hazards: No Sexual orientation: Straight/Heterosexual Cognitive needs: No Hearing needs: No Vision needs: No Questionnaire Thrive Questionnaire Date Thrive assessed: 04/17/25 I am a: Patient What is your living situation today?: I choose not to answer this question Within the past 12 months, did the food you bought not last and you didn't have the money to get more?: Never true Within the past 12 months, did you worry whether your food would run out before you got money to buy more?: Never true Do you have trouble paying for medicines?: No Do you have trouble getting transportation to medical appointments?: No Do you have trouble paying your heating and electricity bill?: No Do you have trouble taking care of your child, family member or friend?: No Do you have trouble with day-to-day activities such as bathing, preparing meals, shopping, managing finances, etc.?: I choose not to answer this question Are you currently unemployed and looking for a job?: No Are you interested in more education?: No Please select the resources that you would like help with: Housing/Care Home Currently or been in a relationship where the following occur: I choose not to answer THRIVE Score: 0 ANALI-7 AMB Questionnaire ANALI-7 Date ANALI - 7 assessed: 02/22/24 Source: Developed by Drs. Giorgio Perez, Laura Aragon, Terrence Hogue and colleagues, with an educational franki from [employer]. Review of Systems Const Denies chills, Denies fatigue, Denies fever(s), Denies headache(s) and Denies weakness ENT Denies dizziness and Denies headache(s) Card Denies dyspnea Resp Denies cough, Denies dyspnea, Denies wheezing and Denies other (shortness of breath) Musc Denies numbness and Denies tingling Neuro Denies dizziness, Denies headache(s), Denies numbness, Denies tingling and Denies weakness Psych Denies anxiety and Denies depression Endo Denies fatigue Aller/Immun Denies wheezing Physical exam (Primary Care) Vital Signs: Last Vital Signs Temp 98.3 F 08/22/25 09:54 Pulse 68 08/22/25 09:54 Resp 14 08/22/25 09:54 BP 138/80 08/22/25 09:54 Pulse Ox 94 08/22/25 09:54 Oxygen Delivery Method Room Air 08/22/25 09:54 BMI result Body Mass Index 21.3 Tobacco/Smoking Status: Tobacco use Status Tobacco use date assessed 08/22/25 08/22/25 09:56 Patient Tobacco Use Status Former Tobacco user 08/22/25 09:54 Tobacco use type Cigarette 08/22/25 09:54 e-Cigarette/Vaping Use Currently Using 08/22/25 09:54 Thrive Assessment: Date of Thrive Assessment Date Thrive assessed 04/17/25 08/22/25 09:51 Currently or been in a relationship where the following occur: I choose not to answer Const General: well developed; No acute distress Nutritional Appearance: well nourished Orientation/consciousness: patient oriented x3 HENMT Head: Yes normocephalic and Yes atraumatic Eyes General: appearance normal, both eyes and all related structures Pupils: Equal, round and reactive pupils present EOM: EOMs intact bilaterally Resp Effort & Inspection: normal respiratory effort Neuro General: patient oriented x3 and gait normal Cranial nerves: Yes Equal, round and reactive pupils present Psych Affect: normal affect Coding Level of Care Code Est Pt Level 4 (69991) Diagnoses Toenail fungus B35.1 Bilateral hip pain M25.551; M25.552 Headache R51.9 Assessment & Plan Assessment & Plan (1) Toenail fungus: Code(s): B35.1 - Tinea unguium Category: Medical Plan: Mild nail fungal infection Sent a new script for terbinafine cream (2) Bilateral hip pain: Code(s): M25.551 - Pain in right hip; M25.552 - Pain in left hip Category: Medical Plan: Ongoing bilateral hip pain. Ortho does not feel she is currently a candidate for surgery They have ordered physical therapy Encouraged her to start in complete physical therapy She is tolerating ibuprofen 600 mg t.i.d. but says that she needs something stronger. Will try meloxicam. Do not take both. She is using more than 3000 mg Tylenol and I recommended she take Tylenol 1000 mg t.i.d. and no more. Will give her a script for gabapentin at bedtime for additional pain relief so she does not need to take an Tylenol at bedtime or through the night We discussed that if she is still needing additional pain control we will have her see pain management. Discussed with patient that pain management is for using opioids but for other modes of a control. Patient understands and agrees. (3) Headache: Code(s): R51.9 - Headache, unspecified Category: Medical Plan Headaches/migraines dial headaches She has found relief with Fioricet in the past. Will give her 15 tablets per month and she will use PRN. We discussed that if she needs additional intervention, we will look for other medications rather than increasing this. Patient agrees. Also refilled patient's risperidone today. She is followed by [facility] and says she has an appointment tomorrow Follow-up with [facility] for additional refills. Medications: New terbinafine HCl 1% (Athlete's Foot (terbinafine)) 1 appl topical BID 15 grams 1RF 30 days gabapentin 300 mg PO BEDTIME 30 caps 2RF 30 days meloxicam 15 mg PO DAILY 30 tabs 2RF 30 days Changed From xsxhgruios-bzlbrrlshvhus-oblr 50-300-40 mg (Fioricet) 1 cap PO DAILY PRN 30 caps 0RF pain/Headache 30 days To rgyogkjiwe-mofzztwbkzvqa-lcep 50-300-40 mg (Fioricet) #15 tabs per 30 days 1 cap PO DAILY PRN 15 caps 0RF pain/Headache 30 days Refilled risperidone 1 mg PO BEDTIME 30 tabs 0RF 30 days
[2025-08-22 09:54] VITALS: BP 138/80; PULSE 68; RESP 14; TEMP 36.8; O2SAT 94; BMI 21.3
--- OUTSIDE RECORDS SUMMARY | 2025-08-22 10:43 | XMS_ITS | Clinical Summary ---
Author Organization [facility] Address [address] [place] [address] Phone Care Team Providers Care Heel Curver Name Role Phone Ney Cole MD Primary Care Provider [phone] Allergies Active Allergy Reactions Criticality Noted Date [...] 07/05/2025 9:30 AM EDT Consult Orthopedic Surgery [facility] [address] [place] [address] Rolf Gamino MD Closed torus fracture of distal end of left radius, initial encounter; Closed displaced fracture of styloid process of left ulna, initial encounter; Closed nondisplaced fracture of middle third of scaphoid bone of left wrist, initial encounter 05/23/2025 1:44 PM EDT - 05/23/2025 11:59 PM EDT [facility] [address] [place], [place] [phone] Left wrist pain Discharge Disposition: Home or Self Care 05/23/2025 1:30 PM EDT Office Visit [facility] [address] [place] [phone] Ab Jorge PA Closed torus fracture of distal end of left radius, initial encounter (Primary Dx); Closed displaced fracture of styloid process of left ulna, initial encounter; Closed nondisplaced fracture of middle third of scaphoid bone of left wrist, initial encounter from Last 3 Months Surgical History Surgery Date Site/Laterality Comments PARTIAL HYSTERECTOMY PROCEDURE: [place] SUPRACERVICAL ABDL HYSTER W/WO RMVL TUBE OVARY Medical History Medical History Date Comments Peptic ulcer with hemorrhage DX: Peptic ulcer with hemorrhage History of pancreatitis DX:Histo ry of pancreatitis Family history of gene mutation DX:Family history of gene mutation Takotsubo cardiomyopathy DX:Tako tsubo cardiomyopathy Hypothyroid DX:Hypothyroid History of narcotic addictio n ([facility] V24, [facility] V28) DX:History of narcotic addic tion ([facility]); COMMENT: quit 2006 Hypertension DX:Hypertension Family History [...] Screening 1965 Colorectal Cancer Screening: Colonoscopy 1965 Cervical Cancer Screening: P ap Smear 1986 [...] patient's age to complete this topic Hepatitis B Vaccines Aged Out No long er eligible [...] radius and ulnar styloid fractures. POS - [id number] -------- FINAL REPORT -------- Dictated By: Alexandria Santiago Dictated Date: 05/23/2025 14:08 ET Assigned Physician: Alexandria Santiago Reviewed and Electronically Signed By: Alexandria Santiago Signed Date: 05/23/2025 14:18 ET Workstation ID: [id number] Transcribed By: Self Edit Transcribed Date: 05/23/2025 [...] radius and ulnar styloid fractures. POS - [id number] -------- FINAL REPORT -------- Dictated By: Alexandria Santiago Dictated Date: 05/23/2025 14:08 ET Assigned Physician: Alexandria Santiago Reviewed and Electronically Signed By: Alexandria Santiago Signed Date: 05/23/2025 14:18 ET Workstation ID: [id number] Transcribed By: Self Edit Transcribed Date: 05/23/2025 14:08 ET us Ab SARKAR IMG XR PROCEDURES Final Re sult * (ABNORMAL) Basic metabolic panel (05/02/2025 1:23 PM EDT) Sodium 140 133 - 145 mmol/L LAB CHEMISTRY METHOD 05/02/2025 2:11 PM [facility] Potassium 4.4 3.5 - 5.5 mmol/L LAB CHEMISTRY METHOD 05/02/2025 2:11 PM [facility] Chloride 108 96 - 110 mmol/L LAB CHEMISTRY METHOD 05/02/2025 2:11 PM [facility] CO2 27 21 - 32 mmol/L LAB CHEMISTRY METHOD 05/02/2025 2:11 PM [facility] Anion Gap 5 3 - 11 LAB CHEMISTRY METHOD 05/02/2025 2:11 PM [facility] Glucose 109(H) 70 - 100 mg/dL LAB CHEMISTRY METHOD 05/02/2025 2:11 PM [facility] BUN 8 5 - 25 mg/dL LAB CHEMISTRY METHOD 05/02/2025 2:11 PM [facility] Creatinine 0.73 0.50 - 1.10 mg/dL LAB CHEMISTRY METHOD 05/02/2025 2:11 PM [facility] eGFR 95 >=60 mL/min/1. 73m2 LAB CHEMISTRY METHOD 05/02/2025 2:11 PM [facility] Comment:Calculation based on the Chronic Kidney Disease Epidemiology Collaboration (CKD-EPI) equation refit without adjustment for race. BUN/Creatinine Ratio 11.0 LAB CHEMISTRY METHOD 05/02/2025 2:11 PM EDT [facility] Calcium 9.3 8.5 - 10.5 mg/dL LAB CHEMISTRY METHOD 05/02/2025 2:11 PM EDT [facility] Blood Venous blood specimen / Unknown Venipuncture / Unknown 05/02/2025 1:23 PM EDT 05/02/2025 1:45 PM EDT us Juancarlos Garcia DO LAB BLOOD ORDERABLES Final Result [facility] [address] [place] [address], from Last 3 Months or Most Recently Relevant to Health Maintenance Insurance MEDICARE Care Teams Heel Curver Relationship Specialty Start Date End Date Ney Cole MD [address] [place] [address] Dr Karli [place] PCP - General Family Medicine 07/05/25
--- OUTSIDE RECORDS SUMMARY | 2025-08-22 10:43 | XMS_ITS | Clinical Summary ---
Author Organization [facility] Address [address] [place] [phone] Phone Care Team Providers Care Sales Representative Metals Name Role Phone Pcp, Unknown Primary Care [...] file Insurance MEDICARE PART A & B [facility] MEDICARE REPLACEMENT MEDICARE PART A & B MEDICARE REPLACEMENT MEDICARE PART A & [place] [address] [place] [address] MEDICARE REPLACEMENT MEDICARE PART A & B [facility] MEDICARE REPLACEMENT MEDICARE PART A & B [facility] MEDICARE REPLACEMENT MEDICARE PART A & B [facility] MEDICARE REPLACEMENT Care Teams Sales Representative Metals Relationship Specialty Start Date End Date Pcp, Unknown PCP - General 08/03/24 Additional Source Comments The information contained in this document represents components of the legal health record. It is not the complete legal health record.[facility]
== END 2025-08-22 10:23 | disposition home or self-care (01) ==
LOC: HO.HMCFM 09:37
PROVIDERS: PCP Family Medicine; Visit Provider Family Medicine
DX: B35.1 Tinea unguium (principal); M25.551 Pain in right hip; M25.552 Pain in left hip; R51.9 Headache, unspecified

== ENCOUNTER → 2025-08-22 09:36 | Outpatient (BNVA) | payer MEDICARE, SELFPAY | PROVIDERS: PCP Family Medicine; Visit Provider Family Medicine | DX: B35.1 Tinea unguium (principal); M25.551 Pain in right hip; M25.552 Pain in left hip; R51.9 Headache, unspecified | CPT/HCPCS: 99212 ==

== ENCOUNTER 2025-10-15 15:45 | Inpatient (IN) | payer MEDICARE, SELFPAY ==
[2025-10-15] VITALS (8 sets, daily range): BP systolic 165–185; BP diastolic 97–112; PULSE 100–120; RESP 12–20; TEMP 36.8; O2SAT 95–98; BMI 19.5
--- NOTE | ~2025-10-15 | CT_ITS ---
CLINICAL HISTORY: sob CT angiography chest with contrast. 3D Postprocessing. Comparison: None provided Findings: NECK BASE: Limited views of the thyroid are unremarkable. LUNGS/PLEURA: Mild emphysematous changes most pronounced at the right upper lobe. Scarring/atelectasis in the right upper lobe. Scattered micro nodules, for example in the left lower lobe measuring 4 mm. PULM VASCULAR: No pulmonary embolism. MEDIASTINUM: No masses or lymphadenopathy. CARDIAC: No pericardial effusion. No cardiomegaly. AORTA: No aneurysm. CHEST WALL: No masses or axillary lymphadenopathy. Left breast implant. LIMITED ABDOMEN: See separate CT abdomen pelvis. BONES: No acute fracture. Remote fracture of the sternum. IMPRESSION: 1. No pulmonary emboli. 2. Mild emphysematous changes with scarring and atelectasis in the right upper lobe This document has been electronically signed by: Lydia Oconnor MD on 10/15/2025 19:57:44
--- NOTE | ~2025-10-15 | NM_ITS ---
EXAMINATION: NM BILIARY TRACT CLINICAL INFORMATION: Abdominal pain, cholelithiasis. intra-hepatic bile duct dilation COMPARISON: CT from one day ago Radioparhmaceutical: 5.0mCi technetium 99m labeled mebrofenin Other medications: 1.0mcg CCK infused IV over 30 minutes , one hour post injection of mebrofenin (a.k.a. Choletec) TECHNIQUE: Hepatobiliary scintigraphy was performed after the intravenous administration of technetium 99m labeled Choletec. Imaging was performed every 2 minutes for 60 minutes after which, CCK was infused IV over 30 minutes with imaging continuing for an additional 30minutes. Ejection fraction curve was generated with a region of interest placed over the gallbladder. FINDINGS: After Choletech injection, there is prompt uptake of radiotracer by the liver. Intrahepatic biliary filling was visible within 20 minutes and gallbladder filling was visible within 30minutes. Small bowel filling was noted within 20minutes. After CCK infusion, ejection fraction measured 0-2%. NM/NM hepatobiliary w pharm IMPRESSION: Gallbladder Ejection fraction was ~ 0%. Etiologies could include biliary dyskinesia or chronic cholecystitis. Electronically signed by: Favio Andres MD 10/16/2025 04:21 PM [facility] [place]
--- NOTE | ~2025-10-15 | CT_ITS ---
CLINICAL HISTORY: epigastric pain hx of ulcer wbc 35 CT abdomen and pelvis with contrast Comparison: None provided Findings: LIMITED CHEST: See separate CT chest. LIVER: Small cyst in the left lobe. BILIARY: Distended gallbladder with cholelithiasis. Mild intrahepatic biliary ductal dilation. PANCREAS: No mass or ductal dilatation. SPLEEN: No splenomegaly. KIDNEYS: No hydronephrosis or radiopaque stone. ADRENALS: No nodule. VASCULAR: No aneurysm. RETROPERITONEUM: No lymphadenopathy or mass. BOWEL/MESENTERY: No evidence of obstruction. No free fluid or air. Distal circumferential esophageal wall thickening. Pancolonic wall thickening. ABDOMINAL WALL: No mass or significant abnormality. URINARY BLADDER: No focal wall thickening. PELVIC NODES: No pelvic lymphadenopathy. PELVIC ORGANS: Hysterectomy. BONES: No acute fracture. Severe degenerative changes of the right hip OTHER: Negative. IMPRESSION: Circumferential esophageal wall thickening, may represent esophagitis. Pancolonic wall thickening, may represent infectious or inflammatory colitis. Cholelithiasis with distended gallbladder, correlate with physical exam for acute cholecystitis. This document has been electronically signed by: Lydia Oconnor MD on 10/15/2025 19:57:36
--- NOTE | ~2025-10-15 | MR_ITS ---
EXAMINATION: MRCP HISTORY: cholecystitis/choledocholithiasis/obstruction COMPARISON: Correlation is made with a CT of the abdomen with contrast dated 10/15/2025. TECHNIQUE: Axial gradient echo in and out of phase T1, axial T2 and fat suppressed T2, and coronal haste T2 with fat saturation images were obtained through the abdomen. 3D MRCP Reconstructed images and thick slab imaging of the biliary tree were obtained. FINDINGS: There is no significant loss of signal intensity within the liver on opposed phase imaging to suggest steatosis. There is a 9 mm cyst in the left lobe. There is no intra or extrahepatic biliary ductal dilatation. The common bile duct is normal in caliber. No intraluminal filling defects are identified to suggest choledocholithiasis. The gallbladder is distended. No intraluminal calculi are identified. The spleen, pancreas, adrenals, and kidneys are unremarkable in appearance. There is marked edema of the splenic flexure of the colon with a large amount of pericolonic inflammatory stranding and fluid. There is a small amount of free fluid around the liver and gallbladder. No retroperitoneal lymphadenopathy is identified in the upper abdomen. The visualized bones demonstrate normal marrow signal intensity. MR/MR MRCP IMPRESSION: 1. No evidence of cholelithiasis or choledocholithiasis. 2. Marked wall thickening and pericolonic edema about the splenic flexure of the colon, compatible with colitis. This could be infectious, inflammatory, or ischemic in nature. Electronically signed by: Giorgio Johnson MD 10/17/2025 03:11 PM [facility] [place]
--- NOTE | 2025-10-15 16:18 | PC.NURSE ---
PAtient presents to ED c/o ABD pain which radiates to the flanks Pain has been persistent for 1 week and has worsened Patient experiencing nausea no vomiting w/ poor PO intake Patient hypertensive in ED 177/100, Hx of HTN reports being med compliant Patient reports having hemorrhaging ulcer approx 20 years ago. Denies thinners Provider in to see patient Plan of care on going
--- OUTSIDE RECORDS SUMMARY | 2025-10-15 16:28 | XMS_ITS | Clinical Summary ---
Author Organization [facility] Address [address] [place] [phone] Phone Care Team Providers Care Concrete Paving Supervisor Name Role Phone Pcp, Unknown Primary [...] file Insurance MEDICARE PART A & B [facility] MEDICARE REPLACEMENT MEDICARE PART A & B MEDICARE REPLACEMENT MEDICARE PART A & [place] [address] [address] [place] [address] MEDICARE REPLACEMENT MEDICARE PART A & B [facility] MEDICARE REPLACEMENT MEDICARE PART A & B [facility] MEDICARE REPLACEMENT MEDICARE PART A & B [facility] MEDICARE REPLACEMENT Care Teams Concrete Paving Supervisor Relationship Specialty Start Date End Date Pcp, Unknown PCP - General 08/03/24 Additional Source Comments The information contained in this document represents components of the legal health record. It is not the complete legal health record.[facility]
--- OUTSIDE RECORDS SUMMARY | 2025-10-15 16:28 | XMS_ITS | Clinical Summary ---
Author Organization [facility] Address [address] [place] [address] Phone Care Team Providers Care Joiner Name Role Phone Ney Cole MD Primary Care Provider [phone]- [phone] Allergies Active Allergy Reactions Criticality Noted Date [...] Active Active Problems No known active problems Surgical History Surgery Date Site/Laterality Comments PARTIAL HYSTERECTOMY PROCEDURE: [place] SUPRACERVICAL ABDL HYSTER W/WO RMVL TUBE OVARY Medical History Medical History Date Comments Peptic ulcer with hemorrhage DX: Peptic ulcer with hemorrhage History of pancreatitis DX:Histo ry of pancreatitis Family history of gene mutation DX:Family history of gene mutation Takotsubo cardiomyopathy DX:Tako tsubo cardiomyopathy Hypothyroid DX:Hypothyroid History of narcotic addictio n (CMS/HCC V24, CMS/HCC V28) DX:History of narcotic addic tion (HCC); COMMENT: quit 2006 Hypertension DX:Hypertension Family History [...] on file Sexual Orientation Not on file Last Filed Vital Signs Vital Sign Reading [...] Procedure Name Priority Date/Time Associated Diagnosis Comments BASIC METABOLIC PANEL STAT 05/02/2025 1:23 PM EDT from Last 3 Months or Most Recently Relevant to Health Maintenance Results * (ABNORMAL) Basic metabolic panel (05/02/2025 1:23 PM EDT) Sodium 140 133 - 145 mmol/L LAB CHEMISTRY METHOD 05/02/2025 2:11 PM [facility] Potassium 4.4 3.5 - 5.5 mmol/L LAB CHEMISTRY METHOD 05/02/2025 2:11 PM [facility] Chloride 108 96 - 110 mmol/L LAB CHEMISTRY METHOD 05/02/2025 2:11 PM [facility] CO2 27 21 - 32 mmol/L LAB CHEMISTRY METHOD 05/02/2025 2:11 PM [facility] Anion Gap 5 3 - 11 LAB CHEMISTRY METHOD 05/02/2025 2:11 PM [facility] Glucose 109(H) 70 - 100 mg/dL LAB CHEMISTRY METHOD 05/02/2025 2:11 PM [facility] BUN 8 5 - 25 mg/dL LAB CHEMISTRY METHOD 05/02/2025 2:11 PM EDT [facility] Creatinine 0.73 0.50 - 1.10 mg/dL LAB CHEMISTRY METHOD 05/02/2025 2:11 PM EDT [facility] eGFR 95 >=60 mL/min/1. 73m2 LAB CHEMISTRY METHOD 05/02/2025 2:11 PM EDT [facility] Comment:Calculation based on the Chronic Kidney Disease Epidemiology Collaboration (CKD-EPI) equation refit without adjustment for race. BUN/Creatinine Ratio 11.0 LAB CHEMISTRY METHOD 05/02/2025 2:11 PM EDT [facility] Calcium 9.3 8.5 - 10.5 mg/dL LAB CHEMISTRY METHOD 05/02/2025 2:11 PM EDT [facility] Blood Venous blood specimen / Unknown Venipuncture / Unknown 05/02/2025 1:23 PM EDT 05/02/2025 1:45 PM EDT us Juancarlos Garcia DO LAB BLOOD ORDERABLES Final Result [facility] [address] [place] [address], from Last 3 Months or Most Recently Relevant to Health Maintenance Insurance MEDICARE Care Teams Joiner Relationship Specialty Start Date End Date Ney Cole MD [address] [place] [address] Dr Karli [place] PCP - General Family Medicine 07/05/25
[2025-10-15 16:43] LABS: Hematocrit 38.6 % (37.0-47.0); Hemoglobin 13.2 g/dl (12.0-16.0); Mean Corpuscular HGB Conc 34.2 g/dl (31.0-35.0); Mean Corpuscular Hemoglobin 31.8 pg (27.0-33.0); Mean Corpuscular Volume 93.0 fL (80.0-98.0); NRBC Abs Auto 0.000 X10*3/uL (0.0-0.012); NRBC Pct Auto 0.0 /100WBC (0.0-0.2); Red Blood Count 4.15 X10*6/uL (4.20-5.50)
[2025-10-15 16:45] LABS: White Blood Count 34.5 X10*3/uL (4.8-10.8)
[2025-10-15 16:46] LABS: Platelet Count 574 X10*3/uL (160-400)
[2025-10-15 17:03] LABS: Band Neutrophils Percent 2 % (3-5); Lymphocytes Absolute Manual 1.0 X10*3/uL (1.2-4.9); Lymphocytes Percent Manual 3 % (20-40); Monocytes Absolute Manual 2.1 X10*3/uL (0.1-1.2); Monocytes Percent Manual 6 % (2-11); Neutrophils Absolute Manual 31.4 X10*3/uL (2.0-8.3); Neutrophils Percent Manual 89 % (45-73)
[2025-10-15 17:04] LABS: Dohle Bodies PRESENT; Large Platelet PRESENT; RBC Morphology NORMAL; Toxic Vacuolation PRESENT
[2025-10-15 17:06] LABS: Potassium 2.7 mmol/L (3.3-5.1)
[2025-10-15 17:07] LABS: Alanine Aminotransferase 9 U/L (0-31); Albumin Level 3.6 g/dL (3.5-5.0); Alkaline Phosphatase 150 U/L (39-117); Anion Gap 17 (12-20); Aspartate Amino Transferase 26 U/L (5-31); Blood Urea Nitrogen 13 mg/dL (9-16); Calcium 11.0 mg/dL (8.4-10.2); Carbon Dioxide 20 mmol/L (22-29); Chloride 103 mmol/L (96-108); Creatinine Clr Calc Pharmacy 68.4; Estimated Glomerular Filt Rate > 60; Sodium 137 mmol/L (135-145); Total Protein 7.1 g/dL (6.5-8.0)
[2025-10-15 17:14] LABS: Resp Syncy Virus RNA Qual PCR NEGATIVE (Negative); SARS COV2 PCR INHOUSE POSITIVE (Negative)
--- NOTE | 2025-10-15 17:23 | ED.ABDPAIN ---
HPI - Abdominal Pain General Chief Complaint: Abdominal Pain Stated Complaint: 08/18 sharp ab pain tenderness R quadrants Time Seen by Provider: 10/15/25 16:17 History of Present Illness HPI narrative: Patient is a 60-year-old female presents today with having abdominal pain for the last 4 days. It is worse over the epigastric area. Patient has been taking Tums at home to no avail. Has a history of gastric ulcers. Denies any alcohol. No fever no chills. Was able to drink small amount of water today. The last bowel movement was about 3 days ago was constipation. She is passing gas. No abdominal surgery done in the past. No fever no chills feels generalized malaise. Patient is from home. Has a significant history of depression history of opiate use in the past. History of anxiety. History of arthritis. History of takotsubo cardiomyopathy. Related Data Home Medications ?Medication ?Instructions ?Recorded ?Confirmed nitroglycerin 0.4 mg sublingual 0.4 mg sublingual Q5M PRN Chest 11/15/24 08/07/25 tablet Pain zolpidem 10 mg tablet 10 mg PO BEDTIME 08/07/25 08/07/25 Previous Rx's ?Medication ?Instructions ?Recorded atorvastatin 80 mg tablet 80 mg PO BEDTIME 90 days #90 tabs 07/27/24 levothyroxine 100 mcg tablet 100 mcg PO DAILY 90 days #90 tabs 07/06/25 metoprolol tartrate 25 mg tablet 25 mg PO BID 90 days #180 tabs 07/06/25 clonazepam 0.5 mg tablet 0.5 mg PO BID anxiety 15 days #30 08/02/25 tabs muoetqwrmf-daxuakpftshpu-apdcyvoo 1 cap PO DAILY PRN pain/Headache 08/22/25 50 mg-300 mg-40 mg capsule 30 days #15 caps (Fioricet) gabapentin 300 mg capsule 300 mg PO BEDTIME 30 days #30 caps 08/22/25 meloxicam 15 mg tablet 15 mg PO DAILY 30 days #30 tabs 08/22/25 risperidone 1 mg tablet 1 mg PO BEDTIME 30 days #30 tabs 08/22/25 terbinafine HCl 1 % topical cream 1 appl topical BID 30 days #15 08/22/25 (Athlete's Foot (terbinafine)) grams Allergies Allergy/AdvReac Type Severity Reaction Status Date / Time aspirin Allergy Intermediate stomach Verified 10/15/25 16:08 upset codeine (CODEINE) Allergy Intermediate itching Verified 10/15/25 16:08 NSAIDS (Non-Steroidal Allergy Mild stomach Verified 10/15/25 16:08 Anti-Inflamma (NSAIDS upset (NON-STEROIDAL ANTI-INFLAMMA) Sulfa (Sulfonamide Allergy Mild Rash Verified 10/15/25 16:08 Antibiotics) (SULFA(SULFONAMIDE ANTIBIOTICS)) lurasidone AdvReac Mild Hallucinati Verified 10/15/25 16:08 ons Review of Systems Review of Systems Positive abdominal pain Yes all other systems are reviewed and are negative [facility] Past Medical History Attestation statement: The following information was validated with the patient. Medical History GERD (gastroesophageal reflux disease) Chronic pain Lumbar back pain with radiculopathy affecting left lower extremity Lumbar back pain NSTEMI (non-ST elevated myocardial infarction) Takotsubo cardiomyopathy Obesity Vitamin D deficiency Hypothyroidism Surgical History Status post removal of cervix Hx of cardiac catheterization History of elbow surgery History of hysterectomy History of shoulder surgery Family History Family History Sister Hypothyroidism Social History Social History Household Members: Other Household Members Other:: roommate and friends Housing: House Do you presently have visiting nurse or other home services: No Alcohol intake: current Alcohol intake frequency: holidays/special occasions only Alcohol type: wine Comment: resting Patient Tobacco Use Status: Former Tobacco user Tobacco use type: Cigarette Cigarette Packs Per Day: 1 Cigarettes Per Day: 20.0 Years Smoked: 20 Smoked in Last 30 Days: Yes e-Cigarette/Vaping Use: Currently Using Second Hand Smoke Exposure: No Use of substances other than those prescribed or required for medical reasons: No Substance Use Type: Former Substance User Advance Directives: No Advance Directives Information Provided: No Patient : No service: No Current occupational status: disabled Current occupational exposures/hazards: No Sexual orientation: Straight/Heterosexual Cognitive needs: No Hearing needs: No Vision needs: No Physical Exam ED Exam Exam: Appearance: Alert. Oriented X3. No acute distress. Eyes: Pupils equal, round and reactive to light. ENT: Pharynx normal. Neck: Normal inspection. Neck supple. No lymph nodes noted. No crepitus CVS: Normal heart rate and rhythm. Pulses normal. Normal S1 and S2 Respiratory: No respiratory distress. Breath sounds normal. No Wheezing. No rales Abdomen: Soft and nontender. No rigidity. No distention. good BS x4 Skin: Skin warm and dry. Normal skin color. Normal skin turgor. Extremities: No lower extremity edema. Neurovascular intact to all extremities. No Lacerations. No Rash Neuro: Oriented X 3. No motor deficit. No sensory deficit. Moving all extermities. No slurred speech Vital Signs: Vital Signs - 24 hr 10/15/25 16:02 10/15/25 16:15 10/15/25 19:07 Temperature 98.2 F 98.2 F 98.2 F Pulse Rate 110 H 102 H 102 H Respiratory Rate 16 14 14 Blood Pressure 179/105 H 165/97 H 165/97 H Pulse Oximetry 95 96 96 Oxygen Delivery Method Room Air Room Air Room Air BMI result Body Mass Index 19.5 Medical Decision Making Medical Decision Making [facility] Narrative: Patient's white count came back at 35. Significantly elevated this is new. I am concerned about patient having a perforation having extreme abdominal pain also a risk for PE as patient tested positive for COVID. Cultures were obtained. Lactate ordered. 30 cc/kilos of fluid was ordered. Patient will be taken immediately to CT scan for a CTA of the chest and also CTA of the abdomen pelvis. Potassium was 2.7 will replete IV. patient's potassium was repleted. IV fluids were started. Had nonspecific chest pain. The CTA of the chest was done. There is no evidence for PE. CT scan of the abdomen pelvis was done. There is no obstruction no abscess no perforation there is esophagitis noted. Antibiotic was started. Patient to be admitted for further evaluation. PPI sta Differential Diagnosis Differential Diagnoses: The differential diagnosis associated with the presentation includes Perforation, pneumonia Admission/Observation Consideration of admission/observation: Escalation of care including admission/observation considered Consult Healthcare Provider Management of the patient was discussed with: Hospitalist Lab Data [facility] Lab Attestation statement: I reviewed the patient's lab results. 10/15/25 16:33 10/15/25 16:33 Labs: Lab Results 10/15/25 10/15/25 Range/Units 16:33 17:34 WBC 34.5 H* (4.8-10.8) X10*3/uL RBC 4.15 L D (4.20-5.50) X10*6/uL Hgb 13.2 (12.0-16.0) g/dl Hct 38.6 (37.0-47.0) % MCV 93.0 (80.0-98.0) fL MCH 31.8 (27.0-33.0) pg MCHC 34.2 (31.0-35.0) g/dl RDW 15.3 (11.0-16.0) % Plt Count 574 H D (160-400) X10*3/uL MPV 8.8 L (9.4-12.3) fL Immature Gran % (Auto) Cancelled Neut % (Auto) Cancelled Lymph % (Auto) Cancelled [place] % (Auto) Cancelled Eos % (Auto) Cancelled Baso % (Auto) Cancelled Lymph # (Auto) Cancelled [place] # (Auto) Cancelled Eos # (Auto) Cancelled Baso # (Auto) Cancelled Abs Immat Gran (auto) Cancelled Absolute Neuts (auto) Cancelled Absolute Nucleated RBC 0.000 (0.0-0.012) X10*3/uL Nucleated RBC % (auto) 0.0 (0.0-0.2) /100WBC Neutrophils % (Manual) 89 H (45-73) % Band Neutrophils % 2 L (3-5) % Lymphocytes % (Manual) 3 L (20-40) % Monocytes % (Manual) 6 (2-11) % Abs Neuts (Manual) 31.4 H (2.0-8.3) X10*3/uL Lymphocytes # (Manual) 1.0 L (1.2-4.9) X10*3/uL Monocytes # (Manual) 2.1 H (0.1-1.2) X10*3/uL Toxic Vacuolation PRESENT Dohle Bodies PRESENT Platelet Estimate INCREASED (NORMAL) Large Platelets PRESENT Plt Morphology Comment NOTED RBC Morphology NORMAL Smear Tech's Comments MANUAL DIFF Sodium 137 (135-145) mmol/L Potassium 2.7 L* D (3.3-5.1) mmol/L Chloride 103 (96-108) mmol/L Carbon Dioxide 20 L (22-29) mmol/L Anion Gap 17 (12-20) BUN 13 (9-16) mg/dL Creatinine 0.69 (0.5-1.4) mg/dL Estim Creat Clear Calc 68.4 Estimated GFR > 60 Random Glucose 130 H (60-115) mg/dL Lactic Acid 1.5 (0.5-2.0) mmol/L Calcium 11.0 H D (8.4-10.2) mg/dL Magnesium 1.3 L* (1.6-2.6) mg/dL Total Bilirubin 0.5 (0.0-1.0) mg/dL AST 26 (5-31) U/L ALT 9 (0-31) U/L Alkaline Phosphatase 150 H (39-117) U/L Total Protein 7.1 (6.5-8.0) g/dL Albumin 3.6 (3.5-5.0) g/dL Influenza Type A (PCR) NEGATIVE (Negative) Influenza Type B (PCR) NEGATIVE (Negative) RSV RNA Qual (PCR) NEGATIVE (Negative) SARS-CoV-2 RNA (RT-PCR) POSITIVE A (Negative) Independent Interpretation I performed an independent interpretation of an: CT Scan ( no obvious abdominal obstruction) Radiology Impression Discussion of test interpretation with radiology: I have reviewed the radiologist's reading. Chronic Conditions cardiomyopathy Social Determinants Patient?s care significantly limited by Social Determinants of Health including: Problems related to primary support group Medications Administered Generic Name Dose Route Start Last Admin Trade Name Freq PRN Reason Stop Dose Admin Potassium Chloride 10 meq in 100 mls @ 100 mls/hr 10/15/25 18:00 10/15/25 19:25 Potassium Chloride/H20 IV 10/15/25 21:59 100 mls/hr Q1H LINK Administration Discontinued Medications Generic Name Dose Route Start Last Admin Trade Name Freq PRN Reason Stop Dose Admin Piperacillin Sod/Tazobactam 100 mls @ 200 mls/hr 10/15/25 17:15 10/15/25 18:55 Sod 4.5 gm/ Sodium Chloride IV 10/15/25 17:44 Infused ONCE ONE Infusion Sodium Chloride 1,000 mls @ 999 mls/hr 10/15/25 17:30 10/15/25 18:55 Ns IV 10/15/25 18:30 Infused .Q1H1M LINK Infusion Sodium Chloride 1,000 mls @ 999 mls/hr 10/15/25 17:30 10/15/25 18:55 Ns IV 10/15/25 18:30 Infused .Q1H1M LINK Infusion Magnesium Sulfate 2 gm in 50 mls @ 150 mls/hr 10/15/25 17:48 10/15/25 18:56 Magnesium Sulfate/H2o IV 10/15/25 18:07 Infused ONCE ONE Infusion Iohexol 100 ml 10/15/25 19:34 10/15/25 19:34 Iohexol 350 Mg/Ml 100 Ml Infus..Btl IV 10/15/25 19:35 85 ml ONCE ONE Administration Ondansetron HCl 4 mg 10/15/25 19:32 10/15/25 19:39 Ondansetron Hcl 4 Mg/2 Ml Vial IVPUSH 10/15/25 19:33 4 mg ONCE ONE Administration Critical Care Time Critical Care Time Critical Care Time: Yes Total Critical Care Time: 40 Attestation: I have personally provided 40 minutes of critical care time exclusive of time spent on separately billable procedures. Time includes review of lab data, radiology results, discussion with consultants, and monitoring for potential decompensation. Interventions were performed as documented above Discharge Plan Discharge Clinical Impression: Abdominal pain Patient Disposition: Admitted As Inpatient Print Language: Occitan
--- NOTE | 2025-10-15 17:25 | ECG_ITS ---
Test Reason : WEAKNESS Blood Pressure : */* mmHG Vent. Rate : 103 BPM Atrial Rate : 103 BPM P-R Int : 148 ms QRS Dur : 80 ms QT Int : 334 ms P-R-T Axes : 46 36 68 degrees QTcB Int : 437 ms Sinus tachycardia Cannot rule out Anterior infarct , age undetermined Abnormal ECG When compared with ECG of 16-Nov-2024 08:23, Vent. rate has increased by 40 bpm Referred By: Melinda Tavares Electronically Signed By: AMPARO LOWERY MD
[2025-10-15 17:48] LABS: Magnesium 1.3 mg/dL (1.6-2.6)
[2025-10-15] MEDS: Potassium Chloride/H20 10 MEQ/100 ML PIGGYBACK 100 MEQ IV ×4 (17:51→21:57)
[2025-10-15] MEDS: Magnesium Sulfate/H2O 2 GM/50 ML PIGGYBACK IV (17:57)
--- NOTE | 2025-10-15 18:41 | PC.NURSE ---
IV 20G placed RAC, IV 20G Left forearm WBC 34.5 K 2.7 currently infusing 1 bag of potassium Mag 1.3 received 1 bag magnesium Patient covid +, precautions on place Patient currently getting CT scans, results pending
--- NOTE | 2025-10-15 19:32 | PC.NURSE ---
this RN assumed care of this pt @1900, pt A+Ox4, noted to be resting w/ eyes closed, responded to verbal stimuli, pt placed on residential monitor, medicated per JAN, pt stating she is nausea, provider Jitendra Tavares made aware pending new orders.
[2025-10-15] MEDS: iohexoL 350 MG/ML 100 ML INFUS..BTL IV (19:34)
--- NOTE | 2025-10-15 19:48 | PC.NURSE ---
pt medicated per MAR, pt provided call light for safety
[2025-10-15 21:42] LABS: Appearance Urine Clear; Glucose Urine UA Negative (Negative); PH 6.0 (5.0-9.0); Specific Gravity - Urine >= 1.030 (1.005-1.025)
[2025-10-15] MEDS: Dextrose 5 % and 0.45 % NaCl 1,000 ML 100 ML IVCONT (22:27)
[2025-10-16] VITALS (12 sets, daily range): BP systolic 125–174; BP diastolic 70–89; PULSE 69–112; RESP 12–18; TEMP 36.6–37.2; O2SAT 96–98; BMI 19.7
--- NOTE | 2025-10-16 01:24 | HO.NURTONUR ---
Addendum entered by Giancarlo Mcdermott RN 10/16/25 01:24: bilateral 20g IV acces to left and right AC, D5 in 1/2 NS running @100 mL/hr to the right nothing running in the left Original Note: Patient is a 60-year-old female, full code, clear liquid diet, allergies to aspirin, codeine, lurasidone, and NSAID's, presents today with having abdominal pain for the last 4 days. It is worse over the epigastric area. Patient has been taking Tums at home to no avail. Has a history of gastric ulcers. Denies any alcohol. No fever no chills. Was able to drink small amount of water today. The last bowel movement was about 3 days ago was constipation. She is passing gas. No abdominal surgery done in the past. No fever no chills feels generalized malaise. Patient is from home. Has a significant history of depression history of opiate use in the past. History of anxiety. History of arthritis. History of takotsubo cardiomyopathy. Labs: WBC: 34.5 given 4.5grams of Zosyn K: 2.7 recieved x4 bags of 10meq IV potassium Ma.3 recieved 2 grams IV mag Covid + Imaging: EKG: sinus tach Chest CTA: 1. No pulmonary emboli. 2. Mild emphysematous changes with scarring and atelectasis in the right upper lobe Abdominal/Pelvis CT: IMPRESSION: Circumferential esophageal wall thickening, may represent esophagitis. Pancolonic wall thickening, may represent infectious or inflammatory colitis. Cholelithiasis with distended gallbladder, correlate with physical exam for acute cholecystitis. Recieved dilaudid 0.5mg IV, zofran 4mg IV, and tums PO Being admitted for esophagitis/Covid+
--- NOTE | 2025-10-16 04:32 | PM.IMHP ---
History of Present Illness Date of Service: 10/15/25 Chief Complaint: Epigastric pain 60-year-old female with a past medical history of HTN, HLD, hypothyroidism, CAD, takotsubo cardiomyopathy, GERD presented to the hospital with a chief complaint of epigastric pain. Patient reported the past couple days she has been having epigastric pain; intermittent nature. Has been has decreased intake because of the epigastric pain. Has associated nausea. Reports having prior history of peptic ulcer disease. Denies any diarrhea. Denies any food poisoning. Denies any chest pain. Patient denies any dysphagia or odynophagia. Review of all other systems is negative except mentioned above ER course: Per ER team for the patient noted to have epigastric tenderness. CT and pelvis showed no acute findings except for esophagitis.. Noted hypokalemia; repleted [facility] Medical History GERD (gastroesophageal reflux disease) Chronic pain Lumbar back pain with radiculopathy affecting left lower extremity Lumbar back pain NSTEMI (non-ST elevated myocardial infarction) Takotsubo cardiomyopathy Obesity Vitamin D deficiency Hypothyroidism Family History Sister Hypothyroidism Surgical History Status post removal of cervix Hx of cardiac catheterization History of elbow surgery History of hysterectomy History of shoulder surgery Social History Household Members: Family Household Members Other:: roommate and friends Housing: House Do you presently have visiting nurse or other home services: No Alcohol intake: current Alcohol intake frequency: holidays/special occasions only Alcohol type: wine Comment: resting Patient Tobacco Use Status: Current someday Tobacco user Tobacco use type: Cigarette Cigarette Packs Per Day: 1 Cigarettes Per Day: 20.0 Years Smoked: 20 Smoked in Last 30 Days: Yes e-Cigarette/Vaping Use: Currently Using Patient Interested in Nicotine Replacement: No Patient Given Instructions on How to Stop Smoking: No Second Hand Smoke Exposure: No Use of substances other than those prescribed or required for medical reasons: No Substance Use Type: Former Substance User Have you been hit, kicked, punched, or otherwise hurt by someone within the past year? If so, by whom?: No Do you feel safe in your current relationship?: Yes Is there a partner from a previous relationship who is making you feel unsafe now?: No Are you made to feel afraid or neglected: No Advance Directives: No Advance Directives Information Provided: No Do you have a plan to hurt others: No Plan Recently lost weight without trying: No How much weight loss: Not applicable Eating poorly because of decreased appetite: No Nutrition screen score: 0 Nutrition Risks: Poor intake 0-25% >4 days Patient : No : No Poor oral hygiene: No service: No Current occupational status: disabled Current occupational exposures/hazards: No Sexual orientation: Straight/Heterosexual Cognitive needs: No Hearing needs: No Vision needs: No Meds Allergies Allergy/AdvReac Type Severity Reaction Status Date / Time aspirin Allergy Intermediate stomach Verified 10/15/25 16:08 upset codeine (CODEINE) Allergy Intermediate itching Verified 10/15/25 16:08 NSAIDS (Non-Steroidal Allergy Mild stomach Verified 10/15/25 16:08 Anti-Inflamma (NSAIDS upset (NON-STEROIDAL ANTI-INFLAMMA) Sulfa (Sulfonamide Allergy Mild Rash Verified 10/15/25 16:08 Antibiotics) (SULFA(SULFONAMIDE ANTIBIOTICS)) lurasidone AdvReac Mild Hallucinati Verified 10/15/25 16:08 ons Active Medications: Current Medications Acetaminophen (Acetaminophen 325 Mg Tablet) 650 mg PO Q6H PRN PRN Reason: Pain, Mild 1-3,fever,headache Calcium Carbonate (Calcium Carbonate 750 Mg Tab.Chew) 750 mg PO Q4H PRN PRN Reason: Heartburn Last Admin: 10/16/25 02:50 Dose: 750 mg Enoxaparin Sodium (Enoxaparin Sodium 40 Mg/0.4 Ml Syringe) 40 mg SUBCUT Q24H LINK Last Admin: 10/15/25 20:47 Dose: 40 mg Hydromorphone HCl (Hydromorphone Hcl 1 Mg/Ml Syringe) 0.5 mg IVPUSH Q4H PRN; Protocol PRN Reason: Breakthrough Pain Last Admin: 10/16/25 01:55 Dose: 0.5 mg Dextrose/Sodium Chloride (D51/2ns) 1,000 mls @ 100 mls/hr IVCONT .Q10H LINK Last Admin: 10/15/25 22:27 Dose: 100 mls/hr Magnesium Hydroxide (Milk Of Magnesia 30 Ml Oral.Susp) 30 ml PO DAILY PRN PRN Reason: Constipation Melatonin (Melatonin 3 Mg Tablet) 6 mg PO BEDTIME PRN PRN Reason: Insomnia Nitroglycerin (Nitroglycerin 0.4 Mg Tab.Subl) 0.4 mg SUBLINGUAL Q5MX3 PRN PRN Reason: Chest Pain Pantoprazole Sodium (Pantoprazole Sodium 40 Mg/10 Ml Vial) 40 mg IVPUSH DAILY@0630 [facility] Sodium Chloride (0.9 % Sodium Chloride Flush 3 Ml Syringe) 3 ml IVFLUSH QSHIFT [facility] Last Admin: 10/16/25 00:00 Dose: 3 ml Home Medications ?Medication ?Instructions ?Recorded ?Confirmed ?Last Taken ?Type nitroglycerin 0.4 mg sublingual 0.4 mg sublingual Q5M PRN Chest 11/15/24 08/07/25 Unknown History tablet Pain zolpidem 10 mg tablet 10 mg PO BEDTIME 08/07/25 08/07/25 Unknown History Physical Exam Vital Signs and Narrative: Vital Signs: Last Vital Signs Temp 98.1 F 10/16/25 03:01 Pulse 112 H 10/16/25 03:01 Resp 18 10/16/25 03:01 BP 174/82 H 10/16/25 03:01 Pulse Ox 97 10/16/25 03:01 O2 Del Method Room Air 10/16/25 03:01 BMI result Body Mass Index 19.7 Gen: Appears be in no acute distress HEENT: NCAT, Moist mucosa. Pulmonary: Vesicular breath sounds, fair air entry CVS: Normal S1-S2 Abdomen: BS+, Soft, tender in the epigastrium Extremities: Warm well perfused Neuro: Alert and awake. Results Labs 10/16/25 05:03 10/16/25 05:03 Labs: Laboratory Results - last 24 hr 10/15/25 10/15/25 10/15/25 16:33 17:34 21:37 MCV 93.0 MCH 31.8 MCHC 34.2 RDW 15.3 Plt Count 574 H D MPV 8.8 L Immature Gran % (Auto) Cancelled Neut % (Auto) Cancelled Lymph % (Auto) Cancelled [place] % (Auto) Cancelled Eos % (Auto) Cancelled Baso % (Auto) Cancelled Lymph # (Auto) Cancelled [place] # (Auto) Cancelled Eos # (Auto) Cancelled Baso # (Auto) Cancelled Abs Immat Gran (auto) Cancelled Absolute Neuts (auto) Cancelled Absolute Nucleated RBC 0.000 Nucleated RBC % (auto) 0.0 Neutrophils % (Manual) 89 H Band Neutrophils % 2 L Lymphocytes % (Manual) 3 L Monocytes % (Manual) 6 Abs Neuts (Manual) 31.4 H Lymphocytes # (Manual) 1.0 L Monocytes # (Manual) 2.1 H Toxic Vacuolation PRESENT Dohle Bodies PRESENT Platelet Estimate INCREASED Large Platelets PRESENT Plt Morphology Comment NOTED RBC Morphology NORMAL Smear Tech's Comments MANUAL DIFF Anion Gap 17 Estim Creat Clear Calc 68.4 Estimated GFR > 60 Random Glucose 130 H Lactic Acid 1.5 Calcium 11.0 H D Magnesium 1.3 L* Total Bilirubin 0.5 AST 26 ALT 9 Alkaline Phosphatase 150 H Total Protein 7.1 Albumin 3.6 Urine Color Yellow Urine Appearance Clear Urine pH 6.0 Ur Specific [place] >= 1.030 H Urine Protein Trace Urine Glucose (UA) Negative Urine Ketones Negative Urine Blood Negative Urine Nitrite Negative Ur Leukocyte Esterase Negative Influenza Type A (PCR) NEGATIVE Influenza Type B (PCR) NEGATIVE RSV RNA Qual (PCR) NEGATIVE SARS-CoV-2 RNA (RT-PCR) POSITIVE A Assessment and Plan (1) Abdominal pain: Status: Acute Plan 60-year-old female with a past medical history of HTN, HLD, hypothyroidism, CAD, takotsubo cardiomyopathy, GERD presented to the hospital with a chief complaint of epigastric pain. Epigastric pain: Patient has severe leukocytosis. Lipase within normal limits CT scan showed cholelithiasis-suspected acute cholecystitis; also noted esophagitis-> denies dysphagia or odynophagia. Has prior history of PUD. Will obtain HIDA scan to rule out acute cholecystitis Empirically ceftriaxone and Flagyl IV ppi NPO GI consult Hypertension: Patient on metoprolol tartrate b.i.d. Hypothyroidism: Continue levothyroxine Med reconciliation: Resume home medications once med rec completed by pharmacy in a.m. DVT prophylaxis: Lovenox Code status: Full code Quality Stroke Does the patient have a stroke diagnosis?: No VTE Prior VTE?: No VTE Risk Level:: Medical - moderate - high VTE Device Contraindication: Treatment Not Indicated VTE Drug Contraindication: N/A - Med Ordered
[2025-10-16 05:22] LABS: Hematocrit 35.2 % (37.0-47.0); Hemoglobin 11.7 g/dl (12.0-16.0); Imm Gran Abs Auto 0.41 X10*3/uL (0.00-0.03); Imm Gran Pct Auto 1.3 % (0.0-0.4); Lymphocytes Absolute Auto 2.1 X10*3/uL (1.2-4.9); MANUAL DIFF FLAG SCAN; Mean Corpuscular HGB Conc 33.2 g/dl (31.0-35.0); Mean Corpuscular Hemoglobin 31.6 pg (27.0-33.0); Mean Corpuscular Volume 95.1 fL (80.0-98.0); NRBC Abs Auto 0.000 X10*3/uL (0.0-0.012); NRBC Pct Auto 0.0 /100WBC (0.0-0.2); Platelet Count 523 X10*3/uL (160-400); Red Blood Count 3.70 X10*6/uL (4.20-5.50); SCAN SMEAR FLAG 1
[2025-10-16 05:38] LABS: Anion Gap 15 (12-20); Blood Urea Nitrogen 8 mg/dL (9-16); Calcium 8.8 mg/dL (8.4-10.2); Carbon Dioxide 18 mmol/L (22-29); Chloride 106 mmol/L (96-108); Creatinine Clr Calc Pharmacy 79.5; Estimated Glomerular Filt Rate > 60; Potassium 3.1 mmol/L (3.3-5.1); Sodium 136 mmol/L (135-145)
[2025-10-16] MEDS: metroNIDAZOLE/NS 500 MG/100 ML PIGGYBACK 100 MG IV ×3 (06:00→21:29)
[2025-10-16 06:14] LABS: White Blood Count 32.3 X10*3/uL (4.8-10.8)
[2025-10-16] MEDS: 0.9 % Sodium Chloride Flush 3 ML SYRINGE IVFLUSH ×3 (08:57→21:27)
[2025-10-16] MEDS: Dextrose 5 % and 0.45 % NaCl 1,000 ML 100 ML IVCONT ×3 (08:59→22:47)
--- NOTE | 2025-10-16 10:12 | PHA.MEDREC ---
Pharmacy Consult ? Medication Reconciliation Pharmacy has completed the medication reconciliation. Pt has not picked up and began Seroquel yet. No longer on Fioricet, Gabapentin, Leoxicam, and Metoprolol.
--- NOTE | 2025-10-16 11:36 | MHC.CM.PN ---
IMM 10/16/25, Pt. lives with others, she does not use home health services or DME, PCP confirmed: Ney Cole MD. HCP discussed, she declined to complete form here. Pt. is able to arrange transport home at [place], DCP: home, self care, CM to follow for DC needs.
--- NOTE | 2025-10-16 14:36 | HO.PM.IMPN ---
Subjective Subjective Date of Service: 10/16/25 Interval History: still with epigastric/abd pain Review of Systems Positive abdominal pain Physical Exam Vital Signs: Vital Signs: Last Vital Signs Temp 98.9 F 10/16/25 11:53 Pulse 69 10/16/25 11:53 Resp 18 10/16/25 11:53 BP 125/72 10/16/25 11:53 Pulse Ox 96 10/16/25 11:53 O2 Del Method Room Air 10/16/25 11:53 BMI result Body Mass Index 19.7 Objective Data Active Medications Acetaminophen (Acetaminophen 325 Mg Tablet) 650 mg PO Q6H PRN PRN Reason: Pain, Mild 1-3,fever,headache Calcium Carbonate (Calcium Carbonate 750 Mg Tab.Chew) 750 mg PO Q4H PRN PRN Reason: Heartburn Last Admin: 10/16/25 02:50 Dose: 750 mg Documented By: TI Clonazepam (Clonazepam 0.5 Mg Tablet) 0.5 mg PO BID PRN PRN Reason: Anxiety Enoxaparin Sodium (Enoxaparin Sodium 40 Mg/0.4 Ml Syringe) 40 mg SUBCUT Q24H [facility] Last Admin: 10/15/25 20:47 Dose: 40 mg Documented By: JUAN CARLOS Gabapentin (Gabapentin 300 Mg Capsule) 300 mg PO BEDTIME LINK Hydromorphone HCl (Hydromorphone Hcl 1 Mg/Ml Syringe) 0.5 mg IVPUSH Q4H PRN; Protocol PRN Reason: Breakthrough Pain Last Admin: 10/16/25 09:19 Dose: 0.5 mg Documented By: KETAN Dextrose/Sodium Chloride (D51/2ns) 1,000 mls @ 100 mls/hr IVCONT .Q10H [facility] Last Admin: 10/16/25 08:59 Dose: 100 mls/hr Documented By: KETAN Ceftriaxone Sodium 1 gm/ (Sodium Chloride) 50 mls @ 100 mls/hr IV 0600 [facility] Last Infusion: 10/16/25 08:58 Dose: Infused Documented By: KETAN Metronidazole (Flagyl) 500 mg in 100 mls @ 100 mls/hr IV 0600,1400,2200 [facility] Last Infusion: 10/16/25 08:58 Dose: Infused Documented By: KETAN Levothyroxine Sodium (Levothyroxine Sodium 100 Mcg Tablet) 100 mcg PO DAILY@0600 [facility] Magnesium Hydroxide (Milk Of Magnesia 30 Ml Oral.Susp) 30 ml PO DAILY PRN PRN Reason: Constipation Melatonin (Melatonin 3 Mg Tablet) 6 mg PO BEDTIME PRN PRN Reason: Insomnia Metoprolol Tartrate (Metoprolol Tartrate 25 Mg Tablet) 25 mg PO BID [facility]; Protocol Last Admin: 10/16/25 08:48 Dose: 25 mg Documented By: KETAN Nitroglycerin (Nitroglycerin 0.4 Mg Tab.Subl) 0.4 mg SUBLINGUAL Q5MX3 PRN PRN Reason: Chest Pain Pantoprazole Sodium (Pantoprazole Sodium 40 Mg/10 Ml Vial) 40 mg IVPUSH DAILY@0630 [facility] Last Admin: 10/16/25 05:35 Dose: 40 mg Documented By: TI Sodium Chloride (0.9 % Sodium Chloride Flush 3 Ml Syringe) 3 ml IVFLUSH QSHIFT [facility] Last Admin: 10/16/25 08:57 Dose: 3 ml Documented By: KETAN Labs 10/16/25 05:03 10/16/25 05:03 Labs: Laboratory Results - last 24 hr 10/15/25 10/15/25 10/15/25 16:33 17:34 21:37 MCV 93.0 MCH 31.8 MCHC 34.2 RDW 15.3 Plt Count 574 H D MPV 8.8 L Immature Gran % (Auto) Cancelled Neut % (Auto) Cancelled Lymph % (Auto) Cancelled [place] % (Auto) Cancelled Eos % (Auto) Cancelled Baso % (Auto) Cancelled Lymph # (Auto) Cancelled [place] # (Auto) Cancelled Eos # (Auto) Cancelled Baso # (Auto) Cancelled Abs Immat Gran (auto) Cancelled Absolute Neuts (auto) Cancelled Absolute Nucleated RBC 0.000 Nucleated RBC % (auto) 0.0 Neutrophils % (Manual) 89 H Band Neutrophils % 2 L Lymphocytes % (Manual) 3 L Monocytes % (Manual) 6 Abs Neuts (Manual) 31.4 H Lymphocytes # (Manual) 1.0 L Monocytes # (Manual) 2.1 H Toxic Vacuolation PRESENT Dohle Bodies PRESENT Platelet Estimate INCREASED Large Platelets PRESENT Plt Morphology Comment NOTED RBC Morphology NORMAL Smear Tech's Comments MANUAL DIFF Anion Gap 17 Estim Creat Clear Calc 68.4 Estimated GFR > 60 Random Glucose 130 H Lactic Acid 1.5 Calcium 11.0 H D Magnesium 1.3 L* Total Bilirubin 0.5 AST 26 ALT 9 Alkaline Phosphatase 150 H Total Protein 7.1 Albumin 3.6 Urine Color Yellow Urine Appearance Clear Urine pH 6.0 Ur Specific [place] >= 1.030 H Urine Protein Trace Urine Glucose (UA) Negative Urine Ketones Negative Urine Blood Negative Urine Nitrite Negative Ur Leukocyte Esterase Negative Influenza Type A (PCR) NEGATIVE Influenza Type B (PCR) NEGATIVE RSV RNA Qual (PCR) NEGATIVE SARS-CoV-2 RNA (RT-PCR) POSITIVE A 10/16/25 05:03 MCV 95.1 MCH 31.6 MCHC 33.2 RDW 15.3 Plt Count 523 H MPV 9.0 L Immature Gran % (Auto) 1.3 H Neut % (Auto) 87.4 H Lymph % (Auto) 6.6 L [place] % (Auto) 3.1 Eos % (Auto) 1.0 Baso % (Auto) 0.6 Lymph # (Auto) 2.1 [place] # (Auto) 1.0 Eos # (Auto) 0.3 Baso # (Auto) 0.2 Abs Immat Gran (auto) 0.41 H Absolute Neuts (auto) 28.3 H Absolute Nucleated RBC 0.000 Nucleated RBC % (auto) 0.0 Neutrophils % (Manual) Band Neutrophils % Lymphocytes % (Manual) Monocytes % (Manual) Abs Neuts (Manual) Lymphocytes # (Manual) Monocytes # (Manual) Toxic Vacuolation Dohle Bodies Platelet Estimate Large Platelets Plt Morphology Comment RBC Morphology Smear Tech's Comments VERIFIED Anion Gap 15 Estim Creat Clear Calc 79.5 Estimated GFR > 60 Random Glucose 102 Lactic Acid Calcium 8.8 D Magnesium Total Bilirubin AST ALT Alkaline Phosphatase Total Protein Albumin Urine Color Urine Appearance Urine pH Ur Specific [place] Urine Protein Urine Glucose (UA) Urine Ketones Urine Blood Urine Nitrite Ur Leukocyte Esterase Influenza Type A (PCR) Influenza Type B (PCR) RSV RNA Qual (PCR) SARS-CoV-2 RNA (RT-PCR) Assessment and Plan (1) Leukocytosis: Status: Acute (2) Colitis: Status: Acute Plan 60F with PMH of HTN, HLD, hypothyroidism, CAD, takotsubo cardiomyopathy, GERD, admitted for epigastric pain. Epigastric pain/abdomianl pain Marked leukocytosis; CT: cholelithiasis, possible cholecystitis, pancolonic and esophageal wall thickening. DDx: cholecystitis, infectious colitis, esophagitis. HIDA scan pending; surgery consult if positive. GI consult pending, will likely need EGD +/-colonoscopy Empiric ceftriaxone and Flagyl started. NPO, on IV fluids and IV PPI. Follow WBC 1/2 GPC, likely contamination but will Add vanco pending sensitivity HTN: continue metoprolol tartrate BID. Hypothyroidism: continue levothyroxine. DVT prophylaxis: enoxaparin. Code status: Full. Quality Stroke Does the patient have a stroke diagnosis?: No VTE Prior VTE?: No VTE Risk Level:: Medical - moderate - high VTE Device Contraindication: Treatment Not Indicated VTE Drug Contraindication: N/A - Med Ordered
[2025-10-16 18:41] LABS: Anion Gap 12 (12-20); Carbon Dioxide 20 mmol/L (22-29); Chloride 108 mmol/L (96-108); Potassium 3.1 mmol/L (3.3-5.1); Sodium 137 mmol/L (135-145)
--- NOTE | 2025-10-16 19:01 | PHA.PROG ---
Admission Date/Time: October 15, 2025 20:12 Indication: bacteremia Weight in k.5 kg Serum Creatinine - Last 168 Hours 10/15/25 10/16/25 16:33 05:03 Creatinine 0.69 0.60 Estimated CrCl and GFR - Last 168 Hours 10/15/25 12 16:33 05:03 Estim Creat Clear Calc 68.4 79.5 Estimated GFR > 60 > 60 Vancomycin Loading Dose: 1250 Current Vancomycin Dosing Regimen: 750 Q12H Vancomycin Monitoring using AUC goal of 400 - 600 range with trough as surrogate marker: 463 Date and Time for next Vancomycin Level to be drawn: 10/18 @1400 Pharmacist Comments on Vancomycin Plan: Vancomycin dosing will take advantage of [employer] as a clinical decision support tool that uses Bayesian modeling to calculate individual patient's pharmacokinetic parameters and forecast the patient's drug concentration time course with the target goal AUC 24 range of 400 - 600 mg/L/hr.
[2025-10-16] MEDS: Milk of Magnesia 30 ML ORAL.SUSP PO (22:46)
[2025-10-17] VITALS (10 sets, daily range): BP systolic 101–134; BP diastolic 58–88; PULSE 74–88; RESP 16–18; TEMP 36.3–36.9; O2SAT 93–96
--- NOTE | 2025-10-17 01:41 | CONS_ITS ---
DATE OF SERVICE: 10/16/2025 REFERRING PHYSICIAN: Dr. Aparicio REASON FOR CONSULTATION: Esophagitis. HISTORY OF PRESENT ILLNESS: The patient is a pleasant 60-year-old woman seen today in consultation because of esophagitis. She was admitted to the hospital on October 15 with complaints of epigastric pain and is currently seen in Nuclear Medicine, getting a HIDA scan. She had some nausea on admission, but denies that at this time. She has not had any dysphagia or hematemesis. She is currently being treated with pantoprazole. PAST MEDICAL HISTORY: 1. Hypertension. 2. Hyperlipidemia. 3. Hypothyroidism. 4. Coronary artery disease with history of Takotsubo cardiomyopathy. 5. Gastroesophageal reflux disease. CURRENT MEDICATIONS: Her current medication list is reviewed in the chart. ALLERGIES: MULTIPLE MEDICATION ALLERGIES ARE REVIEWED. FAMILY HISTORY: This is reviewed with the patient and is noncontributory. SOCIAL HISTORY: There is no current tobacco, alcohol, or substance abuse. REVIEW OF SYSTEMS: SKIN: No pruritus. HEENT: Negative. CARDIOPULMONARY: No shortness of breath or chest pain. GASTROINTESTINAL: As above. GENITOURINARY: Negative. NEUROPSYCHIATRIC: Negative. PHYSICAL EXAMINATION: GENERAL: Limited as the patient is on the Nuclear Medicine table. SKIN: Anicteric. HEENT: Shows no scleral icterus. NECK: Without lymphadenopathy or thyromegaly. LUNGS: Clear. HEART: Shows regular rate and rhythm. S1, S2. No murmur. ABDOMEN: Soft. There is some epigastric tenderness to palpation. Bowel sounds are present. No organomegaly is noted. EXTREMITIES: Show edema. LABORATORY DATA AND IMAGING STUDIES: Reviewed. IMPRESSION: Abdominal pain with history of esophagitis. Review of her imaging shows CT scanning which was interpreted as showing circumferential wall thickening of the esophagus and dowling colonic wall thickening. There are changes consistent with a distended gallbladder. At this time, I agree with treating her supportively as doing and obtaining HIDA results. I would continue proton pump inhibitor orally when she is able to take p.o. If she does not have improvement in her symptoms, outpatient endoscopy could be considered. Thanks for asking me to see her. I will follow her in the hospital with you. MD EMBER Murphy/ZAHIDA / [id number] [facility] HOSPITALChristianne
[2025-10-17] MEDS: metroNIDAZOLE/NS 500 MG/100 ML PIGGYBACK 100 MG IV ×3 (05:50→22:45)
[2025-10-17 08:04] LABS: Hematocrit 32.7 % (37.0-47.0); Hemoglobin 10.7 g/dl (12.0-16.0); Mean Corpuscular HGB Conc 32.7 g/dl (31.0-35.0); Mean Corpuscular Hemoglobin 32.0 pg (27.0-33.0); Mean Corpuscular Volume 97.9 fL (80.0-98.0); NRBC Abs Auto 0.000 X10*3/uL (0.0-0.012); NRBC Pct Auto 0.0 /100WBC (0.0-0.2); Platelet Count 484 X10*3/uL (160-400); Red Blood Count 3.34 X10*6/uL (4.20-5.50); White Blood Count 23.0 X10*3/uL (4.8-10.8)
[2025-10-17 08:31] LABS: Alanine Aminotransferase < 6 U/L (0-31); Albumin Level 2.9 g/dL (3.5-5.0); Alkaline Phosphatase 120 U/L (39-117); Aspartate Amino Transferase 15 U/L (5-31); Creatinine Clr Calc Pharmacy 80.8; Estimated Glomerular Filt Rate > 60; Total Protein 5.7 g/dL (6.5-8.0)
[2025-10-17] MEDS: Dextrose 5 % and 0.45 % NaCl 1,000 ML 100 ML IVCONT ×2 (08:45→14:39)
--- NOTE | 2025-10-17 17:05 | HO.PM.IMPN ---
Subjective Subjective Date of Service: 10/17/25 Interval History: Describes persistent abdominal pain Also endorsing hunger Review of Systems Review of Systems: Yes all other systems are reviewed and are negative Physical Exam Exam: Exam: General: A&O x3, oriented to time place person and situation, comfortable, no pain Cardiac: S1, S2 auscultated with no S3/4, no MRG. Well perfused. Respiratory: Normal breath sounds auscultated throughout all lung zones, without wheezing, rales. Normal rate. GI/ : Epigastric tenderness on palpation, no masses or distentions, no hepatosplenomegaly MSK: Normal ambulation without pain at bony prominences or musculature Neurological: Normal neurological examination on overview, without obvious CN II-XII abnormalities. Vital Signs: Vital Signs: Last Vital Signs Temp 97.6 F 10/17/25 16:00 Pulse 82 10/17/25 16:00 Resp 18 10/17/25 16:00 BP 134/78 10/17/25 16:00 Pulse Ox 96 10/17/25 16:00 O2 Del Method Room Air 10/17/25 16:00 BMI result Body Mass Index 19.7 Objective Data Active Medications Acetaminophen (Acetaminophen 325 Mg Tablet) 650 mg PO Q6H PRN PRN Reason: Pain, Mild 1-3,fever,headache Atorvastatin Calcium (Atorvastatin Calcium 80 Mg Tablet) 80 mg PO BEDTIME COUNT INCLUDES THE [facility] Last Admin: 10/16/25 21:26 Dose: 80 mg Documented By: RAMILA Calcium Carbonate (Calcium Carbonate 750 Mg Tab.Chew) 750 mg PO Q4H PRN PRN Reason: Heartburn Last Admin: 10/16/25 02:50 Dose: 750 mg Documented By: TI Clonazepam (Clonazepam 0.5 Mg Tablet) 0.5 mg PO BID PRN PRN Reason: Anxiety Last Admin: 10/17/25 02:12 Dose: 0.5 mg Documented By: RAMILA Clonazepam (Clonazepam 0.5 Mg Tablet) 0.5 mg PO BID COUNT INCLUDES THE [facility] Last Admin: 10/17/25 08:45 Dose: 0.5 mg Documented By: PHILLIP Enoxaparin Sodium (Enoxaparin Sodium 40 Mg/0.4 Ml Syringe) 40 mg SUBCUT Q24H COUNT INCLUDES THE [facility] Last Admin: 10/16/25 21:29 Dose: 40 mg Documented By: RAMILA Gabapentin (Gabapentin 300 Mg Capsule) 300 mg PO BEDTIME COUNT INCLUDES THE [facility] Last Admin: 10/16/25 21:27 Dose: 300 mg Documented By: RAMILA Hydromorphone HCl (Hydromorphone Hcl 1 Mg/Ml Syringe) 0.5 mg IVPUSH Q4H PRN; Protocol PRN Reason: Breakthrough Pain Last Admin: 10/16/25 16:59 Dose: 0.5 mg Documented By: KETAN Dextrose/Sodium Chloride (D51/2ns) 1,000 mls @ 100 mls/hr IVCONT .Q10H COUNT INCLUDES THE [facility] Last Admin: 10/17/25 14:39 Dose: 100 mls/hr Documented By: МАРИНА Ceftriaxone Sodium 1 gm/ (Sodium Chloride) 50 mls @ 100 mls/hr IV 0600 COUNT INCLUDES THE [facility] Last Infusion: 10/17/25 06:22 Dose: Infused Documented By: RAMILA Metronidazole (Flagyl) 500 mg in 100 mls @ 100 mls/hr IV 0600,1400,2200 COUNT INCLUDES THE [facility] Last Infusion: 10/17/25 15:47 Dose: Infused Documented By: МАРИНА Vancomycin HCl 750 mg/ Sodium (Chloride) 265 mls @ 265 mls/hr IV Q12H COUNT INCLUDES THE [facility] Last Infusion: 10/17/25 06:58 Dose: Infused Documented By: RAMILA Levothyroxine Sodium (Levothyroxine Sodium 100 Mcg Tablet) 100 mcg PO DAILY@0600 COUNT INCLUDES THE [facility] Last Admin: 10/17/25 05:49 Dose: 100 mcg Documented By: RAMILA Magnesium Hydroxide (Milk Of Magnesia 30 Ml Oral.Susp) 30 ml PO DAILY PRN PRN Reason: Constipation Last Admin: 10/16/25 22:46 Dose: 30 ml Documented By: RAMILA Melatonin (Melatonin 3 Mg Tablet) 6 mg PO BEDTIME PRN PRN Reason: Insomnia Metoprolol Tartrate (Metoprolol Tartrate 25 Mg Tablet) 25 mg PO BID COUNT INCLUDES THE [facility]; Protocol Last Admin: 10/17/25 08:45 Dose: 25 mg Documented By: PHILLIP Nitroglycerin (Nitroglycerin 0.4 Mg Tab.Subl) 0.4 mg SUBLINGUAL Q5MX3 PRN PRN Reason: Chest Pain Nitroglycerin (Nitroglycerin 0.4 Mg Tab.Subl) 0.4 mg SUBLINGUAL Q5M PRN PRN Reason: Chest Pain Pantoprazole Sodium (Pantoprazole Sodium 40 Mg/10 Ml Vial) 40 mg IVPUSH DAILY@0630 COUNT INCLUDES THE [facility] Last Admin: 10/17/25 05:49 Dose: 40 mg Documented By: RAMILA Pharmacy Consult (Consult Rx Vancomycin Dosing) 1 each MISCELLANE DAILY PRN PRN Reason: Consult order Risperidone (Risperidone 1 Mg Tablet) 1 mg PO BEDTIME COUNT INCLUDES THE [facility] Last Admin: 10/16/25 21:27 Dose: 1 mg Documented By: RAMILA Sodium Chloride (0.9 % Sodium Chloride Flush 3 Ml Syringe) 3 ml IVFLUSH QSHIFT COUNT INCLUDES THE [facility] Last Admin: 10/17/25 16:02 Dose: Not Given Documented By: МАРИНА Non-Admin Reason: IV Running Zolpidem Tartrate (Zolpidem Tartrate 5 Mg Tablet) 5 mg PO BEDTIME PRN PRN Reason: Insomnia Last Admin: 10/16/25 21:27 Dose: 5 mg Documented By: RAMILA Labs 10/17/25 07:33 10/17/25 07:33 Labs: Laboratory Results - last 24 hr 10/16/25 10/17/25 18:10 07:33 MCV 97.9 MCH 32.0 MCHC 32.7 RDW 15.3 Plt Count 484 H MPV 9.0 L Absolute Nucleated RBC 0.000 Nucleated RBC % (auto) 0.0 Anion Gap 12 Estim Creat Clear Calc 80.8 Estimated GFR > 60 Total Bilirubin 0.3 Direct Bilirubin 0.1 AST 15 ALT < 6 Alkaline Phosphatase 120 H Total Protein 5.7 L Albumin 2.9 L Microbiology Microbiology Results: Microbiology 10/15/25 17:34 Blood Culture - Final Blood - Venous Coag negative Staphylococcus 10/16/25 05:03 Blood Culture - Preliminary Blood - Venous No growth after 24 hours. 10/16/25 05:03 Blood Culture - Preliminary Blood - Venous No growth after 24 hours. 10/15/25 17:34 Blood Culture - Preliminary Blood - Venous No growth after 24 hours. Assessment and Plan (1) Hypertension: Status: Acute (2) Takotsubo cardiomyopathy: Status: Acute (3) Cardiomyopathy: Status: Acute (4) NSTEMI (non-ST elevated myocardial infarction): Status: Acute (5) GERD without esophagitis: Status: Acute (6) Colitis: Status: Acute Plan 60-year-old female, with a background of HTN, HLD, hypothyroidism, CAD, takotsubo cardiomyopathy, GERD, presents to hospital with epigastric pain, admitted with infectious colitis. Epigastric pain Infectious colitis Cholelithiasis The patient was found to have cholelithiasis with possible cholecystitis on CT abdomen and pelvis. Findings of pancolonic and esophageal wall thickening HIDA scan ordered; -ve for acute cholecystitis MRCP ordered; -ve for acute cholecystitis or choledocholithiasis GI consult requested-recommendations greatly appreciated PLAN - GI recommendations greatly appreciated - continue empiric ceftriaxone and metronidazole - IV ppi - IV fluids - clear liquid diet started HTN Continue metoprolol tartrate b.i.d. Hypothyroidism Continue levothyroxine OD p.o. QUALITY METRICS - VTE: Enoxaparin - CODE STATUS: Full code - DIET: Clear liquid diet Total time managing care of this patient today: 35 minutes. Quality Stroke Does the patient have a stroke diagnosis?: No VTE Prior VTE?: No VTE Risk Level:: Medical - moderate - high VTE Device Contraindication: Treatment Not Indicated VTE Drug Contraindication: N/A - Med Ordered
[2025-10-17] MEDS: 0.9 % Sodium Chloride Flush 3 ML SYRINGE IVFLUSH (22:47)
[2025-10-18] VITALS (9 sets, daily range): BP systolic 110–156; BP diastolic 58–89; PULSE 72–87; RESP 14–20; TEMP 36.5–37.1; O2SAT 91–96; BMI 19.7
[2025-10-18] MEDS: metroNIDAZOLE/NS 500 MG/100 ML PIGGYBACK 100 MG IV ×3 (06:30→21:18)
[2025-10-18 08:08] LABS: Creatinine Clr Calc Pharmacy 80.8; Estimated Glomerular Filt Rate > 60
[2025-10-18] MEDS: 0.9 % Sodium Chloride Flush 3 ML SYRINGE IVFLUSH ×3 (08:26→21:19)
[2025-10-18 09:21] LABS: MANUAL DIFF FLAG NO
[2025-10-18 09:26] LABS: Hematocrit 30.8 % (37.0-47.0); Hemoglobin 10.1 g/dl (12.0-16.0); Imm Gran Abs Auto 0.13 X10*3/uL (0.00-0.03); Imm Gran Pct Auto 1.3 % (0.0-0.4); Lymphocytes Absolute Auto 1.4 X10*3/uL (1.2-4.9); Mean Corpuscular HGB Conc 32.8 g/dl (31.0-35.0); Mean Corpuscular Hemoglobin 31.7 pg (27.0-33.0); Mean Corpuscular Volume 96.6 fL (80.0-98.0); NRBC Abs Auto 0.000 X10*3/uL (0.0-0.012); NRBC Pct Auto 0.0 /100WBC (0.0-0.2); Platelet Count 387 X10*3/uL (160-400); Red Blood Count 3.19 X10*6/uL (4.20-5.50); White Blood Count 10.1 X10*3/uL (4.8-10.8)
[2025-10-18 09:43] LABS: Alanine Aminotransferase < 6 U/L (0-31); Albumin Level 2.6 g/dL (3.5-5.0); Alkaline Phosphatase 89 U/L (39-117); Anion Gap 10 (12-20); Aspartate Amino Transferase 21 U/L (5-31); Blood Urea Nitrogen < 3 mg/dL (9-16); Calcium 7.2 mg/dL (8.4-10.2); Carbon Dioxide 21 mmol/L (22-29); Chloride 113 mmol/L (96-108); Creatinine Clr Calc Pharmacy 82.2; Estimated Glomerular Filt Rate > 60; Potassium 3.2 mmol/L (3.3-5.1); Sodium 141 mmol/L (135-145); Total Protein 5.0 g/dL (6.5-8.0)
--- NOTE | 2025-10-18 10:51 | HO.WOUND ---
Wound Consult: Initial 60 yr old female admitted to [facility] [place] on 10/15/25 - See progress notes and H&P for detailed history. Patient seen for P&I day, noted to have wound to right coccyx. Patient agreeable to assessment and photo documentation. Patient is alert and oriented. She reports recent history of feeling unwell and subsequently she has been laying in bed since mid-September and noted an open wound to her buttocks area as early as late September, prior to admission. She reports that she didn't seek treatment for the wound due to feeling embarrassed regarding the location. Upon assessment, patient noted with two small wounds to right coccyx area, they lay within the gluteal fold with buttocks at rest. There is a mirrored area to the left coccyx that is healed with mild hyperpigmentation. Due to location in gluteal fold, there is a moisture component noted. Patient reports she is continent and she is observed moving independently in the bed. She presented to the ED with epigastric pain, and is admitted with infectious colitis and cholelithiasis. Nutrition to be consulted for increased protein demands and evaluation of nutrition status. Buttocks at rest Right coccyx Etiology: unstageable pressure injury Present on Admission Measurements: 1.2cm x 1cm x 0.1cm Wound Bed: moist yellow Drainage / Odor: none Edges: ? open Cole wound: ? No Induration, Fluctuance or Warmth noted Pain: yes Goals of Treatment: ?triad to provide an occlusive dressing for autolytic debridment, to allow moist wound healing with absorption of mild exudate, to minimize contamination of urine/stool or bacteria, and to soothe and protect cole wound skin, cover with foam for offloading. Recommendations: 1. Turn and Reposition every 2 hours and as needed for patient comfort. Use pillows or wedges to support off loading positions. 2. Off Load all bony prominences with use of pillows and heel boots if needed. Apply Preventative foams where needed. 3. Monitor for incontinence and moisture control, use barrier creams when needed for prevention and treatment. 4. Provide adequate and supplemental nutrition. 5. Order or Continue low air loss mattress. 6. When applicable maintain blood glucose levels per Providers order. Coccyx: Off Load Pressure with Q2 hr turns and use of pillows - Cleanse with PH balance spray or wipes, pat dry. ?Apply thin layer of Triad to wound bed. Do not remove all of paste between applications as this may cause further skin damage.? Cover with foam dressing to aid in off loading and protection from friction. Change every other day and PRN. Re-consult wound care Nurse for wound deterioration or wound changes.
--- NOTE | 2025-10-18 13:50 | MHC.CM.PN ---
Per rounds, pt. not ready to DC yet, she will be monitored while diet is advanced.
--- NOTE | 2025-10-18 14:02 | MHC.CLN ---
Addendum entered by Yuridia Vieyra, GINA 10/18/25 14:03: SUPPLEMENT ENSURE TID PER PROVIDER. SUPPLEMENT PROVIDES 1050 KCALS, 60 G PROTEIN. Original Note: CONSULT DIET RX: FULL LIQUIDS. UNSTAGEABLE PRESSURE INJURY TO RIGHT COCCYX. ADDING ENSURE MAX BID TO PROMOTE WOUND HEALING. SUPPLEMENT PROVIDES 300 KCALS, 60 G PROTEIN. REVIEW OF WEIGHT HX SHOWS WEIGHT ESSENTIALLY STABLE X 6 MONTHS. SIGNIFICANT WEIGHT LOSS X ONE YEAR -17% WITH HX OF VARIABLE WEIGHTS NOTED. FOLLOW FOR DIET ADVANCEMENT, PO INTAKE AND WOUND HEALING. SEE CLINICAL NUTRITION ASSESSMENT.
--- NOTE | 2025-10-18 17:16 | HO.PM.IMPN ---
Subjective Subjective Date of Service: 10/18/25 Interval History: No new issues reported today Endorses increased hunger - good sign Eating better Review of Systems Review of Systems: Yes all other systems are reviewed and are negative Physical Exam Exam: Exam: General: A&O x3, oriented to time place person and situation, comfortable, no pain Cardiac: S1, S2 auscultated with no S3/4, no MRG. Well perfused. Respiratory: Normal breath sounds auscultated throughout all lung zones, without wheezing, rales. Normal rate. GI/ : Epigastric tenderness on palpation, no masses or distentions, no hepatosplenomegaly MSK: Normal ambulation without pain at bony prominences or musculature Neurological: Normal neurological examination on overview, without obvious CN II-XII abnormalities. Vital Signs: Vital Signs: Last Vital Signs Temp 98.2 F 10/18/25 12:00 Pulse 79 10/18/25 12:00 Resp 18 10/18/25 12:00 BP 128/61 10/18/25 12:00 Pulse Ox 93 10/18/25 12:00 O2 Del Method Room Air 10/18/25 12:00 BMI result Body Mass Index 19.7 Objective Data Active Medications Acetaminophen (Acetaminophen 325 Mg Tablet) 650 mg PO Q6H PRN PRN Reason: Pain, Mild 1-3,fever,headache Atorvastatin Calcium (Atorvastatin Calcium 80 Mg Tablet) 80 mg PO BEDTIME [facility] Last Admin: 10/17/25 22:46 Dose: 80 mg Documented By: RAMILA Calcium Carbonate (Calcium Carbonate 750 Mg Tab.Chew) 750 mg PO Q4H PRN PRN Reason: Heartburn Last Admin: 10/16/25 02:50 Dose: 750 mg Documented By: TI Clonazepam (Clonazepam 0.5 Mg Tablet) 0.5 mg PO BID PRN PRN Reason: Anxiety Last Admin: 10/17/25 02:12 Dose: 0.5 mg Documented By: RAMILA Clonazepam (Clonazepam 0.5 Mg Tablet) 0.5 mg PO BID [facility] Last Admin: 10/18/25 08:26 Dose: 0.5 mg Documented By: DAGOBERTO Enoxaparin Sodium (Enoxaparin Sodium 40 Mg/0.4 Ml Syringe) 40 mg SUBCUT Q24H [facility] Last Admin: 10/17/25 22:46 Dose: 40 mg Documented By: RAMILA Gabapentin (Gabapentin 300 Mg Capsule) 300 mg PO BEDTIME [facility] Last Admin: 10/17/25 22:46 Dose: 300 mg Documented By: RAMILA Hydromorphone HCl (Hydromorphone Hcl 1 Mg/Ml Syringe) 0.5 mg IVPUSH Q4H PRN; Protocol PRN Reason: Breakthrough Pain Last Admin: 10/18/25 05:46 Dose: 0.5 mg Documented By: RAMILA Ceftriaxone Sodium 1 gm/ (Sodium Chloride) 50 mls @ 100 mls/hr IV 0600 [facility] Last Infusion: 10/18/25 06:17 Dose: Infused Documented By: RAMILA Metronidazole (Flagyl) 500 mg in 100 mls @ 100 mls/hr IV 0600,1400,2200 [facility] Last Infusion: 10/18/25 15:29 Dose: Infused Documented By: DAGOBERTO Levothyroxine Sodium (Levothyroxine Sodium 100 Mcg Tablet) 100 mcg PO DAILY@0600 [facility] Last Admin: 10/18/25 05:46 Dose: 100 mcg Documented By: RAMILA Magnesium Hydroxide (Milk Of Magnesia 30 Ml Oral.Susp) 30 ml PO DAILY PRN PRN Reason: Constipation Last Admin: 10/16/25 22:46 Dose: 30 ml Documented By: RAMILA Melatonin (Melatonin 3 Mg Tablet) 6 mg PO BEDTIME PRN PRN Reason: Insomnia Metoprolol Tartrate (Metoprolol Tartrate 25 Mg Tablet) 25 mg PO BID [facility]; Protocol Last Admin: 10/18/25 08:26 Dose: 25 mg Documented By: DAGOBERTO Nitroglycerin (Nitroglycerin 0.4 Mg Tab.Subl) 0.4 mg SUBLINGUAL Q5MX3 PRN PRN Reason: Chest Pain Nitroglycerin (Nitroglycerin 0.4 Mg Tab.Subl) 0.4 mg SUBLINGUAL Q5M PRN PRN Reason: Chest Pain Risperidone (Risperidone 1 Mg Tablet) 1 mg PO BEDTIME [facility] Last Admin: 10/17/25 22:46 Dose: 1 mg Documented By: RAMILA Sodium Chloride (0.9 % Sodium Chloride Flush 3 Ml Syringe) 3 ml IVFLUSH QSHIFT [facility] Last Admin: 10/18/25 14:03 Dose: 3 ml Documented By: DAGOBERTO Zolpidem Tartrate (Zolpidem Tartrate 5 Mg Tablet) 5 mg PO BEDTIME PRN PRN Reason: Insomnia Last Admin: 10/17/25 22:46 Dose: 5 mg Documented By: RAMILA Labs 10/18/25 08:49 10/18/25 08:49 Labs: Laboratory Results - last 24 hr 10/18/25 10/18/25 06:59 08:49 MCV 96.6 MCH 31.7 MCHC 32.8 RDW 15.7 Plt Count 387 MPV 9.5 Immature Gran % (Auto) 1.3 H Neut % (Auto) 74.3 H Lymph % (Auto) 13.9 L [place] % (Auto) 5.6 Eos % (Auto) 4.2 H Baso % (Auto) 0.7 Lymph # (Auto) 1.4 [place] # (Auto) 0.6 Eos # (Auto) 0.4 Baso # (Auto) 0.1 Abs Immat Gran (auto) 0.13 H Absolute Neuts (auto) 7.5 Absolute Nucleated RBC 0.000 Nucleated RBC % (auto) 0.0 Hold Purple Top SEE NOTE Anion Gap 10 L Estim Creat Clear Calc 80.8 82.2 Estimated GFR > 60 > 60 Random Glucose 91 Calcium 7.2 L D Total Bilirubin 0.2 AST 21 ALT < 6 Alkaline Phosphatase 89 Total Protein 5.0 L Albumin 2.6 L Microbiology Microbiology Results: Microbiology 10/16/25 05:03 Blood Culture - Preliminary Blood - Venous No growth after 48 hours. 10/16/25 05:03 Blood Culture - Preliminary Blood - Venous No growth after 48 hours. 10/15/25 17:34 Blood Culture - Preliminary Blood - Venous No growth after 48 hours. Assessment and Plan (1) Hypertension: Status: Acute (2) Hx of opioid abuse: Status: Acute (3) Cardiomyopathy: Status: Acute (4) NSTEMI (non-ST elevated myocardial infarction): Status: Acute (5) Leukocytosis: Status: Acute (6) GERD without esophagitis: Status: Acute (7) Screening for colon cancer: Status: Acute (8) Colitis: Status: Acute Plan 60-year-old female, with a background of HTN, HLD, hypothyroidism, CAD, takotsubo cardiomyopathy, GERD, presents to hospital with epigastric pain, admitted with infectious colitis. Epigastric pain Infectious colitis Cholelithiasis The patient was found to have cholelithiasis with possible cholecystitis on CT abdomen and pelvis. Findings of pancolonic and esophageal wall thickening HIDA scan ordered; -ve for acute cholecystitis MRCP ordered; -ve for acute cholecystitis or choledocholithiasis GI consult requested-recommendations greatly appreciated PLAN - GI recommendations greatly appreciated - continue empiric ceftriaxone and metronidazole - IV ppi - IV fluids - clear liquid diet started HTN Continue metoprolol tartrate b.i.d. Hypothyroidism Continue levothyroxine OD p.o. QUALITY METRICS - VTE: Enoxaparin - CODE STATUS: Full code - DIET: Clear liquid diet --> Full liquid diet Total time managing care of this patient today: 35 minutes. Quality Stroke Does the patient have a stroke diagnosis?: No VTE Prior VTE?: No VTE Risk Level:: Medical - moderate - high VTE Device Contraindication: Treatment Not Indicated VTE Drug Contraindication: N/A - Med Ordered
[2025-10-19 03:11] VITALS: BP 109/64; PULSE 76; RESP 16; TEMP 36.8; O2SAT 96
[2025-10-19] MEDS: metroNIDAZOLE/NS 500 MG/100 ML PIGGYBACK 100 MG IV ×2 (06:12→14:51)
[2025-10-19 07:29] VITALS: BP 139/72; PULSE 91; RESP 20; TEMP 36.1
[2025-10-19 07:30] LABS: Magnesium 1.7 mg/dL (1.6-2.6)
[2025-10-19] MEDS: 0.9 % Sodium Chloride Flush 3 ML SYRINGE IVFLUSH (07:59)
[2025-10-19 11:27] VITALS: BP 123/67; PULSE 83; RESP 16; TEMP 37.3; O2SAT 94
[2025-10-19 15:28] VITALS: BP 118/62; PULSE 89; RESP 14; TEMP 36.3; O2SAT 96
--- NOTE | 2025-10-19 16:26 | PM.DS ---
DS: Providers Provider Date of admission: 10/15/25 20:12 Date of discharge: 10/19/25 Primary care physician: Ney Cole MD Consults: 10/15/25 20:12 Consult to Gastroenterology Routine Consulting Provider: Giorgio Carr Reason for consultation: esophagitis 10/18/25 08:53 Consult to Wound Care Routine Consulting Provider: [facility] [place] Wound Care Management Reason for consultation: wound to coccyx DS: Diagnosis Discharge Diagnosis (1) Hypertension: Status: Acute (2) Hx of opioid abuse: Status: Acute (3) Cardiomyopathy: Status: Acute (4) NSTEMI (non-ST elevated myocardial infarction): Status: Acute (5) Leukocytosis: Status: Acute (6) GERD without esophagitis: Status: Acute (7) Screening for colon cancer: Status: Acute (8) Colitis: Status: Acute DS: Summary Hospital Course Hospital Course: 60-year-old female, with a background of HTN, HLD, hypothyroidism, CAD, takotsubo cardiomyopathy, GERD, presents to hospital with epigastric pain, admitted with colitis and gastritis. PRESENTATION Date of Service: 10/15/25 Chief Complaint: Epigastric pain 60-year-old female with a past medical history of HTN, HLD, hypothyroidism, CAD, takotsubo cardiomyopathy, GERD presented to the hospital with a chief complaint of epigastric pain. Patient reported the past couple days she has been having epigastric pain; intermittent nature. Has been has decreased intake because of the epigastric pain. Has associated nausea. Reports having prior history of peptic ulcer disease. Denies any diarrhea. Denies any food poisoning. Denies any chest pain. Patient denies any dysphagia or odynophagia. Review of all other systems is negative except mentioned above ER course: Per ER team for the patient noted to have epigastric tenderness. CT and pelvis showed no acute findings except for esophagitis.. Noted hypokalemia; repleted PROBLEM LIST Epigastric pain Infectious colitis Cholelithiasis The patient was found to have cholelithiasis with possible cholecystitis on CT abdomen and pelvis. Findings of pancolonic and esophageal wall thickening HIDA scan ordered; -ve for acute cholecystitis MRCP ordered; -ve for acute cholecystitis or choledocholithiasis GI consult requested-recommendations greatly appreciated Impression: Esophagitis/gastritis, colitis (possibly infectious) The patient was started on empiric ceftriaxone and metronidazole. She was also started on IV PPI with pantoprazole 40 mg Transitioned from clear liquid diet to full diet. Able to tolerate intake p.o. >25% t.i.d reliably. No evidence of melena/ hematochezia or hematemesis. Recommendations to follow up with outpatient Gastroenterology for possible EGD. Status at Discharge Cognitive/behavioral status at discharge: Alert and oriented to person place time and situation Functional status at discharge: independent ambulation Overall status at discharge: patient is back to baseline Time Attestation Total time managing care of this patient today: 35 mintues. Discharge Coordination Time (in mins): 35 Quality: Safe Use of Opioids Does Pt have an Active Cancer Diagnosis on the Problem List?: No Quality: Stroke Does the patient have a stroke diagnosis?: No Physical Exam Exam: Exam: General: A&O x3, oriented to time place person and situation, comfortable, no pain Cardiac: S1, S2 auscultated with no S3/4, no MRG. Well perfused. Respiratory: Normal breath sounds auscultated throughout all lung zones, without wheezing, rales. Normal rate. GI/ : Epigastric tenderness on palpation, no masses or distentions, no hepatosplenomegaly MSK: Normal ambulation without pain at bony prominences or musculature Neurological: Normal neurological examination on overview, without obvious CN II-XII abnormalities. Vital Signs: Vital Signs: Last Vital Signs Temp 97.4 F 10/19/25 15:28 Pulse 89 10/19/25 15:28 Resp 14 10/19/25 15:28 BP 118/62 10/19/25 15:28 Pulse Ox 96 10/19/25 15:28 O2 Del Method Room Air 10/19/25 15:28 O2 Flow Rate 90 10/19/25 07:29 BMI result Body Mass Index 19.7 DS: Data Data Completed and Pending Labs on day of discharge: Laboratory Results - last 24 hr 10/19/25 07:02 Hold Purple Top SEE NOTE Magnesium 1.7 Preliminary micro results at discharge 10/16/25 05:03 Blood Culture - Preliminary Blood - Venous No growth after 48 hours. 10/16/25 05:03 Blood Culture - Preliminary Blood - Venous No growth after 48 hours. 10/15/25 17:34 Blood Culture - Preliminary Blood - Venous No growth after 48 hours. Discharge Plan Discharge Anticipated Discharge Date/Time: 10/19/25 16:32 Patient Disposition: Home, Self-Care Discharge Diagnosis: Acute abdominal pain 2/2 gastritis/colitis Referrals: Ney Cole MD [Primary Care Provider, Internal Medicine] - 1 Week Discharge Medications: New cephalexin 500 mg capsule 500 mg PO BID Qty: 7 0RF metronidazole 500 mg tablet 500 mg PO BID Qty: 7 0RF pantoprazole 40 mg tablet,delayed release (DR/EC) 40 mg PO Q12H 14 Days Qty: 28 0RF Continued atorvastatin 80 mg tablet 80 mg PO BEDTIME 90 Days Qty: 90 3RF clonazepam 0.5 mg tablet 0.5 mg PO BID 15 Days Qty: 30 0RF nitroglycerin 0.4 mg tablet, sublingual 0.4 mg sublingual Q5M PRN (Reason: Chest Pain) Rx Instructions: Take 1 tablet every 5 minutes as needed, for up to 15 minutes. Do not take more than 3 tablets in 15 minutes. acetaminophen 500 mg Tablet 1,000 mg PO Q6H PRN (Reason: Pain) zolpidem 6.25 mg tablet,ext release multiphase 6.25 mg PO BEDTIME PRN (Reason: Insomnia) levothyroxine 100 mcg tablet 100 mcg PO DAILY@0600 terbinafine HCl [Athlete's Foot (terbinafine)] 1 % cream 1 appl topical BID 30 Days Qty: 15 1RF risperidone 1 mg tablet 1 mg PO BEDTIME 30 Days Qty: 30 0RF Discharge Orders: Discharge Order (Routine); Ordered 10/19/25 Ordered By: Rosa Espinoza Stand Alone Forms: Patient Portal Discharge page Print Language: Korean Care Plan Goals: As above Health Concerns: As above Plan of Treatment: Follow up with PCP within 1 week of discharge Follow up with special education paraeducator outpatient Continue taking pantoprazole Maintain intake >25% of meals TID Assessment: Hemodynamically stable for discharge No concerning features
== END 2025-10-19 16:54 | disposition home or self-care (01) | DRG 444 ==
LOC: HO.ED 20:09 → HO.EDOVER 20:18 → HO.IMC 10-16 00:27
PROVIDERS: Internal Medicine; Admitting Provider Hospitalist; Emergency Provider Emergency Medicine Emergency Medical Services; PCP Family Medicine; Visit Provider Hospitalist
DX: K80.20 Calculus of gallbladder without cholecystitis without obstruction (principal); U07.1 COVID-19; A09 Infectious gastroenteritis and colitis, unspecified; F17.210 Nicotine dependence, cigarettes, uncomplicated; Z71.6 Tobacco abuse counseling; E03.9 Hypothyroidism, unspecified; I25.10 Atherosclerotic heart disease of native coronary artery without angina pectoris; Z79.890 Hormone replacement therapy; Z79.899 Other long term (current) drug therapy
CPT/HCPCS: 36415; 71275; 74177; 74181; 78227; 80048; 80051; 80053; 80076; 81003; 82565; 83605; 83735; 85007; 85025; 85027; 87040; 87147; 87205; 87637; 93005; 99285; A9537; J0696; J1171; J1650; J1836; J2405; J2470; J2543; J2805; J3374; J3475; J3480; Q9967

== ENCOUNTER → 2025-10-15 17:16 | Outpatient (BNV) | payer MEDICARE, SELFPAY | PROVIDERS: Emergency Provider Emergency Medicine Emergency Medical Services; PCP Family Medicine; Visit Provider Student in an Organized Health Care Education/Training Program | DX: K80.20 Calculus of gallbladder without cholecystitis without obstruction (principal); K82.8 Other specified diseases of gallbladder; K22.89 Other specified disease of esophagus; K63.89 Other specified diseases of intestine; J43.9 Emphysema, unspecified; J98.11 Atelectasis; J98.4 Other disorders of lung | CPT/HCPCS: 71275; 74177 ==

== ENCOUNTER → 2025-10-15 17:25 | Outpatient (BNV) | payer MEDICARE, SELFPAY | PROVIDERS: Admitting Provider Hospitalist; Emergency Provider Emergency Medicine Emergency Medical Services; PCP Family Medicine; Visit Provider Internal Medicine Cardiovascular Disease | DX: R00.0 Tachycardia, unspecified (principal) | CPT/HCPCS: 93010 ==

== ENCOUNTER 2025-10-15 20:12 | Outpatient (BNV) | payer MEDICARE, SELFPAY | END 2025-10-17 13:56 | PROVIDERS: Admitting Provider Hospitalist; Emergency Provider Emergency Medicine Emergency Medical Services; PCP Family Medicine; Visit Provider Radiology Diagnostic Radiology | DX: R60.0 Localized edema (principal) | CPT/HCPCS: 74181 ==

== ENCOUNTER 2025-10-15 20:12 | Outpatient (BNV) | payer MEDICARE, SELFPAY | END 2025-10-16 13:21 | PROVIDERS: Admitting Provider Hospitalist; Emergency Provider Emergency Medicine Emergency Medical Services; PCP Family Medicine; Visit Provider Radiology Diagnostic Radiology | DX: K80.20 Calculus of gallbladder without cholecystitis without obstruction (principal); K83.8 Other specified diseases of biliary tract | CPT/HCPCS: 78227 ==

== ENCOUNTER → 2025-10-15 20:12 | Outpatient (BNV) | payer MEDICARE, SELFPAY | PROVIDERS: Admitting Provider Hospitalist; Emergency Provider Emergency Medicine Emergency Medical Services; PCP Family Medicine; Visit Provider Hospitalist | DX: I10 Essential (primary) hypertension (principal); F11.11 Opioid abuse, in remission; I42.9 Cardiomyopathy, unspecified; I21.4 Non-ST elevation (NSTEMI) myocardial infarction; D72.829 Elevated white blood cell count, unspecified; K21.9 Gastro-esophageal reflux disease without esophagitis; Z12.11 Encounter for screening for malignant neoplasm of colon; K52.9 Noninfective gastroenteritis and colitis, unspecified | CPT/HCPCS: 99232 ==